=== PATIENT | male | born 1960 | race Caucasian/White ===

== ENCOUNTER → 2016-11-29 | Outpatient (CLI) | payer OTHER ==
--- NOTE | 2016-11-29 14:59 | CT ---
EXAMINATION TYPE: CT abdomen wo/w con DATE OF EXAM: 11/29/2016 2:45 PM COMPARISON: MRI 04/19/2016 HISTORY: Cirrhosis of Liver CT DLP: 2501 mGycm Automated exposure control for dose reduction was used. TECHNIQUE: Helical acquisition of images was performed from the lung bases through the top of iliac crest to include entire abdomen. CONTRAST: Performed with Oral Contrast and with IV Contrast, patient injected with 100 ml mL of Omnipaque 300. FINDINGS: LUNG BASES: No significant abnormality is appreciated. LIVER/GB: The liver is lobulated. Caudate lobe is markedly enlarged. Enhancement pattern somewhat sub optimal for detecting mass. However, this appears stable from the previous MRI. There does appear to be a gallstone with gallbladder wall thickening and pericholecystic fluid. Corre late for cholecystitis. Physician notified by telephone. PANCREAS: No significant abnormality is seen. SPLEEN: Spleen measures 15 cm compatible with mild splenomegaly. ADRENALS: No significant abnormality is seen. KIDNEYS: No significant abnormality is seen. BOWEL: No significant abnormality is seen. LYMPH NODES: Shotty adenopathy is seen. No pathologic adenopathy noted. OSSEOUS STRUCTURES: Endplate deformity of L1 incidentally noted appears chronic and there is previou s surgery at the lumbosacral junction.. OTHER: Portal vein appears patent. Hepatic veins do not demonstrate appropriate enhancement pattern f or evaluation. This is likely technical. Aorta of normal caliber. IMPRESSION: 1. CORRELATE FOR CHOLECYSTITIS CHOLELITHIASIS, GALLBLADDER WALL THICKENING AND PERICHOLECYSTIC FLUID .. 2. LIVER IS LOBULATED WITH CAUDATE LOBE ENLARGEMENT. CORRELATE FOR CIRRHOSIS. THIS APPEARS STABLE FRO M PREVIOUS MRI.
== END | disposition home or self-care (01) ==
LOC: RADXRMAIN 13:52
PROVIDERS: ATTEND Physician Assistant
DX: R16.0 Hepatomegaly, not elsewhere classified (principal)
CPT/HCPCS: 74170; Q9967

== ENCOUNTER 2017-03-03 19:01 | Inpatient (IN) | payer OTHER ==
[2017-03-03] MEDS ORDERED: SODIUM CHLORIDE 0.9% 500 ML IV STA (19:30)
[2017-03-03 19:48] LABS: Anisocytosis Slight; Basophils % (A) 0 %; CH 31.5; CHCM 33.1; Eosinophils % (A) 0 %; HCT 36.5 % (39.0-53.0); HDW 2.47; HGB 11.7 gm/dL (13.0-17.5); Luc # (Auto) 0.14; Luc % (Auto) 1; Lymphocytes # (A) 0.4 k/uL (1.0-4.8); Lymphocytes % (A) 3 %; MCH 30.6 pg (25.0-35.0); MCHC 32.1 g/dL (31.0-37.0); MCV 95.5 fL (80.0-100.0); Mean Platelet Volume 8.6; Monocytes # (A) 0.8 k/uL (0-1.0); Monocytes % (A) 6 %; Neutrophils % (A) 90 %; RBC 3.82 m/uL (4.30-5.90); RDW 17.3 % (11.5-15.5); WBC 13.3 k/uL (3.8-10.6); WBC (Perox) 13.43
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
[2017-03-03 20:05] LABS: INR 1.2 (<1.1); Prothrombin Time 11.7 sec (9.0-12.0)
[2017-03-03 20:06] LABS: ALT 36 U/L (21-72); AST 55 U/L (17-59); Alkaline Phosphatase 188 U/L (38-126); Amylase 59 U/L (30-110); Anion Gap 16 mmol/L; Blood Urea Nitrogen 30 mg/dL (9-20); Calcium 8.4 mg/dL (8.4-10.2); Carbon Dioxide 21 mmol/L (22-30); Chloride 99 mmol/L (98-107); Glucose 219 mg/dL (74-99); Non-African American GFR(MDRD) 56 (>60 ml/min/1.73 sqM); Potassium 4.4 mmol/L (3.5-5.1); Sodium 136 mmol/L (137-145); Total Bilirubin 1.4 mg/dL (0.2-1.3); Total Protein 7.9 g/dL (6.3-8.2)
[2017-03-03 20:09] LABS: Alcohol 250 mg/dL; Creatine Kinase 188 U/L (55-170)
[2017-03-03 20:21] LABS: Partial Thromboplastin Time 21.4 sec (22.0-30.0)
[2017-03-03 20:22] LABS: Troponin I <0.012 ng/mL (0.000-0.034)
[2017-03-03 20:25] LABS: Creatine Kinase MB 4.4 ng/mL (0.0-2.4)
--- NOTE | 2017-03-03 20:51 | XR ---
EXAMINATION TYPE: XR chest 2V DATE OF EXAM: 03/03/2017 8:00 PM COMPARISON: Prior chest x-ray 28 October 2016 HISTORY: Cirrhosis, abdominal pain, distention TECHNIQUE: Frontal and lateral views of the chest are obtained. FINDINGS: There is no focal air space opacity, pleural effusion, or pneumothorax seen. The cardiac silhouette size is within normal limits. The osseous structures are stable, superior displacement o f the distal clavicle on the right in relation to the acromion is chronic. IMPRESSION: No acute cardiopulmonary process.
--- NOTE | 2017-03-03 20:52 | XR ---
Abdomen HISTORY: Abdomen pain Frontal view of the abdomen on 2 images Lung bases are clear. Postop changes are noted at the lumbosacral junction and within the proximal le ft femur. Osteoarthritic change present in the left femur. There is no bowel obstruction or pneumoper itoneum. IMPRESSION: No abdominal finding to account for patient's symptoms.
--- NOTE | 2017-03-03 21:59 | CT ---
EXAMINATION TYPE: CT abdomen pelvis wo con DATE OF EXAM: 03/03/2017 9:38 PM COMPARISON: NONE HISTORY: Patient complains of weight gain and generalized abdomen pain. CT DLP: 1219.4 mGycm Automated exposure control for dose reduction was used. TECHNIQUE: Helical acquisition of images from the lung bases through the pelvis. FINDINGS: LUNG BASES: No significant abnormality is appreciated. AORTA: No significant abnormality is appreciated. LIVER/GB: The liver shows a nodular contour likely due to underlying cirrhosis. Gallbladder shows dep endent high density foci, some nondependent foci are also present suggestive of stones. There are brooke ices in the upper abdomen. PANCREAS: No significant abnormality is seen. SPLEEN: Enlarged at 15.7 cm. ADRENALS: No significant abnormality is seen. KIDNEYS: No significant abnormality is seen. REPRODUCTIVE ORGANS: No significant abnormality is seen. URINARY BLADDER: No significant abnormality is seen. BOWEL: There are some nonenlarged lymph nodes within the mesenteric fat. No bowel obstruction. FREE AIR: No Free Air is visible. ASCITES: None visible. PELVIC ADENOPATHY: None visualized. RETROPERITONEAL ADENOPATHY: No Retroperitoneal Adenopathy visible. OSSEOUS STRUCTURES: Postop changes are noted at the lower lumbar spine, lumbosacral junction, last listhesis grade 1 L4-5, L5-S1. Loss of disc height L4-5 with vacuum phenomenon. Listhesis contributes to cause foraminal encroachment L5-S1. Anterior aspect of L1 shows a sizable Schmorl's node, some de pression of the anterior aspect of the superior endplate. Postop change noted to the left hip, osteop hytic changes are present. Old traumatic change to the left hemipelvis noted. IMPRESSION: CIRRHOSIS WITH EVIDENCE OF PORTAL HYPERTENSION. SPLENOMEGALY. LACK OF CONTRAST MAY COMPROMISE SENSITI VITY. CHOLELITHIASIS. MESENTERIC NODES ARE NOT ENLARGED.
[2017-03-03] MEDS ORDERED: HYDROmorphone 1 MG/ML 1 ML SYRINGE IVP STA (22:13)
[2017-03-03] MEDS ORDERED: LORazepam 2 MG/ML SYRINGE IV PRN ×2 (22:13)
[2017-03-03] MEDS ORDERED: THIAMINE 100 MG/ML 2 ML VIAL IM STA (22:13)
[2017-03-03] MEDS ORDERED: NALOXONE 0.4 MG/ML 1 ML VIAL IV PRN (22:26)
[2017-03-03] MEDS ORDERED: KETOROLAC 30 MG/ML 1 ML VIAL IVP PRN (22:26)
[2017-03-03] MEDS ORDERED: ONDANSETRON 4 MG/2 ML VIAL IVP PRN (22:26)
[2017-03-03] MEDS: SODIUM CHLORIDE 0.9% 1,000 ML IV SCH (23:49)
[2017-03-04 00:27] LABS: Appearance,Urine Clear (Clear); Bilirubin,Urine Negative (Negative); Glucose,Urine (UA) Negative (Negative); Ketones,Urine Negative (Negative); Leukocyte Esterase,Urine Negative (Negative); Nitrite,Urine Negative (Negative); PH, Urine 5.5 (5.0-8.0); Protein,Urine Negative (Negative); Specific Gravity,Urine 1.012 (1.001-1.035); UA Billing (MACRO vs. MICRO) CHEM; Urobilinogen,Urine <2.0 mg/dL (<2.0)
[2017-03-04 00:34] VITALS: BMI 33.5
[2017-03-04] MEDS ORDERED: cefTRIAXone 2,000 MG in SODIUM CHLORIDE 0.9% 100 ML IVPB ONE (01:00)
[2017-03-04] MEDS: HYDROmorphone 1 MG/ML 1 ML SYRINGE IV PRN ×2 (02:32→06:58)
[2017-03-04] MEDS ORDERED: CALCIUM CARBONATE 500 MG CHEWABLE PO PRN (02:37)
[2017-03-04] MEDS: LORazepam 2 MG/ML SYRINGE IV PRN ×2 (07:26→20:41)
[2017-03-04] MEDS: SODIUM CHLORIDE 0.9% 1,000 ML IV SCH (07:37)
[2017-03-04] MEDS ORDERED: PANTOPRAZOLE 40 MG/10 ML VIAL IV SCH (09:00)
[2017-03-04 09:07] LABS: Anisocytosis Slight; Basophils % (A) 0 %; CH 31.2; CHCM 32.3; Eosinophils % (A) 0 %; HCT 35.3 % (39.0-53.0); HDW 2.49; HGB 11.5 gm/dL (13.0-17.5); Luc % (Auto) 2; Lymphocytes # (A) 0.3 k/uL (1.0-4.8); Lymphocytes % (A) 4 %; MCH 31.5 pg (25.0-35.0); MCHC 32.5 g/dL (31.0-37.0); MCV 96.9 fL (80.0-100.0); Macrocytosis Slight; Mean Platelet Volume 7.8; Monocytes # (A) 0.7 k/uL (0-1.0); Monocytes % (A) 8 %; Neutrophils # (A) 7.8 k/uL (1.3-7.7); Neutrophils % (A) 86 %; RBC 3.65 m/uL (4.30-5.90); RDW 17.1 % (11.5-15.5); WBC 9.1 k/uL (3.8-10.6); WBC (Perox) 9.38
[2017-03-04 09:16] LABS: Anion Gap 12 mmol/L; Blood Urea Nitrogen 25 mg/dL (9-20); Calcium 8.1 mg/dL (8.4-10.2); Carbon Dioxide 21 mmol/L (22-30); Chloride 105 mmol/L (98-107); Glucose 164 mg/dL (74-99); Non-African American GFR(MDRD) >60 (>60 ml/min/1.73 sqM); Potassium 4.2 mmol/L (3.5-5.1); Sodium 138 mmol/L (137-145)
[2017-03-04 10:29] LABS: Manual Review Performed
--- NOTE | 2017-03-04 11:27 | CONS ---
DATE OF CONSULTATION: 03/04/2017 REASON FOR CONSULTATION: Abdominal pain and abdominal distention. HISTORY OF PRESENT ILLNESS: The patient is a 57-year-old white male who came into the emergency room complaining of abdominal pain and abdominal distention for the last few weeks duration. He has history of cirrhosis of the liver secondary to alcoholism as well as chronic hepatitis C infection for which he follows up with NENO Haney in the office. The patient is quite sleepy during the interview and has been a poor historian. The reason he came into the hospital because of abdominal pain and abdominal distention for the last few weeks. He has been drinking heavily in the last one month, almost a pint of whiskey a day. He denies any nausea, vomiting. Denies any rectal bleeding or melena. Reports no abdominal pain, but does complain of severe abdominal distention. In the emergency room, he had a CT of the abdomen and pelvis done that showed no evidence of ascites. The patient was diagnosed with ascites in the past and has been maintained on Lasix and ( ) on an outpatient basis. His past medical history is significant for coronary artery disease, gastroesophageal reflux disease, hypertension, alcoholic cirrhosis of the liver, chronic hepatitis C infection. Medications at home include Inderal, Flonase, furosemide, spironolactone, Peridex, [place], K-Dur, Zantac. ALLERGIES: None. SOCIAL HISTORY: Heavy alcohol use and heavy smoking. FAMILY HISTORY: Father had some kind of cancer and heavy alcoholism. Mother has no major medical problems. REVIEW OF SYSTEMS: CARDIOPULMONARY: No chest pain or shortness of breath. GENITOURINARY: No dysuria or hematuria. MUSCULOSKELETAL: Unremarkable. SKIN: Unremarkable. ENDOCRINE: Unremarkable. PSYCHIATRIC: Unremarkable. NEUROLOGY: Unremarkable. ENT/VISION: Unremarkable. CONSTITUTIONAL: No recent weight loss. No fever, chills or night sweats. On physical examination, blood pressure 127/82, pulse rate ( ), temperature 98. HEENT EXAMINATION: Unremarkable. Conjunctivae pink. Sclerae anicteric. Oral cavity, no lesions. NECK: No JVD or lymph node enlargement. Chest was clear to auscultation. HEART: Regular rate and rhythm. ABDOMEN: Soft. It was nontender, nondistended. Liver was palpable 4 cm below the right costal margin. No organomegaly. No ascites noted. EXTREMITIES: No pedal edema. SKIN: No rashes. NEURO: He is alert and oriented x3. No focal deficits. LABS: WBC 9.1, hemoglobin 11.5, platelets are 101. BUN 30, creatinine 1.32, and alk phos 188. Ammonia 36. ALT and AST of 55 and ( ) respectively. T-bili 1.4. Serum ammonia level was 36. Amylase and lipase are normal. Serum alcohol level was 250. IMPRESSION: 1. Cirrhosis of the liver secondary to heavy alcohol use and chronic hepatitis C infection. 2. History of ascites related to portal hypertension. 3. Abdominal distention and abdominal pain, but recent CAT scan of the abdomen yesterday did not show any evidence of ascites. 4. Heavy alcohol abuse. 5. Mild hepatic encephalopathy. RECOMMENDATIONS: 1. Continue with symptomatic and supportive care. 2. Continue with the current dose of diuretics. 3. Watch for DTs closely. 4. Start on a clear liquid diet and advance as tolerated. 5. Will follow him closely during his hospital stay. Thank you for this consultation.
[2017-03-04] MEDS ORDERED: ALBUTEROL NEBULIZED 2.5 MG/3 ML INHALATION PRN (11:45)
[2017-03-04] MEDS: THIAMINE 100 MG TAB PO SCH ×2 (11:53→16:13)
[2017-03-04] MEDS ORDERED: FLUTICASONE 50MCG/SPRAY NASAL 16GM EA NOSTRIL PRN (12:07)
--- NOTE | 2017-03-04 12:40 | HP ---
DATE OF ADMISSION: A 57-year-old came in with abdominal pain and abdominal distention, although patient did not have any ascites. Patient has hep C infection and patient has cirrhosis with portal hypertension. Patient was admitted for alcohol withdrawal. Patient is actively having withdrawals. Patient drinks about more than 1/5 of whiskey every day. Patient will be watched for withdrawals. Patient was found to be in renal failure. He was given IV fluids with improvement in his creatinine and BUN as well as sodium. As of now, we are discontinuing the IV fluids, although I am not going to start him on Lasix or Aldactone which he is on at home. Patient does not have any fluid thrill or shifting dullness at this point of time. Patient denied any abdominal pain, abdominal tenderness because of which I do not believe patient has peritonitis and I do not believe patient will need antibiotics. Those will be discontinued. He denies any nausea, vomiting. Patient denied any hematemesis, hemoptysis or melena, hematochezia. ROS: All others systems were reviewed and were negative. PAST MEDICAL HISTORY: Significant for coronary artery disease, gastroesophageal reflux disease, hypertension, alcoholic cirrhosis and history of chronic hep C, probably hep C is contributing to his cirrhosis as well. Home medications include: 1. Inderal. 2. Flonase. 3. Lasix. 4. Aldactone. 5. Peridex. 6. [place]. 7. K-Dur. 8. Zantac. SOCIAL HISTORY: The patient does drink heavily, drinks whiskey every day. Does smoke 1 pack per day. Denied any recreational drug abuse. Drug screen is positive for marijuana in the past. FAMILY HISTORY: Cancer in family. History of alcoholism in the family as well. PHYSICAL EXAMINATION: VITAL SIGNS: Temperature 97.2, pulse of 77, respiratory rate 20, blood pressure is 121/74, saturating at 92% on room air. GENERAL: The patient is alert and oriented x3, not in any acute distress. Well developed, well nourished. HEENT: Pupils are round and equally reacting to light. EOMI. No scleral icterus. No conjunctival pallor. Normocephalic, atraumatic. No pharyngeal erythema. No thyromegaly. CARDIOVASCULAR: S1 and S2 present. No murmurs, rubs, or gallops. RESPIRATORY EXAMINATION: Patient has decreased and rhonchus breath sounds on the right side of the chest. ABDOMEN: The patient's abdomen is distended, but it is because of the fat. The patient's abdomen is not tympanic. No fluid thrill or shifting dullness. MUSCULOSKELETAL: No joint swelling or deformity. EXTREMITIES: No cyanosis, clubbing, or pedal edema. NEUROLOGICAL: Gross neurological examination did not reveal any focal deficits. SKIN: No rashes. LABORATORY DATA: Significant ones were already discussed above. Patient had leukocytosis when he came in, which improved and patient has thrombocytopenia secondary to splenic sequestration of the platelets and cirrhosis. Hemoglobin is 11.5, MCV 96.9. UA is essentially within normal limits. The serum alcohol 250 when he came in. ASSESSMENT AND PLAN: 1. Alcohol abuse. 2. Alcohol withdrawal. Patient will watched for alcohol withdrawal. The patient will be on ( ) CIWA protocol, thiamine and multivitamin supplementation. Will discontinue all the IV fluids at this point of time because of concerns of cirrhosis and related portal hypertension and ascites. 3. Cirrhosis. Patient does not have any significant ascites and does have portal hypertension. Does not have appear to have any spontaneous bacterial peritonitis. Antibiotics will be discontinued. 4. Obesity. 5. Acute renal failure due to intravascular volume depletion mostly is related to his Aldactone and spironolactone, which will be held until his discharge. Will watch for the withdrawals. 6. Leukocytosis appeared to be reactive response. I did not see signs or symptoms of infection at this point of time. 7. Chronic obstructive pulmonary disease with very minimal exacerbation. I do not believe patient will need systemic steroids. Patient will be started on inhalational steroids and albuterol ipratropium. MTDD
[2017-03-04 17:08] LABS: Glucose,Whole Blood 108 mg/dL (75-99)
[2017-03-04] MEDS ORDERED: SYMBICORT 80-4.5 MCG INHALER INHALATION SCH (20:00)
[2017-03-04] MEDS ORDERED: NICOTINE 21MG/24HR PATCH TRANSDERM SCH (20:30)
[2017-03-04] MEDS ORDERED: PROPRANOLOL 10 MG TAB PO SCH (21:00)
[2017-03-04] MEDS ORDERED: CHLORHEXIDINE GLUCONATE 15 ML CUP MUCOUS MEM SCH (21:00)
[2017-03-05] MEDS: LORazepam 2 MG/ML SYRINGE IV PRN (00:39)
[2017-03-05 05:08] VITALS: BP 110/66; PULSE 71; RESP 16; TEMP 97.3
--- NOTE | 2017-03-21 10:26 | DS ---
DATE OF ADMISSION: 03/03/2017 DATE OF DISCHARGE: 03/05/2017 DATE OF SERVICE: 03/05/2017 Patient left AGAINST MEDICAL ADVICE.
== END 2017-03-05 05:13 | disposition left against medical advice (07) | DRG 894 ==
LOC: EC 19:01 → SUPCPDRO 19:01 → 4MS4W 22:26
PROVIDERS: ADMIT Hospitalist; ATTEND Hospitalist
DX: F10.239 Alcohol dependence with withdrawal, unspecified (principal); N17.9 Acute kidney failure, unspecified; E87.2 Acidosis; K76.6 Portal hypertension; J44.1 Chronic obstructive pulmonary disease with (acute) exacerbation; R16.1 Splenomegaly, not elsewhere classified; K70.30 Alcoholic cirrhosis of liver without ascites; B18.2 Chronic viral hepatitis C; E66.9 Obesity, unspecified; E86.9 Volume depletion, unspecified; F17.210 Nicotine dependence, cigarettes, uncomplicated; I10 Essential (primary) hypertension; I25.10 Atherosclerotic heart disease of native coronary artery without angina pectoris; K21.9 Gastro-esophageal reflux disease without esophagitis; K72.90 Hepatic failure, unspecified without coma; K80.20 Calculus of gallbladder without cholecystitis without obstruction; F32.9 Major depressive disorder, single episode, unspecified; F10.229 Alcohol dependence with intoxication, unspecified; T50.0X5A Adverse effect of mineralocorticoids and their antagonists, initial encounter; E83.119 Hemochromatosis, unspecified; Z79.899 Other long term (current) drug therapy; Z68.33 Body mass index [BMI] 33.0-33.9, adult; Y92.009 Unspecified place in unspecified non-institutional (private) residence as the place of occurrence of the external cause; Y90.8 Blood alcohol level of 240 mg/100 ml or more
CPT/HCPCS: 36415; 71020; 74000; 74176; 80048; 80053; 80320; 81003; 82140; 82150; 82550; 82553; 83605; 83690; 83880; 84484; 85025; 85610; 85730; 87040; 93005; 94640; 96361; 96372; 96374; 96375; 99285

== ENCOUNTER 2017-03-11 12:20 | Emergency (ER) | payer OTHER ==
[2017-03-11 12:39] VITALS: RESP 18; TEMP 98.4
[2017-03-11] MEDS ORDERED: MORPHINE SULFATE 4 MG/ML SYRINGE IV STA (13:33)
[2017-03-11] MEDS ORDERED: PANTOPRAZOLE 40 MG/10 ML VIAL IVP STA (13:33)
[2017-03-11] MEDS ORDERED: ONDANSETRON 4 MG/2 ML VIAL IVP STA (13:33)
[2017-03-11] MEDS ORDERED: SODIUM CHLORIDE 0.9% 1,000 ML IV STA (13:33)
[2017-03-11] MEDS ORDERED: LORazepam 2 MG/ML SYRINGE IV STA (13:39)
--- NOTE | 2017-03-11 13:39 | ED ---
General Adult HPI - General Chief complaint: Abdominal Pain Stated complaint: JUVENCIO, Abd Pain Time Seen by Provider: 03/11/17 12:45 Source: patient, RN notes reviewed, old records reviewed Mode of arrival: ambulatory Limitations: no limitations - History of Present Illness Initial comments: This is a 57-year-old male here for evaluation today. The patient comes in for evaluation regarding the bowel pain. Patient has known history of cirrhosis from alcohol. Patient was recently admitted to the hospital for multiple issues. I noted AMA secondary to agitation and anger, patient states the symptoms and thought the resolved, is feeling improved. I will otherwise complaining of increased nausea vomiting - Related Data Home Medications Medication Instructions Recorded Confirmed Propranolol [Inderal] 10 mg PO BID 03/06/16 03/11/17 Fluticasone Nasal [place] [Flonase 1 spray EA NOSTRIL DAILY PRN 03/07/16 03/11/17 Nasal [place]] Furosemide [Furosemide] 40 mg PO BID 03/07/16 03/11/17 Spironolactone 50 mg PO BID 04/01/16 03/11/17 Chlorhexidine Gluconate [Peridex] 15 ml PO BID 03/03/17 03/11/17 HYDROcodone/APAP 10-325MG [[place] 1 tab PO TID 03/03/17 03/11/17 10-325] Potassium Chloride ER [K-Dur 10] 10 meq PO DAILY 03/03/17 03/11/17 Pantoprazole Sodium [Protonix] 40 mg PO DAILY 03/11/17 03/11/17 Allergies Allergy/AdvReac Type Severity Reaction Status Date / Time No Known Allergies Allergy Verified 03/11/17 12:53 Review of Systems ROS Statement: Those systems with pertinent positive or pertinent negative responses have been documented in the HPI. ROS Other: All systems not noted in ROS Statement are negative. Past Medical History Past Medical History: Coronary Artery Disease (CAD), GERD/Reflux, Hypertension Additional Past Medical History / Comment(s): Alcoholic Cirrhosis of the liver, hep c, ascites, hemachromatosis, left pelvic fracture and femer fracture, herpes History of Any Multi-Drug Resistant Organisms: None Reported Past Surgical History: Back Surgery Additional Past Surgical History / Comment(s): ankle ,7 screws left elbow, 4 screws in spine, hepatitis C, Baldo placed (L) Femer Past Anesthesia/Blood Transfusion Reactions: No Reported Reaction Past Psychological History: Depression Smoking Status: Current every day smoker Past Alcohol Use History: Daily, Heavy Additional Past Alcohol Use History / Comment(s): Patient is a smoker one pack per day since he was 20 years of age. He does have history of heavy alcohol abuse but has been sober from February 2015 until 05/25/2015. He denies any street drug use. Drug screen was positive for marijuana. Patient is single and lives with his 15-year-old son who is healthy. Patient is currently on disability. Past Drug Use History: Marijuana - Past Family History Father Family Medical History: Cancer Additional Family Medical History / Comment(s): Father at age 55 with history of alcoholism Mother Family Medical History: No Reported History Additional Family Medical History / Comment(s): Mother is alive at age 70 with no major medical problems. Patient has 1 sister with no major medical problems. General Exam Limitations: no limitations General appearance: alert, in no apparent distress Head exam: Present: atraumatic, normocephalic, normal inspection Eye exam: Present: normal appearance, PERRL, EOMI. Absent: scleral icterus, conjunctival injection, periorbital swelling ENT exam: Present: normal exam, mucous membranes moist Neck exam: Present: normal inspection. Absent: tenderness, meningismus, lymphadenopathy Respiratory exam: Present: normal lung sounds bilaterally. Absent: respiratory distress, wheezes, rales, rhonchi, stridor Cardiovascular Exam: Present: normal rhythm, tachycardia, normal heart sounds. Absent: systolic murmur, diastolic murmur, rubs, gallop, clicks GI/Abdominal exam: Present: soft, normal bowel sounds. Absent: distended, tenderness, guarding, rebound, rigid Extremities exam: Present: normal inspection, full ROM, normal capillary refill. Absent: tenderness, pedal edema, joint swelling, calf tenderness Back exam: Present: normal inspection Neurological exam: Present: alert, oriented X3, CN II-XII intact Psychiatric exam: Present: normal affect, normal mood Skin exam: Present: warm, dry, intact, normal color. Absent: rash Course Vital Signs 03/11/17 03/11/17 12:33 14:15 Temperature 98.4 F Pulse Rate 101 H 100 Respiratory 18 18 Rate Blood Pressure 134/75 140/80 O2 Sat by Pulse 96 94 L Oximetry - Reevaluation(s) Reevaluation #1: 05/13/17 13:39 Patient recent hospital evaluation is reviewed Medical Decision Making - Medical Decision Making 57 male here for evaluation of intractable nausea and vomiting and bowel pain. Patient was recently admitted for continued GI evaluation and reevaluation regarding chronic ascites secondary to liver and hepatic cirrhosis. Patient wasn't happy with Madie was receiving and signed out AMA, patient is normal at work at this time, no extensive ascites regarding shortness of breath or even tense ascites, no abdominal pain on palpation. Patient informed to follow-up with GI and no medical admission for been no medical reason for admission at this time - Lab Data Result diagrams: 03/11/17 13:40 03/11/17 13:40 Lab Results 03/11/17 03/11/17 03/11/17 Range/Units 13:40 13:40 13:40 WBC 5.1 (3.8-10.6) k/uL RBC 3.75 L (4.30-5.90) m/uL Hgb 11.6 L (13.0-17.5) gm/dL Hct 35.1 L (39.0-53.0) % MCV 93.6 (80.0-100.0) fL MCH 30.9 (25.0-35.0) pg MCHC 33.0 (31.0-37.0) g/dL RDW 16.7 H (11.5-15.5) % Plt Count 56 L (150-450) k/uL Neutrophils % (Manual) 73.0 % Lymphocytes % (Manual) 12.0 % Monocytes % (Manual) 13.0 % Eosinophils % (Manual) 1.0 % Basophils % (Manual) 1.0 % Neutrophils # (Manual) 3.7 (1.3-7.7) k/uL Lymphocytes # (Manual) 0.6 L (1.0-4.8) k/uL Monocytes # (Manual) 0.7 (0-1.0) k/uL Eosinophils # (Manual) 0.1 (0-0.7) k/uL Basophils # (Manual) 0.1 (0-0.2) k/uL Nucleated RBCs 0 (0-0) /100 WBC Manual Slide Review Performed Anisocytosis Slight Sodium 142 (137-145) mmol/L Potassium 3.6 (3.5-5.1) mmol/L Chloride 107 (98-107) mmol/L Carbon Dioxide 23 (22-30) mmol/L Anion Gap 12 mmol/L BUN 12 (9-20) mg/dL Creatinine 0.99 (0.66-1.25) mg/dL Est GFR (MDRD) Af Amer >60 (>60 ml/min/1.73 sqM) Est GFR (MDRD) Non-Af >60 (>60 ml/min/1.73 sqM) Glucose 99 (74-99) mg/dL Plasma Lactic Acid [place] 1.5 (0.7-2.0) mmol/L Calcium 8.7 (8.4-10.2) mg/dL Magnesium 1.6 (1.6-2.3) mg/dL Total Bilirubin 1.2 (0.2-1.3) mg/dL AST 62 H (17-59) U/L ALT 44 (21-72) U/L Alkaline Phosphatase 152 H (38-126) U/L Ammonia 25 (<30) umol/L Total Protein 7.1 (6.3-8.2) g/dL Albumin 3.6 (3.5-5.0) g/dL Amylase 85 (30-110) U/L Lipase 396 H (23-300) U/L Serum Alcohol 204 mg/dL Disposition Clinical Impression: Alcohol intoxication, Ascites Disposition: HOME SELF-CARE Condition: Good Instructions: Abuse of Alcohol (ED), Cirrhosis (ED) Referrals: Omar Tse MD [Primary Care Provider] - 1-2 days
[2017-03-11 13:53] LABS: Anisocytosis Slight; Aty Lym Flag Slight; CH 31.4; CHCM 33.6; HCT 35.1 % (39.0-53.0); HDW 3.08; HGB 11.6 gm/dL (13.0-17.5); MCH 30.9 pg (25.0-35.0); MCV 93.6 fL (80.0-100.0); Mean Platelet Volume 8.9; RBC 3.75 m/uL (4.30-5.90); RDW 16.7 % (11.5-15.5); WBC 5.1 k/uL (3.8-10.6); WBC (Perox) 4.85
[2017-03-11 14:12] LABS: ALT 44 U/L (21-72); AST 62 U/L (17-59); Alkaline Phosphatase 152 U/L (38-126); Amylase 85 U/L (30-110); Anion Gap 12 mmol/L; Blood Urea Nitrogen 12 mg/dL (9-20); Calcium 8.7 mg/dL (8.4-10.2); Carbon Dioxide 23 mmol/L (22-30); Chloride 107 mmol/L (98-107); Glucose 99 mg/dL (74-99); Magnesium 1.6 mg/dL (1.6-2.3); Non-African American GFR(MDRD) >60 (>60 ml/min/1.73 sqM); Potassium 3.6 mmol/L (3.5-5.1); Sodium 142 mmol/L (137-145); Total Bilirubin 1.2 mg/dL (0.2-1.3); Total Protein 7.1 g/dL (6.3-8.2)
[2017-03-11 14:22] VITALS: BP 140/80; PULSE 100
[2017-03-11 14:23] LABS: Add Differential Manual Differential; Alcohol 204 mg/dL
[2017-03-11 14:26] LABS: Nucleated Red Blood Cells 0 /100 WBC (0-0); Total Cells Counted 100
[2017-03-11 14:27] LABS: Manual Review Performed
[2017-03-11] MEDS ORDERED: LORazepam 2 MG/ML SYRINGE IV PRN ×3 (14:36)
[2017-03-11] MEDS ORDERED: THIAMINE 100 MG/ML 2 ML VIAL IM STA (14:36)
[2017-03-11] MEDS ORDERED: THIAMINE 100 MG TAB PO SCH (17:00)
== END 2017-03-11 14:50 | disposition home or self-care (01) ==
LOC: EC 12:20
DX: F10.129 Alcohol abuse with intoxication, unspecified (principal); R00.0 Tachycardia, unspecified; R11.2 Nausea with vomiting, unspecified; K70.31 Alcoholic cirrhosis of liver with ascites; I10 Essential (primary) hypertension; K21.9 Gastro-esophageal reflux disease without esophagitis; F17.200 Nicotine dependence, unspecified, uncomplicated; Z79.891 Long term (current) use of opiate analgesic; Z79.899 Other long term (current) drug therapy
CPT/HCPCS: 99284 ×2; 96374 ×2; 96375 ×4; 96361 ×2; 36415; 80053; 82140; 82150; 83605; 83690; 83735; 85025; 80320; J2060; J2270; J2405; C9113

== ENCOUNTER 2017-03-13 13:13 | Observation (INO) | payer OTHER ==
[2017-03-13] MEDS ORDERED: IPRATROPIUM-ALBUTEROL 3 ML NEB INHALATION STA (14:33)
--- NOTE | 2017-03-13 14:38 | ED ---
General Adult HPI - General Chief complaint: Abdominal Pain Stated complaint: diff breathing Time Seen by Provider: 03/13/17 14:26 Source: patient, RN notes reviewed, old records reviewed Mode of arrival: ambulatory - History of Present Illness Initial comments: 57-year-old male with history of cirrhosis and alcohol abuse presenting for abdominal distention and shortness of breath. Patient states that over the past 2 weeks he's had significant increase in the size of his abdomen. He states he does have a history of hep C but took Harvoni and believes this is cured now. He states that he was seen a few days ago for similar symptoms in the [facility] and discharged home. States since this time he has noticed increased size of his abdomen and worsening shortness of breath. He does state that he continues to drink alcohol. He denies any chest pain. He denies any fevers or chills. He denies any significant abdominal pain. He has had some nausea associated but no vomiting. States he is having normal bowel movements. He has been taking his Lasix without improvement. - Related Data Home Medications Medication Instructions Recorded Confirmed Propranolol [Inderal] 10 mg PO BID 03/06/16 03/13/17 Fluticasone Nasal [place] [Flonase 1 spray EA NOSTRIL DAILY PRN 03/07/16 03/13/17 Nasal [place]] Furosemide [Furosemide] 40 mg PO BID 03/07/16 03/13/17 Spironolactone 50 mg PO BID 04/01/16 03/13/17 Chlorhexidine Gluconate [Peridex] 15 ml PO BID 03/03/17 03/13/17 HYDROcodone/APAP 10-325MG [[place] 1 tab PO TID 03/03/17 03/13/17 10-325] Potassium Chloride ER [K-Dur 10] 10 meq PO DAILY 03/03/17 03/13/17 Pantoprazole Sodium [Protonix] 40 mg PO DAILY 03/11/17 03/13/17 Allergies Allergy/AdvReac Type Severity Reaction Status Date / Time No Known Allergies Allergy Verified 03/13/17 14:53 Review of Systems ROS Statement: Those systems with pertinent positive or pertinent negative responses have been documented in the HPI. ROS Other: All systems not noted in ROS Statement are negative. Past Medical History Past Medical History: Coronary Artery Disease (CAD), GERD/Reflux, Hypertension Additional Past Medical History / Comment(s): Alcoholic Cirrhosis of the liver, hep c, ascites, hemachromatosis, left pelvic fracture and femer fracture, herpes History of Any Multi-Drug Resistant Organisms: None Reported Past Surgical History: Back Surgery Additional Past Surgical History / Comment(s): ankle ,7 screws left elbow, 4 screws in spine, hepatitis C, Baldo placed (L) Femer Past Anesthesia/Blood Transfusion Reactions: No Reported Reaction Past Psychological History: Depression Smoking Status: Current every day smoker Past Alcohol Use History: Daily, Heavy Additional Past Alcohol Use History / Comment(s): Patient is a smoker one pack per day since he was 20 years of age. He does have history of heavy alcohol abuse but has been sober from February 2015 until 05/25/2015. He denies any street drug use. Drug screen was positive for marijuana. Patient is single and lives with his 15-year-old son who is healthy. Patient is currently on disability. Past Drug Use History: Marijuana - Past Family History Father Family Medical History: Cancer Additional Family Medical History / Comment(s): Father at age 55 with history of alcoholism Mother Family Medical History: No Reported History Additional Family Medical History / Comment(s): Mother is alive at age 70 with no major medical problems. Patient has 1 sister with no major medical problems. General Exam - General Exam Comments Initial Comments: General: Awake and Alert. No acute distress. Does not appear acutely ill. Obese. Eyes: ANI, EOM intact. No nystagmus. No scleral icterus. HENT: Atraumatic, normocephalic. Mucous membranes moist. Trachea midline. Neck: The neck is supple, there is no tenderness or JVD. Cardiovascular: Regular rate and rhythm. No murmur, rub, or gallop is appreciated. Distal pulses intact. Respiratory: Lungs are clear to auscultation bilaterally. Mild wheezes. Mild crackles. No rhonchi. No respiratory distress. Gastrointestinal: Soft, Nontender. No rebound or guarding. Distended with ascites. No masses or organomegaly noted. No CVA tenderness. Musculoskeletal: No tenderness. Normal ROM. No gross deformity. No strength deficits. Neurological: A&Ox3. CN II-XII grossly intact, There are no obvious motor or sensory deficits. Coordination appears grossly intact. Speech is normal. Skin: Skin is warm and dry and no rashes or lesions are noted. Psychiatric: Cooperative, appropriate mood & affect, normal judgment. Course Vital Signs 03/13/17 03/13/17 03/13/17 13:37 14:53 15:04 Temperature 98.7 F Pulse Rate 103 H 100 104 H Respiratory 20 Rate Blood Pressure 140/85 O2 Sat by Pulse 94 L Oximetry 03/13/17 16:32 Temperature 98.5 F Pulse Rate 104 H Respiratory 18 Rate Blood Pressure 148/77 O2 Sat by Pulse 96 Oximetry Medical Decision Making - Medical Decision Making 57-year-old male with history of alcohol abuse and cirrhosis presenting for abdominal distention and shortness of breath. Patient with evidence of significant amount of ascites on examination. His belly is soft and nontender without evidence of acute peritonitis or SBP at this time. Vitals are stable, and afebrile. Lab work and imaging ordered. Lab work stable CBC with chronic thrombocytopenia. BMP stable. LFTs consistent with chronic cirrhosis. CXR with LLL finding likely atelectasis, no clinical evidence of PNA at this time. Low suspicion of sepsis at this time. Patient is reevaluated and feeling somewhat improved after breathing treatment. He states he still feels short of breath however. Denies any significant abdominal pain at this time. Updated on plan for admission. Patient is agreeable to this. Given history and worsening of abdominal ascites and SOB, plan for admission for paracentesis and GI evaluation. I called and spoke with Dr. Rowland agrees with plan for admission. - Lab Data Result diagrams: 03/13/17 14:40 03/13/17 14:40 Lab Results 03/13/17 03/13/17 03/13/17 Range/Units 14:40 14:40 14:40 WBC 4.9 (3.8-10.6) k/uL RBC 3.76 L (4.30-5.90) m/uL Hgb 11.5 L (13.0-17.5) gm/dL Hct 35.7 L (39.0-53.0) % MCV 94.8 (80.0-100.0) fL MCH 30.7 (25.0-35.0) pg MCHC 32.4 (31.0-37.0) g/dL RDW 16.7 H (11.5-15.5) % Plt Count 50 L* (150-450) k/uL Neutrophils % 74 % Lymphocytes % 9 % Monocytes % 12 % Eosinophils % 2 % Basophils % 0 % Neutrophils # 3.6 (1.3-7.7) k/uL Lymphocytes # 0.4 L (1.0-4.8) k/uL Monocytes # 0.6 (0-1.0) k/uL Eosinophils # 0.1 (0-0.7) k/uL Basophils # 0.0 (0-0.2) k/uL Hypochromasia Slight Anisocytosis Slight PT (9.0-12.0) sec INR (<1.1) Sodium 142 (137-145) mmol/L Potassium 4.0 (3.5-5.1) mmol/L Chloride 110 H (98-107) mmol/L Carbon Dioxide 20 L (22-30) mmol/L Anion Gap 12 mmol/L BUN 11 (9-20) mg/dL Creatinine 0.95 (0.66-1.25) mg/dL Est GFR (MDRD) Af Amer >60 (>60 ml/min/1.73 sqM) Est GFR (MDRD) Non-Af >60 (>60 ml/min/1.73 sqM) Glucose 137 H (74-99) mg/dL Calcium 8.3 L (8.4-10.2) mg/dL Total Bilirubin 1.6 H (0.2-1.3) mg/dL AST 88 H (17-59) U/L ALT 44 (21-72) U/L Alkaline Phosphatase 176 H (38-126) U/L NT-Pro-B Natriuret Pep 129 pg/mL Total Protein 7.4 (6.3-8.2) g/dL Albumin 3.7 (3.5-5.0) g/dL Urine Color Urine Appearance (Clear) Urine pH (5.0-8.0) Ur Specific [place] (1.001-1.035) Urine Protein (Negative) Urine Glucose (UA) (Negative) Urine Ketones (Negative) Urine Blood (Negative) Urine Nitrite (Negative) Urine Bilirubin (Negative) Urine Urobilinogen (<2.0) mg/dL Ur Leukocyte Esterase (Negative) Serum Alcohol mg/dL 03/13/17 03/13/17 03/13/17 Range/Units 14:40 14:40 15:40 WBC (3.8-10.6) k/uL RBC (4.30-5.90) m/uL Hgb (13.0-17.5) gm/dL Hct (39.0-53.0) % MCV (80.0-100.0) fL MCH (25.0-35.0) pg MCHC (31.0-37.0) g/dL RDW (11.5-15.5) % Plt Count (150-450) k/uL Neutrophils % % Lymphocytes % % Monocytes % % Eosinophils % % Basophils % % Neutrophils # (1.3-7.7) k/uL Lymphocytes # (1.0-4.8) k/uL Monocytes # (0-1.0) k/uL Eosinophils # (0-0.7) k/uL Basophils # (0-0.2) k/uL Hypochromasia Anisocytosis PT 11.0 (9.0-12.0) sec INR 1.1 (<1.1) Sodium (137-145) mmol/L Potassium (3.5-5.1) mmol/L Chloride (98-107) mmol/L Carbon Dioxide (22-30) mmol/L Anion Gap mmol/L BUN (9-20) mg/dL Creatinine (0.66-1.25) mg/dL Est GFR (MDRD) Af Amer (>60 ml/min/1.73 sqM) Est GFR (MDRD) Non-Af (>60 ml/min/1.73 sqM) Glucose (74-99) mg/dL Calcium (8.4-10.2) mg/dL Total Bilirubin (0.2-1.3) mg/dL AST (17-59) U/L ALT (21-72) U/L Alkaline Phosphatase (38-126) U/L NT-Pro-B Natriuret Pep pg/mL Total Protein (6.3-8.2) g/dL Albumin (3.5-5.0) g/dL Urine Color Yellow Urine Appearance Clear (Clear) Urine pH 6.0 (5.0-8.0) Ur Specific [place] 1.017 (1.001-1.035) Urine Protein Negative (Negative) Urine Glucose (UA) Negative (Negative) Urine Ketones Negative (Negative) Urine Blood Negative (Negative) Urine Nitrite Negative (Negative) Urine Bilirubin Negative (Negative) Urine Urobilinogen 2.0 (<2.0) mg/dL Ur Leukocyte Esterase Negative (Negative) Serum Alcohol 114 mg/dL - Radiology Data Radiology results: report reviewed, image reviewed Disposition Clinical Impression: SOB (shortness of breath), Cirrhosis, Alcohol intoxication, Ascites, Thrombocytopenia Disposition: ADMITTED IP TO THIS [facility] Condition: Stable Decision to Admit Reason: Admit from [facility]
[2017-03-13 15:01] LABS: Anisocytosis Slight; Basophils % (A) 0 %; CH 31.2; Eosinophils # (A) 0.1 k/uL (0-0.7); Eosinophils % (A) 2 %; HCT 35.7 % (39.0-53.0); HDW 3.09; HGB 11.5 gm/dL (13.0-17.5); Hypochromasia Slight; Luc # (Auto) 0.17; Luc % (Auto) 3; Lymphocytes # (A) 0.4 k/uL (1.0-4.8); Lymphocytes % (A) 9 %; MCH 30.7 pg (25.0-35.0); MCHC 32.4 g/dL (31.0-37.0); MCV 94.8 fL (80.0-100.0); Mean Platelet Volume 8.3; Monocytes # (A) 0.6 k/uL (0-1.0); Monocytes % (A) 12 %; Neutrophils # (A) 3.6 k/uL (1.3-7.7); Neutrophils % (A) 74 %; RBC 3.76 m/uL (4.30-5.90); RDW 16.7 % (11.5-15.5); WBC 4.9 k/uL (3.8-10.6); WBC (Perox) 4.77
[2017-03-13 15:03] LABS: ALT 44 U/L (21-72); AST 88 U/L (17-59); Alkaline Phosphatase 176 U/L (38-126); Anion Gap 12 mmol/L; Blood Urea Nitrogen 11 mg/dL (9-20); Calcium 8.3 mg/dL (8.4-10.2); Carbon Dioxide 20 mmol/L (22-30); Chloride 110 mmol/L (98-107); Glucose 137 mg/dL (74-99); INR 1.1 (<1.1); Non-African American GFR(MDRD) >60 (>60 ml/min/1.73 sqM); Sodium 142 mmol/L (137-145); Total Bilirubin 1.6 mg/dL (0.2-1.3); Total Protein 7.4 g/dL (6.3-8.2)
[2017-03-13 15:27] LABS: Appearance,Urine Clear (Clear); Bilirubin,Urine Negative (Negative); Glucose,Urine (UA) Negative (Negative); Ketones,Urine Negative (Negative); Leukocyte Esterase,Urine Negative (Negative); Nitrite,Urine Negative (Negative); Protein,Urine Negative (Negative); Specific Gravity,Urine 1.017 (1.001-1.035); UA Billing (MACRO vs. MICRO) CHEM
--- NOTE | 2017-03-13 15:52 | XR ---
EXAMINATION TYPE: XR chest 2V DATE OF EXAM: 03/13/2017 3:27 PM COMPARISON: 03/03/2017 HISTORY: 57-year-old male with shortness of breath TECHNIQUE: PA and lateral views FINDINGS: The cardiomediastinal silhouette, aorta, and pulmonary vasculature are within normal limits. Focal op acity at the left base. Otherwise, lungs and pleural spaces are clear. IMPRESSION: Focal opacity at the left base could represent a patch of atelectasis or early infiltrate. Follow-up recommended.
[2017-03-13] MEDS ORDERED: NALOXONE 0.4 MG/ML 1 ML VIAL IV PRN (16:12)
[2017-03-13] MEDS ORDERED: HYDROcodone/APAP 5-325MG 1 EACH TAB PO PRN (16:12)
[2017-03-13 18:01] LABS: Glucose,Whole Blood 136 mg/dL (75-99)
[2017-03-13] MEDS ORDERED: HYDROmorphone 1 MG/ML 1 ML SYRINGE IVP PRN (18:03)
[2017-03-13] MEDS ORDERED: LORazepam 2 MG/ML SYRINGE IV PRN ×3 (18:07)
[2017-03-13] MEDS ORDERED: THIAMINE 100 MG/ML 2 ML VIAL IM STA (18:19)
[2017-03-13] MEDS: SODIUM CHLORIDE 0.9% 1,000 ML IV SCH (18:23)
[2017-03-13] MEDS: HYDROcodone/APAP 10-325MG 1 EACH TAB PO PRN (19:22)
[2017-03-13 20:15] LABS: Glucose,Whole Blood 102 mg/dL (75-99)
[2017-03-13] MEDS ORDERED: FLUTICASONE 50MCG/SPRAY NASAL 16GM EA NOSTRIL PRN (20:21)
[2017-03-13] MEDS: MORPHINE SULFATE 4 MG/ML SYRINGE IV PRN (20:47)
[2017-03-13] MEDS: SPIRONOLACTONE 25 MG TAB PO SCH (21:57)
[2017-03-13] MEDS: PROPRANOLOL 10 MG TAB PO SCH (21:57)
[2017-03-13] MEDS: CHLORHEXIDINE GLUCONATE 15 ML CUP MUCOUS MEM SCH (21:57)
[2017-03-14] MEDS: MORPHINE SULFATE 4 MG/ML SYRINGE IV PRN ×4 (00:50→21:15)
[2017-03-14] MEDS: FUROSEMIDE 10 MG/ML 4 ML VIAL IV SCH ×3 (00:53→21:15)
[2017-03-14] MEDS: HYDROcodone/APAP 10-325MG 1 EACH TAB PO PRN ×4 (02:07→19:49)
[2017-03-14] MEDS: ONDANSETRON 4 MG/2 ML VIAL IVP PRN ×2 (02:51→10:27)
[2017-03-14] MEDS ORDERED: MORPHINE SULFATE 4 MG/ML SYRINGE ONE (03:05)
[2017-03-14 07:32] LABS: Glucose,Whole Blood 99 mg/dL (75-99)
[2017-03-14] MEDS: LEVALBUTEROL NEB 1.25 MG/3 ML AMP INHALATION SCH ×3 (09:16→20:42)
[2017-03-14 09:27] LABS: Anisocytosis Slight; Basophils % (A) 0 %; CH 30.9; CHCM 32.9; Eosinophils # (A) 0.1 k/uL (0-0.7); Eosinophils % (A) 2 %; HCT 33.6 % (39.0-53.0); HDW 3.11; Hypochromasia Slight; Luc # (Auto) 0.07; Luc % (Auto) 2; Lymphocytes # (A) 0.4 k/uL (1.0-4.8); Lymphocytes % (A) 12 %; MCHC 32.8 g/dL (31.0-37.0); MCV 94.3 fL (80.0-100.0); Monocytes # (A) 0.4 k/uL (0-1.0); Monocytes % (A) 13 %; Neutrophils # (A) 2.4 k/uL (1.3-7.7); Neutrophils % (A) 71 %; RBC 3.56 m/uL (4.30-5.90); RDW 16.4 % (11.5-15.5); WBC 3.3 k/uL (3.8-10.6); WBC (Perox) 3.21
[2017-03-14] MEDS: SPIRONOLACTONE 25 MG TAB PO SCH ×2 (09:28→22:37)
[2017-03-14] MEDS: CHLORHEXIDINE GLUCONATE 15 ML CUP MUCOUS MEM SCH ×2 (09:28→21:15)
[2017-03-14] MEDS: PROPRANOLOL 10 MG TAB PO SCH ×2 (09:29→21:15)
[2017-03-14 09:37] LABS: ALT 40 U/L (21-72); AST 73 U/L (17-59); Alkaline Phosphatase 151 U/L (38-126); Anion Gap 9 mmol/L; Blood Urea Nitrogen 14 mg/dL (9-20); Calcium 8.2 mg/dL (8.4-10.2); Carbon Dioxide 25 mmol/L (22-30); Chloride 103 mmol/L (98-107); Glucose 135 mg/dL (74-99); Magnesium 1.6 mg/dL (1.6-2.3); Non-African American GFR(MDRD) >60 (>60 ml/min/1.73 sqM); Phosphorous 2.7 mg/dL (2.5-4.5); Potassium 3.6 mmol/L (3.5-5.1); Sodium 137 mmol/L (137-145); Total Bilirubin 2.1 mg/dL (0.2-1.3)
[2017-03-14] MEDS: POTASSIUM CHLORIDE ER 10 MEQ TAB.ER.PRT PO SCH (09:44)
[2017-03-14] MEDS: PANTOPRAZOLE 40 MG/10 ML VIAL IV SCH (09:44)
[2017-03-14 09:45] LABS: INR 1.1 (<1.1); Prothrombin Time 11.2 sec (9.0-12.0)
--- NOTE | 2017-03-14 09:45 | US ---
EXAMINATION TYPE: US abdomen limited DATE OF EXAM: 03/14/2017 8:31 AM COMPARISON: CT CLINICAL HISTORY: assess ascites. ABD distention, check for ascites Scant amount of ascites RUQ superior to liver, otherwise no sizeable fluid pocket seen IMPRESSION: 1. Minimal ascites right upper quadrant
--- NOTE | 2017-03-14 09:57 | P.CONS ---
History of Present Illness - Reason for Consult Consult date: 03/14/17 Ascites cirrhosis Requesting physician: Jeferson Rowland - History of Present Illness 57-year-old male with a long-standing history of alcohol abuse and dependency recent hospitalization a week ago for abdominal distention shortness of breath acute alcohol intoxication and withdrawal. Additional past medical history liver cirrhosis with chronic hepatitis C infection status post antiviral treatment, portal hypertension with esophageal varices status post variceal ligation 4 months ago; recent surveillance EGD 2-3 months ago at [facility], hypertension, CAD, GERD. Seen in the ER a few days ago with acute alcohol intoxication with a serum alcohol level of 204. Drinks whiskey on a daily basis. Consultation requested for cirrhosis and ascites. Home medications reviewed takes Lasix and Aldactone daily. Admitted with persistent abdominal distention and shortness of breath. Denies fever chills hematemesis hematochezia or melena. Admission alcohol level 114. Total bilirubin 1.6. AST 88. ALT 44. Alkaline phosphates 176. September 2016 AFP 4.3. Quantitative HCV RNA <1.08IU/ml 10/06/2016. White count 4.9. Hemoglobin 11.5. Platelet 50,000. INR 1.1. Review of Systems Constitutional: Denies fever, chills, sweats, weight gain, or loss. HEENT: Negative for migraines, blurred vision or loss, earaches, drainage, tinnitus, oral mucosal lesions, dysphagia, or odynophagia. Cardiac: CAD. Hypertension. Negative for chest pain, arrhythmias, or palpitation. Respiratory: Negative for shortness of breath, hemoptysis, cough, or sputum production. Gastrointestinal: See HPI for pertinent findings. Genitourinary: Negative for hematuria, urgency, frequency, polyuria, dysuria, or penile discharge. Musculoskeletal: Negative for muscle aches, swelling, arthritis, and arthralgias. Neurologic: Negative for stroke or TIA. Endocrine: Negative for thyroid problems. Skin: Negative for rash or itching. Psychiatric: Negative history for depression and anxiety All systems: negative (See HPI) Past Medical History Past Medical History: Coronary Artery Disease (CAD), GERD/Reflux, Hypertension Additional Past Medical History / Comment(s): Alcoholic Cirrhosis of the liver, hep c, ascites, hemachromatosis, left pelvic fracture and femer fracture, herpes , constipation,"fequent leg cramps", marti glaucoma, PAST BLEEDING VARICIES WAS AT [facility] ON [facility] IN [place] 5 DAYS" History of Any Multi-Drug Resistant Organisms: None Reported Past Surgical History: Back Surgery Additional Past Surgical History / Comment(s): RT ankle"HARDWARE REMOVED", "12 screws left elbow",BALDO/ 4 screws in spine, hepatitis C, Baldo placed (L) Femer, ORAL SX, EGD, Past Anesthesia/Blood Transfusion Reactions: No Reported Reaction Past Psychological History: Depression Smoking Status: Current every day smoker Past Alcohol Use History: Daily, Heavy Additional Past Alcohol Use History / Comment(s): Patient is a smoker one pack per day since he was 20 years of age. He does have history of heavy alcohol abuse CURRENTLY DRINKING A PINT OF WHISKEY DAILY He denies any street drug use. Patient is single and lives with his 16-year-old son who is healthy. Patient is currently on disability. Past Drug Use History: Marijuana - Past Family History Father Family Medical History: Cancer Additional Family Medical History / Comment(s): Father at age 55 with history of alcoholism Mother Family Medical History: No Reported History Additional Family Medical History / Comment(s): Mother is alive at age 70 with no major medical problems. Patient has 1 sister with no major medical problems. Medications and Allergies Home Medications Medication Instructions Recorded Confirmed Type Propranolol [Inderal] 10 mg PO BID 03/06/16 03/13/17 History Fluticasone Nasal [place] [Flonase 1 spray EA NOSTRIL DAILY PRN 03/07/16 03/13/17 History Nasal [place]] Furosemide [Furosemide] 40 mg PO BID 03/07/16 03/13/17 History Spironolactone 50 mg PO BID 04/01/16 03/13/17 History Chlorhexidine Gluconate [Peridex] 15 ml PO BID 03/03/17 03/13/17 History HYDROcodone/APAP 10-325MG [[place] 1 tab PO TID 03/03/17 03/13/17 History 10-325] Potassium Chloride ER [K-Dur 10] 10 meq PO DAILY 03/03/17 03/13/17 History Pantoprazole Sodium [Protonix] 40 mg PO DAILY 03/11/17 03/13/17 History Allergies Allergy/AdvReac Type Severity Reaction Status Date / Time No Known Allergies Allergy Verified 03/13/17 14:53 Physical Exam Vitals: Vital Signs Temp Pulse Pulse Pulse Resp BP BP 03/14/17 07:25 97.9 F 79 20 126/72 03/13/17 22:44 98.8 F 93 18 129/74 03/13/17 17:07 18 03/13/17 16:45 98.1 F 108 H 16 120/91 03/13/17 16:32 98.5 F 104 H 18 148/77 03/13/17 15:04 104 H 03/13/17 14:53 100 03/13/17 13:37 98.7 F 103 H 20 140/85 Pulse Ox 03/14/17 07:25 93 L 03/13/17 22:44 92 L 03/13/17 17:07 03/13/17 16:45 95 03/13/17 16:32 96 03/13/17 15:04 03/13/17 14:53 03/13/17 13:37 94 L Intake and Output 03/13/17 03/14/17 03/14/17 22:59 06:59 14:59 Intake Total 220 540 Output Total 3002 Balance 220 -2462 Intake: Intake, IV Titration 60 Amount Sodium Chloride 0.9% 1, 60 000 ml @ 20 mls/hr IV . Q24H [facility] Rx#:[id number] Oral 160 540 Output: Urine 3000 Emesis 2 Other: Voiding Method Toilet # Voids 1 General appearance: The patient is alert, oriented, in no acute distress. HET: Head is normocephalic and atraumatic. Pupils are equal and reactive. Oropharynx is clear without lesions. Neck: Supple without lymphadenopathy. Trachea midline. Heart: S1 S2. Regular rate and rhythm. Lungs: No crackles or wheezes are heard. Abdomen: Soft, nontender, mildly bloated with mild ascites with bowel sounds. No peritoneal signs. No palpable organomegaly or masses. Extremities: +1/+2 bilateral lower extremity edema. No asterixis. Palmar erythema. Neurological: No focal deficits. Strength and sensation are grossly intact. Results CBC & Chem 7: 03/14/17 08:44 03/14/17 08:44 Labs: Abnormal Lab Results - Last 24 Hours (Table) 03/13/17 03/13/17 03/13/17 Range/Units 14:40 14:40 17:42 RBC 3.76 L (4.30-5.90) m/uL Hgb 11.5 L (13.0-17.5) gm/dL Hct 35.7 L (39.0-53.0) % RDW 16.7 H (11.5-15.5) % Plt Count 50 L* (150-450) k/uL Lymphocytes # 0.4 L (1.0-4.8) k/uL Chloride 110 H (98-107) mmol/L Carbon Dioxide 20 L (22-30) mmol/L Glucose 137 H (74-99) mg/dL POC Glucose (mg/dL) 136 H (75-99) mg/dL Calcium 8.3 L (8.4-10.2) mg/dL Total Bilirubin 1.6 H (0.2-1.3) mg/dL AST 88 H (17-59) U/L Alkaline Phosphatase 176 H (38-126) U/L 03/13/17 Range/Units 20:14 RBC (4.30-5.90) m/uL Hgb (13.0-17.5) gm/dL Hct (39.0-53.0) % RDW (11.5-15.5) % Plt Count (150-450) k/uL Lymphocytes # (1.0-4.8) k/uL Chloride (98-107) mmol/L Carbon Dioxide (22-30) mmol/L Glucose (74-99) mg/dL POC Glucose (mg/dL) 102 H (75-99) mg/dL Calcium (8.4-10.2) mg/dL Total Bilirubin (0.2-1.3) mg/dL AST (17-59) U/L Alkaline Phosphatase (38-126) U/L Assessment and Plan (1) Liver cirrhosis, alcoholic Status: Chronic (2) Hepatitis C Status: Chronic (3) Alcohol dependency Status: Chronic (4) Alcohol abuse Status: Chronic (5) Thrombocytopenia Status: Chronic (6) Alcohol intoxication Status: Acute (7) Cirrhosis Status: Chronic (8) Portal hypertension Status: Chronic (9) Acute alcoholic hepatitis Status: Acute (10) Esophageal varices in cirrhosis Status: Chronic Plan: 1. Check ammonia level. 2. Ultrasound abdomen assess for ascites. 3. Interventional radiology for therapeutic diagnostic paracentesis evaluation ; will discuss platelet count with radiologist may require transfusion prior to tap. 4. Alcohol abstinence strongly advised. Low-salt diet. Continue with oral diuretics. We'll follow with you. Thank you for this kind referral and the opportunity to participate in the care of your patient. This consultation was discussed with Dr. Mcmanus. The impression and plan of care have been directed as dictated.
--- NOTE | 2017-03-14 10:29 | HP ---
DATE OF ADMISSION: DATE OF SERVICE: 03/13/2017 CHIEF COMPLAINT: Abdominal pain and shortness of breath. HISTORY OF PRESENT ILLNESS: This 57-year-old gentleman with a past medical history of history of CAD, GERD, hypertension, alcoholic cirrhosis, history of hepatitis C, history of ascites also being treated with Harvoni, also had history of significant EtOH also. The patient is complaining of abdominal distention progressively and shortness of breath. Patient previously had abdominal paracentesis. Because of increasing difficulty, the patient came to [facility] and admitted for further evaluation and treatment. There is no history of any fever, rigors. No history of headache, loss of consciousness or seizures. Patient also had bleeding varices and was admitted with [facility] previously. The patient follows with Dr. Tse in the outpatient setting. PAST MEDICAL HISTORY: History of CAD, GERD, hypertension, alcoholic cirrhosis, ascites, history of coma, history of nicotine dependence. Medications prior to admission include: 1. Aldactone 50 mg p.o. b.i.d. 2. Inderal 10 mg p.o. b.i.d. 3. K-Dur 10 mEq p.o. daily. 4. Protonix 40 mg p.o. daily. 5. [place] 10 mg t.i.d. p.r.n. 6. Lasix 40 mg p.o. b.i.d. 7. Flonase one spray daily p.r.n. 8. Peridex 15 mL p.o. b.i.d. ALLERGIES: None. FAMILY HISTORY: History of cancer in the family. History alcoholism in the family. SOCIAL HISTORY: History of alcohol. History of smoking. REVIEW OF SYSTEMS: ENT: No diminishing hearing or diminished vision. CARDIOVASCULAR: No angina or palpitations. RESPIRATORY: As mentioned earlier. GI: As mentioned earlier. : No dysuria. NERVOUS SYSTEM: No numbness or weakness. ALLERGY/IMMUNOLOGY: No asthma or hayfever. MUSCULOSKELETAL: As mentioned earlier. HEMATOLOGY/ONCOLOGY: No history of anemia. ENDOCRINE: No history of diabetes mellitus or hypothyroidism. CONSTITUTIONAL: As mentioned earlier. DERMATOLOGY: Negative. RHEUMATOLOGY: Negative. PSYCHIATRY: As mentioned earlier. PHYSICAL EXAMINATION: The patient is alert and oriented x3. Pulse 108, blood pressure 120/91, respirations 16, temperature 98.1, pulse ox 94% on room air. HEENT: Conjunctivae normal. Oral mucosa moist. NECK: No jugular venous distention. No carotid bruit. No lymph node enlargement. CARDIOVASCULAR: S1 and S2, muffled. No S3, no S4. RESPIRATORY: Breath sounds diminished at the bases. A few scattered rhonchi, no crackles. ABDOMEN: Soft, obese. Ascites present. No guarding. No rigidity. Flanks are dull. Obese. LEGS: No edema, no swelling. NERVOUS SYSTEM: Higher function as mentioned earlier. Moves all 4 limbs. No focal motor or sensory deficits. LYMPHATICS: No lymphadenopathy of neck, axillae or groin. SKIN: No ulcers, rashes or bleeding. LABS: WBC 4.9, hemoglobin 11.5, platelets 50. Otherwise AST is 88, ALT is 44, alk phos 176. ASSESSMENT: 1. Tense ascites with shortness of breath secondary to cirrhosis secondary to alcohol and hepatitis C. 2. Anemia, normocytic. 3. Shortness of breath evaluation. 4. Thrombocytopenia secondary to cirrhosis of the liver. 5. Decreased CO2. 6. Diabetes mellitus type 2. 7. Increased bilirubin and increased AST secondary to cirrhosis of the liver. 8. Increased alkaline phosphatase. 9. Alcohol 114 and acute alcohol intoxication. 10. Alcohol withdrawal early. 11. History of coronary artery disease. 12. History of gastroesophageal reflux disease. 13. History of hypertension. 14. History of hepatic coma. 15. History of hemochromatosis. 16. History of left pelvic fracture and femur fracture. 17. Herpes. 18. History of bleeding varices. 19. History of degenerative joint disease, back pain. 20. History of nicotine dependence, continued, ongoing. 21. History of THC. 22. FULL CODE, 23. Obesity, body mass index of 34.9. 24. Left lower lobe atelectasis. RECOMMENDATIONS AND DISCUSSION: This 57-year-old gentleman who presented with multiple complex medical issues, we will monitor the patient closely. Continue the current medications. Continue symptomatic treatment. I would recommend diuretic at this time and interventional radiology consultation for therapeutic and diagnostic ascitic fluid aspiration. A chest x-ray was done, which showed a focal opacity in the left base, possibly atelectasis. Will continue to monitor, incentive spirometry. Further recommendations to follow. Guarded prognosis. MTDD
[2017-03-14 11:43] LABS: Glucose,Whole Blood 95 mg/dL (75-99)
[2017-03-14] MEDS: THIAMINE 100 MG TAB PO SCH ×2 (12:32→17:03)
[2017-03-14] MEDS ORDERED: RX INFO: IV CONTRAST WAS GIVEN 1 EACH MISC MISCELLANE PRN (15:50)
[2017-03-14 17:51] LABS: Glucose,Whole Blood 88 mg/dL (75-99)
--- NOTE | 2017-03-14 19:17 | CT ---
EXAMINATION TYPE: CT angio chest DATE OF EXAM: 03/14/2017 7:06 PM COMPARISON: CT abdomen and pelvis March 03, 2017. HISTORY: SOB and elevated D-Dimer CT DLP: 1225.5 mGycm. Automated Exposure Control for Dose Reduction was Utilized. CONTRAST: CTA scan of the thorax is performed with IV Contrast, patient injected with 130 mL of Omnipaque 350, pulmonary embolism protocol. MIP Images are created on CT scanner and reviewed. FINDINGS: LUNGS: Elevated left hemidiaphragm is present. Exam is suboptimal as is degraded by respiratory motio n artifact. Some dependent atelectasis is seen in both lower lobes. There are some patchy additional linear scarring and/or atelectasis seen bilaterally bases, left greater than right. No suspicious nod ules or masses are clearly identified. No pleural effusion or pneumothorax is seen bilaterally. MEDIASTINUM: There is suboptimal bolus with equal contrast noted in right and left heart systems and more dense contrast seen in the SVC. There is no CT evidence for large central pulmonary embolism, s maller segmental and subsegmental PE cannot be entirely excluded on this exam. There are no greater t garcia 1 cm hilar or mediastinal lymph nodes. No cardiomegaly or pericardial effusion is seen. OTHER: Bilateral gynecomastia is seen. Liver has nodular surface with mild surrounding ascites. There is splenomegaly with mild surrounding ascites noted. There are dependent gallstones in gallbladder w hich is distended margins. There is mild amount of pericholecystic fluid. Gallbladder findings likely on basis of underlying liver disease, acute cholecystitis cannot be excluded in appropriate clinical setting. There is recanalized umbilical vein. Mild multilevel spurring and spine is seen. Mild heigh t loss or compression at superior L1 endplate is noted. IMPRESSION: 1. Suboptimal study without convincing CT evidence for large central pulmonary embolism. 2. Scattered atelectatic change and/or scarring most pronounced in the lung bases. 3. Cirrhosis with portal hypertension redemonstrated similar to recent CT.
[2017-03-14] MEDS: SODIUM CHLORIDE 0.9% 1,000 ML IV SCH (19:49)
--- NOTE | 2017-03-14 20:20 | PN ---
DATE OF SERVICE: 03/14/2017 This 57-year-old gentleman who was admitted with tense ascites and shortness of breath also had cirrhosis of the liver, possibly secondary to hepatitis C. The patient had an abdominal ultrasound that showed only minimal ascites in the right upper quadrant. The patient is on diuretics and Gastroenterology is following the patient closely also. The patient did have a significant amount of alcohol in his system. No chest pain. No palpitation. No fever. Past medical history reviewed. REVIEW OF SYSTEMS: CARDIOVASCULAR SYSTEM: No angina, palpitations. RESPIRATORY SYSTEM: As mentioned earlier. GI: No nausea, vomiting. : No dysuria. NERVOUS SYSTEM: No numbness or weakness. Current medications are reviewed and include: 1. [place] 10 mg q.6 p.r.n. 2. Peridex 15 mL b.i.d. 3. Flonase. 4. Lasix 40 mg IV q.8. 5. Dilaudid. 6. Xopenex. 7. Ativan. 8. Morphine. 9. Narcan. 10. Zofran. 11. Protonix. 12. K-Dur. 13. Inderal. 14. Aldactone. 15. Vitamin B1. PHYSICAL EXAMINATION: Patient is alert and oriented x3. Pulse is 88, blood pressure 126/72, respiration 20, temperature 97.9, pulse ox 93% on room air. HEENT: Conjunctivae normal. NECK: No jugular venous distention. CARDIOVASCULAR SYSTEM: S1, S2 muffled. RESPIRATORY SYSTEM: Breath sounds diminished at the bases. A few scattered rhonchi and crackles. ABDOMEN: Soft, obese. Minimal ascites present. LEGS: No edema. No swelling. NERVOUS SYSTEM: No focal deficit. LABS: WBC 3.3, hemoglobin 11. Platelets are 40. Total bilirubin is 2.1. AST 73. ASSESSMENT: 1. Tense ascites with shortness of breath, possibly secondary to cirrhosis of the liver secondary to alcohol and hepatitis C. 2. Anemia, normocytic. 3. Shortness of breath for evaluation. 4. Thrombocytopenia secondary to cirrhosis of the liver. 5. Decreased carbon dioxide. 6. Diabetes mellitus, type 2. 7. Increased bilirubin. 8. Increased AST secondary to cirrhosis of the liver as well as alcoholic hepatitis. 9. Increased alkaline phosphatase. 10. Alcohol 140 and acute alcohol intoxication, present on admission. 11. Alcohol withdrawal, early. 12. History of coronary artery disease. 13. History of gastroesophageal reflux disease. 14. History of hypertension, essential. 15. History of hepatic coma. 16. History of hemochromatosis. 17. History of left pelvic fracture and fibula fracture. 18. History of herpes. 19. History of bleeding varices. 20. History of degenerative joint disease, back pain. 21. History of nicotine dependence, continued, ongoing. 22. History of tetrahydrocannabinol. 23. Obesity; body mass index of 34.9. 24. Left lower lobe atelectasis. 25. FULL CODE. RECOMMENDATIONS AND DISCUSSION: I recommended to continue current medications, continue with the monitoring, symptomatic treatment. Otherwise, at this time I would recommend continuing with the diuretics at a smaller dosage. Otherwise, monitor fluid/electrolyte balance closely. Increase ambulation. Continue the rest of the medications. I also recommend a D-dimer and CT angiogram also in case the D-dimer is elevated.
[2017-03-14 20:38] LABS: Glucose,Whole Blood 113 mg/dL (75-99)
[2017-03-14] MEDS: LACTULOSE 20 GM/30 ML CUP PO SCH (22:37)
[2017-03-15 07:29] LABS: Glucose,Whole Blood 78 mg/dL (75-99)
[2017-03-15] MEDS: FUROSEMIDE 10 MG/ML 4 ML VIAL IV SCH (07:46)
[2017-03-15] MEDS: CHLORHEXIDINE GLUCONATE 15 ML CUP MUCOUS MEM SCH (07:46)
[2017-03-15] MEDS: LACTULOSE 20 GM/30 ML CUP PO SCH (07:46)
[2017-03-15] MEDS: PANTOPRAZOLE 40 MG/10 ML VIAL IV SCH (07:47)
[2017-03-15] MEDS: SPIRONOLACTONE 25 MG TAB PO SCH (07:47)
[2017-03-15] MEDS: POTASSIUM CHLORIDE ER 10 MEQ TAB.ER.PRT PO SCH (07:47)
[2017-03-15] MEDS: PROPRANOLOL 10 MG TAB PO SCH (07:47)
[2017-03-15] MEDS: MORPHINE SULFATE 4 MG/ML SYRINGE IV PRN ×2 (07:47→12:03)
[2017-03-15] MEDS ORDERED: ALBUTEROL NEBULIZED 2.5 MG/3 ML INHALATION SCH (08:00)
[2017-03-15 08:11] VITALS: BP 106/66; PULSE 73; RESP 17; TEMP 97.2
--- NOTE | 2017-03-15 09:06 | P.PN ---
Subjective Principal diagnosis: Hepatic encephalopathy liver cirrhosis 57-year-old male with a history of alcohol liver disease cirrhosis hepatitis C infection status post antiviral treatment presents with hepatic encephalopathy. Ultrasound is reported no measurable ascites for paracentesis. Morning chemistries pending. Denies abdominal pain. Afebrile. Objective - Vital Signs Vital signs: Vital Signs Temp 97.2 F L 03/15/17 07:00 Pulse 73 03/15/17 07:00 Resp 17 03/15/17 07:00 BP 106/66 03/15/17 07:00 Pulse Ox 92 L 03/15/17 07:00 Intake & Output 03/14/17 03/15/17 03/15/17 18:59 06:59 18:59 Intake Total 140 Output Total 850 Balance 140 -850 Intake: Intake, IV Titration 140 Amount Sodium Chloride 0.9% 1, 140 000 ml @ 20 mls/hr IV . Q24H [facility] Rx#:[id number] Output: Urine 850 Other: Voiding Method Toilet Toilet Urinal # Voids 1 - Exam General appearance: The patient is alert, oriented, in no acute distress. HET: Head is normocephalic and atraumatic. Pupils are equal and reactive. Oropharynx is clear without lesions. Neck: Supple without lymphadenopathy. Trachea midline. Heart: S1 S2. Regular rate and rhythm. Lungs: No crackles or wheezes are heard. Abdomen: Soft, nontender, slightly bloated no appreciable ascites with bowel sounds. No peritoneal signs. No palpable organomegaly or masses. Extremities: Gynecomastia. +2 bilateral lower extremity edema. Palmar erythema. Neurological: No focal deficits. Strength and sensation are grossly intact. - Labs CBC & Chem 7: 03/14/17 08:44 03/14/17 08:44 Labs: Abnormal Lab Results - Last 24 Hours (Table) 03/14/17 03/14/17 03/14/17 Range/Units 08:44 08:44 08:44 WBC 3.3 L (3.8-10.6) k/uL RBC 3.56 L (4.30-5.90) m/uL Hgb 11.0 L (13.0-17.5) gm/dL Hct 33.6 L (39.0-53.0) % RDW 16.4 H (11.5-15.5) % Plt Count 40 L* (150-450) k/uL Lymphocytes # 0.4 L (1.0-4.8) k/uL D-Dimer (<0.60) mg/L FEU Glucose 135 H (74-99) mg/dL POC Glucose (mg/dL) (75-99) mg/dL Calcium 8.2 L (8.4-10.2) mg/dL Total Bilirubin 2.1 H (0.2-1.3) mg/dL AST 73 H (17-59) U/L Alkaline Phosphatase 151 H (38-126) U/L Ammonia 81 H (<30) umol/L Lipase 376 H (23-300) U/L 03/14/17 03/14/17 Range/Units 15:19 20:25 WBC (3.8-10.6) k/uL RBC (4.30-5.90) m/uL Hgb (13.0-17.5) gm/dL Hct (39.0-53.0) % RDW (11.5-15.5) % Plt Count (150-450) k/uL Lymphocytes # (1.0-4.8) k/uL D-Dimer 4.02 H (<0.60) mg/L FEU Glucose (74-99) mg/dL POC Glucose (mg/dL) 113 H (75-99) mg/dL Calcium (8.4-10.2) mg/dL Total Bilirubin (0.2-1.3) mg/dL AST (17-59) U/L Alkaline Phosphatase (38-126) U/L Ammonia (<30) umol/L Lipase (23-300) U/L Assessment and Plan (1) Liver cirrhosis, alcoholic Status: Chronic (2) Hepatitis C Status: Chronic (3) Alcohol dependency Status: Chronic (4) Alcohol abuse Status: Chronic (5) Thrombocytopenia Status: Chronic (6) Alcohol intoxication Status: Acute (7) Cirrhosis Status: Chronic (8) Portal hypertension Status: Chronic (9) Acute alcoholic hepatitis Status: Acute (10) Esophageal varices in cirrhosis Status: Chronic Plan: 1. Morning chemistries pending if ammonia level is improved, liver enzymes stable would be agreeable for discharge today. Return to GI office in 1-2 weeks for reevaluation. Discharge home with lactulose 20 g 3 times daily titrate to 3-4 bowel movements daily. Continue Lasix, Inderal, and Aldactone as previously prescribed. 2. Low-salt diet. Assessment and plan a care discussed with Dr. Mcmanus.
[2017-03-15 09:33] LABS: Anisocytosis Slight; Basophils % (A) 1 %; CH 30.6; CHCM 32.1; Eosinophils # (A) 0.1 k/uL (0-0.7); Eosinophils % (A) 2 %; HCT 34.6 % (39.0-53.0); HDW 2.96; Hypochromasia Slight; Luc % (Auto) 3; Lymphocytes # (A) 0.4 k/uL (1.0-4.8); Lymphocytes % (A) 12 %; MCH 30.4 pg (25.0-35.0); MCHC 31.8 g/dL (31.0-37.0); MCV 95.7 fL (80.0-100.0); Mean Platelet Volume 8.9; Monocytes # (A) 0.4 k/uL (0-1.0); Monocytes % (A) 13 %; Neutrophils # (A) 2.3 k/uL (1.3-7.7); Neutrophils % (A) 70 %; RBC 3.61 m/uL (4.30-5.90); RDW 16.5 % (11.5-15.5); WBC 3.3 k/uL (3.8-10.6); WBC (Perox) 3.69
[2017-03-15] MEDS: HYDROcodone/APAP 10-325MG 1 EACH TAB PO PRN (09:57)
[2017-03-15] MEDS: THIAMINE 100 MG TAB PO SCH (09:58)
[2017-03-15 10:11] LABS: ALT 44 U/L (21-72); AST 67 U/L (17-59); Alkaline Phosphatase 152 U/L (38-126); Anion Gap 11 mmol/L; Blood Urea Nitrogen 17 mg/dL (9-20); Calcium 8.5 mg/dL (8.4-10.2); Carbon Dioxide 27 mmol/L (22-30); Chloride 99 mmol/L (98-107); Glucose 77 mg/dL (74-99); Non-African American GFR(MDRD) >60 (>60 ml/min/1.73 sqM); Potassium 3.7 mmol/L (3.5-5.1); Sodium 137 mmol/L (137-145); Total Bilirubin 1.4 mg/dL (0.2-1.3); Total Protein 7.2 g/dL (6.3-8.2)
[2017-03-15] MEDS ORDERED: LACTULOSE 20 GM/30 ML CUP PO SCH (16:00)
--- NOTE | 2017-03-15 20:51 | DS ---
DATE OF ADMISSION: 03/13/2017 DATE OF DISCHARGE: 03/15/2017 Patient was admitted with alcohol intoxication. Patient was watched for alcohol withdrawals. Patient does not have any significant withdrawals. Patient is only requiring Ativan twice a day. Patient is stable enough from that perspective to be discharged. Patient will be discharged on lactulose as recommended by Gastroenterology. Patient apparently had hepatic encephalopathy on admission. He was apparently confused, improved at this point of time. Patient will be discharged today in stable medical condition to home. Patient was seen and examined on the day of discharge. Vitals are stable. GENERAL: The patient is alert and oriented x3, not in any acute distress. Well developed, well nourished. HEENT: Pupils are round and equally reacting to light. EOMI. No scleral icterus. No conjunctival pallor. Normocephalic, atraumatic. No pharyngeal erythema. No thyromegaly. CARDIOVASCULAR: S1 and S2 present. No murmurs, rubs, or gallops. PULMONARY: Chest is clear to auscultation, no wheezing or crackles. ABDOMEN: Patient does have ascites and shifting dullness. Not enough fluid for therapeutic paracentesis. MUSCULOSKELETAL: No joint swelling or deformity. EXTREMITIES: No cyanosis, clubbing, or pedal edema. NEUROLOGICAL: Gross neurological examination did not reveal any focal deficits. SKIN: No rashes. Extensive counseling regarding alcohol cessation was provided. LABORATORY DATA: CBC, CMP are abnormal for low platelet count of 39,000 secondary to cirrhosis and splenic sequestration. Anemia due to alcoholic liver disease. Pancytopenia due to alcoholic liver disease. Patient also has hepatitis C, on antiretroviral therapy, which is contributing to his cirrhosis. FINAL DIAGNOSES: 1. Alcoholic cirrhosis. 2. Hepatitis C, chronic. 3. Alcohol dependency, alcohol abuse, alcohol withdrawal precautions. 4. Pancytopenia secondary to alcoholic liver disease. 5. Portal hypertension. 6. Acute alcoholic hepatitis, improved. Patient will be discharged today. Please refer to my depart summary for the details of discharge medications. Activity as tolerated. Extensive counseling regarding alcohol cessation was provided. Patient will follow with Dr. Omar Tse in 3 to [address] Mcmanus in one week. Low-protein diet because of his hepatic encephalopathy. Patient will continue his Aldactone, propranolol, Lasix and lactulose. Patient is taking [place]; not a great idea with cirrhosis. That will be discontinued. Spent greater than 35 minutes in total discharge process.
== END 2017-03-15 13:20 | disposition home or self-care (01) ==
LOC: EC 13:13 → 5MS5E 16:12 → INTOOBSV 16:12
PROVIDERS: ADMIT Hospitalist; ATTEND Hospitalist
DX: K70.31 Alcoholic cirrhosis of liver with ascites (principal); F10.239 Alcohol dependence with withdrawal, unspecified; K70.11 Alcoholic hepatitis with ascites; I10 Essential (primary) hypertension; D61.818 Other pancytopenia; D69.59 Other secondary thrombocytopenia; I25.10 Atherosclerotic heart disease of native coronary artery without angina pectoris; E11.9 Type 2 diabetes mellitus without complications; K21.9 Gastro-esophageal reflux disease without esophagitis; B00.9 Herpesviral infection, unspecified; F17.200 Nicotine dependence, unspecified, uncomplicated; E66.9 Obesity, unspecified; K76.6 Portal hypertension; J98.11 Atelectasis; I85.10 Secondary esophageal varices without bleeding; K70.40 Alcoholic hepatic failure without coma; B18.2 Chronic viral hepatitis C; M19.91 Primary osteoarthritis, unspecified site; H40.9 Unspecified glaucoma; Z68.34 Body mass index [BMI] 34.0-34.9, adult; Y90.5 Blood alcohol level of 100-119 mg/100 ml; Z79.899 Other long term (current) drug therapy; Z81.1 Family history of alcohol abuse and dependence; F32.9 Major depressive disorder, single episode, unspecified; K59.00 Constipation, unspecified
CPT/HCPCS: 99285 ×2; 96365; 96366 ×2; 36415; 94640 ×3; 94760; 85379; 83880; 80053 ×3; 82140 ×2; 83690; 83735; 84100; 85025 ×3; 85610 ×2; 81003; 80320; 71020; 76705; 71275; G0378 ×3; J2060 ×3; J2270 ×3; J1940 ×2; J3411; Q9967; J2405; C9113 ×2

== ENCOUNTER → 2017-03-31 | Outpatient (CLI) | payer OTHER ==
[2017-03-31 11:45] LABS: Anisocytosis Slight; Basophils % (A) 0 %; CH 30.3; CHCM 31.9; Eosinophils # (A) 0.1 k/uL (0-0.7); Eosinophils % (A) 1 %; HCT 40.2 % (39.0-53.0); HDW 2.91; HGB 12.8 gm/dL (13.0-17.5); Hypochromasia Slight; Luc # (Auto) 0.16; Luc % (Auto) 3; Lymphocytes # (A) 0.5 k/uL (1.0-4.8); Lymphocytes % (A) 9 %; MCH 30.2 pg (25.0-35.0); MCHC 31.7 g/dL (31.0-37.0); MCV 95.1 fL (80.0-100.0); Monocytes # (A) 0.7 k/uL (0-1.0); Monocytes % (A) 11 %; Neutrophils # (A) 4.8 k/uL (1.3-7.7); Neutrophils % (A) 76 %; RBC 4.23 m/uL (4.30-5.90); RDW 16.1 % (11.5-15.5); WBC 6.3 k/uL (3.8-10.6); WBC (Perox) 6.67
[2017-03-31 12:14] LABS: ALT 38 U/L (21-72); AST 66 U/L (17-59); Alkaline Phosphatase 170 U/L (38-126); Anion Gap 8 mmol/L; Blood Urea Nitrogen 18 mg/dL (9-20); Calcium 8.8 mg/dL (8.4-10.2); Carbon Dioxide 26 mmol/L (22-30); Chloride 105 mmol/L (98-107); Glucose 116 mg/dL (74-99); Magnesium 1.5 mg/dL (1.6-2.3); Non-African American GFR(MDRD) >60 (>60 ml/min/1.73 sqM); Phosphorous 4.1 mg/dL (2.5-4.5); Potassium 4.4 mmol/L (3.5-5.1); Sodium 139 mmol/L (137-145); Total Bilirubin 1.4 mg/dL (0.2-1.3); Total Protein 7.5 g/dL (6.3-8.2)
== END | disposition home or self-care (01) ==
LOC: LABWHC1 11:15
DX: K70.31 Alcoholic cirrhosis of liver with ascites (principal)
CPT/HCPCS: 36415; 80053; 82140; 83735; 84100; 85025

== ENCOUNTER → 2017-08-03 | Outpatient (CLI) | payer OTHER ==
[2017-08-03 09:59] LABS: INR 1.2 (<1.2)
[2017-08-03 10:00] LABS: Prothrombin Time 12.1 sec (9.0-12.0)
[2017-08-03 10:10] LABS: Anisocytosis Slight; Basophils % (A) 0 %; CH 32.9; CHCM 32.2; Eosinophils # (A) 0.1 k/uL (0-0.7); Eosinophils % (A) 1 %; HDW 2.41; HGB 13.5 gm/dL (13.0-17.5); Luc # (Auto) 0.22; Luc % (Auto) 4; Lymphocytes # (A) 0.7 k/uL (1.0-4.8); Lymphocytes % (A) 13 %; MCHC 32.2 g/dL (31.0-37.0); MCV 102.4 fL (80.0-100.0); Macrocytosis Moderate; Mean Platelet Volume 9.5; Monocytes # (A) 0.7 k/uL (0-1.0); Monocytes % (A) 12 %; Neutrophils # (A) 3.8 k/uL (1.3-7.7); Neutrophils % (A) 69 %; RDW 16.9 % (11.5-15.5); WBC 5.5 k/uL (3.8-10.6); WBC (Perox) 6.51
--- NOTE | 2017-08-03 10:15 | US ---
EXAMINATION TYPE: US abdomen complete DATE OF EXAM: 08/03/2017 COMPARISON: CT and US 2017 CLINICAL HISTORY: 57-year-old male K74.60 Unspecified cirrhosis of liver. Enlarged spleen and GB lamar ges per CT; surgery for esophageal varices 2016 TECHNIQUE: Multiple sonographic images of the abdomen are obtained. FINDINGS: EXAM MEASUREMENTS: Liver Length: 15.8 cm Gallbladder Wall: 0.2 cm CBD: 0.3 cm Spleen: 15.8 cm Right Kidney: 10.5 x 6.3 x 5.0 cm Left Kidney: 11.1 x 6.3 x 5.4 cm Pancreas: obscured by bowel gas Liver: Nodular contour with a extensive parenchymal heterogeneity. The degree of heterogeneity makes it difficult to assess for focal lesion. There is hepatopedal flow in the main portal vein with appr opriate monophasic waveform. Vessel caliber is 1.3 cm and velocity is approximately 20 cm/s. Gallbladder: multiple shadowing stones are seen in fundus in LLD and supine positions. No abnormal d istention, wall thickening, or pericholecystic fluid. Evidence for sonographic Small's sign: No CBD: wnl Spleen: Mildly enlarged Right Kidney: No hydronephrosis Left Kidney: No hydronephrosis Upper IVC: Limited visualization of the upper abdominal IVC on the transverse view; color flow paten cy documented Abd Aorta: Not well visualized due to overlying bowel gas. The upper abdominal aorta appears ectatic at 2.9 cm. IMPRESSION: 1. Eran cirrhotic morphology of the liver. The degree of parenchymal heterogeneity makes it difficul t to assess for a focal lesion. 2. Splenomegaly (15.8 cm) suggests underlying portal venous hypertension. 3. Cholelithiasis. 4. Ectatic upper abdominal aorta at 2.9 cm.
[2017-08-03 10:26] LABS: ALT 47 U/L (21-72); AST 93 U/L (17-59); Alkaline Phosphatase 245 U/L (38-126); Anion Gap 12 mmol/L; Bilirubin, Delta 1.1 mg/dL (0.0-0.2); Blood Urea Nitrogen 12 mg/dL (9-20); Calcium 8.6 mg/dL (8.4-10.2); Carbon Dioxide 27 mmol/L (22-30); Chloride 100 mmol/L (98-107); Cholesterol 171 mg/dL (<200); Glucose 115 mg/dL (74-99); HDL Cholesterol 81 mg/dL (40-60); Non-African American GFR(MDRD) >60 (>60 ml/min/1.73 sqM); Sodium 139 mmol/L (137-145); Total Bilirubin 2.4 mg/dL (0.2-1.3); Total Protein 7.7 g/dL (6.3-8.2)
[2017-08-07 11:55] LABS: Hepatits C Virus RNA, Quant <12 IU/mL (<12); LOG HCV IU/mL <1.08 (<1.08)
== END | disposition home or self-care (01) ==
LOC: RADUSWWP 08:32
PROVIDERS: ATTEND Internal Medicine Gastroenterology
DX: I77.811 Abdominal aortic ectasia (principal); R16.1 Splenomegaly, not elsewhere classified; B18.2 Chronic viral hepatitis C; Z00.00 Encounter for general adult medical examination without abnormal findings; Z13.220 Encounter for screening for lipoid disorders; Z12.5 Encounter for screening for malignant neoplasm of prostate
CPT/HCPCS: 80061; 87522; 80053; 82248; 85025; 85610; 82105; 76700; G0103

== ENCOUNTER → 2017-09-07 | Outpatient (CLI) | payer OTHER ==
--- NOTE | 2017-09-07 17:20 | CT ---
EXAMINATION TYPE: CT abdomen wo/w con DATE OF EXAM: 09/07/2017 COMPARISON: 03/03/2017 HISTORY: 57-year-old male Cirrhosis of liver without ascites. TECHNIQUE: Contiguous axial scanning of the abdomen and pelvis following administration of 100 ml Omn ipaque 300 IV contrast. Delayed images through the kidneys and coronal/sagittal reconstructions perf ormed. CT DLP: 2708.00 mGycm Automated exposure control for dose reduction was used. FINDINGS: Heart is normal size without pericardial effusion. Lung bases clear without pleural effusion. Eran cirrhotic morphology of the liver with nodular contour. There is a subtle 9 mm hypodense area s een in the left liver lobe only on the delayed kidney images. The degree of parenchymal enhancement o f the liver on the current CT is limited. Portal venous system is patent. The graft bladder is collapsed. Gallstones are present measuring up t o 8 mm. Recanalization of the umbilical vein and splenomegaly 18.0 cm compatible with portal venous hypertens ion. Mildly enlarged gastrohepatic ligament lymph nodes measuring up to 1.2 cm nonspecific as are por tacaval lymph nodes measuring up to 1.7 cm. These are likely reactive. Adrenal glands, kidneys, pancreas appear within normal limits. Prominent mid mesenteric varices are noted. No ascites fluid. No dilated small bowel or free air. Normal appendix. Mild overall stool burden. No pericolonic inflammatory change seen. Mild strandy edema throughout the intra-abdominal fat. Bones: Posterior fusion changes partially visualized. There is marked hypertrophic facet arthropathy with grade 1 anterolisthesis at L4-L5. Grade 1 retrolisthesis at L3-L4. IMPRESSION: 1. ERAN CIRRHOTIC MORPHOLOGY OF THE LIVER. PROMINENT MESENTERIC VARICES, RECANALIZED UMBILICAL VEIN, AND SPLENOMEGALY (18.0 CM) COMPATIBLE WITH UNDERLYING PULMONARY ARTERY HYPERTENSION. 2. VAGUE 9 MM HYPODENSE LESION LEFT HEPATIC LOBE ONLY SEEN ON THE DELAYED IMAGES. THE DEGREE OF ORGAN AND VASCULAR ENHANCEMENT IS LIMITED ON THE CURRENT CT. RECOMMEND 3-6 MONTH FOLLOW-UP LIVER MRI TO EX CLUDE HEPATOMA.
== END | disposition home or self-care (01) ==
LOC: RADCTMAIN 15:43
PROVIDERS: ATTEND Internal Medicine Gastroenterology
DX: K74.60 Unspecified cirrhosis of liver (principal); R16.1 Splenomegaly, not elsewhere classified
CPT/HCPCS: 74170; Q9967

== ENCOUNTER 2017-09-13 14:02 | Emergency (ER) | payer OTHER ==
[2017-09-13 14:18] VITALS: RESP 18
[2017-09-13] MEDS ORDERED: FAMOTIDINE 20 MG/2 ML VIAL IV STA (14:31)
--- NOTE | 2017-09-13 14:35 | ED ---
General Adult HPI - General Chief complaint: Abdominal Pain Stated complaint: Abnormal stool Time Seen by Provider: 09/13/17 14:21 Source: patient, RN notes reviewed Mode of arrival: ambulatory Limitations: no limitations - History of Present Illness Initial comments: 57-year-old male presents to the emergency department with a chief complaint of black stool. Patient states he's had black stool for the past year 4 days. He is not having any pain or discomfort there is no nausea or vomiting. He states he has some fullness in the bladder. He stated a history of esophageal varices in the back so his doctor was concerned so they sent him here. Patient denies any recent fever, chills, shortness of breath, chest pain, back pain, abdominal pain, nausea vomiting, numbness or tingling, dysuria or hematuria, constipation or diarrhea, headaches or visual changes, or any other current symptoms. - Related Data Home Medications Medication Instructions Recorded Confirmed Propranolol [Inderal] 10 mg PO BID 03/06/16 09/13/17 Fluticasone Nasal [place] [Flonase 1 spray EA NOSTRIL DAILY PRN 03/07/16 09/13/17 Nasal [place]] Furosemide [Furosemide] 40 mg PO BID 03/07/16 09/13/17 Spironolactone 50 mg PO BID 04/01/16 09/13/17 Chlorhexidine Gluconate [Peridex] 15 ml PO BID 03/03/17 09/13/17 Potassium Chloride ER [K-Dur 10] 10 meq PO DAILY 03/03/17 09/13/17 HYDROcodone/APAP 10-325MG [[place] 1 tab PO TID PRN 09/13/17 09/13/17 10-325] Magnesium Elemental 300mg 300 mg PO DAILY 09/13/17 09/13/17 Omeprazole [PriLOSEC] 20 mg PO DAILY 09/13/17 09/13/17 buPROPion XL [Wellbutrin Xl] 300 mg PO QAM 09/13/17 09/13/17 Allergies Allergy/AdvReac Type Severity Reaction Status Date / Time No Known Allergies Allergy Verified 09/13/17 14:35 Review of Systems ROS Statement: Those systems with pertinent positive or pertinent negative responses have been documented in the HPI. ROS Other: All systems not noted in ROS Statement are negative. Past Medical History Past Medical History: Coronary Artery Disease (CAD), GERD/Reflux, GI Bleed, Hypertension Additional Past Medical History / Comment(s): Alcoholic Cirrhosis of the liver, hep c, ascites, hemachromatosis, left pelvic fracture and femer fracture, herpes , constipation,"fequent leg cramps", marti glaucoma, PAST BLEEDING VARICIES WAS AT [facility] ON VENT IN [place] 5 DAYS" History of Any Multi-Drug Resistant Organisms: None Reported Past Surgical History: Back Surgery Additional Past Surgical History / Comment(s): RT ankle"HARDWARE REMOVED", "12 screws left elbow",BALDO/ 4 screws in spine, hepatitis C, Baldo placed (L) Femer, ORAL SX, EGD, Past Anesthesia/Blood Transfusion Reactions: No Reported Reaction Past Psychological History: Depression Smoking Status: Current every day smoker Past Alcohol Use History: None Reported Past Drug Use History: None Reported - Past Family History Father Family Medical History: Cancer Additional Family Medical History / Comment(s): Father at age 55 with history of alcoholism Mother Family Medical History: No Reported History Additional Family Medical History / Comment(s): Mother is alive at age 70 with no major medical problems. Patient has 1 sister with no major medical problems. General Exam - General Exam Comments Initial Comments: General: The patient is awake and alert, in no distress, and does not appear acutely ill. Eye: Pupils are equal, round and reactive to light, extra-ocular movements are intact; there is normal conjunctiva bilaterally. No signs of icterus. Ears, nose, mouth and throat: There are moist mucous membranes. Neck: The neck is supple, there is no tenderness. Cardiovascular: There is a regular rate and rhythm. No murmur, rub or gallop is appreciated. Respiratory: Lungs are clear to auscultation, respirations are non-labored, breath sounds are equal. No wheezes, stridor, rales, or rhonchi. Gastrointestinal: Soft, non-distended, non-tender abdomen without masses or organomegaly noted. There is no rebound or guarding present. No CVA tenderness. Bowel sounds are unremarkable. Back: There is no tenderness to palpation in the midline. There is no obvious deformity. No rashes noted. Musculoskeletal: Normal ROM, no tenderness, There is no pedal edema. There is no calf tenderness or swelling. Sensation intact. Pulses equal bilaterally 2+. Neurological: CN II-XII intact, There are no obvious motor or sensory deficits. Coordination appears grossly intact. Speech is normal. Skin: Skin is warm and dry and no rashes or lesions are noted. Psychiatric: Cooperative, appropriate mood & affect, normal judgment. Limitations: no limitations Course Vital Signs 09/13/17 14:16 Temperature 97.9 F Pulse Rate 87 Respiratory 18 Rate Blood Pressure 109/80 O2 Sat by Pulse 98 Oximetry Medical Decision Making - Medical Decision Making 57-year-old male presents to the emergency Department chief complaint of black stools. This time patient's lab work is been reviewed. This and there is no blood in the stools. We did discuss that there is a little elevation of his creatinine. We discussed needs to see his doctor in the morning for reevaluation. We discussed return parameters all questions. Patient family stated the Antoni management plan. At this time the patient will be discharged home. - Lab Data Result diagrams: 09/13/17 14:49 09/13/17 14:49 Lab Results 09/13/17 09/13/17 09/13/17 Range/Units 14:49 14:49 14:49 WBC 7.8 (3.8-10.6) k/uL RBC 4.33 (4.30-5.90) m/uL Hgb 14.1 (13.0-17.5) gm/dL Hct 43.1 (39.0-53.0) % MCV 99.5 (80.0-100.0) fL MCH 32.6 (25.0-35.0) pg MCHC 32.8 (31.0-37.0) g/dL RDW 15.9 H (11.5-15.5) % Plt Count 92 L D (150-450) k/uL Neutrophils % 78 % Lymphocytes % 6 % Monocytes % 10 % Eosinophils % 2 % Basophils % 1 % Neutrophils # 6.1 (1.3-7.7) k/uL Lymphocytes # 0.5 L (1.0-4.8) k/uL Monocytes # 0.8 (0-1.0) k/uL Eosinophils # 0.2 (0-0.7) k/uL Basophils # 0.0 (0-0.2) k/uL Manual Slide Review Performed Large Platelets Present RBC Morphology Normal Macrocytosis Slight PT 11.5 (9.0-12.0) sec INR 1.2 H (<1.2) APTT 21.9 L (22.0-30.0) sec Sodium 135 L (137-145) mmol/L Potassium 4.5 (3.5-5.1) mmol/L Chloride 100 (98-107) mmol/L Carbon Dioxide 23 (22-30) mmol/L Anion Gap 12 mmol/L BUN 22 H (9-20) mg/dL Creatinine 1.40 H (0.66-1.25) mg/dL Est GFR (MDRD) Af Amer >60 (>60 ml/min/1.73 sqM) Est GFR (MDRD) Non-Af 53 (>60 ml/min/1.73 sqM) Glucose 102 H (74-99) mg/dL Calcium 9.0 (8.4-10.2) mg/dL Total Bilirubin 1.5 H (0.2-1.3) mg/dL AST 90 H (17-59) U/L ALT 63 (21-72) U/L Alkaline Phosphatase 244 H (38-126) U/L Total Protein 8.0 (6.3-8.2) g/dL Albumin 4.2 (3.5-5.0) g/dL Urine Color Urine Appearance (Clear) Urine pH (5.0-8.0) Ur Specific [place] (1.001-1.035) Urine Protein (Negative) Urine Glucose (UA) (Negative) Urine Ketones (Negative) Urine Blood (Negative) Urine Nitrite (Negative) Urine Bilirubin (Negative) Urine Urobilinogen (<2.0) mg/dL Ur Leukocyte Esterase (Negative) Stool Occult Blood (Negative) 09/13/17 09/13/17 Range/Units 14:57 15:26 WBC (3.8-10.6) k/uL RBC (4.30-5.90) m/uL Hgb (13.0-17.5) gm/dL Hct (39.0-53.0) % MCV (80.0-100.0) fL MCH (25.0-35.0) pg MCHC (31.0-37.0) g/dL RDW (11.5-15.5) % Plt Count (150-450) k/uL Neutrophils % % Lymphocytes % % Monocytes % % Eosinophils % % Basophils % % Neutrophils # (1.3-7.7) k/uL Lymphocytes # (1.0-4.8) k/uL Monocytes # (0-1.0) k/uL Eosinophils # (0-0.7) k/uL Basophils # (0-0.2) k/uL Manual Slide Review Large Platelets RBC Morphology Macrocytosis PT (9.0-12.0) sec INR (<1.2) APTT (22.0-30.0) sec Sodium (137-145) mmol/L Potassium (3.5-5.1) mmol/L Chloride (98-107) mmol/L Carbon Dioxide (22-30) mmol/L Anion Gap mmol/L BUN (9-20) mg/dL Creatinine (0.66-1.25) mg/dL Est GFR (MDRD) Af Amer (>60 ml/min/1.73 sqM) Est GFR (MDRD) Non-Af (>60 ml/min/1.73 sqM) Glucose (74-99) mg/dL Calcium (8.4-10.2) mg/dL Total Bilirubin (0.2-1.3) mg/dL AST (17-59) U/L ALT (21-72) U/L Alkaline Phosphatase (38-126) U/L Total Protein (6.3-8.2) g/dL Albumin (3.5-5.0) g/dL Urine Color Yellow Urine Appearance Clear (Clear) Urine pH 5.5 (5.0-8.0) Ur Specific [place] 1.010 (1.001-1.035) Urine Protein Negative (Negative) Urine Glucose (UA) Negative (Negative) Urine Ketones Negative (Negative) Urine Blood Negative (Negative) Urine Nitrite Negative (Negative) Urine Bilirubin Negative (Negative) Urine Urobilinogen <2.0 (<2.0) mg/dL Ur Leukocyte Esterase Negative (Negative) Stool Occult Blood Negative (Negative) - Radiology Data Radiology results: report reviewed, image reviewed Disposition Clinical Impression: Elevated creatine kinase, Abdominal pain Disposition: HOME SELF-CARE Condition: Stable Instructions: Abdominal Pain (ED) Additional Instructions: Please use medication as discussed. Please follow up with family doctor if symptoms have not improved over the next two days. Please return to the emergency room if your symptoms increase or worsen or for any other concerns. Please see your doctor in the morning. Referrals: Omar Tse MD [Primary Care Provider] - 1-2 days Time of Disposition: 15:45
[2017-09-13 15:03] LABS: Basophils % (A) 1 %; CH 33.4; CHCM 33.7; Eosinophils # (A) 0.2 k/uL (0-0.7); Eosinophils % (A) 2 %; HCT 43.1 % (39.0-53.0); HDW 2.53; HGB 14.1 gm/dL (13.0-17.5); Luc # (Auto) 0.23; Luc % (Auto) 3; Lymphocytes # (A) 0.5 k/uL (1.0-4.8); Lymphocytes % (A) 6 %; MCH 32.6 pg (25.0-35.0); MCHC 32.8 g/dL (31.0-37.0); MCV 99.5 fL (80.0-100.0); Macrocytosis Slight; Mean Platelet Volume 8.4; Monocytes # (A) 0.8 k/uL (0-1.0); Monocytes % (A) 10 %; Neutrophils # (A) 6.1 k/uL (1.3-7.7); Neutrophils % (A) 78 %; RBC 4.33 m/uL (4.30-5.90); RDW 15.9 % (11.5-15.5); WBC 7.8 k/uL (3.8-10.6); WBC (Perox) 8.05
[2017-09-13 15:12] LABS: INR 1.2 (<1.2); Prothrombin Time 11.5 sec (9.0-12.0)
[2017-09-13 15:14] LABS: ALT 63 U/L (21-72); AST 90 U/L (17-59); Alkaline Phosphatase 244 U/L (38-126); Anion Gap 12 mmol/L; Blood Urea Nitrogen 22 mg/dL (9-20); Carbon Dioxide 23 mmol/L (22-30); Chloride 100 mmol/L (98-107); Glucose 102 mg/dL (74-99); Non-African American GFR(MDRD) 53 (>60 ml/min/1.73 sqM); Potassium 4.5 mmol/L (3.5-5.1); Sodium 135 mmol/L (137-145); Total Bilirubin 1.5 mg/dL (0.2-1.3)
[2017-09-13 15:15] LABS: Appearance,Urine Clear (Clear); Bilirubin,Urine Negative (Negative); Glucose,Urine (UA) Negative (Negative); Ketones,Urine Negative (Negative); Leukocyte Esterase,Urine Negative (Negative); Nitrite,Urine Negative (Negative); PH, Urine 5.5 (5.0-8.0); Protein,Urine Negative (Negative); UA Billing (MACRO vs. MICRO) CHEM; Urobilinogen,Urine <2.0 mg/dL (<2.0)
[2017-09-13 15:19] LABS: Partial Thromboplastin Time 21.9 sec (22.0-30.0)
--- NOTE | 2017-09-13 15:20 | XR ---
EXAMINATION TYPE: XR abdomen 2V DATE OF EXAM: 09/13/2017 CLINICAL HISTORY: Black tarry stools for 4 days. Abdominal pain with nausea and vomiting. TECHNIQUE: Supine, upright, and left side down lateral decubitus views of the abdomen are obtained. COMPARISON: CT abdomen from 6 days ago. FINDINGS: Poorly distended stomach is redemonstrated. Scattered gas is seen in non-distended small juan wel loops. Gas and fecal material is seen in non-distended colon. Splenomegaly is again seen. Small liver is noted. Findings are consistent with cirrhosis and underlying portal hypertension. Postsurgic al changes lumbosacral junction is again seen. No pneumoperitoneum is identified. Lung bases remain c lear. Postsurgical change left proximal femur is partially imaged. There is asymmetric advanced super ior joint space loss with [id number] formation and subchondral cystic change noted in the left hip. IMPRESSION: Overall nonobstructive bowel gas pattern remains present.
[2017-09-13] MEDS ORDERED: SODIUM CHLORIDE 0.9% 1,000 ML IV STA (15:27)
[2017-09-13 15:33] LABS: Manual Review Performed
[2017-09-13 15:34] LABS: Large Platelets Present; RBC Morphology Normal
[2017-09-13 15:56] VITALS: BP 140/70; PULSE 60; TEMP 98.5
== END 2017-09-13 15:54 | disposition home or self-care (01) ==
LOC: EC 14:02 → SUPCPDRO 14:02 → EC 15:54
DX: R79.89 Other specified abnormal findings of blood chemistry (principal); R10.9 Unspecified abdominal pain; R19.5 Other fecal abnormalities; I10 Essential (primary) hypertension; K70.31 Alcoholic cirrhosis of liver with ascites; K21.9 Gastro-esophageal reflux disease without esophagitis; F32.9 Major depressive disorder, single episode, unspecified; F17.200 Nicotine dependence, unspecified, uncomplicated; Z79.899 Other long term (current) drug therapy
CPT/HCPCS: 36415; 74020; 80053; 81003; 82272; 85025; 85610; 85730; 86850; 86900; 86901; 96374; 99284

== ENCOUNTER 2017-11-29 12:39 | Observation (INO) | payer OTHER ==
[2017-11-29] MEDS ORDERED: ONDANSETRON 4 MG/2 ML VIAL IVP STA (13:20)
--- NOTE | 2017-11-29 13:23 | ED ---
General Adult HPI - General Chief complaint: Abdominal Pain Stated complaint: Abd Pain/SOB Time Seen by Provider: 11/29/17 13:10 Source: patient, family, RN notes reviewed Mode of arrival: wheelchair Limitations: no limitations - History of Present Illness Initial comments: Patient's a 57-year-old male significant past medical history for alcoholic cirrhosis, who presents emergency room today with a chief complaint of increased abdominal swelling and shortness of breath. He states his symptoms began approximately 2 weeks ago and seems to be increasing getting worse. Patient admits that he is not feeling short of breath. Feels like his abdomen or distended pushing up on his chest. Patient was not feeling nauseous had a few episodes of vomiting. Patient also admits to some cough congestion with positive sputum production it's been green in color over the last week. Patient admits to pressure in his abdomen discomfort. Denies any complaints associated symptoms. Patient denies any recent fever, chills, chest pain, back pain, numbness or tingling, dysuria or hematuria, constipation or diarrhea, headaches or visual changes, or any other complaints. - Related Data Home Medications Medication Instructions Recorded Confirmed Furosemide [Furosemide] 40 mg PO BID 03/07/16 11/29/17 HYDROcodone/APAP 10-325MG [[place] 1 tab PO TID PRN 09/13/17 11/29/17 10-325] Magnesium Elemental 300mg 300 mg PO DAILY 09/13/17 11/29/17 Omeprazole [PriLOSEC] 20 mg PO DAILY 09/13/17 11/29/17 buPROPion XL [Wellbutrin Xl] 300 mg PO QAM 09/13/17 11/29/17 Ranitidine HCl [Zantac] 150 mg PO BID 11/29/17 11/29/17 Allergies Allergy/AdvReac Type Severity Reaction Status Date / Time No Known Allergies Allergy Verified 11/29/17 13:08 Review of Systems ROS Statement: Those systems with pertinent positive or pertinent negative responses have been documented in the HPI. ROS Other: All systems not noted in ROS Statement are negative. Past Medical History Past Medical History: Coronary Artery Disease (CAD), GERD/Reflux, GI Bleed, Hypertension Additional Past Medical History / Comment(s): Alcoholic Cirrhosis of the liver, hep c, ascites, hemachromatosis, left pelvic fracture and femer fracture, herpes , constipation,"fequent leg cramps", marti glaucoma, PAST BLEEDING VARICIES WAS AT [facility] ON VENT IN [place] 5 DAYS" History of Any Multi-Drug Resistant Organisms: None Reported Past Surgical History: Back Surgery Additional Past Surgical History / Comment(s): RT ankle"HARDWARE REMOVED", "12 screws left elbow",BALDO/ 4 screws in spine, hepatitis C, Baldo placed (L) Femer, ORAL SX, EGD, Past Anesthesia/Blood Transfusion Reactions: No Reported Reaction Past Psychological History: Depression Smoking Status: Current some day smoker Past Alcohol Use History: Occasional Past Drug Use History: Marijuana - Past Family History Father Family Medical History: Cancer Additional Family Medical History / Comment(s): Father at age 55 with history of alcoholism Mother Family Medical History: No Reported History Additional Family Medical History / Comment(s): Mother is alive at age 70 with no major medical problems. Patient has 1 sister with no major medical problems. General Exam - General Exam Comments Initial Comments: General: The patient is awake and alert, in no distress, and does not appear acutely ill. Eye: Pupils are equal, round and reactive to light, extra-ocular movements are intact. No nystagmus. There is normal conjunctiva bilaterally. No signs of icterus. Ears, nose, mouth and throat: There are moist mucous membranes and no oral lesions. Neck: The neck is supple, there is no tenderness or JVD. Cardiovascular: There is a regular rate and rhythm. No murmur, rub or gallop is appreciated. Respiratory: Lungs are clear to auscultation, respirations are non-labored, breath sounds are equal. No wheezes, stridor, rales, or rhonchi. Gastrointestinal: Abdomen mildly distended with ascites. No specific tenderness on exam. No rebound, guarding or CVA tenderness. Musculoskeletal: Normal ROM, no tenderness. Strength 5/5. Sensation intact. Pulses equal bilaterally 2+. Neurological: A&O x 3. CN II-XII intact, There are no obvious motor or sensory deficits. Coordination appears grossly intact. Speech is normal. Skin: Skin is warm and dry and no rashes or lesions are noted. Psychiatric: Cooperative, appropriate mood & affect, normal judgment. Limitations: no limitations Course Vital Signs 11/29/17 11/29/17 12:42 14:29 Temperature 98.1 F Pulse Rate 76 77 Respiratory 18 18 Rate Blood Pressure 130/98 126/85 O2 Sat by Pulse 96 100 Oximetry Medical Decision Making - Medical Decision Making The patient labs been reviewed. Showed similar findings to previous. Patient does admit that he does have increased abdominal distention. States it is larger than he has been in the past. Patient's chest x-rays negative. She currently comfortable at this time. Will be admitted to the hospital for consult GI and interventional radiology. - Lab Data Result diagrams: 11/29/17 13:40 11/29/17 13:40 Lab Results 11/29/17 11/29/17 11/29/17 Range/Units 13:40 13:40 13:40 WBC 5.9 (3.8-10.6) k/uL RBC 3.82 L (4.30-5.90) m/uL Hgb 12.9 L (13.0-17.5) gm/dL Hct 38.0 L (39.0-53.0) % MCV 99.3 (80.0-100.0) fL MCH 33.9 (25.0-35.0) pg MCHC 34.1 (31.0-37.0) g/dL RDW 18.2 H (11.5-15.5) % Plt Count 62 L (150-450) k/uL Neutrophils % 74 % Lymphocytes % 7 % Monocytes % 14 % Eosinophils % 1 % Basophils % 1 % Neutrophils # 4.3 (1.3-7.7) k/uL Lymphocytes # 0.4 L (1.0-4.8) k/uL Monocytes # 0.8 (0-1.0) k/uL Eosinophils # 0.1 (0-0.7) k/uL Basophils # 0.0 (0-0.2) k/uL Poikilocytosis (manual Present Anisocytosis Slight Macrocytosis Slight PT 11.0 (9.0-12.0) sec INR 1.1 (<1.2) APTT 22.5 (22.0-30.0) sec Sodium 142 (137-145) mmol/L Potassium 4.2 (3.5-5.1) mmol/L Chloride 105 (98-107) mmol/L Carbon Dioxide 26 (22-30) mmol/L Anion Gap 11 mmol/L BUN 12 (9-20) mg/dL Creatinine 1.02 (0.66-1.25) mg/dL Est GFR (MDRD) Af Amer >60 (>60 ml/min/1.73 sqM) Est GFR (MDRD) Non-Af >60 (>60 ml/min/1.73 sqM) Glucose 111 H (74-99) mg/dL Calcium 8.7 (8.4-10.2) mg/dL Total Bilirubin 1.3 (0.2-1.3) mg/dL AST 98 H (17-59) U/L ALT 41 (21-72) U/L Alkaline Phosphatase 288 H (38-126) U/L Total Protein 7.3 (6.3-8.2) g/dL Albumin 3.7 (3.5-5.0) g/dL Amylase 70 (30-110) U/L Lipase 291 (23-300) U/L Urine Color Urine Appearance (Clear) Urine pH (5.0-8.0) Ur Specific [place] (1.001-1.035) Urine Protein (Negative) Urine Glucose (UA) (Negative) Urine Ketones (Negative) Urine Blood (Negative) Urine Nitrite (Negative) Urine Bilirubin (Negative) Urine Urobilinogen (<2.0) mg/dL Ur Leukocyte Esterase (Negative) 11/29/17 Range/Units 13:40 WBC (3.8-10.6) k/uL RBC (4.30-5.90) m/uL Hgb (13.0-17.5) gm/dL Hct (39.0-53.0) % MCV (80.0-100.0) fL MCH (25.0-35.0) pg MCHC (31.0-37.0) g/dL RDW (11.5-15.5) % Plt Count (150-450) k/uL Neutrophils % % Lymphocytes % % Monocytes % % Eosinophils % % Basophils % % Neutrophils # (1.3-7.7) k/uL Lymphocytes # (1.0-4.8) k/uL Monocytes # (0-1.0) k/uL Eosinophils # (0-0.7) k/uL Basophils # (0-0.2) k/uL Poikilocytosis (manual Anisocytosis Macrocytosis PT (9.0-12.0) sec INR (<1.2) APTT (22.0-30.0) sec Sodium (137-145) mmol/L Potassium (3.5-5.1) mmol/L Chloride (98-107) mmol/L Carbon Dioxide (22-30) mmol/L Anion Gap mmol/L BUN (9-20) mg/dL Creatinine (0.66-1.25) mg/dL Est GFR (MDRD) Af Amer (>60 ml/min/1.73 sqM) Est GFR (MDRD) Non-Af (>60 ml/min/1.73 sqM) Glucose (74-99) mg/dL Calcium (8.4-10.2) mg/dL Total Bilirubin (0.2-1.3) mg/dL AST (17-59) U/L ALT (21-72) U/L Alkaline Phosphatase (38-126) U/L Total Protein (6.3-8.2) g/dL Albumin (3.5-5.0) g/dL Amylase (30-110) U/L Lipase (23-300) U/L Urine Color Yellow Urine Appearance Clear (Clear) Urine pH 6.5 (5.0-8.0) Ur Specific [place] 1.013 (1.001-1.035) Urine Protein Negative (Negative) Urine Glucose (UA) Negative (Negative) Urine Ketones Negative (Negative) Urine Blood Negative (Negative) Urine Nitrite Negative (Negative) Urine Bilirubin Negative (Negative) Urine Urobilinogen 2.0 (<2.0) mg/dL Ur Leukocyte Esterase Negative (Negative) Disposition Clinical Impression: Ascites, Alcoholic cirrhosis Disposition: ADMITTED IP TO THIS HOSP Condition: Stable Referrals: Omar Tse MD [Primary Care Provider] - 1-2 days Time of Disposition: 15:01
[2017-11-29 14:15] LABS: Appearance,Urine Clear (Clear); Bilirubin,Urine Negative (Negative); Blood,Urine Negative (Negative); Color,Urine Yellow; Glucose,Urine (UA) Negative (Negative); Ketones,Urine Negative (Negative); Leukocyte Esterase,Urine Negative (Negative); Nitrite,Urine Negative (Negative); PH, Urine 6.5 (5.0-8.0); Protein,Urine Negative (Negative); Specific Gravity,Urine 1.013 (1.001-1.035)
--- NOTE | 2017-11-29 14:15 | XR ---
EXAMINATION TYPE: XR chest 2V DATE OF EXAM: 11/29/2017 COMPARISON: 03/13/2017 HISTORY: 57-year-old male with abdominal pain and distention for 2 days TECHNIQUE: PA and lateral views FINDINGS: The cardiomediastinal silhouette, aorta, and pulmonary vasculature are within normal limits. Strandy atelectasis mid and lower lungs. Otherwise, lungs and pleural spaces are clear. IMPRESSION: No acute cardiopulmonary process.
--- NOTE | 2017-11-29 14:17 | XR ---
EXAMINATION TYPE: XR KUB DATE OF EXAM: 11/29/2017 CLINICAL DATA: 57-year-old male with abdominal pain and distention for 2 days. COMPARISON: 09/13/2017 FINDINGS: Lung bases are clear. No evidence for free intraperitoneal air. No dilated small bowel or air-fluid levels. Scattered air and stool seen throughout the colon extendi ng distally into the rectum. Moderate stool burden. No suspicious calcifications identified. L5-S1 posterior fusion with laminectomies. Screw fixation on the left with severe degenerative change s. IMPRESSION: Moderate stool burden. No evidence of bowel obstruction or free intraperitoneal air.
[2017-11-29 14:22] LABS: INR 1.1 (<1.2); Partial Thromboplastin Time 22.5 sec (22.0-30.0)
[2017-11-29 14:23] LABS: ALT 41 U/L (21-72); AST 98 U/L (17-59); Albumin 3.7 g/dL (3.5-5.0); Alkaline Phosphatase 288 U/L (38-126); Amylase 70 U/L (30-110); Anion Gap 11 mmol/L; Blood Urea Nitrogen 12 mg/dL (9-20); Calcium 8.7 mg/dL (8.4-10.2); Carbon Dioxide 26 mmol/L (22-30); Chloride 105 mmol/L (98-107); Glucose 111 mg/dL (74-99); Lipase 291 U/L (23-300); Potassium 4.2 mmol/L (3.5-5.1); Sodium 142 mmol/L (137-145); Total Bilirubin 1.3 mg/dL (0.2-1.3); Total Protein 7.3 g/dL (6.3-8.2)
[2017-11-29 14:33] LABS: Anisocytosis Slight; Basophils % (A) 1 %; Eosinophils # (A) 0.1 k/uL (0-0.7); Eosinophils % (A) 1 %; HGB 12.9 gm/dL (13.0-17.5); Lymphocytes # (A) 0.4 k/uL (1.0-4.8); Lymphocytes % (A) 7 %; MCH 33.9 pg (25.0-35.0); MCHC 34.1 g/dL (31.0-37.0); MCV 99.3 fL (80.0-100.0); Macrocytosis Slight; Mean Platelet Volume 9.6; Monocytes # (A) 0.8 k/uL (0-1.0); Monocytes % (A) 14 %; Neutrophils # (A) 4.3 k/uL (1.3-7.7); Neutrophils % (A) 74 %; RBC 3.82 m/uL (4.30-5.90); RDW 18.2 % (11.5-15.5); WBC 5.9 k/uL (3.8-10.6)
[2017-11-29 14:39] LABS: Platelet Count 62 k/uL (150-450)
[2017-11-29 14:47] LABS: Poikilocytosis (M) Present
[2017-11-29] MEDS ORDERED: NALOXONE 0.4 MG/ML 1 ML VIAL IV PRN (14:56)
[2017-11-29] MEDS ORDERED: FUROSEMIDE 40 MG TAB PO SCH (18:00)
[2017-11-29] MEDS: HYDROcodone/APAP 10-325MG 1 EACH TAB PO PRN ×2 (18:10→23:53)
[2017-11-29] MEDS: FAMOTIDINE 20 MG TAB PO SCH (20:07)
[2017-11-29] MEDS: ONDANSETRON 4 MG/2 ML VIAL IVP PRN (20:43)
[2017-11-29] MEDS: NICOTINE 21MG/24HR PATCH TRANSDERM SCH (23:48)
[2017-11-29] MEDS: PANTOPRAZOLE 40 MG/10 ML VIAL IVP SCH (23:48)
--- NOTE | 2017-11-30 04:46 | HP ---
HISTORY AND PHYSICAL DATE OF ADMISSION: 11/29/2017 PRESENTING COMPLAINT: Distended abdomen. HISTORY OF PRESENTING COMPLAINT: This is a 56-year-old patient Dr. Tse with extensive history of complications of alcoholism including esophageal varices, portal gastropathy, ascites, thrombocytopenia, cirrhosis. The patient has hepatitis C, treated. The patient continues to drink alcohol and smokes cigarettes. The patient presented with increased distention, some shortness of breath. Also had some nausea, denies any bleeding, presented to the ER. Abdomen is rather distended. REVIEW OF SYSTEM: CONSTITUTIONAL: Tired. HEENT: None. RESPIRATORY: Some wheezing, cough. CARDIOVASCULAR: None. GASTROINTESTINAL: Distended abdomen. GENITOURINARY: None. MUSCULOSKELETAL: None. DERMATOLOGIC: None. HEMATOLOGIC: None. LYMPHATICS: None. PSYCHIATRY: Anxiety. NEUROLOGICAL: None. PAST HISTORY: Past history of esophageal varices, portal hepatic gastropathy, ascites, thrombocytopenia, cirrhosis, hepatitis C that was treated, hematochromatosis, left pelvic fracture, femur fracture, herpes, leg cramps, bleeding varices. The patient was at [facility] on the ventilator for 5 days. PAST SURGICAL HISTORY: Back surgery, right ankle hardware removed, 12 screws left elbow, 4 screws in the spine, hepatitis C that was treated, ciro placed in the left femur, oral surgery. SOCIAL HISTORY: The patient has been smoking for close to 37 years about a pack a day. Continues to drink a pint of vodka daily. The patient lives with his son. Does marijuana. FAMILY HISTORY: Father of complications of alcoholism. PHYSICAL EXAMINATION: On examination, temperature 98, pulse 77, respiration 18, blood pressure 140/83, pulse ox 92% on room air. GENERAL APPEARANCE: Well built, BMI 33.9, distended abdomen, sitting up, uncomfortable appearing. EYES: Pupils equal. Conjunctivae normal. HENT: Oral cavity normal. NECK: JVD not raised. Mass not palpable. RESPIRATORY: Effort increased. LUNGS: Decreased breath sounds. Prolonged expiration wheezing. CARDIOVASCULAR: First and second . Some edema is present. ABDOMEN: Distended. Dullness to percussion. Liver and spleen not palpable. No tenderness. LYMPHATIC: No lymph node palpable in the neck or axillae. PSYCHIATRY: Alert and oriented x3. Mood and affect anxious-appearing. DERMATOLOGIC: Patient has got spider nevi in the upper part of the chest, gynecomastia. INVESTIGATIONS: White count 5.9, hemoglobin 12.9, platelets 62. Potassium 4.2. AST 98. ASSESSMENT: 1. Large symptomatic ascites affecting patient's breathing from underlying cirrhosis. 2. Alcoholic cirrhosis. 3. Esophageal varices. 4. Portal hepatic gastropathy. 5. Thrombocytopenia from cirrhosis. 6. Hypoalbuminemia from liver disease. 7. Hepatitis C, that was treated. 8. Chronic alcohol dependence. 9. Chronic nicotine dependence. 10.Chronic obstructive pulmonary disease in a current smoker. PLAN: Home medications are resumed. The patient did throw up 2 to 3 times since he came in. We will put the patient on clear liquids. Interventional Radiology was consulted for a therapeutic paracentesis. Patient advised against smoking and alcohol. Keep a close eye on the patient. Dr. Clay Khanna from GI was consulted. MMODL / IJN: [id number] /
[2017-11-30] MEDS: ONDANSETRON 4 MG/2 ML VIAL IVP PRN ×2 (06:33→14:54)
[2017-11-30] MEDS: HYDROcodone/APAP 10-325MG 1 EACH TAB PO PRN ×2 (06:56→14:54)
[2017-11-30] MEDS ORDERED: PANTOPRAZOLE 40 MG TABLET PO SCH (07:30)
[2017-11-30 07:51] LABS: Anisocytosis Slight; Basophils % (A) 1 %; Eosinophils % (A) 1 %; HCT 40.3 % (39.0-53.0); HGB 13.1 gm/dL (13.0-17.5); Lymphocytes # (A) 0.3 k/uL (1.0-4.8); Lymphocytes % (A) 9 %; MCH 32.9 pg (25.0-35.0); MCHC 32.4 g/dL (31.0-37.0); MCV 101.5 fL (80.0-100.0); Macrocytosis Moderate; Mean Platelet Volume 10.3; Monocytes # (A) 0.4 k/uL (0-1.0); Monocytes % (A) 13 %; Neutrophils # (A) 2.5 k/uL (1.3-7.7); Neutrophils % (A) 74 %; RBC 3.97 m/uL (4.30-5.90); RDW 17.3 % (11.5-15.5); WBC 3.4 k/uL (3.8-10.6)
[2017-11-30 07:55] LABS: ALT 39 U/L (21-72); AST 89 U/L (17-59); Albumin 3.8 g/dL (3.5-5.0); Alkaline Phosphatase 205 U/L (38-126); Anion Gap 10 mmol/L; Blood Urea Nitrogen 14 mg/dL (9-20); Calcium 9.1 mg/dL (8.4-10.2); Carbon Dioxide 30 mmol/L (22-30); Chloride 99 mmol/L (98-107); Glucose 126 mg/dL (74-99); Potassium 3.8 mmol/L (3.5-5.1); Sodium 139 mmol/L (137-145); Total Bilirubin 2.6 mg/dL (0.2-1.3); Total Protein 7.4 g/dL (6.3-8.2)
[2017-11-30 07:59] LABS: Platelet Count 43 k/uL (150-450)
[2017-11-30] MEDS: NICOTINE 21MG/24HR PATCH TRANSDERM SCH (09:07)
[2017-11-30] MEDS: buPROPion XL 300 MG TAB.ER.24H PO SCH (09:09)
[2017-11-30] MEDS: FAMOTIDINE 20 MG TAB PO SCH ×2 (09:09→20:20)
[2017-11-30] MEDS: PANTOPRAZOLE 40 MG/10 ML VIAL IVP SCH (09:09)
[2017-11-30] MEDS: HYDROmorphone 2 MG/ML 1 ML SYRINGE IVP PRN ×2 (09:17→12:24)
[2017-11-30 09:59] LABS: INR 1.3 (<1.2)
--- NOTE | 2017-11-30 10:55 | P.CONS ---
History of Present Illness - Reason for Consult Consult date: 11/30/17 Ascites liver cirrhosis Requesting physician: Sly Lugo - Chief Complaint Abdominal distention - History of Present Illness 57-year-old male with a history of chronic thrombocytopenia, hepatitis C status post antiviral therapy, alcohol liver cirrhosis portal hypertension ascites, paracentesis 2014, GI bleed, esophageal varices status post ligation October 2016 followed by senior technical trainer Dr. Salas at [facility] presents with increased abdominal swelling and shortness of breath. Symptoms of ongoing for the last 2-3 weeks. Small nonbloody emesis 24 hours. Denies hematochezia or melena. Afebrile. Scheduled for EGD evaluation 01/09/[address] Salas for re-surveillance of esophageal varices. Patient's home medications include Lasix 40 mg twice a day. Patient was taking alcohol around the holidays and quit just a few weeks ago. White count 3.4-5.9. Hemoglobin 13.1 platelet 43,000. INR 1.3. Total bilirubin 2.6. AST 89. ALT 39. Alkaline phosphatase 205. BUN 14. Creatinine 1.0. AFP July 2017 was 3.7. Ultrasound abdomen pending. Patient has only had 1 paracentesis in the past back in 2014 negative for malignancy, 4.8 L removed. Review of Systems Constitutional: Denies fever, chills, sweats, weight gain, or loss. HEENT: Negative for migraines, blurred vision or loss, earaches, drainage, tinnitus, oral mucosal lesions, dysphagia, or odynophagia. Cardiac: CAD. Hypertension. Negative for chest pain, arrhythmias, or palpitation. Respiratory: Negative for shortness of breath, hemoptysis, cough, or sputum production. Gastrointestinal: See HPI for pertinent findings. Genitourinary: Negative for hematuria, urgency, frequency, polyuria, dysuria, or penile discharge. Musculoskeletal: Negative for muscle aches, swelling, arthritis, and arthralgias. Neurologic: Negative for stroke or TIA. Endocrine: Negative for thyroid problems. Skin: Negative for rash or itching. Psychiatric: Negative history for depression and anxiety Past Medical History Past Medical History: Coronary Artery Disease (CAD), GERD/Reflux, GI Bleed, Hypertension Additional Past Medical History / Comment(s): Alcoholic Cirrhosis of the liver, hep c, ascites, hemachromatosis, left pelvic fracture and femer fracture, herpes , constipation,"fequent leg cramps", marti glaucoma, PAST BLEEDING VARICIES WAS AT [facility] ON [facility]ENT IN [place] 5 DAYS" History of Any Multi-Drug Resistant Organisms: None Reported Past Surgical History: Back Surgery Additional Past Surgical History / Comment(s): RT ankle"HARDWARE REMOVED", "12 screws left elbow",BALDO/ 4 screws in spine, hepatitis C, Baldo placed (L) Femer, ORAL SX, EGD, Past Anesthesia/Blood Transfusion Reactions: No Reported Reaction Past Psychological History: No Psychological Hx Reported Smoking Status: Current some day smoker Past Alcohol Use History: Daily Additional Past Alcohol Use History / Comment(s): Patient is a smoker one pack per day since he was 20 years of age. He does have history of heavy alcohol abuse CURRENTLY DRINKING A PINT OF WHISKEY DAILY He denies any street drug use. Patient is single and lives with his SON who is healthy. Patient is currently on disability. Past Drug Use History: Marijuana - Past Family History Father Family Medical History: Cancer Additional Family Medical History / Comment(s): Father at age 55 with history of alcoholism Mother Family Medical History: No Reported History Additional Family Medical History / Comment(s): Mother is alive at age 70 with no major medical problems. Patient has 1 sister with no major medical problems. Medications and Allergies Home Medications Medication Instructions Recorded Confirmed Type Furosemide [Furosemide] 40 mg PO BID 03/07/16 11/29/17 History HYDROcodone/APAP 10-325MG [[place] 1 tab PO TID PRN 09/13/17 11/29/17 History 10-325] Magnesium Elemental 300mg 300 mg PO DAILY 09/13/17 11/29/17 History Omeprazole [PriLOSEC] 20 mg PO DAILY 09/13/17 11/29/17 History buPROPion XL [Wellbutrin Xl] 300 mg PO QAM 09/13/17 11/29/17 History Ranitidine HCl [Zantac] 150 mg PO BID 11/29/17 11/29/17 History Allergies Allergy/AdvReac Type Severity Reaction Status Date / Time No Known Allergies Allergy Verified 11/29/17 13:08 Physical Exam Vitals: Vital Signs Temp Pulse Pulse Pulse Resp BP BP 11/30/17 07:00 97.6 F 83 18 11/29/17 23:00 97.3 F L 76 20 11/29/17 16:56 18 11/29/17 16:50 98.0 F 77 18 141/83 11/29/17 16:24 97.9 F 69 18 128/80 11/29/17 14:29 77 18 126/85 11/29/17 12:42 98.1 F 76 18 130/98 BP Pulse Ox 11/30/17 07:00 162/92 95 11/29/17 23:00 124/88 94 L 11/29/17 16:56 11/29/17 16:50 92 L 11/29/17 16:24 96 11/29/17 14:29 100 11/29/17 12:42 96 Intake and Output 11/29/17 11/30/17 11/30/17 22:59 06:59 14:59 Intake Total 480 240 Output Total 2 Balance 478 240 Intake: Oral 480 240 Output: Emesis 2 Other: # Voids 2 2 # Emeses 2 General appearance: The patient is alert, oriented, in no acute distress. HET: Head is normocephalic and atraumatic. Pupils are equal and reactive. Oropharynx is clear without lesions. Neck: Supple without lymphadenopathy. Trachea midline. Heart: S1 S2. Regular rate and rhythm. Lungs: No crackles or wheezes are heard. Abdomen: Soft, nontender, distended with very mild ascites at best with bowel sounds. No peritoneal signs. No palpable organomegaly or masses. Extremities: Normal skin color and turgor. No cyanosis, rash, ulceration, clubbing, or edema. Radial and pedal pulses are 2/4 bilaterally. Neurological: No focal deficits. Strength and sensation are grossly intact. Results CBC & Chem 7: 11/30/17 07:12 11/30/17 07:12 Labs: Abnormal Lab Results - Last 24 Hours (Table) 11/29/17 11/29/17 11/30/17 Range/Units 13:40 13:40 07:12 WBC 3.4 L (3.8-10.6) k/uL RBC 3.82 L 3.97 L (4.30-5.90) m/uL Hgb 12.9 L (13.0-17.5) gm/dL Hct 38.0 L (39.0-53.0) % MCV 101.5 H (80.0-100.0) fL RDW 18.2 H 17.3 H (11.5-15.5) % Plt Count 62 L 43 L* (150-450) k/uL Lymphocytes # 0.4 L 0.3 L (1.0-4.8) k/uL INR (<1.2) Glucose 111 H (74-99) mg/dL Total Bilirubin (0.2-1.3) mg/dL AST 98 H (17-59) U/L Alkaline Phosphatase 288 H (38-126) U/L 11/30/17 11/30/17 Range/Units 07:12 07:12 WBC (3.8-10.6) k/uL RBC (4.30-5.90) m/uL Hgb (13.0-17.5) gm/dL Hct (39.0-53.0) % MCV (80.0-100.0) fL RDW (11.5-15.5) % Plt Count (150-450) k/uL Lymphocytes # (1.0-4.8) k/uL INR 1.3 H (<1.2) Glucose 126 H (74-99) mg/dL Total Bilirubin 2.6 H (0.2-1.3) mg/dL AST 89 H (17-59) U/L Alkaline Phosphatase 205 H (38-126) U/L US - abdomen: pending Assessment and Plan (1) Ascites Narrative/Plan: Abdominal distention history of ascites Current Visit: Yes Status: Acute Code(s): R18.8 - OTHER ASCITES SNOMED Code(s): 198073445 (2) Coagulopathy Current Visit: Yes Status: Acute Code(s): D68.9 - COAGULATION DEFECT, UNSPECIFIED SNOMED Code(s): 94457996 (3) Liver cirrhosis, alcoholic Current Visit: Yes Status: Chronic Code(s): K70.30 - ALCOHOLIC CIRRHOSIS OF LIVER WITHOUT ASCITES SNOMED Code(s): 990025430 (4) Acute alcoholic hepatitis Current Visit: No Status: Acute Code(s): K70.10 - ALCOHOLIC HEPATITIS WITHOUT ASCITES SNOMED Code(s): 5116130 (5) History of hepatitis C Current Visit: No Status: Acute Code(s): Z86.19 - PERSONAL HISTORY OF OTHER INFECTIOUS AND PARASITIC DISEASES SNOMED Code(s): 49203700050382 (6) Thrombocytopenia Current Visit: No Status: Acute Code(s): D69.6 - THROMBOCYTOPENIA, UNSPECIFIED SNOMED Code(s): 989456889 (7) Esophageal varices in cirrhosis Current Visit: No Status: Chronic Code(s): K74.60 - UNSPECIFIED CIRRHOSIS OF LIVER; I85.10 - SECONDARY ESOPHAGEAL VARICES WITHOUT BLEEDING SNOMED Code(s ): 191668883 (8) Portal hypertension Current Visit: No Status: Chronic Code(s): K76.6 - PORTAL HYPERTENSION SNOMED Code(s): 98238735 Plan: 1. US abdomen to assess degree of ascites; paracentesis with cytology as indicated. Outpatient EGD/colonoscopy next week with Dr. Khanna per patient request. 2. Low-salt diet. Lasix 40 mg twice daily as previously prescribed. 3. GI prophylaxis Protonix 40 mg daily. Thank you for this kind referral and the opportunity to participate in the care of your patient. This consultation was discussed with Dr. Khanna. The impression and plan of care have been directed as dictated.
[2017-11-30] MEDS ORDERED: FUROSEMIDE 40 MG TAB PO SCH (11:45)
[2017-11-30] MEDS ORDERED: SPIRONOLACTONE 25 MG TAB PO SCH (11:45)
--- NOTE | 2017-11-30 11:48 | US ---
EXAMINATION TYPE: US abdomen limited DATE OF EXAM: 11/30/2017 COMPARISON: NONE CLINICAL HISTORY: ascites. No ascites seen. Enlarged gallbladder with stones noted. IMPRESSION: 1. No sonographic evidence of abdominopelvic ascites. 2. Cholelithiasis and elongation of the gallbladder. Correlation is recommended with bilirubin, LFTs, and point tenderness to determine the need for HIDA scan to further evaluate for acute or chronic ch olecystitis.
[2017-11-30] MEDS: MAGNESIUM OXIDE 400 MG TAB PO SCH (12:20)
[2017-11-30] MEDS: FUROSEMIDE 40 MG TAB PO SCH (16:59)
[2017-11-30] MEDS ORDERED: LORazepam 2 MG/ML INJ IV PRN ×2 (17:12)
[2017-11-30] MEDS: LORazepam 2 MG/ML INJ IV PRN ×2 (17:24→22:14)
[2017-11-30] MEDS: THIAMINE 100 MG TAB PO SCH (17:57)
--- NOTE | 2017-11-30 23:43 | P.PN ---
Progress Note - Text Progress Note Date: 11/30/17 DATE OF SERVICE: 11/30/2017 PRESENTING COMPLAINT: Distended abdomen HISTORY OF PRESENT ILLNESS: 56-year-old male who presented to the emergency department with increasing distention and shortness of breath. Has extensive smoking and alcohol use history. Admitted for symptomatic ascites from underlying cirrhosis. INTERVAL HISTORY: 11/30/2017: Lying in bed appears uncomfortable. Abdomen remains fairly well distended. Continues to be nauseated and vomiting vomited up a moderate amount of bloody emesis. Patient states he really rather go home. Feels he can be "sick anywhere". Encouraged him to stay he was agreeable. May need a paracentesis. GI consulted. Ambulatory with assistance to and from the bathroom. Not tolerating much in the way of food. Last BM prior to admission. REVIEW OF SYSTEMS: Done for constitutional ,cardiovascular, GI, pulmonary with relevant findings as above. CURRENT MEDICATIONS [place], Wellbutrin, Pepcid, Lasix, Ativan, magnesium oxide, multivitamin, nicotine patch, Zofran, Protonix, thiamine. PHYSICAL EXAM VITAL SIGNS: Temperature 97.6, pulse 83, respiratory rate 18, blood pressure 162/92, oxygen saturation 95% on room air. GENERAL APPEARANCE: Average build. Lying in bed, not in distress. HENT: Normocephalic, JVD not raised. Mass not palpable. Oral cavity normal, external appearance of ears and nose normal. EYES:Pupils equal. Conjunctiva normal. RESPIRATORY: Respiratory effort normal. Lungs clear to auscultation. CARDIOVASCULAR: First and second sounds normal. No edema. ABDOMEN: Soft. Liver and spleen not palpable. No tenderness. No mass palpable. PSYCHIATRY: Alert and oriented x3. Mood and affect normal. NEUROLOGICAL: Cranial nerves grossly intact. No facial asymmetry. Power and sensation grossly intact INVESTIGATIONS: White blood cell count 3.4, INR 1.3, AST 89, ALTs 39, alkaline phosphatase 205. Abdominal ultrasound: Cholelithiasis and elongation of the gallbladder ASSESSMENT: -Large symptomatic ascites affecting patient's breathing from underlying cirrhosis, slow to respond. -Alcoholic cirrhosis. -Esophageal varices. -Portal hepatic gastropathy. -Thrombocytopenia from cirrhosis. -Hypoalbuminemia from liver disease. -Hepatitis C that was treated. -Chronic alcohol dependence -Chronic nicotine dependence in a current smoker -Chronic obstructive pulmonary disease in a current smoker. PLAN: Continue current medication and treatment plan, has had several additional episodes of nausea vomiting. Await additional input from GI. Interventional radiology not planning to do a paracentesis. Plan of care discussed at the bedside with patient he is agreeable. We'll follow closely. [employer] statement: Patient was seen and examined by nurse practitioner Dianna Morris and all elements of the case discussed with attending Dr. Lugo
[2017-12-01] MEDS: HYDROcodone/APAP 10-325MG 1 EACH TAB PO PRN ×2 (00:29→08:45)
[2017-12-01] MEDS: LORazepam 2 MG/ML INJ IV PRN ×2 (06:23→13:42)
--- NOTE | 2017-12-01 06:42 | PN ---
PROGRESS NOTE DATE OF SERVICE: 11/30/2017 PRESENTING COMPLAINT: Nausea and vomiting. INTERVAL HISTORY: This patient with multiple complications of alcoholism presented with abdominal distention, nausea, vomiting. The patient did vomit this morning yet again. Ultrasound did not show much fluid, though it did show some gallstones. REVIEW OF SYSTEMS: Review of systems done for constitutional, cardiovascular, GI, pulmonary; relevant findings as above. Additionally, patient does not have much of an appetite, wants to eat very light. PHYSICAL EXAMINATION: On examination, temperature 97.6, pulse 83, respirations 18, blood pressure 162/92, pulse ox 95% on room air. HEENT: Normocephalic. Oral cavity dry mucous membrane. NECK: JVD not raised. Mass not palpable. EYES: Pupils equal. Conjunctivae normal. RESPIRATORY: Effort increased. LUNGS: Decreased breath sounds. Some expiratory wheezing. CARDIOVASCULAR: First and second sounds normal. Some edema. ABDOMEN: Some distention, dullness to percussion. Liver and spleen not palpable. PSYCHIATRY: Alert and oriented x3. Mood is slightly anxious appearing. INVESTIGATIONS: White count 3.4, hemoglobin 13.3, platelets 43. Potassium 3.8. Abdominal ultrasound cholelithiasis, no ascites. ASSESSMENT: 1. Gallstones, questionable . 2. Not much and minimal ascites demonstrated on the ultrasound. 3. Alcoholic cirrhosis. 4. Esophageal varices. 5. Portal hepatic gastropathy. 6. Thrombocytopenia from cirrhosis. 7. Hypoalbuminemia from liver cirrhosis. 8. Hepatitis C that was treated. 9. Chronic alcohol dependence. 10.Chronic nicotine dependence. 11.Chronic obstructive pulmonary disease in a current smoker. 12.Possible acute on chronic gastritis from chronic alcohol intake. PLAN: I told the patient to try a soft diet. If patient is able to tolerate a diet, then patient could probably be discharged. In the meantime will get a surgical opinion based on the gallstones. I do not think that is causing his symptoms. MMODL / IJN: [id number] /
[2017-12-01 08:31] VITALS: BP 111/65; PULSE 81; RESP 20; TEMP 98.6
[2017-12-01] MEDS: buPROPion XL 300 MG TAB.ER.24H PO SCH (08:40)
[2017-12-01] MEDS: FUROSEMIDE 40 MG TAB PO SCH (08:40)
[2017-12-01] MEDS: NICOTINE 21MG/24HR PATCH TRANSDERM SCH (08:40)
[2017-12-01] MEDS: PANTOPRAZOLE 40 MG/10 ML VIAL IVP SCH (08:40)
[2017-12-01] MEDS: FAMOTIDINE 20 MG TAB PO SCH (08:40)
--- NOTE | 2017-12-01 10:10 | P.PN ---
Subjective Progress Note Date: 12/01/17 Principal diagnosis: Alcohol liver cirrhosis abdominal distention 57-year-old past medical history of alcohol liver cirrhosis followed by Dr. Salas at [facility] evaluated yesterday for reports of abdominal distention concern for ascites. Ultrasound reported no ascites. Cholelithiasis. Presently resting comfortably "I feel better". Apparently he had a emesis yesterday afternoon that was witnessed as blood tinged. No recurrence. He is a full breakfast this morning without abdominal discomfort, "Just soreness". Denies hematochezia or melena. CBC yesterday 13.1. No CBC to review today. He is scheduled for outpatient EGD colonoscopy next Monday. Objective - Vital Signs Vital signs: Vital Signs Temp 98.6 F 12/01/17 07:00 Pulse 81 12/01/17 07:00 Resp 20 12/01/17 07:00 BP 111/65 12/01/17 07:00 Pulse Ox 90 L 12/01/17 07:00 Intake & Output 11/30/17 12/01/17 12/01/17 18:59 06:59 18:59 Intake Total 400 250 Balance 400 250 Intake: Oral 400 250 Other: Voiding Method Toilet # Voids 3 1 - Exam General appearance: The patient is alert, oriented, in no acute distress. HET: Head is normocephalic and atraumatic. Pupils are equal and reactive. Oropharynx is clear without lesions. Neck: Supple without lymphadenopathy. Trachea midline. Heart: S1 S2. Regular rate and rhythm. Lungs: No crackles or wheezes are heard. Abdomen: Soft, very mild tenderness across upper abdomen "sore", nondistended with bowel sounds. No peritoneal signs. No palpable organomegaly or masses. Extremities: Normal skin color and turgor. No cyanosis, rash, ulceration, clubbing, or edema. Radial and pedal pulses are 2/4 bilaterally. Neurological: No focal deficits. Strength and sensation are grossly intact. - Labs CBC & Chem 7: 11/30/17 07:12 11/30/17 07:12 Assessment and Plan (1) Ascites Narrative/Plan: History of ascites paracentesis 2014. Ultrasound imaging not supportive of recurrent ascites. Current Visit: Yes Status: Acute Code(s): R18.8 - OTHER ASCITES SNOMED Code(s): 982447080 (2) Coagulopathy Current Visit: Yes Status: Acute Code(s): D68.9 - COAGULATION DEFECT, UNSPECIFIED SNOMED Code(s): 74940372 (3) Liver cirrhosis, alcoholic Current Visit: Yes Status: Chronic Code(s): K70.30 - ALCOHOLIC CIRRHOSIS OF LIVER WITHOUT ASCITES SNOMED Code(s): 277675713 (4) Acute alcoholic hepatitis Current Visit: No Status: Acute Code(s): K70.10 - ALCOHOLIC HEPATITIS WITHOUT ASCITES SNOMED Code(s): 3630720 (5) History of hepatitis C Current Visit: No Status: Acute Code(s): Z86.19 - PERSONAL HISTORY OF OTHER INFECTIOUS AND PARASITIC DISEASES SNOMED Code(s): 51143808893944 (6) Thrombocytopenia Current Visit: No Status: Acute Code(s): D69.6 - THROMBOCYTOPENIA, UNSPECIFIED SNOMED Code(s): 396661980 (7) Esophageal varices in cirrhosis Current Visit: No Status: Chronic Code(s): K74.60 - UNSPECIFIED CIRRHOSIS OF LIVER; I85.10 - SECONDARY ESOPHAGEAL VARICES WITHOUT BLEEDING SNOMED Code(s ): 432888543 (8) Portal hypertension Current Visit: No Status: Chronic Code(s): K76.6 - PORTAL HYPERTENSION SNOMED Code(s): 26511322 (9) Cholelithiasis Current Visit: Yes Status: Chronic Code(s): K80.20 - CALCULUS OF GALLBLADDER W/O CHOLECYSTITIS W/O OBSTRUCTION SNOMED Code(s): 455509822 (10) Hematemesis Narrative/Plan: 1 episode of blood-tinged emesis yesterday without recurrence. Possible gastritis possible esophagitis and possible Kiera-Riddle tear. Current Visit: Yes Status: Acute Code(s): K92.0 - HEMATEMESIS SNOMED Code( s): 4733257 Plan: 1. CBC. General surgical consult has been placed for evaluation of cholelithiasis. Alcohol abstinence was strongly advised. EGD colonoscopy scheduled to 12/06/2017. Continue with home Lasix 40 mg twice a day. Protonix 40 mg daily. Assessment and plan of care discussed with Dr. Khanna
[2017-12-01 11:32] LABS: Anisocytosis Slight; Basophils % (A) 1 %; Eosinophils % (A) 1 %; HCT 39.5 % (39.0-53.0); HGB 12.8 gm/dL (13.0-17.5); Lymphocytes # (A) 0.3 k/uL (1.0-4.8); Lymphocytes % (A) 8 %; MCH 32.9 pg (25.0-35.0); MCHC 32.3 g/dL (31.0-37.0); Macrocytosis Moderate; Mean Platelet Volume 9.3; Monocytes # (A) 0.5 k/uL (0-1.0); Monocytes % (A) 14 %; Neutrophils # (A) 2.4 k/uL (1.3-7.7); Neutrophils % (A) 72 %; RBC 3.87 m/uL (4.30-5.90); RDW 17.3 % (11.5-15.5); WBC 3.3 k/uL (3.8-10.6)
[2017-12-01 11:36] LABS: Platelet Count 44 k/uL (150-450)
--- NOTE | 2017-12-01 11:42 | P.GSCN ---
<Maxine Finn - Last Filed: 12/01/17 14:04> History of Present Illness Consult date: 12/01/17 History of present illness: 57-year-old male being seen at the request of the attending for surgical eval for abdominal discomfort. Patient presented to the emergency room on November 29 with a chief complaint of increased abdominal bloating. Stated that the bloating pushed up on his chest he felt short of breath with the sensation. Patient states symptoms to be 2-3 weeks ago seem to be getting progressively worse. stated when he got to the emergency room he did not feel short of breath. stated that he has a history of chronic alcoholism. States his last drink was a couple weeks ago around the holidays. 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 Patient states that he does follow-up for surveillance EGDs at [facility]. Follows up with Dr. Salas. Patient did undergo an ultrasound on November 30 it showed no ascites seen. Enlarged gallbladder with stones noted. Cholelithiasis elongation of the gallbladder. Total bili 2.6 . Currently the patient is denying any abdominal discomfort no nausea no vomiting Patient is scheduled for an outpatient EGD and colonoscopy next week Monday with Dr. Payan. Patient stated that he did tolerate a diet this morning there was no abdominal discomfort. Patient reportedly had a small emesis yesterday witnessed is blood-tinged. No further episodes. Patient reports this no tenderness to the abdomen no bloating Review of Systems Essentially unremarkable except as mentioned in the present illness Past Medical History Past Medical History: Coronary Artery Disease (CAD), GERD/Reflux, GI Bleed, Hypertension Additional Past Medical History / Comment(s): Alcoholic Cirrhosis of the liver, hep c, ascites, hemachromatosis, left pelvic fracture and femer fracture, herpes , constipation,"fequent leg cramps", marti glaucoma, PAST BLEEDING VARICIES WAS AT [facility] ON [place]ENT IN [place] 5 DAYS" History of Any Multi-Drug Resistant Organisms: None Reported Past Surgical History: Back Surgery Additional Past Surgical History / Comment(s): RT ankle"HARDWARE REMOVED", "12 screws left elbow",BALDO/ 4 screws in spine, hepatitis C, Baldo placed (L) Femer, ORAL SX, EGD, Past Anesthesia/Blood Transfusion Reactions: No Reported Reaction Past Psychological History: No Psychological Hx Reported Smoking Status: Current some day smoker Past Alcohol Use History: Daily Additional Past Alcohol Use History / Comment(s): Patient is a smoker one pack per day since he was 20 years of age. He does have history of heavy alcohol abuse CURRENTLY DRINKING A PINT OF WHISKEY DAILY He denies any street drug use. Patient is single and lives with his SON who is healthy. Patient is currently on disability. Past Drug Use History: Marijuana - Past Family History Father Family Medical History: Cancer Additional Family Medical History / Comment(s): Father at age 55 with history of alcoholism Mother Family Medical History: No Reported History Additional Family Medical History / Comment(s): Mother is alive at age 70 with no major medical problems. Patient has 1 sister with no major medical problems. Medications and Allergies Home Medications Medication Instructions Recorded Confirmed Type Furosemide [Furosemide] 40 mg PO BID 03/07/16 12/04/17 History HYDROcodone/APAP 10-325MG [[place] 1 tab PO TID PRN 09/13/17 12/04/17 History 10-325] Omeprazole [PriLOSEC] 20 mg PO DAILY PRN 09/13/17 12/04/17 History buPROPion XL [Wellbutrin Xl] 300 mg PO QAM 09/13/17 12/04/17 History Ranitidine HCl [Zantac] 150 mg PO BID 11/29/17 12/04/17 History Aspirin/Acetaminophen/Caffeine 1 each PO DIRECTED PRN 12/04/17 12/04/17 History [Helen's Ex-Str Powder Packet] Fluticasone Nasal [place] [Flonase 1 spray EA NOSTRIL DAILY 12/04/17 12/04/17 History Nasal [place]] Magnesium 300 mg PO DAILY 12/04/17 12/04/17 History Potassium Chloride [Klor-Con 10] 10 meq PO DAILY 12/04/17 12/04/17 History Propranolol [Inderal] 10 mg PO BID 12/04/17 12/04/17 History Spironolactone [Aldactone] 50 mg PO BID 12/04/17 12/04/17 History Allergies Allergy/AdvReac Type Severity Reaction Status Date / Time No Known Allergies Allergy Verified 12/04/17 14:17 Surgical - Exam Vital Signs Temp Pulse Resp BP Pulse Ox 98.1 F 76 18 130/98 96 11/29/17 12:42 11/29/17 12:42 11/29/17 12:42 11/29/17 12:42 11/29/17 12:42 GENERAL APPEARANCE: 57-year-old male patient is alert, oriented, in no acute distress. Talkative VITAL SIGNS: Reviewed HEENT: Head is normocephalic and atraumatic. Pupils are equal and reactive. The nares are patent. Oropharynx is clear without lesions. NECK: Supple without lymphadenopathy. Traches midline. HEART: S1, S2. Regular rate and rhythm. No murmur noted denying chest pain LUNGS: No crackles or wheezes are heard. Denies any shortness of breath adequate air movement bilaterally on room air ABDOMEN: Soft, mild tenderness upper abdomen nondistended with good bowel sounds. No peritoneal signs. No palpable organomegaly or masses. States no bloating no nausea no vomiting and tolerated a diet EXTREMITIES: Normal skin color and turgor. No cyanosis, rash, ulceration, clubbing or edema. Radial pedal pulses are 2/4 bilaterally. NEUROLOGICAL: No focal deficits. Strength and sensation are grossly intact. Results - Labs 12/01/17 11:10 12/01/17 11:10 Assessment and Plan Assessment: Impression Acute alcohol hepatitis History of hepatitis C post antiviral therapy History of esophageal varices status post ligation October 2016 at [facility] followed outpatient by hepatolgist Dr. Salas Ultrasound abdomen cholelithiasis with elongation of the gallbladder with stones noted COPD no evidence of an exacerbation Current every day smoker Thrombocytopenia from cirrhosis of the liver Portable hepatic gastropathy Alcohol liver cirrhosis with portal hypertension Plan Patient was instructed by dr arteaga would need to have follow-up to address gallbladder stones with his hepatolgist Dr. Salas No evidence of an acute surgical abdomen at this time Continue to reinforce alcohol abstinence Scheduled Monday next week outpatient for an EGD and colonoscopy by Dr. Payan service Okay to discharge from a surgical perspective no need for surgical intervention for the gallbladder stones at this time as patient is asymptomatic and needs to follow-up with the specialist given his liver issues DVT and GI prophylaxis Surgical consultation note dictated for Dr. arteaga The above impression and plan of care have been discussed and directed by signing physician. Maxine Finn nurse practitioner acting as scribe for signing physician. <Gabrielle Arteaga - Last Filed: 12/05/17 12:35> Surgical - Exam Vital Signs Temp Pulse Resp BP Pulse Ox 98.1 F 76 18 130/98 96 11/29/17 12:42 11/29/17 12:42 11/29/17 12:42 11/29/17 12:42 11/29/17 12:42 Results - Labs 12/01/17 11:10 12/01/17 11:10
[2017-12-01 11:55] LABS: ALT 40 U/L (21-72); AST 78 U/L (17-59); Albumin 3.4 g/dL (3.5-5.0); Alkaline Phosphatase 153 U/L (38-126); Anion Gap 10 mmol/L; Blood Urea Nitrogen 15 mg/dL (9-20); Carbon Dioxide 31 mmol/L (22-30); Chloride 94 mmol/L (98-107); Glucose 178 mg/dL (74-99); Potassium 3.4 mmol/L (3.5-5.1); Sodium 135 mmol/L (137-145); Total Bilirubin 1.7 mg/dL (0.2-1.3); Total Protein 7.1 g/dL (6.3-8.2)
[2017-12-01] MEDS ORDERED: MULTIVITAMINS, THERA 1 EACH TAB PO SCH (12:00)
[2017-12-01] MEDS: MAGNESIUM OXIDE 400 MG TAB PO SCH (12:54)
[2017-12-01] MEDS: THIAMINE 100 MG TAB PO SCH (12:55)
[2017-12-02] MEDS ORDERED: PANTOPRAZOLE 40 MG TABLET PO SCH (07:30)
--- NOTE | 2017-12-11 08:16 | DS ---
DISCHARGE SUMMARY DATE OF ADMISSION: 11/29/2017 DATE OF DISCHARGE: 12/01/2017. FINAL DIAGNOSES: 1. Acute on chronic gastritis from chronic alcohol intake. 2. Chronic obstructive pulmonary disease in a current smoker. 3. Gallstones, asymptomatic. 4. Alcoholic cirrhosis causing esophageal varices and portal hepatic gastroplasty. 5. Thrombocytopenia from cirrhosis. 6. Hypoalbuminemia from chronic liver disease/cirrhosis. 7. Hepatitis C that was treated. 8. Chronic alcohol dependence. 9. Chronic nicotine dependence. HOSPITAL COURSE: This patient continued to smoke and drink alcohol. Presents with abdominal distention, found to have gallstones, seen by Dr. Briceño. Told to follow up with his sofa back upholsterer. Not for any further intervention. Seen by Dr. Clay Khanna from GI who did an outpatient EGD, colonoscopy. Patient otherwise was tolerating his diet by the time he left. Initially he was throwing up, felt to be acute gastritis from alcohol. Patient advised against smoking and told to keep away from alcohol and smoking. Hemoglobin is 12.8, platelets 44. DISCHARGE MEDICATIONS: 1. Lasix 40 mg b.i.d. 2. Metcalf 10 one tablet p.o. t.i.d. p.r.n. 3. Prilosec 20 mg p.o. daily p.r.n. 4. Wellbutrin XL 300 mg p.o. daily. 5. Zantac 150 mg p.o. b.i.d. 6. Flonase 1 spray each nostril daily. 7. Magnesium 300 mg p.o. daily. 8. Potassium 10 mEq p.o. daily. 9. Inderal 10 mg b.i.d. 10.Aldactone 50 mg b.i.d. Follow up with Dr. Eva Khanna as scheduled for EGD and colonoscopy. Follow up with Dr. Tse in 3 days. The patient has been scheduled for EGD and colonoscopy on 12/06/2017. MMODL / IJN: [id number] /
== END 2017-12-01 14:43 | disposition left against medical advice (07) ==
LOC: EC 12:39 → 4MS4W 15:24 → OBSVTOIN 11-30 15:01 → INTOOBSV 11-30 15:01 → UNDODISIN 12-01 14:43
PROVIDERS: ADMIT Hospitalist; ATTEND Hospitalist
DX: K70.31 Alcoholic cirrhosis of liver with ascites (principal); K76.6 Portal hypertension; K70.11 Alcoholic hepatitis with ascites; K92.0 Hematemesis; D68.9 Coagulation defect, unspecified; D69.59 Other secondary thrombocytopenia; E88.09 Other disorders of plasma-protein metabolism, not elsewhere classified; I85.10 Secondary esophageal varices without bleeding; K31.89 Other diseases of stomach and duodenum; K80.20 Calculus of gallbladder without cholecystitis without obstruction; F10.20 Alcohol dependence, uncomplicated; F32.9 Major depressive disorder, single episode, unspecified; J44.9 Chronic obstructive pulmonary disease, unspecified; I10 Essential (primary) hypertension; K21.9 Gastro-esophageal reflux disease without esophagitis; F17.210 Nicotine dependence, cigarettes, uncomplicated; K29.00 Acute gastritis without bleeding; K59.00 Constipation, unspecified; I25.10 Atherosclerotic heart disease of native coronary artery without angina pectoris; H40.9 Unspecified glaucoma; Z79.899 Other long term (current) drug therapy; Z86.19 Personal history of other infectious and parasitic diseases; Z87.81 Personal history of (healed) traumatic fracture
CPT/HCPCS: 96376 ×3; 96375 ×2; 96374; 99285; 36415; 80053 ×3; 82150; 83690; 85025 ×3; 85610 ×2; 85730; 81003; 71046; 74018; 76705; G0378 ×3; S4990; J2060 ×2; J1170; J2405 ×2; C9113 ×3

== ENCOUNTER 2017-12-06 10:50 | Day surgery (SDC) | payer OTHER ==
[2017-12-04 15:12] VITALS: BMI 32.5
[~2017-12-06 10:50] MED LIST: LACTATED RINGERS 1,000 ML IV SCH; LIDOCAINE 1% 20 ML VIAL (10MG/ML) FOR IV START INTRADERMA PRN
[2017-12-06 11:31] VITALS: TEMP 98.2
[2017-12-06] MEDS ORDERED: PROPOFOL 10 MG/ML 20 ML VIAL IV ONE (12:16)
[2017-12-06] MEDS ORDERED: LIDOCAINE 1% INJ 10MG/ML (20 ML MDV) ONE (12:16)
[2017-12-06] MEDS ORDERED: KETAMINE 10 MG/ML 20 ML VIAL ONE (12:16)
[2017-12-06] MEDS ORDERED: GLYCOPYRROLATE 0.2 MG/ML 2 ML VIAL ONE (12:16)
--- NOTE | 2017-12-06 12:52 | P.PCN ---
Date of Procedure: 12/06/17 Procedure(s) Performed: Brief history: Patient is a pleasant 57-year-old white male, scheduled for an elective upper endoscopy as well as colonoscopy as a part of evaluation of cirrhosis of the liver and prior history of esophageal variceal bleeding. Colonoscopy is for screening for colon neoplasia Procedure performed: Esophagogastroduodenoscopy with variceal ligation Colonoscopy with snare polypectomy Preoperative diagnosis: Follow-up esophageal varices Screening for colon cancer Anesthesia: MAC Procedure: After informed consent was obtained from the patient was brought into the endoscopy unit and IV sedation was administered by anesthesia under continuous monitoring. Initially upper endoscopy was done. The Olympus GF 160 video endoscope was inserted inserted into the mouth and esophagus intubated without any difficulty and was gradually advanced into the stomach and duodenum and carefully examined. The bulb and second part of the duodenum appeared normal. The scope was then withdrawn into the stomach adequately insufflated with air and upon careful examination the antrum and body, cardia and fundus appeared normal. The scope was then withdrawn into the esophagus. The GE junction was located at 40 cm to the incisors. Small esophageal varices were noted in the distal esophagus. The GE junction appeared regular with no erythema erosions or ulcerations. Rest of the esophagus appeared normal. At this time the scope was removed and esophageal variceal ligation equipment was introduced onto the tip of the scope and esophagus intubated without any difficulty and gradually advanced into the distal esophagus. Using suction total of 3 bands were deployed in the distal esophagus. Patient tolerated the procedure well. At this time the patient continued to remain sedation. Initial digital rectal examination was normal. Olympus CF 160 video colonoscope was then inserted into the rectum and gradually advanced to the cecum without any difficulty. Careful examination was performed as the scope was gradually being withdrawn. The prep was excellent. The cecum, ascending colon, transverse colon appeared normal. In the descending colon there was a 1.5 cm polyp that was removed by snare polypectomy. The rest of the , descending colon, sigmoid colon and rectum appeared normal. Retroflexion was performed in the rectum and no lesions were noted. Patient tolerated the procedure well. Impression: 1. Upper endoscopy revealed small distal esophageal varices status post variceal ligation as described above and mild portal hypertensive gastropathy 2. Colonoscopy revealed 1.5 cm descending colon polyp status post snare polypectomy Recommendations: Findings of this examination were discussed with the patient as well as[ her family. He was advised to follow with the biopsy results. He will have a repeat upper endoscopy with variceal ligation in 6 months. He can have a repeat screening colonoscopy in 3 years.
[2017-12-06 12:57] VITALS: RESP 16
[2017-12-06 13:07] VITALS: BP 159/98; PULSE 85
== END 2017-12-06 13:34 | disposition home or self-care (01) ==
LOC: ORWHC2ENDO 10:50
PROVIDERS: ATTEND Internal Medicine Gastroenterology
DX: Z12.11 Encounter for screening for malignant neoplasm of colon (principal); K70.31 Alcoholic cirrhosis of liver with ascites; I85.10 Secondary esophageal varices without bleeding; K76.6 Portal hypertension; B19.20 Unspecified viral hepatitis C without hepatic coma; F10.20 Alcohol dependence, uncomplicated; D73.1 Hypersplenism; D12.4 Benign neoplasm of descending colon; K92.2 Gastrointestinal hemorrhage, unspecified; I25.10 Atherosclerotic heart disease of native coronary artery without angina pectoris; I10 Essential (primary) hypertension; Z72.0 Tobacco use; Z79.891 Long term (current) use of opiate analgesic; Z79.51 Long term (current) use of inhaled steroids; Z79.899 Other long term (current) drug therapy
CPT/HCPCS: 88305; 45385; 43244; J2001; J2704

== ENCOUNTER → 2017-12-15 | Outpatient (CLI) | payer OTHER ==
--- NOTE | 2017-12-15 15:40 | NM ---
EXAMINATION TYPE: NM hepatobiliary w EF DATE OF EXAM: 12/15/2017 COMPARISON: Ultrasound abdomen 11/30/[address] 08/2017 HISTORY: K 81.9, cholelithiasis TECHNIQUE: After the intravenous administration of 5.4 mCi Tc 99m Mebrofenin hepatobiliary scintigrap hy is performed. Immediate images post injection. FINDINGS: There is satisfactory initial accumulation of tracer by the liver. The gallbladder is visualized wit hin 36 minutes. The small bowel activity is noted within 10 minutes. At one hour 8 ounces of oral e nsure plus is given to mimic CCK and gallbladder ejection fraction is calculated at 71 %, in the norm al range. Therefore there is no scintigraphic evidence of cystic or common bile duct obstruction to suggest acute cholecystitis or gallbladder dyskinesia. IMPRESSION: Exam is within normal limits.
== END | disposition home or self-care (01) ==
LOC: RADNMMAIN 13:01
PROVIDERS: ATTEND Nurse Practitioner Family
DX: K81.9 Cholecystitis, unspecified (principal)
CPT/HCPCS: 78226; A9537

== ENCOUNTER → 2017-12-29 | Outpatient (CLI) | payer OTHER ==
--- NOTE | 2017-12-29 18:15 | CT ---
EXAMINATION TYPE: CT abdomen wo/w con DATE OF EXAM: 12/29/2017 COMPARISON: 09/07/2017 HISTORY: Cirrhosis of liver without ascites CT DLP: 2405 mGycm Automated exposure control for dose reduction was used. TECHNIQUE: Helical acquisition of images was performed from the lung bases through the top of iliac crest to include entire abdomen. CONTRAST: Performed with Oral Contrast and with IV Contrast, patient injected with 100 mL of Omnipaque 300. FINDINGS: Lung bases are clear of consolidation. There is no pleural effusion. There is no pericardial effusion . Heart size is normal. Liver margin is somewhat irregular consistent with cirrhosis. Spleen is enlarged and measures 16.5 cm . There is no pancreatic mass. There are small calcified gallstones. Bile ducts are not dilated. There is no adrenal mass. Kidneys of normal size and contour. There is no hydronephrosis. There is no retroperitoneal adenopathy. I see no intestinal wall thickening. There is no sign of ascites. There are no dilated loops. There is no evidence of bowel obstruction. There is metal artifact from posteri or fusion surgery in the lower lumbar spine. IMPRESSION: SPLENOMEGALY. CHANGES IN THE LIVER CONSISTENT WITH CIRRHOSIS. NO DILATED DUCTS. CALCIFIED GALLSTONES. NO SIGNIFICANT CHANGE COMPARED TO LAST EXAM.
== END | disposition home or self-care (01) ==
LOC: RADCTMAIN 17:10
PROVIDERS: ATTEND Internal Medicine Gastroenterology
DX: R16.0 Hepatomegaly, not elsewhere classified (principal); K80.20 Calculus of gallbladder without cholecystitis without obstruction
CPT/HCPCS: 74170; Q9967

== ENCOUNTER 2018-02-17 23:35 | Emergency (ER) | payer OTHER ==
[2018-02-18] MEDS ORDERED: MORPHINE SULFATE 4MG/4ML SYRG IVP STA (00:10)
[2018-02-18 00:41] LABS: Anisocytosis Slight; Basophils % (A) 0 %; Eosinophils % (A) 0 %; HCT 40.1 % (39.0-53.0); HGB 13.6 gm/dL (13.0-17.5); Lymphocytes # (A) 0.4 k/uL (1.0-4.8); Lymphocytes % (A) 6 %; MCH 33.5 pg (25.0-35.0); MCHC 33.8 g/dL (31.0-37.0); MCV 99.1 fL (80.0-100.0); Macrocytosis Slight; Mean Platelet Volume 9.5; Monocytes # (A) 0.7 k/uL (0-1.0); Monocytes % (A) 10 %; Neutrophils # (A) 5.9 k/uL (1.3-7.7); Neutrophils % (A) 82 %; RBC 4.05 m/uL (4.30-5.90); RDW 16.4 % (11.5-15.5); WBC 7.2 k/uL (3.8-10.6)
[2018-02-18 00:42] LABS: Platelet Count 87 k/uL (150-450)
[2018-02-18 00:50] LABS: ALT 43 U/L (21-72); AST 88 U/L (17-59); Alkaline Phosphatase 201 U/L (38-126); Anion Gap 17 mmol/L; Blood Urea Nitrogen 15 mg/dL (9-20); Carbon Dioxide 20 mmol/L (22-30); Chloride 107 mmol/L (98-107); Glucose 146 mg/dL (74-99); Potassium 4.1 mmol/L (3.5-5.1); Sodium 144 mmol/L (137-145); Total Bilirubin 1.4 mg/dL (0.2-1.3); Total Protein 7.3 g/dL (6.3-8.2)
--- NOTE | 2018-02-18 00:55 | ED ---
Abdominal Pain HPI - General Chief Complaint: Abdominal Pain Stated Complaint: Abdominal Pain Time Seen by Provider: 02/17/18 23:38 Source: patient, RN notes reviewed, old records reviewed Mode of arrival: EMS Limitations: no limitations - History of Present Illness Initial Comments: This patient is a 58-year-old male arrives she complained of severe of abdominal pain and constipation. He reports that he has not had a bowel movement in three days. He took lactulose prior to arriving to the emergency department. He arrived insignificant distress and yelling. Patient states that he takes narcotic pain medication which contributes to his constipation. He does not regularly take stool softeners. - Related Data Home Medications Medication Instructions Recorded Confirmed Furosemide [Furosemide] 40 mg PO BID 03/07/16 02/17/18 HYDROcodone/APAP 10-325MG [[place] 1 tab PO TID PRN 09/13/17 02/17/18 10-325] Omeprazole [PriLOSEC] 20 mg PO DAILY PRN 09/13/17 02/17/18 buPROPion XL [Wellbutrin Xl] 300 mg PO QAM 09/13/17 02/17/18 Ranitidine HCl [Zantac] 150 mg PO BID 11/29/17 02/17/18 Aspirin/Acetaminophen/Caffeine 1 each PO DIRECTED PRN 12/04/17 02/17/18 [Helen's Ex-Str Powder Packet] Fluticasone Nasal [place] [Flonase 1 spray EA NOSTRIL DAILY 12/04/17 02/17/18 Nasal [place]] Magnesium 300 mg PO DAILY 12/04/17 02/17/18 Potassium Chloride [Klor-Con 10] 10 meq PO DAILY 12/04/17 02/17/18 Propranolol [Inderal] 10 mg PO BID 12/04/17 02/17/18 Spironolactone [Aldactone] 50 mg PO BID 12/04/17 02/17/18 Lactulose 20 gm PO DIRECTED PRN 02/17/18 02/17/18 Previous Rx's Medication Instructions Recorded Bisacodyl [Dulcolax] 5 mg PO DAILY #20 tablet. 02/18/18 Allergies Allergy/AdvReac Type Severity Reaction Status Date / Time No Known Allergies Allergy Verified 02/17/18 23:39 Review of Systems ROS Statement: Those systems with pertinent positive or pertinent negative responses have been documented in the HPI. ROS Other: All systems not noted in ROS Statement are negative. Past Medical History Past Medical History: Coronary Artery Disease (CAD), GERD/Reflux, GI Bleed, Hypertension Additional Past Medical History / Comment(s): Alcoholic Cirrhosis of the liver, hep c, ascites, hemachromatosis, left pelvic fracture and femer fracture, herpes , constipation,"fequent leg cramps", marti glaucoma, PAST BLEEDING VARICIES WAS AT [facility] ON [place] IN [place] 5 DAYS" History of Any Multi-Drug Resistant Organisms: None Reported Past Surgical History: Orthopedic Surgery Additional Past Surgical History / Comment(s): RT ankle"HARDWARE REMOVED", "12 screws left elbow",LYNN/ 4 screws in spine, hepatitis C, Lynn placed (L) Femer, ORAL SX, EGD, Past Anesthesia/Blood Transfusion Reactions: No Reported Reaction Past Psychological History: No Psychological Hx Reported Smoking Status: Current some day smoker Past Alcohol Use History: Daily Past Drug Use History: Marijuana - Past Family History Father Family Medical History: Cancer Additional Family Medical History / Comment(s): Father at age 55 with history of alcoholism Mother Family Medical History: No Reported History Additional Family Medical History / Comment(s): Mother is alive at age 70 with no major medical problems. Patient has 1 sister with no major medical problems. General Exam - General Exam Comments Initial Comments: This is a 58 year old male, moderate distress. Upon my enterance for examination , yelled he needed to go to bathroom and ran to bathroom. Limitations: no limitations General appearance: alert Head exam: Present: atraumatic, normocephalic, normal inspection Eye exam: Present: normal appearance, PERRL, EOMI. Absent: scleral icterus, conjunctival injection, periorbital swelling ENT exam: Present: normal exam, mucous membranes moist Neck exam: Present: normal inspection. Absent: tenderness, meningismus, lymphadenopathy Respiratory exam: Present: normal lung sounds bilaterally. Absent: respiratory distress, wheezes, rales, rhonchi, stridor Cardiovascular Exam: Present: regular rate, normal rhythm, normal heart sounds. Absent: systolic murmur, diastolic murmur, rubs, gallop, clicks GI/Abdominal exam: Present: soft, normal bowel sounds. Absent: distended, tenderness, guarding, rebound, rigid Back exam: Present: normal inspection Neurological exam: Present: alert, oriented X3, CN II-XII intact Psychiatric exam: Present: normal affect, normal mood Course Vital Signs 02/17/18 02/18/18 23:36 01:44 Temperature 97.4 F L 98.3 F Pulse Rate 82 72 Respiratory 20 18 Rate Blood Pressure 120/71 117/56 O2 Sat by Pulse 99 99 Oximetry Medical Decision Making - Medical Decision Making 58 year old male arrived in abdominal pain with CC of constiaption. As soon as I went to examine patient he ran to the bathroom, he took a large dose of lactulose prior to coming to ED. Patient was in bathroom and did have large BM. AFterward her reports he felt somewhat better but was complaining of chronic back pain. Xray obtained after large BM and relief which shows air incolon, consistent with diarrhea. Patient reports that he would like to go home after successful BM. Patient will be discharged. Labs are reviewed and normal. Discussed he needs to take stool softner, related to the amount of narcotic pain medication he takes for chornic back pain. - Lab Data Result diagrams: 02/17/18 23:42 02/17/18 23:42 Lab Results 02/17/18 02/17/18 Range/Units 23:42 23:42 WBC 7.2 (3.8-10.6) k/uL RBC 4.05 L (4.30-5.90) m/uL Hgb 13.6 (13.0-17.5) gm/dL Hct 40.1 (39.0-53.0) % MCV 99.1 (80.0-100.0) fL MCH 33.5 (25.0-35.0) pg MCHC 33.8 (31.0-37.0) g/dL RDW 16.4 H (11.5-15.5) % Plt Count 87 L (150-450) k/uL Neutrophils % 82 % Lymphocytes % 6 % Monocytes % 10 % Eosinophils % 0 % Basophils % 0 % Neutrophils # 5.9 (1.3-7.7) k/uL Lymphocytes # 0.4 L (1.0-4.8) k/uL Monocytes # 0.7 (0-1.0) k/uL Eosinophils # 0.0 (0-0.7) k/uL Basophils # 0.0 (0-0.2) k/uL Anisocytosis Slight Macrocytosis Slight Sodium 144 (137-145) mmol/L Potassium 4.1 (3.5-5.1) mmol/L Chloride 107 (98-107) mmol/L Carbon Dioxide 20 L (22-30) mmol/L Anion Gap 17 mmol/L BUN 15 (9-20) mg/dL Creatinine 1.00 (0.66-1.25) mg/dL Est GFR (CKD-EPI)AfAm >90 (>60 ml/min/1.73 sqM) Est GFR (CKD-EPI)NonAf 84 (>60 ml/min/1.73 sqM) Glucose 146 H (74-99) mg/dL Calcium 9.0 (8.4-10.2) mg/dL Total Bilirubin 1.4 H (0.2-1.3) mg/dL AST 88 H (17-59) U/L ALT 43 (21-72) U/L Alkaline Phosphatase 201 H (38-126) U/L Total Protein 7.3 (6.3-8.2) g/dL Albumin 4.0 (3.5-5.0) g/dL - Radiology Data Radiology results: report reviewed Large bowel fluid levels consistent with diarrhea. No evidence for ocnstipation. change compared to old exam. Disposition Clinical Impression: Constipated Disposition: HOME SELF-CARE Condition: Good Instructions: Constipation (ED) Additional Instructions: Patient advised to follow-up with primary care provider. Return to the emergency department if any alarming signs or symptoms occur. Prescriptions: Bisacodyl [Dulcolax] 5 mg PO DAILY #20 tablet.dr Is patient prescribed a controlled substance at d/c from ED?: No If prescribed controlled substance>3 days was MAPS reviewed?: No When asked, does pt state using other controlled substances?: No Referrals: None,Stated [REFERRING] - 1-2 days Time of Disposition: 01:38
--- NOTE | 2018-02-18 01:13 | XR ---
EXAMINATION TYPE: XR KUB DATE OF EXAM: 02/18/2018 COMPARISON: 11/29/2017 HISTORY: Constipation and abdominal pain TECHNIQUE: 3 views FINDINGS: There are multiple gas-filled loops of large bowel with fluid levels. There is large bowel gas that appears in the sigmoid colon and down to the rectum. There is no sign of free air. There is posterior fusion surgery at L5-S1. There is no evidence of a mass. There is no sign of free air. Lung bases are clear. There is deformity of the left hip with hip joint space narrowing. There is an old fracture of the proximal left femur with intramedullary ciro and transverse screw. There are no pathol ogic calcifications over the kidneys. IMPRESSION: Large bowel multiple fluid levels consistent with diarrhea. I do not see evidence for con stipation. This is a change compared to old exam.
[2018-02-18 01:45] VITALS: BP 117/56; PULSE 72; RESP 18; TEMP 98.3
== END 2018-02-18 01:45 | disposition home or self-care (01) ==
LOC: EC 23:35
DX: K59.00 Constipation, unspecified (principal); T40.605A Adverse effect of unspecified narcotics, initial encounter; G89.29 Other chronic pain; M54.9 Dorsalgia, unspecified; I10 Essential (primary) hypertension; K21.9 Gastro-esophageal reflux disease without esophagitis; F17.200 Nicotine dependence, unspecified, uncomplicated; Z79.51 Long term (current) use of inhaled steroids; Z79.899 Other long term (current) drug therapy; Z98.890 Other specified postprocedural states
CPT/HCPCS: 99285; 36415; 80053; 85025; 74018; J2270

== ENCOUNTER → 2018-03-08 | Outpatient (CLI) | payer OTHER ==
--- NOTE | 2018-03-08 16:23 | CT ---
EXAMINATION TYPE: CT lumbar spine wo con DATE OF EXAM: 03/08/2018 COMPARISON: 10/12/2016 HISTORY: Left lower back pain CT DLP: 1657 mGycm CONTRAST: None TECHNIQUE: CT of the lumbar spine is performed on a spiral scan at 3 mm thick sections. Reconstructed images are performed in the coronal and sagittal planes. FINDINGS: There is a superior endplate compression deformity of L1 with approximately 30% loss of ralph tebral body height at the maximum compression. No posterior wall displacement is there is a grade 1 s pondylolisthesis of L4 anterior on L5. Vacuum disc phenomenon is present L3-4 L4-5. There is loss of disc height L5-S1. Pedicle screws are present L5-S1. T12-L1: No focal disc herniation or significant disc bulge is evident. No spinal canal stenosis or neural foraminal stenosis is present. There is a small right paracentral endplate spur from the infe rior endplate of T12. This was present previously. L1-L2: No focal disc herniation or significant disc bulge is evident. No spinal canal stenosis or n eural foraminal stenosis is present L2-L3: Mild broad-based disc bulge has anterior thecal sac flattening. No AP spinal canal stenosis is present. Neural foramen are patent. L3-L4: Broad-based disc bulge is present. This has mild anterior thecal sac flattening. No AP spinal canal stenosis is present. Neural foramen are patent. L4-L5: Disc uncovering is present. No spinal canal stenosis present. Facet hypertrophy is present. Pe dicle screws are present. L5-S1: There is been a prior laminectomy. No focal disc herniation or significant disc bulge is evide nt. No spinal canal stenosis or neural foraminal stenosis is present IMPRESSION: 1. Multilevel disc bulging with mild anterior thecal sac contact. 2. Grade 1 spondylolisthesis of L4 anterior and L5. 3. Superior endplate compression deformity, present 10/12/2016
== END | disposition home or self-care (01) ==
LOC: RADCTMAIN 15:18
PROVIDERS: ATTEND Psychiatry & Neurology Neurology
DX: M51.26 Other intervertebral disc displacement, lumbar region (principal); M43.16 Spondylolisthesis, lumbar region
CPT/HCPCS: 72131

== ENCOUNTER 2018-03-21 22:45 | Emergency (ER) | payer OTHER ==
[2018-03-21] MEDS ORDERED: SODIUM CHLORIDE 0.9% 1,000 ML IV STA ×2 (23:18)
[2018-03-21] MEDS ORDERED: MORPHINE SULFATE 4 MG/ML SYRINGE IV STA (23:18)
[2018-03-21] MEDS ORDERED: ONDANSETRON 4 MG/2 ML VIAL IVP STA (23:18)
[2018-03-21 23:31] LABS: Anisocytosis Slight; Basophils % (A) 0 %; Eosinophils # (A) 0.1 k/uL (0-0.7); Eosinophils % (A) 1 %; HCT 39.9 % (39.0-53.0); HGB 13.5 gm/dL (13.0-17.5); Lymphocytes # (A) 0.6 k/uL (1.0-4.8); Lymphocytes % (A) 6 %; MCH 33.6 pg (25.0-35.0); MCHC 33.9 g/dL (31.0-37.0); MCV 98.9 fL (80.0-100.0); Macrocytosis Slight; Mean Platelet Volume 8.7; Monocytes % (A) 12 %; Neutrophils # (A) 6.6 k/uL (1.3-7.7); Neutrophils % (A) 77 %; RBC 4.03 m/uL (4.30-5.90); RDW 17.4 % (11.5-15.5); WBC 8.6 k/uL (3.8-10.6)
[2018-03-21 23:43] LABS: Albumin 3.9 g/dL (3.5-5.0); Calcium 8.1 mg/dL (8.4-10.2); INR 1.1 (<1.2); Magnesium 1.3 mg/dL (1.6-2.3); Phosphorus 3.3 mg/dL (2.5-4.5); Potassium 3.8 mmol/L (3.5-5.1); Prothrombin Time 10.6 sec (9.0-12.0); Total Bilirubin 1.8 mg/dL (0.2-1.3); Total Protein 7.5 g/dL (6.3-8.2)
--- NOTE | 2018-03-21 23:53 | ED ---
General Adult HPI - General Chief complaint: Extremity Injury, Upper Stated complaint: Left Arm Injury Time Seen by Provider: 03/21/18 23:00 Source: patient, family, RN notes reviewed, old records reviewed Mode of arrival: ambulatory Limitations: no limitations - History of Present Illness Initial comments: This is a 58-year-old male the ER for evaluation today. There is presenting for evaluation regards to severe left elbow pain. Patient has significant trauma and history of trauma to his left elbow. Multiple orthopedic surgeries to left elbow. Patient was intoxicated last night tripped over) at home and landed on his left elbow. Continue to drink throughout the day and tonight and now is complaining of severe pain in his left elbow. Patient noticed deformity in the elbow and states he cannot move his hand - Related Data Home Medications Medication Instructions Recorded Confirmed Furosemide [Furosemide] 40 mg PO BID 03/07/16 03/21/18 Omeprazole [PriLOSEC] 20 mg PO DAILY PRN 09/13/17 03/21/18 buPROPion XL [Wellbutrin Xl] 300 mg PO QAM 09/13/17 03/21/18 Ranitidine HCl [Zantac] 150 mg PO BID 11/29/17 03/21/18 Aspirin/Acetaminophen/Caffeine 1 each PO DIRECTED PRN 12/04/17 03/21/18 [Helen's Ex-Str Powder Packet] Fluticasone Nasal [place] [Flonase 1 spray EA NOSTRIL DAILY 12/04/17 03/21/18 Nasal [place]] Magnesium 300 mg PO DAILY 12/04/17 03/21/18 Potassium Chloride [Klor-Con 10] 10 meq PO DAILY 12/04/17 03/21/18 Propranolol [Inderal] 10 mg PO BID 12/04/17 03/21/18 Spironolactone [Aldactone] 50 mg PO BID 12/04/17 03/21/18 Lactulose 20 gm PO DIRECTED PRN 02/17/18 03/21/18 Previous Rx's Medication Instructions Recorded Bisacodyl [Dulcolax] 5 mg PO DAILY #20 tablet. 02/18/18 Allergies Allergy/AdvReac Type Severity Reaction Status Date / Time No Known Allergies Allergy Verified 03/21/18 23:00 Review of Systems ROS Statement: Those systems with pertinent positive or pertinent negative responses have been documented in the HPI. ROS Other: All systems not noted in ROS Statement are negative. Past Medical History Past Medical History: Coronary Artery Disease (CAD), GERD/Reflux, GI Bleed, Hypertension Additional Past Medical History / Comment(s): Alcoholic Cirrhosis of the liver, hep c, ascites, hemachromatosis, left pelvic fracture and femer fracture, herpes , constipation,"fequent leg cramps", marti glaucoma, PAST BLEEDING VARICIES WAS AT [facility] ON [facility]ENT IN [place] 5 DAYS" History of Any Multi-Drug Resistant Organisms: None Reported Past Surgical History: Orthopedic Surgery Additional Past Surgical History / Comment(s): RT ankle"HARDWARE REMOVED", "12 screws left elbow",LYNN/ 4 screws in spine, hepatitis C, Lynn placed (L) Femer, ORAL SX, EGD, Past Anesthesia/Blood Transfusion Reactions: No Reported Reaction Past Psychological History: No Psychological Hx Reported Smoking Status: Current some day smoker Past Alcohol Use History: Daily Past Drug Use History: Marijuana - Past Family History Father Family Medical History: Cancer Additional Family Medical History / Comment(s): Father at age 55 with history of alcoholism Mother Family Medical History: No Reported History Additional Family Medical History / Comment(s): Mother is alive at age 70 with no major medical problems. Patient has 1 sister with no major medical problems. General Exam Limitations: no limitations General appearance: alert, in no apparent distress Head exam: Present: atraumatic, normocephalic, normal inspection Eye exam: Present: normal appearance, PERRL, EOMI. Absent: scleral icterus, conjunctival injection, periorbital swelling ENT exam: Present: normal exam, mucous membranes moist Neck exam: Present: normal inspection. Absent: tenderness, meningismus, lymphadenopathy Respiratory exam: Present: normal lung sounds bilaterally. Absent: respiratory distress, wheezes, rales, rhonchi, stridor Cardiovascular Exam: Present: regular rate, normal rhythm, normal heart sounds. Absent: systolic murmur, diastolic murmur, rubs, gallop, clicks GI/Abdominal exam: Present: soft, normal bowel sounds. Absent: distended, tenderness, guarding, rebound, rigid Extremities exam: Present: normal inspection, full ROM, normal capillary refill. Absent: tenderness, pedal edema, joint swelling, calf tenderness Back exam: Present: normal inspection Neurological exam: Present: alert, oriented X3, CN II-XII intact Psychiatric exam: Present: normal affect, normal mood Skin exam: Present: warm, dry, intact, normal color. Absent: rash Course Vital Signs 03/21/18 22:46 Temperature 98.2 F Pulse Rate 86 Respiratory 20 Rate Blood Pressure 127/86 O2 Sat by Pulse 97 Oximetry Medical Decision Making - Medical Decision Making 58 male the ER status post fall, no injury noted, patient significantly intoxicated, we'll find patient right home and patient can be discharged home - Lab Data Result diagrams: 03/21/18 23:00 03/21/18 23:00 Lab Results 03/21/18 03/21/18 03/21/18 Range/Units 23:00 23:00 23:00 WBC 8.6 (3.8-10.6) k/uL RBC 4.03 L (4.30-5.90) m/uL Hgb 13.5 (13.0-17.5) gm/dL Hct 39.9 (39.0-53.0) % MCV 98.9 (80.0-100.0) fL MCH 33.6 (25.0-35.0) pg MCHC 33.9 (31.0-37.0) g/dL RDW 17.4 H (11.5-15.5) % Plt Count 81 L (150-450) k/uL Neutrophils % 77 % Lymphocytes % 6 % Monocytes % 12 % Eosinophils % 1 % Basophils % 0 % Neutrophils # 6.6 (1.3-7.7) k/uL Lymphocytes # 0.6 L (1.0-4.8) k/uL Monocytes # 1.0 (0-1.0) k/uL Eosinophils # 0.1 (0-0.7) k/uL Basophils # 0.0 (0-0.2) k/uL Manual Slide Review Performed Anisocytosis Slight Macrocytosis Slight PT 10.6 (9.0-12.0) sec INR 1.1 (<1.2) APTT 22.0 (22.0-30.0) sec Sodium 139 (137-145) mmol/L Potassium 3.8 (3.5-5.1) mmol/L Chloride 98 (98-107) mmol/L Carbon Dioxide 23 (22-30) mmol/L Anion Gap 18 mmol/L BUN 17 (9-20) mg/dL Creatinine 1.20 (0.66-1.25) mg/dL Est GFR (CKD-EPI)AfAm 78 (>60 ml/min/1.73 sqM) Est GFR (CKD-EPI)NonAf 67 (>60 ml/min/1.73 sqM) Glucose 136 H (74-99) mg/dL Calcium 8.1 L (8.4-10.2) mg/dL Phosphorus 3.3 (2.5-4.5) mg/dL Magnesium 1.3 L (1.6-2.3) mg/dL Total Bilirubin 1.8 H (0.2-1.3) mg/dL AST 130 H (17-59) U/L ALT 66 (21-72) U/L Alkaline Phosphatase 228 H (38-126) U/L Total Protein 7.5 (6.3-8.2) g/dL Albumin 3.9 (3.5-5.0) g/dL Serum Alcohol 261 mg/dL - Radiology Data Radiology results: report reviewed (X-ray left shoulder left elbow negative for traumatic injury), image reviewed Disposition Clinical Impression: Fall, Left elbow contusion, Alcohol intoxication Disposition: HOME SELF-CARE Condition: Good Instructions: Alcohol Intoxication (ED), Fall Prevention for Older Adults (ED) Is patient prescribed a controlled substance at d/c from ED?: No Referrals: Omar Tse MD [Primary Care Provider] - 1-2 days
[2018-03-21 23:54] LABS: Platelet Count 81 k/uL (150-450)
--- NOTE | 2018-03-22 00:06 | XR ---
EXAMINATION TYPE: XR shoulder complete LT DATE OF EXAM: 03/21/2018 COMPARISON: NONE HISTORY: Pain TECHNIQUE: 3 views FINDINGS: I see no fracture nor dislocation. There is spurring at the AC joint. Glenohumeral joint is anatomic. IMPRESSION: No acute abnormality of the left shoulder.
--- NOTE | 2018-03-22 00:07 | XR ---
EXAMINATION TYPE: XR elbow complete LT DATE OF EXAM: 03/21/2018 COMPARISON: NONE HISTORY: Fall last night. Elbow pain. TECHNIQUE: 4 views FINDINGS: There are plates and screws fixing an old supracondylar fracture of the distal humerus. The re is spurring on the radial head. I see no acute fracture. There is no sign of joint effusion. There is spurring on on the coronoid process of ulna. IMPRESSION: Old trauma. No acute fracture seen.
[2018-03-22 00:29] VITALS: BP 110/63; PULSE 91; RESP 21; TEMP 98
== END 2018-03-22 01:42 | disposition home or self-care (01) ==
LOC: EC 22:45
DX: S50.02XA Contusion of left elbow, initial encounter (principal); F10.129 Alcohol abuse with intoxication, unspecified; I10 Essential (primary) hypertension; K70.31 Alcoholic cirrhosis of liver with ascites; K21.9 Gastro-esophageal reflux disease without esophagitis; F17.200 Nicotine dependence, unspecified, uncomplicated; Z79.51 Long term (current) use of inhaled steroids; Z79.899 Other long term (current) drug therapy; Z98.890 Other specified postprocedural states; Z81.1 Family history of alcohol abuse and dependence; W18.09XA Striking against other object with subsequent fall, initial encounter; Y92.009 Unspecified place in unspecified non-institutional (private) residence as the place of occurrence of the external cause
CPT/HCPCS: 36415; 80053; 83735; 84100; 85025; 85610; 85730; 80320; 73030; 73080; 99284; 96374; 96375; 96361 ×2; J2270; J2405

== ENCOUNTER → 2018-04-27 | Outpatient (CLI) | payer OTHER ==
[2018-04-27 14:39] LABS: Albumin 3.8 g/dL (3.5-5.0); Bilirubin, Delta 0.9 mg/dL (0.0-0.2); Bilirubin,Unconjugated 1.2 mg/dL (0.0-1.1); Total Bilirubin 2.1 mg/dL (0.2-1.3); Total Protein 7.5 g/dL (6.3-8.2)
[2018-04-27 14:44] LABS: Anisocytosis Slight; Basophils % (A) 1 %; Eosinophils # (A) 0.1 k/uL (0-0.7); Eosinophils % (A) 2 %; HCT 40.8 % (39.0-53.0); HGB 13.5 gm/dL (13.0-17.5); Lymphocytes # (A) 0.4 k/uL (1.0-4.8); Lymphocytes % (A) 6 %; MCH 33.2 pg (25.0-35.0); MCHC 33.1 g/dL (31.0-37.0); MCV 100.3 fL (80.0-100.0); Macrocytosis Slight; Mean Platelet Volume 8.7; Monocytes # (A) 0.9 k/uL (0-1.0); Monocytes % (A) 13 %; Neutrophils % (A) 75 %; Platelet Count 120 k/uL (150-450); RBC 4.06 m/uL (4.30-5.90); RDW 17.3 % (11.5-15.5); WBC 6.7 k/uL (3.8-10.6)
[2018-04-27 14:46] LABS: INR 1.2 (<1.2); Prothrombin Time 11.4 sec (9.0-12.0)
[2018-04-30 09:37] LABS: Hepatits C Virus RNA Not detected (Not detected); Hepatits C Virus RNA, Quant <12 IU/mL (<12); LOG HCV IU/mL <1.08 (<1.08)
== END | disposition home or self-care (01) ==
LOC: LABWHC1 13:35
PROVIDERS: ATTEND Physician Assistant
DX: B18.2 Chronic viral hepatitis C (principal)
CPT/HCPCS: 36415; 80076; 82105; 85025; 85610; 87522

== ENCOUNTER → 2018-05-08 | Outpatient (CLI) | payer OTHER | END | disposition home or self-care (01) | LOC: RADMRIMAIN 17:18 | PROVIDERS: ATTEND Internal Medicine Gastroenterology | DX: R93.8 Abnormal findings on diagnostic imaging of other specified body structures (principal) | CPT/HCPCS: 82565 ==

== ENCOUNTER 2018-05-17 09:58 | Day surgery (SDC) | payer OTHER ==
[2018-05-14 11:04] VITALS: BMI 33.0
[~2018-05-17 09:58] MED LIST changes: -LIDOCAINE 1% 20 ML VIAL (10MG/ML) FOR IV START INTRADERMA PRN
[2018-05-17 10:35] VITALS: RESP 18; TEMP 98.3
[2018-05-17] MEDS ORDERED: LIDOCAINE 1% 20 ML VIAL (10MG/ML) FOR IV START INTRADERMA ONE (10:50)
[2018-05-17] MEDS ORDERED: PROPOFOL 10 MG/ML 20 ML VIAL IV ONE (11:00)
[2018-05-17] MEDS ORDERED: LIDOCAINE 1% INJ 10MG/ML (20 ML MDV) ONE (11:00)
--- NOTE | 2018-05-17 11:14 | P.PCN ---
Date of Procedure: 05/17/18 Procedure(s) Performed: BRIEF HISTORY: Patient is a 58-year-old, pleasant, white male with history of chronic hepatitis C infection and alcoholic cirrhosis of the liver with previous history of esophageal variceal bleeding, scheduled for an upper endoscopy for esophageal variceal ligation. Last one was performed in November 2017. PROCEDURE PERFORMED: Esophagogastroduodenoscopy with variceal ligation. PREOPERATIVE DIAGNOSIS: Follow-up of esophageal varices. IV sedation per anesthesia. PROCEDURE: After informed consent was obtained, the patient was brought into the endoscopy unit. IV sedation was administered by Anesthesia under continuous monitoring. Initially the Olympus GIF-140 video endoscope was inserted into the mouth. Esophagus intubated without any difficulty. It was gradually advanced into the stomach and duodenum and carefully examined. The bulb and the second part of the duodenum appeared normal. The scope at this time was withdrawn to the stomach, adequately insufflated with air, and upon careful examination, mucosa of the antrum, body, appeared normal. In the fundus and the cardia of the stomach revealed changes consistent with portal hypertensive gastropathy. The scope was withdrawn into the esophagus. The GE junction was located at 39 cm from the incisors. there were small distal esophageal varices seen. The esophagus appeared normal. at this time the scope was removed, esophageal variceal ligation equipment was introduced onto the tip of the scope and esophagus reintubated without any difficulty. It was gradually advanced into the distal esophagus. Using suction 2 bands were deployed in the distal esophageal varices. There were no erosions or ulcerations seen and the patient tolerated the procedure well. IMPRESSION: 1. Small distal esophageal varices status post variceal ligation as described above. 2. Portal hypertensive gastropathy. RECOMMENDATIONS: The findings of this examination were discussed with the patient as well as his family. He will continue with Inderal and repeat upper endoscopy in 1 year.
[2018-05-17 11:18] VITALS: PULSE 75
[2018-05-17 11:32] VITALS: BP 103/66
== END 2018-05-17 11:57 | disposition home or self-care (01) ==
LOC: ORWHC2ENDO 09:58
PROVIDERS: ATTEND Internal Medicine Gastroenterology
DX: K70.30 Alcoholic cirrhosis of liver without ascites (principal); I85.10 Secondary esophageal varices without bleeding; K76.6 Portal hypertension; K31.89 Other diseases of stomach and duodenum; B18.2 Chronic viral hepatitis C; I10 Essential (primary) hypertension; K21.9 Gastro-esophageal reflux disease without esophagitis; F17.200 Nicotine dependence, unspecified, uncomplicated; Z87.19 Personal history of other diseases of the digestive system; Z79.899 Other long term (current) drug therapy; Z79.891 Long term (current) use of opiate analgesic
CPT/HCPCS: 43244; J2001; J2704

== ENCOUNTER → 2018-08-17 | Outpatient (CLI) | payer OTHER ==
--- NOTE | 2018-08-18 20:43 | CT ---
EXAMINATION TYPE: CT elbow LT wo con DATE OF EXAM: 08/17/2018 COMPARISON: Radiograph 03/21/2018 HISTORY: 58-year-old male follow-up Closed fracture of left elbow TECHNIQUE: Contiguous axial scanning of the left elbow without IV contrast. Coronal and sagittal neel nstructions performed. 3-D reconstructions generated on a dedicated workstation. CT DLP: 532 mGycm Automated exposure control for dose reduction was used. FINDINGS: There are malleable plates and screws located both posteromedial and posterolaterally. Additional scr ew fixation is present on both sides. There may have been some removal of the very distal aspect of the more posteriorly located medial aurelia te and pelvic screws. This seems to be a fractured fragment embedded within the trochlea with screw t ip at or just beyond the trochlear articular surface, refer to sagittal image 35. A screw fragment me asures 1.4 cm long. Old healed fracture deformity of the distal humerus with severe degenerative change at the radiocapit ellar joint with incongruent joint space narrowing and marginal spurring and essentially bone on bone articulation. Additional degenerative spurring is present at the ulnar trochlear joint with mild jonathon nt space narrowing. Some enthesopathy at the triceps insertion. Extensive matter all were artifacts degrades the exam. Anterior loose bodies measure up to 9 mm in po sterior loose bodies measure up to 9 mm. No acute fracture seen. IMPRESSION: 1. MALLEABLE PLATE AND SCREW FIXATION BOTH POSTEROMEDIALLY AND POSTEROLATERALLY. 2. CHRONIC HEALED FRACTURE DEFORMITY AND ASSOCIATED POSTTRAUMATIC ELBOW OSTEOARTHROSIS, SEVERE IN THE RADIOCAPITELLAR JOINT. 3. SOME OF THE DISTAL ASPECT OF THE POSTEROMEDIAL PLATE AND SCREWS MAY HAVE BEEN REMOVED COMPARED TO 03/21/2018. A 1.4 CM LONG FRACTURED DISTAL SCREW FRAGMENT REMAINS EMBEDDED WITHIN THE TROCHLEA. THE SCREW TIP IS AT OR JUST BEYOND THE TROCHLEAR ARTICULAR SURFACE. 4. ANTERIOR AND POSTERIOR LOOSE BODIES MEASURING UP TO 9 MM.
== END | disposition home or self-care (01) ==
LOC: RADCTMAIN 10:25
PROVIDERS: ATTEND Orthopaedic Surgery
DX: M19.122 Post-traumatic osteoarthritis, left elbow (principal); M24.022 Loose body in left elbow; Z98.890 Other specified postprocedural states

== ENCOUNTER → 2018-08-30 | Outpatient (CLI) | payer OTHER ==
--- NOTE | 2018-08-30 15:53 | US ---
EXAMINATION TYPE: US venous doppler duplex [facility] DATE OF EXAM: 08/30/2018 2:42 PM COMPARISON: Prior lower extremity Doppler duplex 04/12/2016 CLINICAL HISTORY: I87.2. Non-healing wound right white 2 months LOWER EXTREMITY VENOUS INSUFFICIENCY SIDE PERFORMED: Bilateral 1) Color flow is present and patency is documented in the following vessels. No DVT or SVT is noted . EIV Common Femoral Vein Deep Femoral Vein Femoral Vein Popliteal Vein Proximal Calf Veins Greater Saph Vein Upper Small Saph Vein 2) There is venous reflux noted at the following venous levels: Right EIV, right CFV, right GSV, ri ght mid femoral vein, right lower femoral vein, right upper popliteal vein, Left EIV, Left CFV, left DFV, left upper femoral vein. Complex area visualized right popliteal fossa measuring 5.8 x 2.0 x 3.2 cm IMPRESSION: Venous reflux in the lower extremities as described. Probable complicated Pepper's cyst in the right popliteal fossa similar to prior exam.
--- NOTE | 2018-09-05 15:05 | P.ARTDOP ---
Arterial Doppler LOWER EXTREMITY ARTERIAL DOPPLER: DATE OF SERVICE: 08/30/2018 Reason for study: Nonhealing wound right lower leg. Doppler waveforms: Multiphasic bilaterally throughout. Pulse volume recording: Normal configuration. Pressure gradients: None. Ankle-brachial indices: Greater than 1 bilaterally. Toe pressures: 136 on the right, 133 on the left Impression: Normal study.
== END | disposition home or self-care (01) ==
LOC: RADUSWWP 13:53
PROVIDERS: ATTEND Podiatrist
DX: I87.2 Venous insufficiency (chronic) (peripheral) (principal)
CPT/HCPCS: 93923; 93970

== ENCOUNTER → 2018-10-05 | Outpatient (CLI) | payer OTHER ==
[2018-10-05 10:37] LABS: Basophils % (A) 0 %; Eosinophils # (A) 0.1 k/uL (0-0.7); Eosinophils % (A) 1 %; HCT 42.5 % (39.0-53.0); HGB 14.4 gm/dL (13.0-17.5); Lymphocytes # (A) 0.6 k/uL (1.0-4.8); Lymphocytes % (A) 7 %; MCH 36.1 pg (25.0-35.0); MCHC 33.8 g/dL (31.0-37.0); MCV 106.9 fL (80.0-100.0); Macrocytosis Moderate; Monocytes % (A) 12 %; Neutrophils # (A) 6.1 k/uL (1.3-7.7); Neutrophils % (A) 77 %; Platelet Count 102 k/uL (150-450); RBC 3.98 m/uL (4.30-5.90); RDW 15.3 % (11.5-15.5)
[2018-10-05 10:41] LABS: INR 1.2 (<1.2); Prothrombin Time 12.8 sec (9.0-12.0)
[2018-10-05 17:48] LABS: Albumin 3.6 g/dL (3.80-4.90); Albumin/Globulin Ratio 1.13 (1.20-2.10); Bilirubin, Conjugated 0.8 mg/dL (0.20-0.40); Globulin 3.2 g/dL (2.1-3.7); Total Bilirubin 1.8 mg/dL (0.2-1.2); Total Protein 6.8 g/dL (6.2-8.2)
[2018-10-08 10:00] LABS: Hepatits C Virus RNA Not detected (Not detected); Hepatits C Virus RNA, Quant <12 IU/mL (<12); LOG HCV IU/mL <1.08 (<1.08)
== END | disposition home or self-care (01) ==
LOC: LABWHC1 09:24
PROVIDERS: ATTEND Physician Assistant
DX: B18.2 Chronic viral hepatitis C (principal)
CPT/HCPCS: 36415; 80076; 82105; 85025; 85610; 87522

== ENCOUNTER → 2018-10-26 | Outpatient (CLI) | payer OTHER ==
--- NOTE | 2018-10-26 15:10 | US ---
EXAMINATION TYPE: US scrotum with doppler. Grayscale and color Doppler Duplex imaging performed of t he scrotum. DATE OF EXAM: 10/26/2018 COMPARISON: NONE CLINICAL HISTORY: N50.82 scrotum pain. right scrotum can get large in size and then go back to normal , no h/o injury EXAM MEASUREMENTS: TESTICLES: Right Testicle: 3.1 x 2.3 x 1.8 cm Left Testicle: 3.1 x 2.0 x 1.4 cm EPIDIDYMIS HEAD: Right Epididymis: not seen due to abnormalities noted on the right Left Epididymis: 0.8 cm Doppler performed to assess for testicular vascularity; good bilateral color flow and waveforms are s een. There is no evidence of testicular torsion. Presence of hydroceles: yes, large on the right Presence of varicoceles: no Probable hernia, on the right, within scrotal sac. Hernia was moving in and out of pocket and did enl arge with valsalva. IMPRESSION: 1. Right inguinal hernia. 2. Right hydrocele
== END ==
LOC: RADUSWWP 14:01
PROVIDERS: ATTEND Pediatrics
DX: N43.3 Hydrocele, unspecified (principal); K40.90 Unilateral inguinal hernia, without obstruction or gangrene, not specified as recurrent
CPT/HCPCS: 76870; 93975

== ENCOUNTER 2018-11-17 20:57 | Emergency (ER) | payer OTHER ==
[2018-11-17 21:10] VITALS: TEMP 98
[2018-11-17] MEDS ORDERED: SODIUM CHLORIDE 0.9% 1,000 ML IV STA (21:20)
--- NOTE | 2018-11-17 21:20 | ED ---
General Adult HPI - General Chief complaint: Alcohol Stated complaint: Altered Mental Status Source: patient, EMS Mode of arrival: EMS Limitations: altered mental status - Related Data Home Medications Medication Instructions Recorded Confirmed Furosemide 40 mg PO BID 03/07/16 10/19/18 Omeprazole [PriLOSEC] 20 mg PO DAILY PRN 09/13/17 10/19/18 buPROPion XL [Wellbutrin Xl] 300 mg PO QAM 09/13/17 10/19/18 Ranitidine HCl [Zantac] 150 mg PO BID 11/29/17 10/19/18 Fluticasone Nasal [place] [Flonase 1 spray EA NOSTRIL DAILY 12/04/17 10/19/18 Nasal [place]] Magnesium 300 mg PO DAILY 12/04/17 10/19/18 Potassium Chloride [Klor-Con 10] 10 meq PO DAILY 12/04/17 10/19/18 Propranolol [Inderal] 10 mg PO BID 12/04/17 10/19/18 Spironolactone [Aldactone] 50 mg PO BID 12/04/17 10/19/18 Lactulose 20 gm PO DIRECTED PRN 02/17/18 10/19/18 HYDROcodone/APAP 10-325MG [[place] 1 tab PO TID 05/14/18 10/19/18 10-325] Allergies Allergy/AdvReac Type Severity Reaction Status Date / Time No Known Allergies Allergy Verified 11/17/18 21:10 Review of Systems ROS Statement: Those systems with pertinent positive or pertinent negative responses have been documented in the HPI. ROS Other: All systems not noted in ROS Statement are negative. Past Medical History Past Medical History: Coronary Artery Disease (CAD), GERD/Reflux, GI Bleed, Hypertension Additional Past Medical History / Comment(s): WOUND TO RT GIRON R/T GASH DOWN TO BONE. Alcoholic Cirrhosis of the liver, HX of hep c, ascites, hemachromatosis, left pelvic fracture and femer fracture, herpes, constipation,"fequent leg cramps", marti glaucoma, History of Any Multi-Drug Resistant Organisms: MRSA Date of last positivie culture/infection: 09/14/18 MDRO Source:: LEG Past Surgical History: Orthopedic Surgery Additional Past Surgical History / Comment(s): RT ankle"HARDWARE REMOVED", "12 screws left elbow",BALDO/ 4 screws in spine, Baldo placed (L) Femer, EGD, COLONOSCOPY Past Anesthesia/Blood Transfusion Reactions: No Reported Reaction Past Psychological History: No Psychological Hx Reported Smoking Status: Current every day smoker Past Alcohol Use History: Heavy Past Drug Use History: None Reported - Past Family History Father Family Medical History: Cancer Additional Family Medical History / Comment(s): Father at age 55 with history of alcoholism Mother Family Medical History: No Reported History Additional Family Medical History / Comment(s): Mother is alive at age 70 with no major medical problems. Patient has 1 sister with no major medical problems. General Exam Limitations: altered mental status Course Vital Signs 11/17/18 11/17/18 11/17/18 21:05 21:21 22:09 Temperature 98.0 F Pulse Rate 88 87 85 Respiratory 20 18 18 Rate Blood Pressure 139/101 117/69 122/86 O2 Sat by Pulse 99 98 98 Oximetry 11/17/18 11/17/18 23:00 23:31 Temperature Pulse Rate 87 Respiratory 16 18 Rate Blood Pressure O2 Sat by Pulse 95 Oximetry Medical Decision Making - Medical Decision Making Dictation was produced using [employer] dictation software. please excuse any grammatical, word or spelling errors. Chief Complaint: 58-year-old male brought in by EMS from home for acute EtOH intoxication. History of Present Illness: According to nursing staff who received report from EMS patient was transferred to emergency department for EtOH intoxication. EMS was called for acute alcohol intoxication. Allegedly patient was at home attempting items in the house. Police was called. Police then notified EMS to bring patient to emergency room for acute EtOH intoxication. Patient has no complaints at this time. When asked why he is here he reports that "I was messing up." Patient has no other complaints at this time. Patient is a poor historian. He does report drinking alcohol today. Patient states he does not drink alcohol every day The ROS documented in this emergency department record has been reviewed and confirmed by me. Those systems with pertinent positive or negative responses have been documented in the HPI. All other systems are other negative and/or noncontributory. PHYSICAL EXAM: General Impression: Alert and oriented x3, not in acute distress HEENT: Normocephalic atraumatic, extra-ocular movements intact, pupils equal and reactive to light bilaterally, dry mucous membranes Cardiovascular: Heart regular rate and rhythm, S1&S2 audible, no murmurs, rubs or gallops Chest: Lungs clear to auscultation bilaterally, no rhonchi, no wheeze, no rales Abdomen: Bowel sounds present, abdomen soft, non-tender, non-distended, no organomegaly Musculoskeletal: Pulses present and equal in all extremities, no peripheral edema Motor:no focal deficits noted Neurological: CN II-XII grossly intact, no focal motor or sensory deficits noted , able to sit unsupported Skin: Intact with no visualized rashes Psych: Normal affect and mood ED course: 58-year-old male who presents for acute EtOH intoxication. Patient denies any homicidal or suicidal ideation. Vital signs upon arrival are within acceptable limits.A CT was unremarkable. Over there was a lot of motion artifact. Chest x-ray was obtained showing no acute processes. Laboratory evaluation obtained. CBC shows macrocytosis with MCV of 109.2. Platelets of 83. Metabolic panel shows findings within patient's baseline. Ammonia is 37. Serum alcohol is negative. Discussed patient case with Dr. Park from [facility] recommends the patient be transferred to [facility] for further intervention. Patient given fluids, thiamine, folate, and multivitamin. - Lab Data Result diagrams: 11/17/18 21:26 11/17/18 21:26 Lab Results 11/17/18 11/17/18 11/17/18 Range/Units 21:26 21:26 22:30 WBC 4.8 (3.8-10.6) k/uL RBC 3.75 L (4.30-5.90) m/uL Hgb 13.4 (13.0-17.5) gm/dL Hct 40.9 (39.0-53.0) % MCV 109.2 H (80.0-100.0) fL MCH 35.6 H (25.0-35.0) pg MCHC 32.6 (31.0-37.0) g/dL RDW 16.8 H (11.5-15.5) % Plt Count 83 L (150-450) k/uL Neutrophils % (Manual) 69 % Lymphocytes % (Manual) 8 % Monocytes % (Manual) 22 % Eosinophils % (Manual) 1 % Neutrophils # (Manual) 3.31 (1.3-7.7) k/uL Lymphocytes # (Manual) 0.38 L (1.0-4.8) k/uL Monocytes # (Manual) 1.06 H (0-1.0) k/uL Eosinophils # (Manual) 0.05 (0-0.7) k/uL Nucleated RBCs 0 (0-0) /100 WBC Manual Slide Review Performed Anisocytosis Slight Macrocytosis Marked Sodium 139 (137-145) mmol/L Potassium 4.0 (3.5-5.1) mmol/L Chloride 107 (98-107) mmol/L Carbon Dioxide 21 L (22-30) mmol/L Anion Gap 11 mmol/L BUN 29 H (9-20) mg/dL Creatinine 1.70 H (0.66-1.25) mg/dL Est GFR (CKD-EPI)AfAm 51 (>60 ml/min/1.73 sqM) Est GFR (CKD-EPI)NonAf 44 (>60 ml/min/1.73 sqM) Glucose 99 (74-99) mg/dL Calcium 9.3 (8.4-10.2) mg/dL Magnesium 2.0 (1.6-2.3) mg/dL Total Bilirubin 2.3 H (0.2-1.3) mg/dL AST 54 (17-59) U/L ALT 32 (21-72) U/L Alkaline Phosphatase 134 H (38-126) U/L Ammonia 37 H (<30) umol/L Total Protein 7.5 (6.3-8.2) g/dL Albumin 3.6 (3.5-5.0) g/dL Serum Alcohol <10 mg/dL Disposition Clinical Impression: Encephalopathy Disposition: OTHER INSTITUTION NOT DEFINED Condition: Fair Referrals: None,Stated [Primary Care Provider] - 1-2 days Time of Disposition: 23:59 - Out of Hospital Transfer - Req. Specs Out of Hospital Transfer - Requested Specifics: Other Emergency Center (jen asher
[2018-11-17 21:43] LABS: Anisocytosis Slight; HCT 40.9 % (39.0-53.0); HGB 13.4 gm/dL (13.0-17.5); MCH 35.6 pg (25.0-35.0); MCHC 32.6 g/dL (31.0-37.0); MCV 109.2 fL (80.0-100.0); Macrocytosis Marked; Mean Platelet Volume 7.8; RBC 3.75 m/uL (4.30-5.90); RDW 16.8 % (11.5-15.5); WBC 4.8 k/uL (3.8-10.6)
[2018-11-17] MEDS ORDERED: FOLIC ACID 1 MG TAB PO STA (21:56)
[2018-11-17] MEDS ORDERED: THIAMINE 100 MG/ML 2 ML VIAL IM STA (21:56)
[2018-11-17] MEDS ORDERED: MULTIVITAMINS, THERA 1 EACH TAB PO STA (21:56)
[2018-11-17 21:58] LABS: ALT 32 U/L (21-72); AST 54 U/L (17-59); Albumin 3.6 g/dL (3.5-5.0); Alcohol <10 mg/dL; Alkaline Phosphatase 134 U/L (38-126); Anion Gap 11 mmol/L; Blood Urea Nitrogen 29 mg/dL (9-20); Calcium 9.3 mg/dL (8.4-10.2); Carbon Dioxide 21 mmol/L (22-30); Chloride 107 mmol/L (98-107); Glucose 99 mg/dL (74-99); Sodium 139 mmol/L (137-145); Total Bilirubin 2.3 mg/dL (0.2-1.3); Total Protein 7.5 g/dL (6.3-8.2)
[2018-11-17] MEDS ORDERED: LORazepam 2 MG/ML INJ IV STA (22:06)
[2018-11-17 22:08] LABS: Eosinophils # (M) 0.05 k/uL (0-0.7); Lymphocytes # (M) 0.38 k/uL (1.0-4.8); Monocytes # (M) 1.06 k/uL (0-1.0); Neutrophils # (M) 3.31 k/uL (1.3-7.7); Neutrophils % (M) 69 %; Nucleated Red Blood Cells 0 /100 WBC (0-0); Platelet Count 83 k/uL (150-450); Total Cells Counted 100
[2018-11-17] MEDS ORDERED: THIAMINE 100 MG/ML 2 ML VIAL IVP STA (22:19)
[2018-11-17] MEDS ORDERED: THIAMINE 200 MG in SODIUM CHLORIDE 0.9% 100 ML IVPB SCH (22:45)
[2018-11-17 23:05] VITALS: BP 122/86
--- NOTE | 2018-11-17 23:09 | CT ---
EXAMINATION TYPE: CT brain wo con DATE OF EXAM: 11/17/2018 COMPARISON: 03/01/2014 HISTORY: ams. multiple scan attempts made. pt uncooperative and combative. CT DLP: 1310.8 mGycm Automated exposure control for dose reduction was used. FINDINGS: Exam is limited slightly by motion. Ventricles of normal size. There is no mass effect nor midline sh ift. There is no sign of intracranial hemorrhage. The calvarium is intact. IMPRESSION: LIMITED EXAM BY MOTION. NO ACUTE INTRACRANIAL ABNORMALITY. NO CHANGE COMPARED TO OLD EXAM.
--- NOTE | 2018-11-17 23:10 | XR ---
EXAMINATION TYPE: XR chest 1V DATE OF EXAM: 11/17/2018 COMPARISON: 11/29/2017 HISTORY: Chest pain TECHNIQUE: Single frontal view of the chest is obtained. FINDINGS: There is poor respiration. There is elevated left and right hemidiaphragm. There is no hea rt failure. Lungs are clear of consolidation. There are chest leads. IMPRESSION: Poor inspiration that is worse than last exam. Normal heart.
[2018-11-17 23:33] VITALS: PULSE 87; RESP 18
[2018-11-18 01:05] LABS: Appearance,Urine Clear (Clear); Bilirubin,Urine Negative (Negative); Blood,Urine Negative (Negative); Color,Urine Yellow; Glucose,Urine (UA) Negative (Negative); Ketones,Urine Negative (Negative); Leukocyte Esterase,Urine Negative (Negative); Nitrite,Urine Negative (Negative); Protein,Urine Negative (Negative); Specific Gravity,Urine 1.016 (1.001-1.035)
[2018-11-18 01:18] LABS: Amphetamine Screen,Urine Not Detected (NotDetected); Barbiturate Screen,Urine Detected (NotDetected); Benzodiazepines Screen,Urine Not Detected (NotDetected); Cocaine Screen,Urine Not Detected (NotDetected); Methadone Screen, Urine Not Detected (NotDetected); Opiate Screen,Urine Detected (NotDetected); Oxycodone Screen, Urine Not Detected (NotDetected); Phencyclidine Screen,Urine Not Detected (NotDetected); Tricyclic Antidepressant,Urine Detected (NotDetected); Urn Cannabinoid Scrn Detected (NotDetected)
--- NOTE | 2018-11-18 01:26 | XR ---
EXAMINATION TYPE: XR shoulder limited bilateral DATE OF EXAM: 11/18/2018 COMPARISON: NONE HISTORY: Shoulder pain TECHNIQUE: Single view each shoulder FINDINGS: The left shoulder joint appears intact. The right shoulder joint shows significant separation of the AC joint space. There is malalignment. S eparation is almost 2 cm. I see no fracture. The glenohumeral joint on the right side is intact. IMPRESSION: Significant deformity of the right AC joint consistent with ligamentous tear of uncertain age. There is also coracoclavicular separation. No fracture seen. negative left shoulder joint exam .
== END 2018-11-18 01:10 | disposition short-term general hospital (02) ==
LOC: EC 20:57
DX: G93.40 Encephalopathy, unspecified (principal); S43.004A Unspecified dislocation of right shoulder joint, initial encounter; D75.89 Other specified diseases of blood and blood-forming organs; F10.129 Alcohol abuse with intoxication, unspecified; I25.10 Atherosclerotic heart disease of native coronary artery without angina pectoris; K21.9 Gastro-esophageal reflux disease without esophagitis; I10 Essential (primary) hypertension; K70.31 Alcoholic cirrhosis of liver with ascites; F17.200 Nicotine dependence, unspecified, uncomplicated; Z79.51 Long term (current) use of inhaled steroids; Z79.891 Long term (current) use of opiate analgesic; Z79.899 Other long term (current) drug therapy; Z86.14 Personal history of Methicillin resistant Staphylococcus aureus infection; Z87.39 Personal history of other diseases of the musculoskeletal system and connective tissue; Z87.81 Personal history of (healed) traumatic fracture; Z96.7 Presence of other bone and tendon implants; Z81.1 Family history of alcohol abuse and dependence; X58.XXXA Exposure to other specified factors, initial encounter
CPT/HCPCS: 36415; 93005; 80053; 82140; 83735; 85025; 81003; 80306; 73020; 71045; 70450; 99285; 96365; 96375; 96361; 96372; G0480; J2060; J3411; 80320

== ENCOUNTER 2018-12-07 13:27 | Emergency (ER) | payer OTHER ==
[2018-12-07] MEDS ORDERED: ACETAMINOPHEN TAB 325 MG TAB PO STA (13:46)
--- NOTE | 2018-12-07 14:12 | ED ---
URI HPI - General Chief Complaint: Upper Respiratory Infection Stated Complaint: poss pneumonia Time Seen by Provider: 12/07/18 13:43 Source: patient, RN notes reviewed Mode of arrival: ambulatory Limitations: no limitations - History of Present Illness Initial Comments: 58-year-old male presents emergency Department with chief complaints of cough congestion bodyaches. Patient states symptoms started last day or so. Patient is a known daily smoker. Patient states that he does not have any chest pain or any increased shortness of breath. Patient states she just feels achy and miserable. Patient states he was visiting his mother who is also in the hospital. Patient denies sore throat, ear pain, neck pain or neck stiffness. She states does have mild headache. Patient reports no nausea vomiting diarrhea constipation. - Related Data Home Medications Medication Instructions Recorded Confirmed Furosemide 40 mg PO BID 03/07/16 12/07/18 Omeprazole [PriLOSEC] 20 mg PO DAILY 09/13/17 12/07/18 buPROPion XL [Wellbutrin Xl] 300 mg PO QAM 09/13/17 12/07/18 Ranitidine HCl [Zantac] 150 mg PO BID 11/29/17 12/07/18 Fluticasone Nasal [place] [Flonase 1 spray EA NOSTRIL DAILY 12/04/17 12/07/18 Nasal [place]] Magnesium 300 mg PO DAILY 12/04/17 12/07/18 Propranolol [Inderal] 10 mg PO BID 12/04/17 12/07/18 Spironolactone [Aldactone] 50 mg PO BID 12/04/17 12/07/18 HYDROcodone/APAP 10-325MG [[place] 1 tab PO DAILY PRN 05/14/18 12/07/18 10-325] Benzocaine/Menthol Lozeng [Cepacol 1 lozenge MUCOUS MEM BID PRN 12/07/18 lozenge] Clotrimazole/Betameth Cream 1 applic TOPICAL BID 12/07/18 12/07/18 [Lotrisone] Folic Acid 1 mg PO DAILY 12/07/18 12/07/18 Ondansetron Odt [Zofran Odt] 8 mg PO Q8HR PRN 12/07/18 12/07/18 Thiamine [Vitamin B-1] 100 mg PO DAILY 12/07/18 12/07/18 valACYclovir HCL [Valtrex] 1,000 mg PO DAILY 12/07/18 12/07/18 Previous Rx's Medication Instructions Recorded Oseltamivir [Tamiflu] 75 mg PO Q12HR #10 cap 12/07/18 Allergies Allergy/AdvReac Type Severity Reaction Status Date / Time No Known Allergies Allergy Verified 12/07/18 14:30 Review of Systems ROS Statement: Those systems with pertinent positive or pertinent negative responses have been documented in the HPI. ROS Other: All systems not noted in ROS Statement are negative. Past Medical History Past Medical History: Coronary Artery Disease (CAD), GERD/Reflux, GI Bleed, Hypertension Additional Past Medical History / Comment(s): WOUND TO RT GIRON R/T GASH DOWN TO BONE. Alcoholic Cirrhosis of the liver, HX of hep c, ascites, hemachromatosis, left pelvic fracture and femer fracture, herpes, constipation,"fequent leg cramps", marti glaucoma, History of Any Multi-Drug Resistant Organisms: MRSA Date of last positivie culture/infection: 09/14/18 MDRO Source:: LEG Past Surgical History: Orthopedic Surgery Additional Past Surgical History / Comment(s): RT ankle"HARDWARE REMOVED", "12 screws left elbow",BALDO/ 4 screws in spine, Baldo placed (L) Femer, EGD, COLONOSCOPY Past Anesthesia/Blood Transfusion Reactions: No Reported Reaction Past Psychological History: No Psychological Hx Reported Smoking Status: Current every day smoker Past Alcohol Use History: Heavy Past Drug Use History: None Reported - Past Family History Father Family Medical History: Cancer Additional Family Medical History / Comment(s): Father at age 55 with history of alcoholism Mother Family Medical History: No Reported History Additional Family Medical History / Comment(s): Mother is alive at age 70 with no major medical problems. Patient has 1 sister with no major medical problems. General Exam Limitations: no limitations General appearance: alert, in no apparent distress Head exam: Present: atraumatic, normocephalic, normal inspection Eye exam: Present: normal appearance, PERRL, EOMI. Absent: scleral icterus, conjunctival injection, periorbital swelling ENT exam: Present: normal exam, normal oropharynx, mucous membranes moist, TM's normal bilaterally Neck exam: Present: normal inspection, full ROM. Absent: tenderness, meningismus, lymphadenopathy Respiratory exam: Present: wheezes (Faint). Absent: normal lung sounds bilaterally, respiratory distress, rales, rhonchi, stridor Cardiovascular Exam: Present: regular rate, normal rhythm, normal heart sounds. Absent: systolic murmur, diastolic murmur, rubs, gallop, clicks GI/Abdominal exam: Present: soft, normal bowel sounds. Absent: distended, tenderness, guarding, rebound, rigid Back exam: Absent: CVA tenderness (R), CVA tenderness (L) Skin exam: Present: warm, dry, intact, normal color. Absent: rash Course Vital Signs 12/07/18 13:30 Temperature 99 F Pulse Rate 105 H Respiratory 24 Rate Blood Pressure 179/83 O2 Sat by Pulse 94 L Oximetry Medical Decision Making - Medical Decision Making 58 show male presented for cough. Chest x-ray, influenza testing was obtained. Patient's influenza B-positive chest x-ray shows atelectasis no evidence pneumonia. Patient is in no respiratory distress. Patient counseled in detail greater than 3 minutes smoking sensation. Patient will follow-up PCP in 24-48 hours return for any worsening symptoms. - Lab Data Lab Results 12/07/18 Range/Units 13:57 Influenza Type A RNA Detected H (Not Detectd) Influenza Type B (PCR) Not Detected (Not Detectd) Disposition Clinical Impression: Influenza Disposition: HOME SELF-CARE Condition: Stable Instructions (If sedation given, give patient instructions): Influenza (ED) Additional Instructions: Please return to the Emergency Department if symptoms worsen or any other concerns. Prescriptions: Oseltamivir [Tamiflu] 75 mg PO Q12HR #10 cap Is patient prescribed a controlled substance at d/c from ED?: No Referrals: Omar Tse MD [Primary Care Provider] - 1-2 days Time of Disposition: 14:52
--- NOTE | 2018-12-07 14:18 | XR ---
EXAMINATION TYPE: XR chest 2V DATE OF EXAM: 12/07/2018 COMPARISON: 11/17/2018 HISTORY: Cough and chest pain TECHNIQUE: Frontal and lateral views of the chest are obtained. FINDINGS: Linear platelike left midlung atelectasis is seen. Cardia mediastinal silhouette is within normal limits. Osseous structures are grossly intact. Overall there are slightly low lung volumes. IMPRESSION: Left midlung platelike atelectasis, new from the prior. Otherwise no acute cardiopulmona ry pathology.
[2018-12-07 15:07] VITALS: BP 113/69; PULSE 87; RESP 18; TEMP 98.2
== END 2018-12-07 15:06 | disposition home or self-care (01) ==
LOC: EC 13:27
DX: J10.1 Influenza due to other identified influenza virus with other respiratory manifestations (principal); J98.11 Atelectasis; Z71.6 Tobacco abuse counseling; I10 Essential (primary) hypertension; I25.10 Atherosclerotic heart disease of native coronary artery without angina pectoris; K21.9 Gastro-esophageal reflux disease without esophagitis; F17.200 Nicotine dependence, unspecified, uncomplicated; Z79.51 Long term (current) use of inhaled steroids; Z79.52 Long term (current) use of systemic steroids; Z79.899 Other long term (current) drug therapy; Z86.14 Personal history of Methicillin resistant Staphylococcus aureus infection; Z87.2 Personal history of diseases of the skin and subcutaneous tissue; Z87.81 Personal history of (healed) traumatic fracture; Z87.39 Personal history of other diseases of the musculoskeletal system and connective tissue; Z96.698 Presence of other orthopedic joint implants
CPT/HCPCS: 71046; 87502; 99284; 99406

== ENCOUNTER 2018-12-20 12:59 | Inpatient (IN) | payer OTHER ==
--- NOTE | 2018-12-20 13:29 | ED ---
General Adult HPI - General Chief complaint: Shortness of Breath Stated complaint: JUVENCIO Time Seen by Provider: 12/20/18 13:00 Source: patient Mode of arrival: ambulatory Limitations: no limitations - History of Present Illness Initial comments: Dictation was produced using [employer] dictation software. please excuse any grammatical, word or spelling errors. Chief Complaint: 58-year-old male with past medical history of alcoholism, GI bleed, varices, hypertension presents with dyspnea 3 weeks. History of Present Illness: She reports that his brother called EMS for shortness of breath. He states that his brother called because he was leaving for out of town. Patient did not feel the need that his symptoms required an emergency department visit. Patient was transferred here by EMS and EMS reports that patient was hypoxic upon arrival. He does not use home oxygen. She patient is not sure if he has a history of COPD or asthma. Per EMS patient was hypoxic given a breathing treatment and supplemental oxygen. Patient denies any chest pain. Patient however does report having productive cough. The ROS documented in this emergency department record has been reviewed and confirmed by me. Those systems with pertinent positive or negative responses have been documented in the HPI. All other systems are other negative and/or noncontributory. PHYSICAL EXAM: General Impression: Alert and oriented x3, not in acute distress HEENT: Normocephalic atraumatic, extra-ocular movements intact, pupils equal and reactive to light bilaterally, mucous membranes moist. Cardiovascular: Heart regular rate and rhythm, S1&S2 audible, no murmurs, rubs or gallops Chest: Bilateral lung crackles Abdomen: Bowel sounds present, abdomen soft, non-tender, non-distended, no organomegaly Musculoskeletal: Pulses present and equal in all extremities, no peripheral edema Motor: Power 5/5 bilaterally, no focal deficits noted Neurological: CN II-XII grossly intact, no focal motor or sensory deficits noted Skin: Intact with no visualized rashes Psych: Normal affect and mood ED course: 58-year-old male presents with dyspnea 3 weeks. Vital signs upon arrival shows temperature 100.6, 88% on 2 L nasal cannula, rest of vital signs within acceptable limits.Patient's clinical symptoms to suggest pneumonia. Laboratory evaluation obtained. Leukocytosis of 13.7. Patient had mild megaloblastic anemia. Metabolic panel was obtained. Metabolic panel appears to be within acceptable limits. No electrolyte deficiencies. Chest x-ray shows scattered interstitial patchy airspace disease. Given history of cough, hypoxia dyspnea and SIRS patient's clinical presentation consistent with pneumonia sepsis. Degree of hypoxia we will have patient admitted to the hospital. Patient given IV antibiotics. - Related Data Home Medications Medication Instructions Recorded Confirmed Furosemide 40 mg PO BID 03/07/16 12/20/18 Omeprazole [PriLOSEC] 20 mg PO DAILY 09/13/17 12/20/18 buPROPion XL [Wellbutrin Xl] 300 mg PO QAM 09/13/17 12/20/18 Ranitidine HCl [Zantac] 150 mg PO BID 11/29/17 12/20/18 Fluticasone Nasal [place] [Flonase 1 spray EA NOSTRIL DAILY 12/04/17 12/20/18 Nasal [place]] Magnesium 300 mg PO DAILY 12/04/17 12/20/18 Propranolol [Inderal] 10 mg PO BID 12/04/17 12/20/18 Spironolactone [Aldactone] 50 mg PO BID 12/04/17 12/20/18 HYDROcodone/APAP 10-325MG [[place] 1 tab PO DAILY PRN 05/14/18 12/20/18 10-325] Benzocaine/Menthol Lozeng [Cepacol 1 lozenge MUCOUS MEM BID PRN 12/07/18 lozenge] Clotrimazole/Betameth Cream 1 applic TOPICAL BID 12/07/18 12/20/18 [Lotrisone] Folic Acid 1 mg PO DAILY 12/07/18 12/20/18 Ondansetron Odt [Zofran Odt] 8 mg PO Q8HR PRN 12/07/18 12/20/18 Thiamine [Vitamin B-1] 100 mg PO DAILY 12/07/18 12/20/18 valACYclovir HCL [Valtrex] 1,000 mg PO DAILY 12/07/18 12/20/18 Allergies Allergy/AdvReac Type Severity Reaction Status Date / Time No Known Allergies Allergy Verified 12/20/18 14:31 Review of Systems ROS Statement: Those systems with pertinent positive or pertinent negative responses have been documented in the HPI. ROS Other: All systems not noted in ROS Statement are negative. Past Medical History Past Medical History: Coronary Artery Disease (CAD), GERD/Reflux, GI Bleed, Hypertension Additional Past Medical History / Comment(s): WOUND TO RT GIRON R/T GASH DOWN TO BONE. Alcoholic Cirrhosis of the liver, HX of hep c, ascites, hemachromatosis, left pelvic fracture and femer fracture, herpes, constipation,"fequent leg cramps", marti glaucoma, History of Any Multi-Drug Resistant Organisms: MRSA Date of last positivie culture/infection: 09/14/18 MDRO Source:: LEG Past Surgical History: Orthopedic Surgery Additional Past Surgical History / Comment(s): RT ankle"HARDWARE REMOVED", "12 screws left elbow",BALDO/ 4 screws in spine, Baldo placed (L) Femer, EGD, COLONOSCOPY Past Anesthesia/Blood Transfusion Reactions: No Reported Reaction Past Psychological History: No Psychological Hx Reported Smoking Status: Current every day smoker Past Alcohol Use History: None Reported, Heavy Past Drug Use History: None Reported - Past Family History Father Family Medical History: Cancer Additional Family Medical History / Comment(s): Father at age 55 with history of alcoholism Mother Family Medical History: No Reported History Additional Family Medical History / Comment(s): Mother is alive at age 70 with no major medical problems. Patient has 1 sister with no major medical problems. General Exam Limitations: no limitations Course Vital Signs 12/20/18 12/20/18 12/20/18 13:12 13:13 13:30 Temperature 100.6 F H Pulse Rate 86 93 93 Respiratory 22 Rate Blood Pressure 118/77 118/77 O2 Sat by Pulse 89 L 88 L 90 L Oximetry 12/20/18 12/20/18 12/20/18 14:00 14:30 15:00 Temperature Pulse Rate 90 85 Respiratory Rate Blood Pressure 133/90 126/67 126/67 O2 Sat by Pulse 86 L 88 L Oximetry 12/20/18 15:26 Temperature Pulse Rate 85 Respiratory 22 Rate Blood Pressure 126/67 O2 Sat by Pulse 88 L Oximetry Medical Decision Making - Lab Data Result diagrams: 12/20/18 13:35 12/20/18 13:35 Lab Results 12/20/18 12/20/18 12/20/18 Range/Units 13:35 13:35 13:35 WBC 13.7 H (3.8-10.6) k/uL RBC 3.64 L (4.30-5.90) m/uL Hgb 12.7 L (13.0-17.5) gm/dL Hct 39.0 (39.0-53.0) % MCV 106.9 H (80.0-100.0) fL MCH 34.7 (25.0-35.0) pg MCHC 32.5 (31.0-37.0) g/dL RDW 15.2 (11.5-15.5) % Plt Count 121 L (150-450) k/uL Neutrophils % 86 % Lymphocytes % 3 % Monocytes % 8 % Eosinophils % 1 % Basophils % 0 % Neutrophils # 11.8 H (1.3-7.7) k/uL Lymphocytes # 0.4 L (1.0-4.8) k/uL Monocytes # 1.1 H (0-1.0) k/uL Eosinophils # 0.1 (0-0.7) k/uL Basophils # 0.0 (0-0.2) k/uL Macrocytosis Moderate Sodium 139 (137-145) mmol/L Potassium 3.4 L (3.5-5.1) mmol/L Chloride 103 (98-107) mmol/L Carbon Dioxide 27 (22-30) mmol/L Anion Gap 9 mmol/L BUN 19 (9-20) mg/dL Creatinine 0.91 (0.66-1.25) mg/dL Est GFR (CKD-EPI)AfAm >90 (>60 ml/min/1.73 sqM) Est GFR (CKD-EPI)NonAf >90 (>60 ml/min/1.73 sqM) Glucose 125 H (74-99) mg/dL Calcium 8.3 L (8.4-10.2) mg/dL Magnesium 1.8 (1.6-2.3) mg/dL Total Bilirubin 1.8 H (0.2-1.3) mg/dL AST 32 (17-59) U/L ALT 35 (21-72) U/L Alkaline Phosphatase 155 H (38-126) U/L Ammonia 79 H (<30) umol/L Troponin I (0.000-0.034) ng/mL NT-Pro-B Natriuret Pep pg/mL Total Protein 6.7 (6.3-8.2) g/dL Albumin 2.9 L (3.5-5.0) g/dL 12/20/18 12/20/18 Range/Units 13:35 13:35 WBC (3.8-10.6) k/uL RBC (4.30-5.90) m/uL Hgb (13.0-17.5) gm/dL Hct (39.0-53.0) % MCV (80.0-100.0) fL MCH (25.0-35.0) pg MCHC (31.0-37.0) g/dL RDW (11.5-15.5) % Plt Count (150-450) k/uL Neutrophils % % Lymphocytes % % Monocytes % % Eosinophils % % Basophils % % Neutrophils # (1.3-7.7) k/uL Lymphocytes # (1.0-4.8) k/uL Monocytes # (0-1.0) k/uL Eosinophils # (0-0.7) k/uL Basophils # (0-0.2) k/uL Macrocytosis Sodium (137-145) mmol/L Potassium (3.5-5.1) mmol/L Chloride (98-107) mmol/L Carbon Dioxide (22-30) mmol/L Anion Gap mmol/L BUN (9-20) mg/dL Creatinine (0.66-1.25) mg/dL Est GFR (CKD-EPI)AfAm (>60 ml/min/1.73 sqM) Est GFR (CKD-EPI)NonAf (>60 ml/min/1.73 sqM) Glucose (74-99) mg/dL Calcium (8.4-10.2) mg/dL Magnesium (1.6-2.3) mg/dL Total Bilirubin (0.2-1.3) mg/dL AST (17-59) U/L ALT (21-72) U/L Alkaline Phosphatase (38-126) U/L Ammonia (<30) umol/L Troponin I <0.012 (0.000-0.034) ng/mL NT-Pro-B Natriuret Pep 208 pg/mL Total Protein (6.3-8.2) g/dL Albumin (3.5-5.0) g/dL Disposition Clinical Impression: Pneumonia Disposition: ADMITTED IP TO THIS HOSP Is patient prescribed a controlled substance at d/c from ED?: No Referrals: Omar Tse MD [Primary Care Provider] - 1-2 days Decision Time: 15:33
[2018-12-20 13:50] LABS: Basophils % (A) 0 %; Eosinophils # (A) 0.1 k/uL (0-0.7); Eosinophils % (A) 1 %; HGB 12.7 gm/dL (13.0-17.5); Lymphocytes # (A) 0.4 k/uL (1.0-4.8); Lymphocytes % (A) 3 %; MCH 34.7 pg (25.0-35.0); MCHC 32.5 g/dL (31.0-37.0); MCV 106.9 fL (80.0-100.0); Macrocytosis Moderate; Mean Platelet Volume 8.7; Monocytes # (A) 1.1 k/uL (0-1.0); Monocytes % (A) 8 %; Neutrophils # (A) 11.8 k/uL (1.3-7.7); Neutrophils % (A) 86 %; Platelet Count 121 k/uL (150-450); RBC 3.64 m/uL (4.30-5.90); RDW 15.2 % (11.5-15.5); WBC 13.7 k/uL (3.8-10.6)
[2018-12-20 14:05] LABS: ALT 35 U/L (21-72); AST 32 U/L (17-59); Albumin 2.9 g/dL (3.5-5.0); Alkaline Phosphatase 155 U/L (38-126); Anion Gap 9 mmol/L; Blood Urea Nitrogen 19 mg/dL (9-20); Calcium 8.3 mg/dL (8.4-10.2); Carbon Dioxide 27 mmol/L (22-30); Chloride 103 mmol/L (98-107); Glucose 125 mg/dL (74-99); Magnesium 1.8 mg/dL (1.6-2.3); Potassium 3.4 mmol/L (3.5-5.1); Sodium 139 mmol/L (137-145); Total Bilirubin 1.8 mg/dL (0.2-1.3); Total Protein 6.7 g/dL (6.3-8.2)
--- NOTE | 2018-12-20 14:27 | XR ---
EXAMINATION TYPE: XR chest 2V DATE OF EXAM: 12/20/2018 COMPARISON: 12/07/2018 HISTORY: 58-year-old male with pain TECHNIQUE: PA and lateral views FINDINGS: Heart normal size. Mild elongation thoracic aorta. Scattered patchy interstitial and airspace opaciti es are present particularly in the mid and lower lungs, most pronounced at the left base posteriorly. No sizable effusion. IMPRESSION: Scattered interstitial and patchy airspace disease. Correlate for possible etiologies including pneum onia including atypical infections and interstitial pneumonitis.
[2018-12-20] MEDS ORDERED: AZITHROMYCIN 500 MG in SODIUM CHLORIDE 0.9% 250 ML IVPB STA (14:41)
[2018-12-20] MEDS ORDERED: IPRATROPIUM-ALBUTEROL 3 ML NEB INHALATION STA (16:08)
[2018-12-20] MEDS ORDERED: IPRATROPIUM-ALBUTEROL 3 ML NEB INHALATION PRN (16:08)
[2018-12-20] MEDS: SODIUM CHLORIDE 0.9% 1,000 ML IV SCH (17:59)
[2018-12-20 18:14] VITALS: BMI 31.4
[2018-12-20] MEDS ORDERED: ONDANSETRON ODT 8 MG TAB.RAPDIS PO PRN (18:40)
[2018-12-20] MEDS ORDERED: HYDROcodone/APAP 10-325MG 1 EACH TAB PO PRN (18:40)
[2018-12-20] MEDS: FUROSEMIDE 40 MG TAB PO SCH (19:49)
[2018-12-20] MEDS: SPIRONOLACTONE 25 MG TAB PO SCH (19:49)
[2018-12-20] MEDS: BENZOCAINE/MENTHOL LOZENG 1 EACH LOZENGE MUCOUS MEM PRN (19:51)
[2018-12-20] MEDS: PROPRANOLOL 10 MG TAB PO SCH (19:52)
[2018-12-20 19:53] LABS: Appearance,Urine Clear (Clear); Bilirubin,Urine Negative (Negative); Blood,Urine Negative (Negative); Color,Urine Yellow; Glucose,Urine (UA) Negative (Negative); Ketones,Urine Negative (Negative); Leukocyte Esterase,Urine Large (Negative); Mucus,Urine Rare /hpf; Nitrite,Urine Negative (Negative); PH, Urine 6.5 (5.0-8.0); Protein,Urine 1+ (Negative); RBC,Urine 1 /hpf (0-5); Specific Gravity,Urine 1.021 (1.001-1.035); Squamous Epithelial Cell,Urine 2 /hpf (0-4)
[2018-12-20] MEDS: IPRATROPIUM-ALBUTEROL 3 ML NEB INHALATION SCH ×2 (19:58→23:27)
[2018-12-20] MEDS ORDERED: LORazepam 2 MG/ML INJ IV PRN ×3 (20:31)
[2018-12-20] MEDS: guaiFENesin-DM 100-10MG/5ML 10 ML CUP PO PRN (21:19)
[2018-12-21] MEDS: IPRATROPIUM-ALBUTEROL 3 ML NEB INHALATION SCH ×6 (02:39→23:18)
[2018-12-21] MEDS: HYDROcodone/APAP 10-325MG 1 EACH TAB PO PRN ×3 (03:00→17:08)
[2018-12-21] MEDS: SODIUM CHLORIDE 0.9% 1,000 ML IV SCH ×2 (03:02→13:59)
--- NOTE | 2018-12-21 07:24 | P.HPIM ---
History of Present Illness this is a pleasant 58 yo M with pmh of coronary artery disease , hypertension , GERD, and GI bleed, who presents with s/s of resp distress, 2-3 week ago he was complaining from common cold, although he sought medical attension at that time he kept getting worse, he comes with worsening dyspnea, coughing up yellow phlegm, will some blood in it, of moderate amount as per pt, he is current smoke but did not say how much exactly he smokes, he says not a lot. pt is with no chest pain except when he cough on the sides of the lower chest . he was desaturating his oxygen down to 88% , and 93% on 3 L oxygen via Nasal cannula. he has mild leukocytosis of 13.7 K, his creatinine level is in normal limits . his sputum culture was sent and is pending , his chest xray : interstitial lung disease suspicious for pneumonia. pt was started on antibiotic and iv fluids and admitted to the general medical floor. influenza was checked and came back negative. Review of Systems CONSTITUTIONAL: No fever, no malaise, no fatigue. HEENT: No recent visual problems or hearing problems. Denied any sore throat. CARDIOVASCULAR: No orthopnea, PND, no palpitations, no syncope. PULMONARY: No shortness of breath, no cough, no hemoptysis. GASTROINTESTINAL: No diarrhea, no nausea, no vomiting, no abdominal pain. Normoactive bowel sounds. NEUROLOGICAL: No headaches, no weakness, no numbness. HEMATOLOGICAL: Denies any bleeding or petechiae. GENITOURINARY: Denies any burning micturition, frequency, or urgency. MUSCULOSKELETAL/RHEUMATOLOGICAL: Denies any joint pain, swelling, or any muscle pain. ENDOCRINE: Denies any polyuria or polydipsia. Past Medical History Past Medical History: Coronary Artery Disease (CAD), GERD/Reflux, GI Bleed, Hypertension Additional Past Medical History / Comment(s): WOUND TO RT GIRON R/T GASH DOWN TO BONE. Alcoholic Cirrhosis of the liver, HX of hep c, ascites, hemachromatosis, left pelvic fracture and femer fracture, herpes, constipation,"fequent leg cramps", marti glaucoma, History of Any Multi-Drug Resistant Organisms: MRSA Date of last positivie culture/infection: 09/14/18 MDRO Source:: LEG Past Surgical History: Orthopedic Surgery Additional Past Surgical History / Comment(s): RT ankle"HARDWARE REMOVED", "12 screws left elbow",BALDO/ 4 screws in spine, Baldo placed (L) Femer, EGD, COLONOSCOPY Past Anesthesia/Blood Transfusion Reactions: No Reported Reaction Past Psychological History: No Psychological Hx Reported Smoking Status: Current every day smoker Past Alcohol Use History: None Reported, Heavy Additional Past Alcohol Use History / Comment(s): Patient is SMOKING LESS THAN 1 PPD day since he was 20 years of age. He does have history of heavy alcohol abuse. Last drink was 6 weeks ago. He denies any street drug use. Patient is single and lives with his SON who is healthy. Patient is currently on disability. Past Drug Use History: Marijuana - Past Family History Father Family Medical History: Cancer Additional Family Medical History / Comment(s): Father at age 55 with history of alcoholism Mother Family Medical History: No Reported History Additional Family Medical History / Comment(s): Mother is alive at age 70 with no major medical problems. Patient has 1 sister with no major medical problems. Medications and Allergies Home Medications Medication Instructions Recorded Confirmed Type Furosemide 40 mg PO BID 03/07/16 12/20/18 History Omeprazole [PriLOSEC] 20 mg PO DAILY 09/13/17 12/20/18 History buPROPion XL [Wellbutrin Xl] 300 mg PO QAM 09/13/17 12/20/18 History Ranitidine HCl [Zantac] 150 mg PO BID 11/29/17 12/20/18 History Fluticasone Nasal [place] [Flonase 1 spray EA NOSTRIL DAILY 12/04/17 12/20/18 History Nasal [place]] Propranolol [Inderal] 10 mg PO BID 12/04/17 12/20/18 History RX: Magnesium 300 mg PO DAILY 12/04/17 12/20/18 History Spironolactone [Aldactone] 50 mg PO BID 12/04/17 12/20/18 History HYDROcodone/APAP 10-325MG [Filion 1 tab PO DAILY PRN 05/14/18 12/20/18 History 10-325] Benzocaine/Menthol Lozeng [Cepacol 1 lozenge MUCOUS MEM BID PRN 12/07/18 History lozenge] Clotrimazole/Betameth Cream 1 applic TOPICAL BID 12/07/18 12/20/18 History [Lotrisone] Ondansetron Odt [Zofran Odt] 8 mg PO Q8HR PRN 12/07/18 12/20/18 History RX: Folic Acid 1 mg PO DAILY 12/07/18 12/20/18 History Thiamine [Vitamin B-1] 100 mg PO DAILY 12/07/18 12/20/18 History valACYclovir HCL [Valtrex] 1,000 mg PO DAILY 12/07/18 12/20/18 History Allergies Allergy/AdvReac Type Severity Reaction Status Date / Time No Known Allergies Allergy Verified 12/20/18 14:31 Physical Exam Vitals: Vital Signs Temp Pulse Pulse Resp BP BP Pulse Ox 12/20/18 23:28 82 18 12/20/18 23:00 100.6 F H 86 17 101/61 90 L 12/20/18 20:16 88 18 12/20/18 20:09 81 18 12/20/18 18:03 98.4 F 74 20 130/69 90 L 12/20/18 16:30 84 134/93 90 L 12/20/18 16:22 84 12/20/18 16:14 85 12/20/18 16:00 86 114/73 88 L 12/20/18 15:30 88 111/73 90 L 12/20/18 15:26 85 22 126/67 88 L 12/20/18 15:00 85 126/67 88 L 12/20/18 14:30 126/67 12/20/18 14:00 90 133/90 86 L 12/20/18 13:30 93 118/77 90 L 12/20/18 13:13 100.6 F H 93 22 118/77 88 L 12/20/18 13:12 86 89 L Intake and Output 12/20/18 12/20/18 12/21/18 14:59 22:59 06:59 Other: # Voids 2 Weight 105.143 kg GENERAL: The patient is alert and oriented x3, not in any acute distress. Well developed, well nourished. HEENT: Pupils are round and equally reacting to light. EOMI. No scleral icterus. No conjunctival pallor. Normocephalic, atraumatic. No pharyngeal erythema. No thyromegaly. CARDIOVASCULAR: S1 and S2 present. No murmurs, rubs, or gallops. -PULMONARY: Chest is clear to auscultationB/L crepitation and scattered wheezing ABDOMEN: Soft, nontender, nondistended, normoactive bowel sounds. No palpable organomegaly. MUSCULOSKELETAL: No joint swelling or deformity. EXTREMITIES: No cyanosis, clubbing, or pedal edema. NEUROLOGICAL: Gross neurological examination did not reveal any focal deficits. SKIN: No rashes. Results CBC & Chem 7: 12/20/18 13:35 12/20/18 13:35 Labs: Abnormal Lab Results - Last 24 Hours (Table) 12/20/18 12/20/18 12/20/18 Range/Units 13:35 13:35 13:35 WBC 13.7 H (3.8-10.6) k/uL RBC 3.64 L (4.30-5.90) m/uL Hgb 12.7 L (13.0-17.5) gm/dL MCV 106.9 H (80.0-100.0) fL Plt Count 121 L (150-450) k/uL Neutrophils # 11.8 H (1.3-7.7) k/uL Lymphocytes # 0.4 L (1.0-4.8) k/uL Monocytes # 1.1 H (0-1.0) k/uL Potassium 3.4 L (3.5-5.1) mmol/L Glucose 125 H (74-99) mg/dL Calcium 8.3 L (8.4-10.2) mg/dL Total Bilirubin 1.8 H (0.2-1.3) mg/dL Alkaline Phosphatase 155 H (38-126) U/L Ammonia 79 H (<30) umol/L Albumin 2.9 L (3.5-5.0) g/dL Urine Protein (Negative) Ur Leukocyte Esterase (Negative) Urine Mucus (None) /hpf 12/20/18 Range/Units 19:48 WBC (3.8-10.6) k/uL RBC (4.30-5.90) m/uL Hgb (13.0-17.5) gm/dL MCV (80.0-100.0) fL Plt Count (150-450) k/uL Neutrophils # (1.3-7.7) k/uL Lymphocytes # (1.0-4.8) k/uL Monocytes # (0-1.0) k/uL Potassium (3.5-5.1) mmol/L Glucose (74-99) mg/dL Calcium (8.4-10.2) mg/dL Total Bilirubin (0.2-1.3) mg/dL Alkaline Phosphatase (38-126) U/L Ammonia (<30) umol/L Albumin (3.5-5.0) g/dL Urine Protein 1+ H (Negative) Ur Leukocyte Esterase Large H (Negative) Urine Mucus Rare H (None) /hpf Thrombosis Risk Factor Assmnt - Choose All That Apply Each Factor Represents 1 point: Abnormal pulmonary function (COPD), Age 41-60 years Each Risk Factor Represents 3 Points: Family history of DVT/PE Thrombosis Risk Factor Assessment Total Risk Factor Score: 5 Thrombosis Risk Factor Assessment Level: High Risk Assessment and Plan Assessment: acute hypoxic resp failure Bilateral interstitial pneumonia, community acquired current cigarette smoker history of GI bleed h/o GERD Plan: this is a pleasant 58 yo M who present with bilateral pneumonia, continue with antibiotic , iv fluids, oxygen and breathing treatment . Labs and medication were reviewed.. Continue same treatment. Continue with symptomatic treatment. Resume home medication. Monitor lytes and vitals. DVT and GI prophylaxis. Further recommendations of the clinical course of the patient DVT prophylaxis: Subcutaneous heparin GI Prophylaxis: Pepcid Prognosis is guarded
[2018-12-21] MEDS: methylPREDNISolone SOD SUCCI 40 MG/ML 1 ML VIAL IV SCH ×2 (08:21→20:20)
[2018-12-21] MEDS: MAGNESIUM OXIDE 400 MG TAB PO SCH (08:22)
[2018-12-21] MEDS: PANTOPRAZOLE 40 MG TABLET PO SCH (08:22)
[2018-12-21] MEDS: SPIRONOLACTONE 25 MG TAB PO SCH ×2 (08:22→20:10)
[2018-12-21] MEDS: valACYclovir HCL 1,000 MG TABLET PO SCH (08:22)
[2018-12-21] MEDS: FUROSEMIDE 40 MG TAB PO SCH ×2 (08:22→17:08)
[2018-12-21] MEDS: THIAMINE 100 MG TAB PO SCH (08:22)
[2018-12-21] MEDS: FOLIC ACID 1 MG TAB PO SCH (08:22)
[2018-12-21] MEDS: buPROPion XL 300 MG TAB.ER.24H PO SCH (08:22)
[2018-12-21] MEDS: FLUTICASONE 50MCG/SPRAY NASAL 16GM EA NOSTRIL SCH (08:23)
[2018-12-21] MEDS: PROPRANOLOL 10 MG TAB PO SCH ×2 (08:49→20:10)
[2018-12-21] MEDS: guaiFENesin-DM 100-10MG/5ML 10 ML CUP PO PRN ×2 (08:57→21:07)
[2018-12-21] MEDS ORDERED: PANTOPRAZOLE 40 MG/10 ML VIAL IV SCH (09:00)
[2018-12-21] MEDS ORDERED: AZITHROMYCIN 500 MG in SODIUM CHLORIDE 0.9% 250 ML IVPB SCH (09:00)
[2018-12-21 09:45] LABS: Basophils % (A) 0 %; Eosinophils # (A) 0.1 k/uL (0-0.7); Eosinophils % (A) 1 %; HCT 38.2 % (39.0-53.0); HGB 12.5 gm/dL (13.0-17.5); Lymphocytes # (A) 0.5 k/uL (1.0-4.8); Lymphocytes % (A) 5 %; MCH 35.2 pg (25.0-35.0); MCHC 32.6 g/dL (31.0-37.0); Macrocytosis Marked; Mean Platelet Volume 7.4; Monocytes # (A) 0.7 k/uL (0-1.0); Monocytes % (A) 7 %; Neutrophils # (A) 9.2 k/uL (1.3-7.7); Neutrophils % (A) 86 %; Platelet Count 126 k/uL (150-450); RBC 3.54 m/uL (4.30-5.90); RDW 15.2 % (11.5-15.5); WBC 10.7 k/uL (3.8-10.6)
[2018-12-21 09:51] LABS: ALT 31 U/L (21-72); AST 35 U/L (17-59); Albumin 2.8 g/dL (3.5-5.0); Alkaline Phosphatase 126 U/L (38-126); Anion Gap 7 mmol/L; Blood Urea Nitrogen 18 mg/dL (9-20); Calcium 7.7 mg/dL (8.4-10.2); Carbon Dioxide 30 mmol/L (22-30); Chloride 100 mmol/L (98-107); Glucose 133 mg/dL (74-99); Potassium 3.3 mmol/L (3.5-5.1); Sodium 137 mmol/L (137-145); Total Bilirubin 1.8 mg/dL (0.2-1.3); Total Protein 6.6 g/dL (6.3-8.2)
[2018-12-21] MEDS ORDERED: POTASSIUM CHLORIDE ER 20 MEQ TAB.ER PO STA (11:39)
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
[2018-12-21] MEDS: BENZOCAINE/MENTHOL LOZENG 1 EACH LOZENGE MUCOUS MEM PRN (21:08)
[2018-12-22] MEDS: BENZOCAINE/MENTHOL LOZENG 1 EACH LOZENGE MUCOUS MEM PRN ×2 (00:59→13:33)
[2018-12-22] MEDS: HYDROcodone/APAP 10-325MG 1 EACH TAB PO PRN ×3 (01:01→20:31)
[2018-12-22] MEDS: IPRATROPIUM-ALBUTEROL 3 ML NEB INHALATION SCH ×5 (03:35→23:10)
[2018-12-22] MEDS: THIAMINE 100 MG TAB PO SCH (08:18)
[2018-12-22] MEDS: AZITHROMYCIN 500 MG TAB PO SCH (08:18)
[2018-12-22] MEDS: PANTOPRAZOLE 40 MG TABLET PO SCH (08:18)
[2018-12-22] MEDS: SPIRONOLACTONE 25 MG TAB PO SCH ×2 (08:18→20:25)
[2018-12-22] MEDS: MAGNESIUM OXIDE 400 MG TAB PO SCH (08:19)
[2018-12-22] MEDS: FUROSEMIDE 40 MG TAB PO SCH ×2 (08:19→16:42)
[2018-12-22] MEDS: FLUTICASONE 50MCG/SPRAY NASAL 16GM EA NOSTRIL SCH (08:20)
[2018-12-22] MEDS: buPROPion XL 300 MG TAB.ER.24H PO SCH (08:20)
[2018-12-22] MEDS: PROPRANOLOL 10 MG TAB PO SCH ×2 (08:20→20:25)
[2018-12-22] MEDS: valACYclovir HCL 1,000 MG TABLET PO SCH (08:20)
[2018-12-22] MEDS: methylPREDNISolone SOD SUCCI 40 MG/ML 1 ML VIAL IV SCH ×2 (08:20→20:25)
[2018-12-22 09:02] LABS: Basophils % (A) 0 %; Eosinophils # (A) 0.1 k/uL (0-0.7); Eosinophils % (A) 1 %; HCT 38.8 % (39.0-53.0); HGB 12.8 gm/dL (13.0-17.5); Lymphocytes # (A) 0.4 k/uL (1.0-4.8); Lymphocytes % (A) 3 %; MCH 35.4 pg (25.0-35.0); MCHC 32.9 g/dL (31.0-37.0); MCV 107.6 fL (80.0-100.0); Macrocytosis Moderate; Mean Platelet Volume 7.8; Monocytes # (A) 0.7 k/uL (0-1.0); Monocytes % (A) 6 %; Neutrophils # (A) 11.2 k/uL (1.3-7.7); Neutrophils % (A) 89 %; Platelet Count 144 k/uL (150-450); RDW 15.5 % (11.5-15.5); WBC 12.5 k/uL (3.8-10.6)
[2018-12-22 09:09] LABS: ALT 37 U/L (21-72); AST 44 U/L (17-59); Albumin 2.9 g/dL (3.5-5.0); Alkaline Phosphatase 154 U/L (38-126); Anion Gap 9 mmol/L; Blood Urea Nitrogen 21 mg/dL (9-20); Calcium 8.2 mg/dL (8.4-10.2); Carbon Dioxide 27 mmol/L (22-30); Chloride 101 mmol/L (98-107); Glucose 171 mg/dL (74-99); Potassium 3.7 mmol/L (3.5-5.1); Sodium 137 mmol/L (137-145); Total Bilirubin 1.4 mg/dL (0.2-1.3); Total Protein 6.8 g/dL (6.3-8.2)
[2018-12-22 09:42] LABS: Ionized Calcium 4.7 mg/dL (4.5-5.3)
--- NOTE | 2018-12-22 11:17 | P.PN ---
Subjective Progress Note Date: 12/21/18 Principal diagnosis: Community-acquired pneumonia Acute hypoxic respiratory failure 58-year-old male patient with chronic liver failure secondary to alcoholism and the patient has liver cirrhosis and portal hypertension and previous bouts of GI bleeding. The patient is also known to have coronary artery disease, COPD , hypertension and hepatitis C. There is also vague history of hemachromatosis which does not seem to be a true diagnosis or to confirm diagnosis based on my chart review. The patient came into the hospital because of worsening shortness of breath. The patient some cough and congestion chest tightness and wheeze. He was coughing out some yellowish sputum. No pleurisy. No hemoptysis. Is a chronic smoker. He has no angina. No altered mentation. Pulse ox was down to 88% on room air and is currently on 93-94% of these of oxygen by nasal cannula. White cell count is at 13.7 and the rest of the blood work electrolytes were within normal limits. Chest x-ray showed and position changes with some patchy airspace disease more so in the mid and lower lungs bilaterally. The patient is currently on a combination of Rocephin and Zithromax. Sputum cultures been sent. Blood cultures been sent. He is hemodynamically stable. Producing adequate amount of urine output. His influenza screen was negative. Objective - Vital Signs Vital signs: Vital Signs Temp 99.5 F 12/21/18 06:24 Pulse 82 12/21/18 11:11 Resp 18 12/21/18 06:24 BP 115/72 12/21/18 06:24 Pulse Ox 93 L 12/21/18 06:24 Intake & Output 12/20/18 12/21/18 12/21/18 18:59 06:59 18:59 Output Total 450 Balance -450 Weight 105.143 kg Output: Urine 450 Other: Voiding Method Urinal # Voids 2 - Exam The patient is awake and alert and nonacute distress. Head exam was generally normal. There was no scleral icterus or corneal arcus. Mucous membranes were moist. Neck was supple and without jugular venous distension, thyromegaly, or carotid bruits. Carotids were easily palpable bilaterally. There was no adenopathy. Lungs sounds are diminished bilaterally along with some few scattered rhonchi and scattered expiratory wheezes. He is a heard bilaterally. Cardiac exam revealed the PMI to be normally situated and sized. The rhythm was regular and no extrasystoles were noted during several minutes of auscultation. The first and second heart sounds were normal and physiologic splitting of the second heart sound was noted. There were no murmurs, rubs, clicks, or gallops. Abdominal exam revealed normal bowel sounds. The abdomen was soft, non-tender, and without masses, organomegaly, or appreciable enlargement of the abdominal aorta. There is no evidence of any ascites. The patient is a inguinal hernia that's extending to his right scrotum. Examination of the skin revealed no evidence of significant rashes, suspicious appearing nevi or other concerning lesions. There is evidence of a healed wound over the right white. Neurologically awake and alert and is no focal neurological deficit. - Labs CBC & Chem 7: 12/22/18 08:46 12/22/18 08:46 Labs: Abnormal Lab Results - Last 24 Hours (Table) 12/20/18 12/20/18 12/20/18 Range/Units 13:35 13:35 13:35 WBC 13.7 H (3.8-10.6) k/uL RBC 3.64 L (4.30-5.90) m/uL Hgb 12.7 L (13.0-17.5) gm/dL Hct (39.0-53.0) % MCV 106.9 H (80.0-100.0) fL MCH (25.0-35.0) pg Plt Count 121 L (150-450) k/uL Neutrophils # 11.8 H (1.3-7.7) k/uL Lymphocytes # 0.4 L (1.0-4.8) k/uL Monocytes # 1.1 H (0-1.0) k/uL Potassium 3.4 L (3.5-5.1) mmol/L Glucose 125 H (74-99) mg/dL Calcium 8.3 L (8.4-10.2) mg/dL Total Bilirubin 1.8 H (0.2-1.3) mg/dL Alkaline Phosphatase 155 H (38-126) U/L Ammonia 79 H (<30) umol/L Albumin 2.9 L (3.5-5.0) g/dL Urine Protein (Negative) Ur Leukocyte Esterase (Negative) Urine Mucus (None) /hpf 02/12/21/18 12/21/18 Range/Units 19:48 09:19 09:19 WBC 10.7 H (3.8-10.6) k/uL RBC 3.54 L (4.30-5.90) m/uL Hgb 12.5 L (13.0-17.5) gm/dL Hct 38.2 L (39.0-53.0) % MCV 108.0 H (80.0-100.0) fL MCH 35.2 H (25.0-35.0) pg Plt Count 126 L (150-450) k/uL Neutrophils # 9.2 H (1.3-7.7) k/uL Lymphocytes # 0.5 L (1.0-4.8) k/uL Monocytes # (0-1.0) k/uL Potassium 3.3 L (3.5-5.1) mmol/L Glucose 133 H (74-99) mg/dL Calcium 7.7 L (8.4-10.2) mg/dL Total Bilirubin 1.8 H (0.2-1.3) mg/dL Alkaline Phosphatase (38-126) U/L Ammonia (<30) umol/L Albumin 2.8 L (3.5-5.0) g/dL Urine Protein 1+ H (Negative) Ur Leukocyte Esterase Large H (Negative) Urine Mucus Rare H (None) /hpf Microbiology - Last 24 Hours (Table) 12/20/18 19:00 Gram Stain - Preliminary Sputum Sputum Culture - Preliminary 12/20/18 19:48 Urine Culture - Preliminary Urine,Voided Assessment and Plan Assessment: 1. Acute community-acquired pneumonia - Continue IV antibiotics in the form of Rocephin 1 g daily and Zithromax 500 mg IV every 24 hours - Continue with DuoNeb nebulizer treatments - Sputum Gram stain and culture and blood culture has been ordered 2. Shortness of breath and cough and chest congestion; secondary to above 3. Acute hypoxic respiratory failure; secondary to above - Continue with supplement oxygen per nasal cannula keeping SpO2 greater than 90 % - Patient started on IV Solu-Medrol per pulmonary recommendations; planning to start taper in next 24-48 hours 4. Chronic smoker; counseling done on cessation of smoking 5. Alcoholic liver cirrhosis with secondary portal hypertension - No signs of hepatic failure or encephalopathy - Continue with thiamine and folic acid; Aldactone 50 mg twice a day; Lasix 40 mg twice a day 6. History of GI bleed; Protonix 40 mg before meals breakfast 7. Coronary artery disease; stable 8. Hypertension; stable 9. DVT prophylaxis; we will order PT/INR and start patient on subcu heparin if within normal range CODE STATUS; full code
[2018-12-22] MEDS: FOLIC ACID 1 MG TAB PO SCH (12:00)
--- NOTE | 2018-12-22 14:45 | P.PN ---
Subjective Progress Note Date: 12/22/18 Principal diagnosis: Acute bilateral pneumonia, suspect community-acquired. A 58-year-old male patient with chronic liver failure secondary to alcoholism and the patient has liver cirrhosis and portal hypertension and previous bouts of GI bleeding. The patient is also known to have coronary artery disease, COPD , hypertension and hepatitis C. There is also vague history of hemachromatosis which does not seem to be a true diagnosis or to confirm diagnosis based on my chart review. The patient came into the hospital because of worsening shortness of breath. The patient some cough and congestion chest tightness and wheeze. He was coughing out some yellowish sputum. No pleurisy. No hemoptysis. Is a chronic smoker. He has no angina. No altered mentation. Pulse ox was down to 88% on room air and is currently on 93-94% of these of oxygen by nasal cannula. White cell count is at 13.7 and the rest of the blood work electrolytes were within normal limits. Chest x-ray showed and position changes with some patchy airspace disease more so in the mid and lower lungs bilaterally. The patient is currently on a combination of Rocephin and Zithromax. Sputum cultures been sent. Blood cultures been sent. He is hemodynamically stable. Producing adequate amount of urine output. His influenza screen was negative. The patient is seen today 12/22/2018 in follow-up on the regular medical floor. He is currently sitting up in a chair at the bedside awake and alert in no acute distress. He did have desaturations in the 80s on room air. He is currently maintaining O2 saturations in the 90s on 3 L/m per nasal cannula. Breathing easier today as compared to yesterday. Loose nonproductive cough. Preliminary sputum cultures positive for presumptive staph aureus. Blood culture reveals no growth. Urine culture no growth. White count 12.5. Hemoglobin 12.8. Creatinine 0.94. He is currently on ceftriaxone and azithromycin. He remains on bronchodilators and IV Solu-Medrol. Objective - Vital Signs Vital signs: Vital Signs Temp 97.9 F 12/22/18 07:50 Pulse 78 12/22/18 11:54 Resp 22 12/22/18 07:50 BP 128/85 12/22/18 07:50 Pulse Ox 92 L 12/22/18 07:55 Intake & Output 12/21/18 12/22/1812/22/19 18:59 06:59 18:59 Intake Total 1241 600 Balance 1241 600 Intake: IV 1020 Azithromycin 500 mg In 250 Sodium Chloride 0.9% 250 ml @ 250 mls/hr IVPB DAILY [facility] Rx#:[id number] Sodium Chloride 0.9% 1, 720 000 ml @ 90 mls/hr IV . Q11H7M [facility] Rx#:[id number] cefTRIAXone 1 gm In 50 Sodium Chloride 0.9% 50 ml @ 100 mls/hr IVPB Q24HR [facility] Rx#:[id number] Oral 221 600 Other: Voiding Method Toilet Toilet Toilet Urinal Urinal Urinal # Voids 1 2 # Bowel Movements 0 - Exam GENERAL EXAM: Morbidly obese. Alert, active, comfortable in no apparent distress. On 3 L nasal cannula. HEAD: Normocephalic. EYES: Normal reaction of pupils, equal size. NOSE: Clear with pink turbinates. THROAT: No erythema or exudates. NECK: No masses, no JVD. CHEST: No chest wall deformity. LUNGS: Equal air entry with basilar crackles, wheeze, diminished. CVS: S1 and S2 normal with no audible murmur, regular rhythm. ABDOMEN: No hepatosplenomegaly, normal bowel sounds, no guarding or rigidity. SPINE: No scoliosis or deformity SKIN: No rashes CENTRAL NERVOUS SYSTEM: No focal deficits, tone is normal in all 4 extremities. EXTREMITIES: There is no peripheral edema. No clubbing, no cyanosis. Peripheral pulses are intact. - Labs CBC & Chem 7: 12/22/18 08:46 12/22/18 08:46 Labs: Abnormal Lab Results - Last 24 Hours (Table) 12/22/18 12/22/18 Range/Units 08:46 08:46 WBC 12.5 H (3.8-10.6) k/uL RBC 3.60 L (4.30-5.90) m/uL Hgb 12.8 L (13.0-17.5) gm/dL Hct 38.8 L (39.0-53.0) % MCV 107.6 H (80.0-100.0) fL MCH 35.4 H (25.0-35.0) pg Plt Count 144 L (150-450) k/uL Neutrophils # 11.2 H (1.3-7.7) k/uL Lymphocytes # 0.4 L (1.0-4.8) k/uL BUN 21 H (9-20) mg/dL Glucose 171 H (74-99) mg/dL Calcium 8.2 L (8.4-10.2) mg/dL Total Bilirubin 1.4 H (0.2-1.3) mg/dL Alkaline Phosphatase 154 H (38-126) U/L Albumin 2.9 L (3.5-5.0) g/dL Microbiology - Last 24 Hours (Table) 12/20/18 19:00 Gram Stain - Preliminary Sputum Sputum Culture - Preliminary Presumptive Staph aureus 12/20/18 19:48 Urine Culture - Final Urine,Voided 12/20/18 13:20 Blood Culture - Preliminary Blood No Growth after 24 hours Assessment and Plan Assessment: Assessment 1 acute pneumonia, likely bilateral, community-acquired. 2 shortness of breath and cough and chest congestion secondary to above 3 acute hypoxic respiratory failure secondary to above 4 chronic smoker 5 liver cirrhosis, likely alcoholic in nature along with secondary portal hypertension 6 history of hepatitis C 7 previous history of GI bleed 8 coronary artery disease 9 hypertension Plan The patient was seen and evaluated by Dr. Capps. Sputum culture shows presumptive MRSA. We'll add Bactrim. He is improved today as compared to yesterday. Not quite back to his baseline. We'll continue with the current treatment plan. Increase his activity as tolerated. We will repeat a chest x- ray in the a.m. We'll continue to follow. I, the cosigning physician, performed a history & physical examination of the patient. Lungs sounds with few scattered rhonchi, crackles in posterior bases, end expiratory wheeze. Maintaining good O2 saturations in the 90s on 3 L/m per nasal cannula. I discussed the assessment and plan of care with my nurse practitioner, Yenny Stewart. I attest to the above note as dictated by her.
--- NOTE | 2018-12-22 15:13 | P.PN ---
Subjective Progress Note Date: 12/22/18 Principal diagnosis: Community-acquired pneumonia Acute hypoxic respiratory failure 58-year-old male patient with chronic liver failure secondary to alcoholism and the patient has liver cirrhosis and portal hypertension and previous bouts of GI bleeding. The patient is also known to have coronary artery disease, COPD , hypertension and hepatitis C. There is also vague history of hemachromatosis which does not seem to be a true diagnosis or to confirm diagnosis based on my chart review. The patient came into the hospital because of worsening shortness of breath. The patient some cough and congestion chest tightness and wheeze. He was coughing out some yellowish sputum. No pleurisy. No hemoptysis. Is a chronic smoker. He has no angina. No altered mentation. Pulse ox was down to 88% on room air and is currently on 93-94% of these of oxygen by nasal cannula. White cell count is at 13.7 and the rest of the blood work electrolytes were within normal limits. Chest x-ray showed and position changes with some patchy airspace disease more so in the mid and lower lungs bilaterally. The patient is currently on a combination of Rocephin and Zithromax. Sputum cultures been sent. Blood cultures been sent. He is hemodynamically stable. Producing adequate amount of urine output. His influenza screen was negative. 12/22/2018 Patient is seen in follow-up on the regular medical floor. He is currently sitting up in a chair at the bedside awake and alert in no acute distress. He did have desaturations in the 80s on room air. He is currently maintaining O2 saturations in the 90s on 3 L/m per nasal cannula. Breathing easier today as compared to yesterday. Loose nonproductive cough. Preliminary sputum cultures positive for presumptive staph aureus. Blood culture reveals no growth. Urine culture no growth. White count 12.5. Hemoglobin 12.8. Creatinine 0.94. He is currently on ceftriaxone and azithromycin. He remains on bronchodilators and IV Solu-Medrol. Objective - Vital Signs Vital signs: Vital Signs Temp 97.9 F 12/22/18 07:50 Pulse 80 12/22/18 07:50 Resp 22 12/22/18 07:50 BP 128/85 12/22/18 07:50 Pulse Ox 92 L 12/22/18 07:55 Intake & Output 12/21/18 12/22/18 12/22/18 18:59 06:59 18:59 Intake Total 1241 600 Balance 1241 600 Intake: IV 1020 Azithromycin 500 mg In 250 Sodium Chloride 0.9% 250 ml @ 250 mls/hr IVPB DAILY [facility] Rx#:[id number] Sodium Chloride 0.9% 1, 720 000 ml @ 90 mls/hr IV . Q11H7M [facility] Rx#:[id number] cefTRIAXone 1 gm In 50 Sodium Chloride 0.9% 50 ml @ 100 mls/hr IVPB Q24HR [facility] Rx#:[id number] Oral 221 600 Other: Voiding Method Toilet Toilet Toilet Urinal Urinal Urinal # Voids 1 2 # Bowel Movements 0 - Exam The patient is awake and alert and nonacute distress. Head exam was generally normal. There was no scleral icterus or corneal arcus. Mucous membranes were moist. Neck was supple and without jugular venous distension, thyromegaly, or carotid bruits. Carotids were easily palpable bilaterally. There was no adenopathy. Lungs sounds are diminished bilaterally along with some few scattered rhonchi and scattered expiratory wheezes. He is a heard bilaterally. Cardiac exam revealed the PMI to be normally situated and sized. The rhythm was regular and no extrasystoles were noted during several minutes of auscultation. The first and second heart sounds were normal and physiologic splitting of the second heart sound was noted. There were no murmurs, rubs, clicks, or gallops. Abdominal exam revealed normal bowel sounds. The abdomen was soft, non-tender, and without masses, organomegaly, or appreciable enlargement of the abdominal aorta. There is no evidence of any ascites. The patient is a inguinal hernia that's extending to his right scrotum. Examination of the skin revealed no evidence of significant rashes, suspicious appearing nevi or other concerning lesions. There is evidence of a healed wound over the right white. Neurologically awake and alert and is no focal neurological deficit. - Labs CBC & Chem 7: 12/22/18 08:46 12/22/18 08:46 Labs: Abnormal Lab Results - Last 24 Hours (Table) 12/22/18 12/22/18 Range/Units 08:46 08:46 WBC 12.5 H (3.8-10.6) k/uL RBC 3.60 L (4.30-5.90) m/uL Hgb 12.8 L (13.0-17.5) gm/dL Hct 38.8 L (39.0-53.0) % MCV 107.6 H (80.0-100.0) fL MCH 35.4 H (25.0-35.0) pg Plt Count 144 L (150-450) k/uL Neutrophils # 11.2 H (1.3-7.7) k/uL Lymphocytes # 0.4 L (1.0-4.8) k/uL BUN 21 H (9-20) mg/dL Glucose 171 H (74-99) mg/dL Calcium 8.2 L (8.4-10.2) mg/dL Total Bilirubin 1.4 H (0.2-1.3) mg/dL Alkaline Phosphatase 154 H (38-126) U/L Albumin 2.9 L (3.5-5.0) g/dL Microbiology - Last 24 Hours (Table) 12/20/18 19:00 Gram Stain - Preliminary Sputum Sputum Culture - Preliminary Presumptive Staph aureus 12/20/18 19:48 Urine Culture - Final Urine,Voided 12/20/18 13:20 Blood Culture - Preliminary Blood No Growth after 24 hours Assessment and Plan Assessment: 1. Acute community-acquired pneumonia - Continue IV antibiotics in the form of Rocephin 1 g daily and Zithromax 500 mg IV every 24 hours - Continue with DuoNeb nebulizer treatments - Sputum Gram stain and culture and blood culture has been ordered 2. Shortness of breath and cough and chest congestion; secondary to above 3. Acute hypoxic respiratory failure; secondary to above - Continue with supplement oxygen per nasal cannula keeping SpO2 greater than 90 % - Patient started on IV Solu-Medrol per pulmonary recommendations; planning to start taper in next 24-48 hours 4. Chronic smoker; counseling done on cessation of smoking 5. Alcoholic liver cirrhosis with secondary portal hypertension - No signs of hepatic failure or encephalopathy - Continue with thiamine and folic acid; Aldactone 50 mg twice a day; Lasix 40 mg twice a day 6. History of GI bleed; Protonix 40 mg before meals breakfast 7. Coronary artery disease; stable 8. Hypertension; stable 9. DVT prophylaxis; we will order PT/INR and start patient on subcu heparin if within normal range CODE STATUS; full code Time with Patient: Greater than 30
[2018-12-22] MEDS ORDERED: LACTULOSE 20 GM/30 ML CUP PO ONE (15:41)
[2018-12-22] MEDS: SULFAMETHOX-TMP 800-160MG 1 EACH TAB PO SCH (20:25)
[2018-12-22] MEDS: guaiFENesin-DM 100-10MG/5ML 10 ML CUP PO PRN (20:26)
[2018-12-23] MEDS: BENZOCAINE/MENTHOL LOZENG 1 EACH LOZENGE MUCOUS MEM PRN ×2 (01:28→18:33)
[2018-12-23] MEDS: IPRATROPIUM-ALBUTEROL 3 ML NEB INHALATION SCH ×6 (01:32→20:00)
[2018-12-23] MEDS: HYDROcodone/APAP 10-325MG 1 EACH TAB PO PRN ×3 (03:42→21:14)
[2018-12-23] MEDS: guaiFENesin-DM 100-10MG/5ML 10 ML CUP PO PRN ×2 (03:42→18:33)
--- NOTE | 2018-12-23 07:25 | XR ---
EXAMINATION TYPE: XR chest 2V DATE OF EXAM: 12/23/2018 COMPARISON: 12/20/2018, 11/17/2018 INDICATION: Bilateral pneumonia TECHNIQUE: Frontal and lateral views of the chest are obtained. FINDINGS: The heart size is normal. The pulmonary vasculature is normal. Streak opacities in the right midlung. Right lung scattered infiltrates have improved. Mild left lowe r lobe infiltrate is present.. IMPRESSION: 1. Improving bilateral lung infiltrates. A right midlung streak opacity remains present may be relate d to pneumonia or atelectasis. Follow-up to clearing is recommended.
[2018-12-23 08:06] LABS: Basophils % (A) 0 %; Eosinophils % (A) 0 %; HCT 37.5 % (39.0-53.0); HGB 12.5 gm/dL (13.0-17.5); Lymphocytes # (A) 0.3 k/uL (1.0-4.8); Lymphocytes % (A) 2 %; MCH 35.5 pg (25.0-35.0); MCHC 33.4 g/dL (31.0-37.0); MCV 106.5 fL (80.0-100.0); Macrocytosis Moderate; Mean Platelet Volume 7.4; Monocytes # (A) 0.6 k/uL (0-1.0); Monocytes % (A) 5 %; Neutrophils % (A) 92 %; Platelet Count 126 k/uL (150-450); RBC 3.52 m/uL (4.30-5.90); RDW 15.6 % (11.5-15.5); WBC 12.1 k/uL (3.8-10.6)
[2018-12-23] MEDS: FUROSEMIDE 40 MG TAB PO SCH ×2 (08:12→17:10)
[2018-12-23] MEDS: PANTOPRAZOLE 40 MG TABLET PO SCH (08:12)
[2018-12-23] MEDS: AZITHROMYCIN 500 MG TAB PO SCH (08:12)
[2018-12-23] MEDS: SULFAMETHOX-TMP 800-160MG 1 EACH TAB PO SCH ×2 (08:13→21:13)
[2018-12-23] MEDS: PROPRANOLOL 10 MG TAB PO SCH ×2 (08:13→21:13)
[2018-12-23] MEDS: methylPREDNISolone SOD SUCCI 40 MG/ML 1 ML VIAL IV SCH (08:13)
[2018-12-23] MEDS: SPIRONOLACTONE 25 MG TAB PO SCH ×2 (08:13→21:13)
[2018-12-23] MEDS: valACYclovir HCL 1,000 MG TABLET PO SCH (08:13)
[2018-12-23] MEDS: THIAMINE 100 MG TAB PO SCH (08:13)
[2018-12-23] MEDS: MAGNESIUM OXIDE 400 MG TAB PO SCH (08:13)
[2018-12-23] MEDS: buPROPion XL 300 MG TAB.ER.24H PO SCH (08:13)
[2018-12-23 08:14] LABS: Anion Gap 8 mmol/L; Blood Urea Nitrogen 20 mg/dL (9-20); Calcium 8.1 mg/dL (8.4-10.2); Carbon Dioxide 25 mmol/L (22-30); Chloride 102 mmol/L (98-107); Glucose 174 mg/dL (74-99); Potassium 3.7 mmol/L (3.5-5.1); Sodium 135 mmol/L (137-145)
[2018-12-23] MEDS: FLUTICASONE 50MCG/SPRAY NASAL 16GM EA NOSTRIL SCH (08:14)
[2018-12-23] MEDS: FOLIC ACID 1 MG TAB PO SCH (11:04)
--- NOTE | 2018-12-23 14:45 | P.PN ---
Subjective Progress Note Date: 12/23/18 A 58-year-old male patient with chronic liver failure secondary to alcoholism and the patient has liver cirrhosis and portal hypertension and previous bouts of GI bleeding. The patient is also known to have coronary artery disease, COPD , hypertension and hepatitis C. There is also vague history of hemachromatosis which does not seem to be a true diagnosis or to confirm diagnosis based on my chart review. The patient came into the hospital because of worsening shortness of breath. The patient some cough and congestion chest tightness and wheeze. He was coughing out some yellowish sputum. No pleurisy. No hemoptysis. Is a chronic smoker. He has no angina. No altered mentation. Pulse ox was down to 88% on room air and is currently on 93-94% of these of oxygen by nasal cannula. White cell count is at 13.7 and the rest of the blood work electrolytes were within normal limits. Chest x-ray showed and position changes with some patchy airspace disease more so in the mid and lower lungs bilaterally. The patient is currently on a combination of Rocephin and Zithromax. Sputum cultures been sent. Blood cultures been sent. He is hemodynamically stable. Producing adequate amount of urine output. His influenza screen was negative. The patient is seen today 12/22/2018 in follow-up on the regular medical floor. He is currently sitting up in a chair at the bedside awake and alert in no acute distress. He did have desaturations in the 80s on room air. He is currently maintaining O2 saturations in the 90s on 3 L/m per nasal cannula. Breathing easier today as compared to yesterday. Loose nonproductive cough. Preliminary sputum cultures positive for presumptive staph aureus. Blood culture reveals no growth. Urine culture no growth. White count 12.5. Hemoglobin 12.8. Creatinine 0.94. He is currently on ceftriaxone and azithromycin. He remains on bronchodilators and IV Solu-Medrol. On today's evaluation of 12/23/2018, the patient is still bronchus spastic wheezy and short of breath. The patient was found to have MRSA in his sputum Gram stain and culture. Bactrim was added. He is afebrile. He is hemodynamically stable. He is White cell count is 12.1. His chest x-ray showed improvement in the bilateral lung infiltrate. Right midlung streaky opacity was seen which is probably an area of atelectasis. Is also mild left lower lobe infiltrates present. Otherwise, the patient is stable. Is tolerating his diet. He is on DuoNeb nebulized treatments around the clock. He is on Zithromax and Bactrim. He is also on IV Solu-Medrol for 10 mg every 12 hours. He is on Robitussin-DM for cough and congestion. Objective - Vital Signs Vital signs: Vital Signs Temp 97.6 F 12/23/18 07:11 Pulse 85 12/23/18 11:31 Resp 20 12/23/18 07:11 BP 127/82 12/23/18 07:11 Pulse Ox 90 L 12/23/18 07:15 Intake & Output 12/22/18 12/23/18 12/23/18 18:59 06:59 18:59 Intake Total 1400 520 Balance 1400 520 Intake: Oral 1400 520 Other: Voiding Method Toilet Toilet Urinal Urinal # Voids 2 2 # Bowel Movements 0 - Exam GENERAL EXAM: Morbidly obese. Alert, active, comfortable in no apparent distress. On 3 L nasal cannula. HEAD: Normocephalic. EYES: Normal reaction of pupils, equal size. NOSE: Clear with pink turbinates. THROAT: No erythema or exudates. NECK: No masses, no JVD. CHEST: No chest wall deformity. LUNGS: Equal air entry with basilar crackles, wheeze, diminished. CVS: S1 and S2 normal with no audible murmur, regular rhythm. ABDOMEN: No hepatosplenomegaly, normal bowel sounds, no guarding or rigidity. SPINE: No scoliosis or deformity SKIN: No rashes CENTRAL NERVOUS SYSTEM: No focal deficits, tone is normal in all 4 extremities. EXTREMITIES: There is no peripheral edema. No clubbing, no cyanosis. Peripheral pulses are intact. - Labs CBC & Chem 7: 12/23/18 07:01 12/23/18 07:01 Labs: Abnormal Lab Results - Last 24 Hours (Table) 12/23/18 12/23/18 Range/Units 07:01 07:01 WBC 12.1 H (3.8-10.6) k/uL RBC 3.52 L (4.30-5.90) m/uL Hgb 12.5 L (13.0-17.5) gm/dL Hct 37.5 L (39.0-53.0) % MCV 106.5 H (80.0-100.0) fL MCH 35.5 H (25.0-35.0) pg RDW 15.6 H (11.5-15.5) % Plt Count 126 L (150-450) k/uL Neutrophils # 11.0 H (1.3-7.7) k/uL Lymphocytes # 0.3 L (1.0-4.8) k/uL Sodium 135 L (137-145) mmol/L Glucose 174 H (74-99) mg/dL Calcium 8.1 L (8.4-10.2) mg/dL Microbiology - Last 24 Hours (Table) 12/20/18 19:00 Gram Stain - Preliminary Sputum Sputum Culture - Final Methicillin resist S. aureus 12/20/18 13:20 Blood Culture - Preliminary Blood No Growth after 48 hours Assessment and Plan Plan: Assessment 1 acute pneumonia, likely retrocochlear pneumonia knowing that the patient has grown MRSA in his sputum. Currently on Bactrim. Chest x-ray showing improvement in the pulmonary infiltrates on today's evaluation. Nevertheless, the patient may short of breath and his COPD still exacerbating. 2 shortness of breath and cough and chest congestion secondary to above 3 acute hypoxic respiratory failure secondary to above 4 chronic smoker 5 liver cirrhosis, likely alcoholic in nature along with secondary portal hypertension 6 history of hepatitis C 7 previous history of GI bleed 8 coronary artery disease 9 hypertension Plan Continue same treatment. Increase the Solu Medrol again to 60 mg every 6 hours. Continue oral Bactrim. Discontinue Zithromax. Continue bronchodilators. Chest x-ray changes were noted. May consider to the bronchoscopy at a later stage for pulmonary toileting and therapeutic airway suctioning of mucous if he continues to BE short of breath and his Pulmozyme it remains unchanged. We'll continue to follow.
[2018-12-23] MEDS: methylPREDNISolone SOD SUCCI 125 MG/2 ML VIAL IV SCH ×2 (15:25→17:10)
[2018-12-23] MEDS ORDERED: LACTULOSE 20 GM/30 ML CUP PO ONE (20:45)
[2018-12-24] MEDS: guaiFENesin-DM 100-10MG/5ML 10 ML CUP PO PRN (00:03)
[2018-12-24] MEDS: methylPREDNISolone SOD SUCCI 125 MG/2 ML VIAL IV SCH ×4 (00:03→17:55)
[2018-12-24] MEDS: IPRATROPIUM-ALBUTEROL 3 ML NEB INHALATION SCH ×7 (00:50→23:24)
[2018-12-24] MEDS: HYDROcodone/APAP 10-325MG 1 EACH TAB PO PRN ×3 (05:52→18:40)
[2018-12-24] MEDS: MAGNESIUM OXIDE 400 MG TAB PO SCH (10:01)
[2018-12-24] MEDS: SULFAMETHOX-TMP 800-160MG 1 EACH TAB PO SCH ×2 (10:01→21:54)
[2018-12-24] MEDS: AZITHROMYCIN 500 MG TAB PO SCH (10:01)
[2018-12-24] MEDS: SPIRONOLACTONE 25 MG TAB PO SCH ×3 (10:01→21:57)
[2018-12-24] MEDS: FUROSEMIDE 40 MG TAB PO SCH ×2 (10:01→17:55)
[2018-12-24] MEDS: THIAMINE 100 MG TAB PO SCH (10:01)
[2018-12-24] MEDS: PANTOPRAZOLE 40 MG TABLET PO SCH (10:01)
[2018-12-24] MEDS: buPROPion XL 300 MG TAB.ER.24H PO SCH (10:02)
[2018-12-24] MEDS: FLUTICASONE 50MCG/SPRAY NASAL 16GM EA NOSTRIL SCH (10:02)
[2018-12-24] MEDS: valACYclovir HCL 1,000 MG TABLET PO SCH (10:02)
[2018-12-24] MEDS: PROPRANOLOL 10 MG TAB PO SCH ×2 (10:02→21:54)
[2018-12-24] MEDS: FOLIC ACID 1 MG TAB PO SCH (11:09)
[2018-12-24] MEDS ORDERED: LACTULOSE 20 GM/30 ML CUP PO ONE (11:09)
--- NOTE | 2018-12-24 12:24 | P.PN ---
Subjective Progress Note Date: 12/23/18 Principal diagnosis: Community-acquired pneumonia Acute hypoxic respiratory failure 58-year-old male patient with chronic liver failure secondary to alcoholism and the patient has liver cirrhosis and portal hypertension and previous bouts of GI bleeding. The patient is also known to have coronary artery disease, COPD , hypertension and hepatitis C. There is also vague history of hemachromatosis which does not seem to be a true diagnosis or to confirm diagnosis based on my chart review. The patient came into the hospital because of worsening shortness of breath. The patient some cough and congestion chest tightness and wheeze. He was coughing out some yellowish sputum. No pleurisy. No hemoptysis. Is a chronic smoker. He has no angina. No altered mentation. Pulse ox was down to 88% on room air and is currently on 93-94% of these of oxygen by nasal cannula. White cell count is at 13.7 and the rest of the blood work electrolytes were within normal limits. Chest x-ray showed and position changes with some patchy airspace disease more so in the mid and lower lungs bilaterally. The patient is currently on a combination of Rocephin and Zithromax. Sputum cultures been sent. Blood cultures been sent. He is hemodynamically stable. Producing adequate amount of urine output. His influenza screen was negative. 12/22/2018 Patient is seen in follow-up on the regular medical floor. He is currently sitting up in a chair at the bedside awake and alert in no acute distress. He did have desaturations in the 80s on room air. He is currently maintaining O2 saturations in the 90s on 3 L/m per nasal cannula. Breathing easier today as compared to yesterday. Loose nonproductive cough. Preliminary sputum cultures positive for presumptive staph aureus. Blood culture reveals no growth. Urine culture no growth. White count 12.5. Hemoglobin 12.8. Creatinine 0.94. He is currently on ceftriaxone and azithromycin. He remains on bronchodilators and IV Solu-Medrol. 12/23/2018, the patient is still bronchus spastic wheezy and short of breath. The patient was found to have MRSA in his sputum Gram stain and culture. Bactrim was added. He is afebrile. He is hemodynamically stable. He is White cell count is 12.1. His chest x-ray showed improvement in the bilateral lung infiltrate. Right midlung streaky opacity was seen which is probably an area of atelectasis. Is also mild left lower lobe infiltrates present. Otherwise, the patient is stable. Is tolerating his diet. He is on DuoNeb nebulized treatments around the clock. He is on Zithromax and Bactrim. Zithromax will be discontinued; He is also on IV Solu-Medrol for 10 mg every 12 hours. He is on Robitussin-DM for cough and congestion. Pulmonary service is following and recommending possible bronchoscopy at a later stage for pulmonary toileting and therapeutic airway suctioning of mucous if he continues to complain of shortness of breath and Pulmozyme remains unchanged Objective - Vital Signs Vital signs: Vital Signs Temp 97.9 F 12/23/18 13:58 Pulse 76 12/23/18 13:58 Resp 18 12/23/18 13:58 BP 126/80 12/23/18 13:58 Pulse Ox 90 L 12/23/18 14:04 Intake & Output 12/22/18 12/23/18 12/23/18 18:59 06:59 18:59 Intake Total 1400 520 Balance 1400 520 Intake: Oral 1400 520 Other: Voiding Method Toilet Toilet Urinal Urinal # Voids 2 2 3 # Bowel Movements 0 - Exam The patient is awake and alert and nonacute distress. Head exam was generally normal. There was no scleral icterus or corneal arcus. Mucous membranes were moist. Neck was supple and without jugular venous distension, thyromegaly, or carotid bruits. Carotids were easily palpable bilaterally. There was no adenopathy. Lungs sounds are diminished bilaterally along with some few scattered rhonchi and scattered expiratory wheezes. He is a heard bilaterally. Cardiac exam revealed the PMI to be normally situated and sized. The rhythm was regular and no extrasystoles were noted during several minutes of auscultation. The first and second heart sounds were normal and physiologic splitting of the second heart sound was noted. There were no murmurs, rubs, clicks, or gallops. Abdominal exam revealed normal bowel sounds. The abdomen was soft, non-tender, and without masses, organomegaly, or appreciable enlargement of the abdominal aorta. There is no evidence of any ascites. The patient is a inguinal hernia that's extending to his right scrotum. Examination of the skin revealed no evidence of significant rashes, suspicious appearing nevi or other concerning lesions. There is evidence of a healed wound over the right white. Neurologically awake and alert and is no focal neurological deficit. - Labs CBC & Chem 7: 12/23/18 07:01 12/23/18 07:01 Labs: Abnormal Lab Results - Last 24 Hours (Table) 12/23/18 12/23/18 Range/Units 07:01 07:01 WBC 12.1 H (3.8-10.6) k/uL RBC 3.52 L (4.30-5.90) m/uL Hgb 12.5 L (13.0-17.5) gm/dL Hct 37.5 L (39.0-53.0) % MCV 106.5 H (80.0-100.0) fL MCH 35.5 H (25.0-35.0) pg RDW 15.6 H (11.5-15.5) % Plt Count 126 L (150-450) k/uL Neutrophils # 11.0 H (1.3-7.7) k/uL Lymphocytes # 0.3 L (1.0-4.8) k/uL Sodium 135 L (137-145) mmol/L Glucose 174 H (74-99) mg/dL Calcium 8.1 L (8.4-10.2) mg/dL Microbiology - Last 24 Hours (Table) 12/20/18 19:00 Gram Stain - Preliminary Sputum Sputum Culture - Final Methicillin resist S. aureus 12/20/18 13:20 Blood Culture - Preliminary Blood No Growth after 48 hours Assessment and Plan Assessment: 1. Acute community-acquired pneumonia - Continue IV antibiotics in the form of Rocephin 1 g daily and Zithromax 500 mg IV every 24 hours - Continue with DuoNeb nebulizer treatments - Sputum Gram stain and culture and blood culture has been ordered 2. Shortness of breath and cough and chest congestion; secondary to above 3. Acute hypoxic respiratory failure; secondary to above - Continue with supplement oxygen per nasal cannula keeping SpO2 greater than 90 % - Patient started on IV Solu-Medrol per pulmonary recommendations; planning to start taper in next 24-48 hours 4. Chronic smoker; counseling done on cessation of smoking 5. Alcoholic liver cirrhosis with secondary portal hypertension - No signs of hepatic failure or encephalopathy - Continue with thiamine and folic acid; Aldactone 50 mg twice a day; Lasix 40 mg twice a day 6. History of GI bleed; Protonix 40 mg before meals breakfast 7. Coronary artery disease; stable 8. Hypertension; stable 9. DVT prophylaxis; we will order PT/INR and start patient on subcu heparin if within normal range CODE STATUS; full code Time with Patient: Greater than 30
--- NOTE | 2018-12-24 15:48 | P.PN ---
Subjective Progress Note Date: 12/24/18 Principal diagnosis: Acute pneumonia, related to MRSA infection, likely healthcare acquired A 58-year-old male patient with chronic liver failure secondary to alcoholism and the patient has liver cirrhosis and portal hypertension and previous bouts of GI bleeding. The patient is also known to have coronary artery disease, COPD , hypertension and hepatitis C. There is also vague history of hemachromatosis which does not seem to be a true diagnosis or to confirm diagnosis based on my chart review. The patient came into the hospital because of worsening shortness of breath. The patient some cough and congestion chest tightness and wheeze. He was coughing out some yellowish sputum. No pleurisy. No hemoptysis. Is a chronic smoker. He has no angina. No altered mentation. Pulse ox was down to 88% on room air and is currently on 93-94% of these of oxygen by nasal cannula. White cell count is at 13.7 and the rest of the blood work electrolytes were within normal limits. Chest x-ray showed and position changes with some patchy airspace disease more so in the mid and lower lungs bilaterally. The patient is currently on a combination of Rocephin and Zithromax. Sputum cultures been sent. Blood cultures been sent. He is hemodynamically stable. Producing adequate amount of urine output. His influenza screen was negative. The patient is seen today 12/22/2018 in follow-up on the regular medical floor. He is currently sitting up in a chair at the bedside awake and alert in no acute distress. He did have desaturations in the 80s on room air. He is currently maintaining O2 saturations in the 90s on 3 L/m per nasal cannula. Breathing easier today as compared to yesterday. Loose nonproductive cough. Preliminary sputum cultures positive for presumptive staph aureus. Blood culture reveals no growth. Urine culture no growth. White count 12.5. Hemoglobin 12.8. Creatinine 0.94. He is currently on ceftriaxone and azithromycin. He remains on bronchodilators and IV Solu-Medrol. On today's evaluation of 12/23/2018, the patient is still bronchus spastic wheezy and short of breath. The patient was found to have MRSA in his sputum Gram stain and culture. Bactrim was added. He is afebrile. He is hemodynamically stable. He is White cell count is 12.1. His chest x-ray showed improvement in the bilateral lung infiltrate. Right midlung streaky opacity was seen which is probably an area of atelectasis. Is also mild left lower lobe infiltrates present. Otherwise, the patient is stable. Is tolerating his diet. He is on DuoNeb nebulized treatments around the clock. He is on Zithromax and Bactrim. He is also on IV Solu-Medrol for 10 mg every 12 hours. He is on Robitussin-DM for cough and congestion. On 12/24/2018 patient seen in follow-up on medical surgical floor. He is resting comfortably in bed, in no acute distress, she is on 36 L per nasal cannula his pulse ox is 91%, no fever or chills, hemodynamically stable, no specific complaints today, no worsening dyspnea, today's labs have been reviewed , white blood cell, of 12.1, hemoglobin is 12.5, sodium is 135, depressive electrolytes and renal profile were unremarkable, microbiology showed MRSA in the sputum, blood and urine cultures are negative. Patient is on a combination of Rocephin and Bactrim DS. Patient is improving, he is tolerating admission in the room, yesterday his chest x-ray showed improving bilateral lung infiltrates. Objective - Vital Signs Vital signs: Vital Signs Temp 97.1 F L 12/24/18 07:00 Pulse 76 12/24/18 15:23 Resp 18 12/24/18 15:23 BP 129/73 12/24/18 07:00 Pulse Ox 91 L 12/24/18 07:00 Intake & Output 12/23/18 12/24/18 12/24/18 18:59 06:59 18:59 Intake Total 520 200 Output Total 450 Balance 520 -250 Intake: Oral 520 200 Output: Urine 450 Other: Voiding Method Toilet Urinal # Voids 3 2 2 # Bowel Movements 0 - Exam GENERAL EXAM: Alert, active, comfortable in no apparent distress. HEAD: Normocephalic/atraumatic. EYES: Normal reaction of pupils, equal size. Conjunctiva pink, sclera white. NOSE: Clear with pink turbinates. THROAT: No erythema or exudates. NECK: No masses, no JVD, no thyroid enlargement, no adenopathy. CHEST: No chest wall deformity. Symmetrical expansion. LUNGS: Equal air entry with bibasilar crackles, minimal wheezes, diminished breath sounds CVS: Regular rate and rhythm, normal S1 and S2, no gallops, no murmurs, no rubs ABDOMEN: Soft, nontender. No hepatosplenomegaly, normal bowel sounds, no guarding or rigidity. EXTREMITIES: No clubbing, no edema, no cyanosis, 2+ pulses and upper and lower extremities. MUSCULOSKELETAL: Muscle strength and tone normal. SPINE: No scoliosis or deformity SKIN: No rashes CENTRAL NERVOUS SYSTEM: Alert and oriented -3. No focal deficits, tone is normal in all 4 extremities. PSYCHIATRIC: Alert and oriented -3. Appropriate affect. Intact judgment and insight. - Labs CBC & Chem 7: 12/23/18 07:01 12/23/18 07:01 Labs: Microbiology - Last 24 Hours (Table) 12/20/18 19:00 Gram Stain - Final Sputum Sputum Culture - Final Methicillin resist S. aureus 12/20/18 13:20 Blood Culture - Preliminary Blood No Growth after 72 hours Assessment and Plan Assessment: 1 acute pneumonia, likely healthcare pneumonia knowing that the patient has grown MRSA in his sputum. Currently on Bactrim. Chest x-ray showing improvement in the pulmonary infiltrates on today's evaluation. Nevertheless, the patient may short of breath and his COPD still exacerbating. 2 shortness of breath and cough and chest congestion secondary to above 3 acute hypoxic respiratory failure secondary to above 4 chronic smoker 5 liver cirrhosis, likely alcoholic in nature along with secondary portal hypertension 6 history of hepatitis C 7 previous history of GI bleed 8 coronary artery disease 9 hypertension Plan: Patient is improving, chest x-ray from yesterday shows improvement in the appearance of bilateral infiltrates. No fever or chills, patient was found to have MRSA in the sputum, continues on oral Bactrim, continue bronchodilators. Resected as tolerated, we'll continue to follow, continue with IV steroids, repeat chest x-ray in the morning. I performed a history & physical examination of the patient and discussed their management with my nurse practitioner, Vicenta Salamanca. I reviewed the nurse practitioner's note and agree with the documented findings and plan of care. Lung sounds are positive for minimal wheezes, bibasilar crackles. The findings and the impression was discussed with the patient. I attest to the documentation by the nurse practitioner. Time with Patient: Less than 30
[2018-12-24] MEDS: INSULIN ASPART (NovoLOG) 100 UNIT/ML VIAL SQ SCH ×2 (17:52→21:53)
[2018-12-24] MEDS: BENZOCAINE/MENTHOL LOZENG 1 EACH LOZENGE MUCOUS MEM PRN (19:22)
[2018-12-24 19:25] LABS: Glucose,Whole Blood 230 mg/dL (75-99)
[2018-12-24 21:12] LABS: Glucose,Whole Blood 181 mg/dL (75-99)
[2018-12-24] MEDS: LORazepam 2 MG/ML INJ IV PRN (21:55)
[2018-12-25] MEDS: methylPREDNISolone SOD SUCCI 125 MG/2 ML VIAL IV SCH ×5 (00:57→23:30)
[2018-12-25] MEDS: HYDROcodone/APAP 10-325MG 1 EACH TAB PO PRN ×2 (00:58→14:36)
[2018-12-25 01:27] LABS: Glucose,Whole Blood 179 mg/dL (75-99)
--- NOTE | 2018-12-25 01:50 | P.PN ---
Subjective Progress Note Date: 12/24/18 Principal diagnosis: Community-acquired pneumonia Acute hypoxic respiratory failure 58-year-old male patient with chronic liver failure secondary to alcoholism and the patient has liver cirrhosis and portal hypertension and previous bouts of GI bleeding. The patient is also known to have coronary artery disease, COPD , hypertension and hepatitis C. There is also vague history of hemachromatosis which does not seem to be a true diagnosis or to confirm diagnosis based on my chart review. The patient came into the hospital because of worsening shortness of breath. The patient some cough and congestion chest tightness and wheeze. He was coughing out some yellowish sputum. No pleurisy. No hemoptysis. Is a chronic smoker. He has no angina. No altered mentation. Pulse ox was down to 88% on room air and is currently on 93-94% of these of oxygen by nasal cannula. White cell count is at 13.7 and the rest of the blood work electrolytes were within normal limits. Chest x-ray showed and position changes with some patchy airspace disease more so in the mid and lower lungs bilaterally. The patient is currently on a combination of Rocephin and Zithromax. Sputum cultures been sent. Blood cultures been sent. He is hemodynamically stable. Producing adequate amount of urine output. His influenza screen was negative. 12/22/2018 Patient is seen in follow-up on the regular medical floor. He is currently sitting up in a chair at the bedside awake and alert in no acute distress. He did have desaturations in the 80s on room air. He is currently maintaining O2 saturations in the 90s on 3 L/m per nasal cannula. Breathing easier today as compared to yesterday. Loose nonproductive cough. Preliminary sputum cultures positive for presumptive staph aureus. Blood culture reveals no growth. Urine culture no growth. White count 12.5. Hemoglobin 12.8. Creatinine 0.94. He is currently on ceftriaxone and azithromycin. He remains on bronchodilators and IV Solu-Medrol. 12/23/2018, the patient is still bronchus spastic wheezy and short of breath. The patient was found to have MRSA in his sputum Gram stain and culture. Bactrim was added. He is afebrile. He is hemodynamically stable. He is White cell count is 12.1. His chest x-ray showed improvement in the bilateral lung infiltrate. Right midlung streaky opacity was seen which is probably an area of atelectasis. Is also mild left lower lobe infiltrates present. Otherwise, the patient is stable. Is tolerating his diet. He is on DuoNeb nebulized treatments around the clock. He is on Zithromax and Bactrim. Zithromax will be discontinued; He is also on IV Solu-Medrol for 10 mg every 12 hours. He is on Robitussin-DM for cough and congestion. Pulmonary service is following and recommending possible bronchoscopy at a later stage for pulmonary toileting and therapeutic airway suctioning of mucous if he continues to complain of shortness of breath and Pulmozyme remains unchanged 12/24/2018 patient seen in follow-up on medical surgical floor. He is resting comfortably in bed, in no acute distress, she is on 36 L per nasal cannula his pulse ox is 91%, no fever or chills, hemodynamically stable, no specific complaints today, no worsening dyspnea, today's labs have been reviewed, white blood cell, of 12.1 , hemoglobin is 12.5, sodium is 135, rest of electrolytes and renal profile were unremarkable, microbiology showed MRSA in the sputum, blood and urine cultures are negative. Patient is on a combination of Rocephin and Bactrim DS. Patient is improving, he is tolerating admission in the room, yesterday his chest x-ray showed improving bilateral lung infiltrates. Objective - Vital Signs Vital signs: Vital Signs Temp 97.1 F L 12/24/18 07:00 Pulse 74 12/24/18 11:26 Resp 18 12/24/18 07:00 BP 129/73 12/24/18 07:00 Pulse Ox 91 L 12/24/18 07:00 Intake & Output 12/23/18 12/24/18 12/24/18 18:59 06:59 18:59 Intake Total 520 Balance 520 Intake: Oral 520 Other: Voiding Method Toilet Urinal # Voids 3 2 # Bowel Movements 0 - Exam The patient is awake and alert and nonacute distress. Head exam was generally normal. There was no scleral icterus or corneal arcus. Mucous membranes were moist. Neck was supple and without jugular venous distension, thyromegaly, or carotid bruits. Carotids were easily palpable bilaterally. There was no adenopathy. Lungs sounds are diminished bilaterally along with some few scattered rhonchi and scattered expiratory wheezes. He is a heard bilaterally. Cardiac exam revealed the PMI to be normally situated and sized. The rhythm was regular and no extrasystoles were noted during several minutes of auscultation. The first and second heart sounds were normal and physiologic splitting of the second heart sound was noted. There were no murmurs, rubs, clicks, or gallops. Abdominal exam revealed normal bowel sounds. The abdomen was soft, non-tender, and without masses, organomegaly, or appreciable enlargement of the abdominal aorta. There is no evidence of any ascites. The patient is a inguinal hernia that's extending to his right scrotum. Examination of the skin revealed no evidence of significant rashes, suspicious appearing nevi or other concerning lesions. There is evidence of a healed wound over the right white. Neurologically awake and alert and is no focal neurological deficit. - Labs CBC & Chem 7: 12/23/18 07:01 12/23/18 07:01 Labs: Microbiology - Last 24 Hours (Table) 12/20/18 19:00 Gram Stain - Final Sputum Sputum Culture - Final Methicillin resist S. aureus 12/20/18 13:20 Blood Culture - Preliminary Blood No Growth after 72 hours Assessment and Plan Assessment: 1. Acute community-acquired pneumonia - Continue IV antibiotics in the form of Rocephin 1 g daily and Zithromax 500 mg IV every 24 hours - Continue with DuoNeb nebulizer treatments - Sputum Gram stain and culture and blood culture has been ordered 2. Shortness of breath and cough and chest congestion; secondary to above 3. Acute hypoxic respiratory failure; secondary to above - Continue with supplement oxygen per nasal cannula keeping SpO2 greater than 90 % - Patient started on IV Solu-Medrol per pulmonary recommendations; planning to start taper in next 24-48 hours 4. Chronic smoker; counseling done on cessation of smoking 5. Alcoholic liver cirrhosis with secondary portal hypertension - No signs of hepatic failure or encephalopathy - Continue with thiamine and folic acid; Aldactone 50 mg twice a day; Lasix 40 mg twice a day 6. History of GI bleed; Protonix 40 mg before meals breakfast 7. Coronary artery disease; stable 8. Hypertension; stable 9. DVT prophylaxis; we will order PT/INR and start patient on subcu heparin if within normal range CODE STATUS; full code Time with Patient: Greater than 30
[2018-12-25] MEDS: IPRATROPIUM-ALBUTEROL 3 ML NEB INHALATION SCH ×6 (03:36→23:39)
[2018-12-25 07:33] LABS: Glucose,Whole Blood 190 mg/dL (75-99)
[2018-12-25] MEDS: INSULIN ASPART (NovoLOG) 100 UNIT/ML VIAL SQ SCH ×4 (07:57→20:32)
[2018-12-25] MEDS: FUROSEMIDE 40 MG TAB PO SCH ×2 (07:59→16:41)
[2018-12-25] MEDS: SULFAMETHOX-TMP 800-160MG 1 EACH TAB PO SCH ×2 (07:59→20:31)
[2018-12-25] MEDS: PANTOPRAZOLE 40 MG TABLET PO SCH (07:59)
[2018-12-25] MEDS: MAGNESIUM OXIDE 400 MG TAB PO SCH (07:59)
[2018-12-25] MEDS: SPIRONOLACTONE 25 MG TAB PO SCH ×2 (07:59→20:31)
[2018-12-25] MEDS: THIAMINE 100 MG TAB PO SCH (07:59)
[2018-12-25] MEDS: PROPRANOLOL 10 MG TAB PO SCH ×2 (08:00→20:31)
[2018-12-25] MEDS: buPROPion XL 300 MG TAB.ER.24H PO SCH (08:00)
[2018-12-25] MEDS: valACYclovir HCL 1,000 MG TABLET PO SCH (08:00)
[2018-12-25] MEDS: FLUTICASONE 50MCG/SPRAY NASAL 16GM EA NOSTRIL SCH (08:01)
--- NOTE | 2018-12-25 09:01 | XR ---
EXAMINATION TYPE: XR chest 2V DATE OF EXAM: 12/25/2018 COMPARISON: Chest x-ray from 2 days ago and older x-rays. HISTORY: Pneumonia progress study. TECHNIQUE: Frontal and lateral views of the chest are obtained. FINDINGS: There is persistent left midlung and bibasilar opacities. No pleural effusion or pneumotho rax is seen bilaterally. The cardiac silhouette size is stable and within normal limits. Spine remain s straightened on lateral view. There is partial visualization of surgical change in the distal humer i. IMPRESSION: Overall stable findings, left mid lung and bibasilar acute infiltrate and/or atelectasis all redemonstrated.
[2018-12-25 11:57] LABS: Glucose,Whole Blood 134 mg/dL (75-99)
--- NOTE | 2018-12-25 12:07 | P.PN ---
Subjective Progress Note Date: 12/25/18 Principal diagnosis: Acute bilateral pneumonia, suspect community-acquired. A 58-year-old male patient with chronic liver failure secondary to alcoholism and the patient has liver cirrhosis and portal hypertension and previous bouts of GI bleeding. The patient is also known to have coronary artery disease, COPD , hypertension and hepatitis C. There is also vague history of hemachromatosis which does not seem to be a true diagnosis or to confirm diagnosis based on my chart review. The patient came into the hospital because of worsening shortness of breath. The patient some cough and congestion chest tightness and wheeze. He was coughing out some yellowish sputum. No pleurisy. No hemoptysis. Is a chronic smoker. He has no angina. No altered mentation. Pulse ox was down to 88% on room air and is currently on 93-94% of these of oxygen by nasal cannula. White cell count is at 13.7 and the rest of the blood work electrolytes were within normal limits. Chest x-ray showed and position changes with some patchy airspace disease more so in the mid and lower lungs bilaterally. The patient is currently on a combination of Rocephin and Zithromax. Sputum cultures been sent. Blood cultures been sent. He is hemodynamically stable. Producing adequate amount of urine output. His influenza screen was negative. The patient is seen today 12/22/2018 in follow-up on the regular medical floor. He is currently sitting up in a chair at the bedside awake and alert in no acute distress. He did have desaturations in the 80s on room air. He is currently maintaining O2 saturations in the 90s on 3 L/m per nasal cannula. Breathing easier today as compared to yesterday. Loose nonproductive cough. Preliminary sputum cultures positive for presumptive staph aureus. Blood culture reveals no growth. Urine culture no growth. White count 12.5. Hemoglobin 12.8. Creatinine 0.94. He is currently on ceftriaxone and azithromycin. He remains on bronchodilators and IV Solu-Medrol. On today's evaluation of 12/23/2018, the patient is still bronchus spastic wheezy and short of breath. The patient was found to have MRSA in his sputum Gram stain and culture. Bactrim was added. He is afebrile. He is hemodynamically stable. He is White cell count is 12.1. His chest x-ray showed improvement in the bilateral lung infiltrate. Right midlung streaky opacity was seen which is probably an area of atelectasis. Is also mild left lower lobe infiltrates present. Otherwise, the patient is stable. Is tolerating his diet. He is on DuoNeb nebulized treatments around the clock. He is on Zithromax and Bactrim. He is also on IV Solu-Medrol for 10 mg every 12 hours. He is on Robitussin-DM for cough and congestion. On 12/24/2018 patient seen in follow-up on medical surgical floor. He is resting comfortably in bed, in no acute distress, she is on 36 L per nasal cannula his pulse ox is 91%, no fever or chills, hemodynamically stable, no specific complaints today, no worsening dyspnea, today's labs have been reviewed , white blood cell, of 12.1, hemoglobin is 12.5, sodium is 135, depressive electrolytes and renal profile were unremarkable, microbiology showed MRSA in the sputum, blood and urine cultures are negative. Patient is on a combination of Rocephin and Bactrim DS. Patient is improving, he is tolerating admission in the room, yesterday his chest x-ray showed improving bilateral lung infiltrates. The patient is seen today 12/25/2017 in follow-up on the regular medical floor. He is currently sitting up in a chair at the bedside. He is awake and alert in no acute distress. He is down to 4 L/m per nasal cannula to maintain O2 saturations in the 90s. He has been afebrile. Hemodynamically stable. Sputum is positive for MRSA. Blood reveals no growth. Urine reveals no growth. He is currently on Bactrim and ceftriaxone. He is continued on DuoNeb inhalations , IV Solu-Medrol, oral Lasix. Continues with crackles in the left midlung, faint bibasilar. Objective - Vital Signs Vital signs: Vital Signs Temp 97.3 F L 12/25/18 07:00 Pulse 82 12/25/18 10:59 Resp 20 12/25/18 08:13 BP 139/99 12/25/18 07:00 Pulse Ox 90 L 12/25/18 08:13 Intake & Output 12/24/18 12/25/18 12/25/18 18:59 06:59 18:59 Intake Total 1400 Output Total 450 Balance 950 Intake: Oral 1400 Output: Urine 450 Other: Voiding Method Toilet Urinal # Voids 2 2 # Bowel Movements 0 - Exam GENERAL EXAM: Morbidly obese. Alert, active, comfortable in no apparent distress. On 4 L nasal cannula. HEAD: Normocephalic. EYES: Normal reaction of pupils, equal size. NOSE: Clear with pink turbinates. THROAT: No erythema or exudates. NECK: No masses, no JVD. CHEST: No chest wall deformity. LUNGS: Equal air entry with basilar crackles, wheeze, diminished. CVS: S1 and S2 normal with no audible murmur, regular rhythm. ABDOMEN: No hepatosplenomegaly, normal bowel sounds, no guarding or rigidity. SPINE: No scoliosis or deformity SKIN: No rashes CENTRAL NERVOUS SYSTEM: No focal deficits, tone is normal in all 4 extremities. EXTREMITIES: There is no peripheral edema. No clubbing, no cyanosis. Peripheral pulses are intact. - Labs CBC & Chem 7: 12/23/18 07:01 12/23/18 07:01 Labs: Abnormal Lab Results - Last 24 Hours (Table) 12/24/18 12/24/18 12/25/18 Range/Units 19:24 21:11 01:26 POC Glucose (mg/dL) 230 H 181 H 179 H (75-99) mg/dL 12/25/18 12/25/18 Range/Units 07:31 11:56 POC Glucose (mg/dL) 190 H 134 H (75-99) mg/dL Microbiology - Last 24 Hours (Table) 12/20/18 13:20 Blood Culture - Preliminary Blood No Growth after 96 hours 12/20/18 19:00 Gram Stain - Final Sputum Sputum Culture - Final Methicillin resist S. aureus Assessment and Plan Assessment: Assessment 1 acute pneumonia, likely bilateral, community-acquired. 2 shortness of breath and cough and chest congestion secondary to above 3 acute hypoxic respiratory failure secondary to above 4 chronic smoker 5 liver cirrhosis, likely alcoholic in nature along with secondary portal hypertension 6 history of hepatitis C 7 previous history of GI bleed 8 coronary artery disease 9 hypertension Plan The patient was seen and evaluated by Dr. Capps. His oxygen requirements are improving. Currently at 4 L. Sputum culture positive for MRSA. Continue ceftriaxone and Bactrim. He is improved today as compared to yesterday. Not quite back to his baseline. We'll continue with the current treatment plan. Increase his activity as tolerated. We'll continue to follow. I, the cosigning physician, performed a history & physical examination of the patient. Lungs sounds with few scattered rhonchi, crackles in posterior bases, end expiratory wheeze. Maintaining good O2 saturations in the 90s on 3 L/m per nasal cannula. I discussed the assessment and plan of care with my nurse practitioner, Yenny Stewart. I attest to the above note as dictated by her.
[2018-12-25] MEDS: FOLIC ACID 1 MG TAB PO SCH (12:36)
[2018-12-25] MEDS: guaiFENesin-DM 100-10MG/5ML 10 ML CUP PO PRN (14:34)
[2018-12-25] MEDS ORDERED: LACTULOSE 20 GM/30 ML CUP PO ONE (16:00)
[2018-12-25 17:15] LABS: Glucose,Whole Blood 197 mg/dL (75-99)
--- NOTE | 2018-12-25 19:27 | P.PN ---
Subjective History of present illness, from records this is a pleasant 58 yo M with pmh of coronary artery disease , hypertension , GERD, and GI bleed, who presents with s/s of resp distress, 2-3 week ago he was complaining from common cold, although he sought medical attension at that time he kept getting worse, he comes with worsening dyspnea, coughing up yellow phlegm, will some blood in it, of moderate amount as per pt, he is current smoke but did not say how much exactly he smokes, he says not a lot. pt is with no chest pain except when he cough on the sides of the lower chest . he was desaturating his oxygen down to 88% , and 93% on 3 L oxygen via Nasal cannula. he has mild leukocytosis of 13.7 K, his creatinine level is in normal limits . his sputum culture was sent and is pending , his chest xray : interstitial lung disease suspicious for pneumonia. pt was started on antibiotic and iv fluids and admitted to the general medical floor. influenza was checked and came back negative. Subjective 12/25/2018 Patient today he remains active dyspneic and he needs 6 L of oxygen via NC. MRSA has been growing in his sputum he has still a mild leukocytosis of 12.1 K. Sodium 135, creatinine 0.8. Influenza is negative. Repeat chest x-ray showing stable left lung infiltrate. Pulmonary critical care team are following the patient and they think he is improving slowly and gradually Objective - Vital Signs Vital signs: Vital Signs Temp 97.3 F L 12/25/18 07:00 Pulse 84 12/25/18 15:35 Resp 20 12/25/18 14:50 BP 137/89 12/25/18 14:50 Pulse Ox 92 L 12/25/18 15:21 Intake & Output 12/25/18 12/25/18 12/26/18 06:59 18:59 06:59 Other: # Voids 2 3 # Bowel Movements 0 - Exam GENERAL: The patient is alert and oriented x3, not in any acute distress. Well developed, well nourished. HEENT: Pupils are round and equally reacting to light. EOMI. No scleral icterus. No conjunctival pallor. Normocephalic, atraumatic. No pharyngeal erythema. No thyromegaly. CARDIOVASCULAR: S1 and S2 present. No murmurs, rubs, or gallops. -PULMONARY: Chest is clear to auscultation, no crackles. Scattered wheezing ABDOMEN: Soft, nontender, nondistended, normoactive bowel sounds. No palpable organomegaly. MUSCULOSKELETAL: No joint swelling or deformity. EXTREMITIES: No cyanosis, clubbing, or pedal edema. NEUROLOGICAL: Gross neurological examination did not reveal any focal deficits. SKIN: No rashes. - Labs CBC & Chem 7: 12/23/18 07:01 12/23/18 07:01 Labs: Abnormal Lab Results - Last 24 Hours (Table) 12/24/18 12/24/18 12/25/18 Range/Units 19:24 21:11 01:26 POC Glucose (mg/dL) 230 H 181 H 179 H (75-99) mg/dL 12/25/18 12/25/18 12/25/18 Range/Units 07:31 11:56 17:13 POC Glucose (mg/dL) 190 H 134 H 197 H (75-99) mg/dL Microbiology - Last 24 Hours (Table) 12/20/18 13:20 Blood Culture - Preliminary Blood No Growth after 120 hours Assessment and Plan Assessment: acute hypoxic resp failure Bilateral interstitial pneumonia, more stable infiltrated on the left, community acquired , sputum is growing MRSA current cigarette smoker history of GI bleed h/o GERD Plan: this is a pleasant 58 yo M who present with bilateral pneumonia, continue with antibiotic , iv fluids, oxygen and breathing treatment . Labs and medication were reviewed.. Continue same treatment. Continue with symptomatic treatment. Resume home medication. Monitor lytes and vitals. DVT and GI prophylaxis. Further recommendations of the clinical course of the patient DVT prophylaxis: Subcutaneous heparin GI Prophylaxis: Pepcid Prognosis is guarded
[2018-12-25 20:04] LABS: Glucose,Whole Blood 157 mg/dL (75-99)
[2018-12-25] MEDS: BENZOCAINE/MENTHOL LOZENG 1 EACH LOZENGE MUCOUS MEM PRN (20:42)
[2018-12-25] MEDS: LORazepam 2 MG/ML INJ IV PRN (22:03)
[2018-12-26] MEDS: HYDROcodone/APAP 10-325MG 1 EACH TAB PO PRN ×3 (00:20→21:54)
[2018-12-26] MEDS: LORazepam 2 MG/ML INJ IV PRN (03:23)
[2018-12-26] MEDS: IPRATROPIUM-ALBUTEROL 3 ML NEB INHALATION SCH ×5 (04:02→21:00)
[2018-12-26] MEDS: methylPREDNISolone SOD SUCCI 125 MG/2 ML VIAL IV SCH ×2 (05:00→12:31)
[2018-12-26 07:17] LABS: Glucose,Whole Blood 220 mg/dL (75-99)
[2018-12-26] MEDS: INSULIN ASPART (NovoLOG) 100 UNIT/ML VIAL SQ SCH ×4 (08:16→21:56)
[2018-12-26] MEDS: THIAMINE 100 MG TAB PO SCH (08:17)
[2018-12-26] MEDS: SULFAMETHOX-TMP 800-160MG 1 EACH TAB PO SCH ×2 (08:17→21:54)
[2018-12-26] MEDS: PROPRANOLOL 10 MG TAB PO SCH ×2 (08:17→21:44)
[2018-12-26] MEDS: FUROSEMIDE 40 MG TAB PO SCH ×2 (08:17→17:35)
[2018-12-26] MEDS: MAGNESIUM OXIDE 400 MG TAB PO SCH (08:17)
[2018-12-26] MEDS: SPIRONOLACTONE 25 MG TAB PO SCH ×2 (08:17→21:54)
[2018-12-26] MEDS: valACYclovir HCL 1,000 MG TABLET PO SCH (08:17)
[2018-12-26] MEDS: PANTOPRAZOLE 40 MG TABLET PO SCH (08:17)
[2018-12-26] MEDS: buPROPion XL 300 MG TAB.ER.24H PO SCH (08:17)
[2018-12-26] MEDS: FLUTICASONE 50MCG/SPRAY NASAL 16GM EA NOSTRIL SCH (08:18)
[2018-12-26 10:22] LABS: Basophils % (A) 0 %; Eosinophils % (A) 0 %; HCT 42.4 % (39.0-53.0); Lymphocytes # (A) 0.2 k/uL (1.0-4.8); Lymphocytes % (A) 1 %; MCH 35.5 pg (25.0-35.0); MCHC 32.9 g/dL (31.0-37.0); MCV 107.6 fL (80.0-100.0); Macrocytosis Marked; Monocytes # (A) 0.8 k/uL (0-1.0); Monocytes % (A) 5 %; Neutrophils # (A) 16.4 k/uL (1.3-7.7); Neutrophils % (A) 93 %; Platelet Count 167 k/uL (150-450); RBC 3.94 m/uL (4.30-5.90); RDW 15.1 % (11.5-15.5); WBC 17.6 k/uL (3.8-10.6)
[2018-12-26 10:27] LABS: Calcium 8.4 mg/dL (8.4-10.2); Potassium 4.5 mmol/L (3.5-5.1)
[2018-12-26 11:55] LABS: Glucose,Whole Blood 193 mg/dL (75-99)
[2018-12-26 12:00] LABS: Poikilocytosis (M) Present
[2018-12-26] MEDS: FOLIC ACID 1 MG TAB PO SCH (12:31)
[2018-12-26] MEDS: BENZOCAINE/MENTHOL LOZENG 1 EACH LOZENGE MUCOUS MEM PRN (13:55)
--- NOTE | 2018-12-26 15:30 | US ---
EXAMINATION TYPE: US venous doppler duplex LE RT DATE OF EXAM: 12/26/2018 3:24 PM COMPARISON: US 2016 CLINICAL HISTORY: swelling. Right leg swelling, exam done portable. SIDE PERFORMED: Right TECHNIQUE: The lower extremity deep venous system is examined utilizing real time linear array sonog mayank with graded compression, doppler sonography and color-flow sonography. VESSELS IMAGED: External Iliac Vein (EIV) Common Femoral Vein Deep Femoral Vein Greater Saphenous Vein * Femoral Vein Popliteal Vein Small Saphenous Vein * Proximal Calf Veins (* superficial vessels) Right Leg: Appears negative for DVT, right popliteal fossa: 6.1 x 2.0 x 2.1cm complex area seen with calcifications. IMPRESSION: 1. No diagnostic evidence of DVT. 2. There is a complex area within the popliteal fossa containing calcifications which is somewhat aty pical for a Pepper or popliteal fossa cyst. May still represent a complicated popliteal fossa cyst. Re commend follow-up MRI.
--- NOTE | 2018-12-26 16:30 | P.PN ---
Subjective Progress Note Date: 12/26/18 Principal diagnosis: Acute pneumonia, related to MRSA infection, likely healthcare acquired A 58-year-old male patient with chronic liver failure secondary to alcoholism and the patient has liver cirrhosis and portal hypertension and previous bouts of GI bleeding. The patient is also known to have coronary artery disease, COPD , hypertension and hepatitis C. There is also vague history of hemachromatosis which does not seem to be a true diagnosis or to confirm diagnosis based on my chart review. The patient came into the hospital because of worsening shortness of breath. The patient some cough and congestion chest tightness and wheeze. He was coughing out some yellowish sputum. No pleurisy. No hemoptysis. Is a chronic smoker. He has no angina. No altered mentation. Pulse ox was down to 88% on room air and is currently on 93-94% of these of oxygen by nasal cannula. White cell count is at 13.7 and the rest of the blood work electrolytes were within normal limits. Chest x-ray showed and position changes with some patchy airspace disease more so in the mid and lower lungs bilaterally. The patient is currently on a combination of Rocephin and Zithromax. Sputum cultures been sent. Blood cultures been sent. He is hemodynamically stable. Producing adequate amount of urine output. His influenza screen was negative. The patient is seen today 12/22/2018 in follow-up on the regular medical floor. He is currently sitting up in a chair at the bedside awake and alert in no acute distress. He did have desaturations in the 80s on room air. He is currently maintaining O2 saturations in the 90s on 3 L/m per nasal cannula. Breathing easier today as compared to yesterday. Loose nonproductive cough. Preliminary sputum cultures positive for presumptive staph aureus. Blood culture reveals no growth. Urine culture no growth. White count 12.5. Hemoglobin 12.8. Creatinine 0.94. He is currently on ceftriaxone and azithromycin. He remains on bronchodilators and IV Solu-Medrol. On today's evaluation of 12/23/2018, the patient is still bronchus spastic wheezy and short of breath. The patient was found to have MRSA in his sputum Gram stain and culture. Bactrim was added. He is afebrile. He is hemodynamically stable. He is White cell count is 12.1. His chest x-ray showed improvement in the bilateral lung infiltrate. Right midlung streaky opacity was seen which is probably an area of atelectasis. Is also mild left lower lobe infiltrates present. Otherwise, the patient is stable. Is tolerating his diet. He is on DuoNeb nebulized treatments around the clock. He is on Zithromax and Bactrim. He is also on IV Solu-Medrol for 10 mg every 12 hours. He is on Robitussin-DM for cough and congestion. On 12/24/2018 patient seen in follow-up on medical surgical floor. He is resting comfortably in bed, in no acute distress, she is on 36 L per nasal cannula his pulse ox is 91%, no fever or chills, hemodynamically stable, no specific complaints today, no worsening dyspnea, today's labs have been reviewed , white blood cell, of 12.1, hemoglobin is 12.5, sodium is 135, depressive electrolytes and renal profile were unremarkable, microbiology showed MRSA in the sputum, blood and urine cultures are negative. Patient is on a combination of Rocephin and Bactrim DS. Patient is improving, he is tolerating admission in the room, yesterday his chest x-ray showed improving bilateral lung infiltrates. On 12/26/2018 patient seen in follow-up on medical surgical floor. he continues to improve, he is walking in his room, currently on 6 L per nasal cannula, his pulse ox is 92%, afebrile, hemodynamically stable, she is being treated for MRSA pneumonia, currently on a combination of Rocephin and Bactrim. Today's lab work has been reviewed, blood cell, 17.6, hemoglobin is 14.0, serum sodium is 134, dressed a large lites were within normal limits, BUN is 28 and creatinine is 1.18. Patient is improving. Some increased lower extremity swelling noted on the right, we'll obtain a venous Doppler ultrasound of the right lower extremity. Objective - Vital Signs Vital signs: Vital Signs Temp 97.8 F 12/26/18 13:50 Pulse 82 12/26/18 13:50 Resp 22 12/26/18 13:50 BP 145/94 12/26/18 13:50 Pulse Ox 92 L 12/26/18 06:48 Intake & Output 12/25/18 12/26/18 12/26/18 18:59 06:59 18:59 Weight 105.143 kg Other: # Voids 3 3 3 # Bowel Movements 0 - Exam GENERAL EXAM: Alert, active, comfortable in no apparent distress. HEAD: Normocephalic/atraumatic. EYES: Normal reaction of pupils, equal size. Conjunctiva pink, sclera white. NOSE: Clear with pink turbinates. THROAT: No erythema or exudates. NECK: No masses, no JVD, no thyroid enlargement, no adenopathy. CHEST: No chest wall deformity. Symmetrical expansion. LUNGS: Equal air entry with bibasilar crackles, minimal wheezes, diminished breath sounds CVS: Regular rate and rhythm, normal S1 and S2, no gallops, no murmurs, no rubs ABDOMEN: Soft, nontender. No hepatosplenomegaly, normal bowel sounds, no guarding or rigidity. EXTREMITIES: No clubbing, no edema, no cyanosis, 2+ pulses and upper and lower extremities. MUSCULOSKELETAL: Muscle strength and tone normal. SPINE: No scoliosis or deformity SKIN: No rashes CENTRAL NERVOUS SYSTEM: Alert and oriented -3. No focal deficits, tone is normal in all 4 extremities. PSYCHIATRIC: Alert and oriented -3. Appropriate affect. Intact judgment and insight. - Labs CBC & Chem 7: 12/26/18 09:47 12/26/18 09:47 Labs: Abnormal Lab Results - Last 24 Hours (Table) 12/25/18 12/25/18 12/26/18 Range/Units 17:13 20:02 06:50 WBC (3.8-10.6) k/uL RBC (4.30-5.90) m/uL MCV (80.0-100.0) fL MCH (25.0-35.0) pg Neutrophils # (1.3-7.7) k/uL Lymphocytes # (1.0-4.8) k/uL Sodium (137-145) mmol/L BUN (9-20) mg/dL Glucose (74-99) mg/dL POC Glucose (mg/dL) 197 H 157 H 220 H (75-99) mg/dL 12/26/18 12/26/18 12/26/18 Range/Units 09:47 09:47 11:50 WBC 17.6 H (3.8-10.6) k/uL RBC 3.94 L (4.30-5.90) m/uL MCV 107.6 H (80.0-100.0) fL MCH 35.5 H (25.0-35.0) pg Neutrophils # 16.4 H (1.3-7.7) k/uL Lymphocytes # 0.2 L (1.0-4.8) k/uL Sodium 134 L (137-145) mmol/L BUN 28 H (9-20) mg/dL Glucose 242 H (74-99) mg/dL POC Glucose (mg/dL) 193 H (75-99) mg/dL Microbiology - Last 24 Hours (Table) 12/20/18 13:20 Blood Culture - Preliminary Blood No Growth after 120 hours Assessment and Plan Assessment: 1 acute pneumonia, likely healthcare pneumonia knowing that the patient has grown MRSA in his sputum. Currently on Bactrim. Chest x-ray showing improvement in the pulmonary infiltrates on today's evaluation. Nevertheless, the patient may short of breath and his COPD still exacerbating. 2 shortness of breath and cough and chest congestion secondary to above 3 acute hypoxic respiratory failure secondary to above 4 chronic smoker 5 liver cirrhosis, likely alcoholic in nature along with secondary portal hypertension 6 history of hepatitis C 7 previous history of GI bleed 8 coronary artery disease 9 hypertension Plan: Obtain a follow-up chest x-ray in the morning, patient continues to improve, no fever or chills, worsening dyspnea, obtain right lower leg venous Doppler ultrasound to rule out DVT. Awaiting ambulation, weaning FiO2. Continue with the Rocephin and Bactrim, we'll decrease the dose of IV Solu-Medrol to 40 mg every 8 hours. If he continues to improve, anticipate discharge in next 24 hours. I performed a history & physical examination of the patient and discussed their management with my nurse practitioner, Vicenta Salamanca. I reviewed the nurse practitioner's note and agree with the documented findings and plan of care. Lung sounds are positive for minimal wheezes, bibasilar crackles. The findings and the impression was discussed with the patient. I attest to the documentation by the nurse practitioner. Time with Patient: Less than 30
--- NOTE | 2018-12-26 16:32 | P.PN ---
Subjective History of present illness, from records this is a pleasant 58 yo M with pmh of coronary artery disease , hypertension , GERD, and GI bleed, who presents with s/s of resp distress, 2-3 week ago he was complaining from common cold, although he sought medical attension at that time he kept getting worse, he comes with worsening dyspnea, coughing up yellow phlegm, will some blood in it, of moderate amount as per pt, he is current smoke but did not say how much exactly he smokes, he says not a lot. pt is with no chest pain except when he cough on the sides of the lower chest . he was desaturating his oxygen down to 88% , and 93% on 3 L oxygen via Nasal cannula. he has mild leukocytosis of 13.7 K, his creatinine level is in normal limits . his sputum culture was sent and is pending , his chest xray : interstitial lung disease suspicious for pneumonia. pt was started on antibiotic and iv fluids and admitted to the general medical floor. influenza was checked and came back negative. Subjective 12/25/2018 Patient today he remains active dyspneic and he needs 6 L of oxygen via NC. MRSA has been growing in his sputum he has still a mild leukocytosis of 12.1 K. Sodium 135, creatinine 0.8. Influenza is negative. Repeat chest x-ray showing stable left lung infiltrate. Pulmonary critical care team are following the patient and they think he is improving slowly and gradually 12/26/2018 Patient is alert better, with less dyspnea however he still on oxygen at 5 L/m via nasal cannula. No chest pain still having with yellow-brown sputum. Patient is able to move around with no difficulty for short distance. His leukocytosis 17.6 K. Sodium 134, creatinine 1.1. Sugar controlled has Doppler of his right lower extremity which shows no DVT however complex cyst in the popliteal fossa. Call surgical consult Objective - Vital Signs Vital signs: Vital Signs Temp 97.8 F 12/26/18 13:50 Pulse 82 12/26/18 13:50 Resp 22 12/26/18 13:50 BP 145/94 12/26/18 13:50 Pulse Ox 92 L 12/26/18 06:48 Intake & Output 12/25/18 12/26/18 12/26/18 18:59 06:59 18:59 Weight 105.143 kg Other: # Voids 3 3 3 # Bowel Movements 0 - Exam GENERAL: The patient is alert and oriented x3, not in any acute distress. Well developed, well nourished. HEENT: Pupils are round and equally reacting to light. EOMI. No scleral icterus. No conjunctival pallor. Normocephalic, atraumatic. No pharyngeal erythema. No thyromegaly. CARDIOVASCULAR: S1 and S2 present. No murmurs, rubs, or gallops. -PULMONARY: Chest is clear to auscultation, no crackles. Scattered wheezing ABDOMEN: Soft, nontender, nondistended, normoactive bowel sounds. No palpable organomegaly. MUSCULOSKELETAL: No joint swelling or deformity. EXTREMITIES: No cyanosis, clubbing, or pedal edema. NEUROLOGICAL: Gross neurological examination did not reveal any focal deficits. SKIN: No rashes. - Labs CBC & Chem 7: 12/26/18 09:47 12/26/18 09:47 Labs: Abnormal Lab Results - Last 24 Hours (Table) 12/25/18 12/25/18 12/26/18 Range/Units 17:13 20:02 06:50 WBC (3.8-10.6) k/uL RBC (4.30-5.90) m/uL MCV (80.0-100.0) fL MCH (25.0-35.0) pg Neutrophils # (1.3-7.7) k/uL Lymphocytes # (1.0-4.8) k/uL Sodium (137-145) mmol/L BUN (9-20) mg/dL Glucose (74-99) mg/dL POC Glucose (mg/dL) 197 H 157 H 220 H (75-99) mg/dL 12/26/18 12/26/18 12/26/18 Range/Units 09:47 09:47 11:50 WBC 17.6 H (3.8-10.6) k/uL RBC 3.94 L (4.30-5.90) m/uL MCV 107.6 H (80.0-100.0) fL MCH 35.5 H (25.0-35.0) pg Neutrophils # 16.4 H (1.3-7.7) k/uL Lymphocytes # 0.2 L (1.0-4.8) k/uL Sodium 134 L (137-145) mmol/L BUN 28 H (9-20) mg/dL Glucose 242 H (74-99) mg/dL POC Glucose (mg/dL) 193 H (75-99) mg/dL Microbiology - Last 24 Hours (Table) 12/20/18 13:20 Blood Culture - Preliminary Blood No Growth after 120 hours Assessment and Plan Assessment: acute hypoxic resp failure Bilateral interstitial pneumonia, more stable infiltrated on the left, community acquired , sputum is growing MRSA Right popliteal complex cyst current cigarette smoker history of GI bleed h/o GERD Plan: this is a pleasant 58 yo M who present with bilateral pneumonia, continue with antibiotic , iv fluids, oxygen and breathing treatment . Labs and medication were reviewed.. Continue same treatment. Continue with symptomatic treatment. Resume home medication. Monitor lytes and vitals. DVT and GI prophylaxis. Further recommendations of the clinical course of the patient DVT prophylaxis: Subcutaneous heparin GI Prophylaxis: Pepcid Prognosis is guarded
[2018-12-26 17:34] LABS: Glucose,Whole Blood 300 mg/dL (75-99)
[2018-12-26 20:01] LABS: Glucose,Whole Blood 202 mg/dL (75-99)
[2018-12-26] MEDS: ALPRAZolam 0.5 MG TAB PO PRN (23:55)
[2018-12-27] MEDS: IPRATROPIUM-ALBUTEROL 3 ML NEB INHALATION SCH ×7 (00:03→23:08)
[2018-12-27] MEDS: methylPREDNISolone SOD SUCCI 40 MG/ML 1 ML VIAL IV SCH ×4 (00:37→23:31)
[2018-12-27 07:14] LABS: Glucose,Whole Blood 167 mg/dL (75-99)
--- NOTE | 2018-12-27 07:34 | XR ---
EXAMINATION TYPE: XR chest 2V DATE OF EXAM: 12/27/2018 COMPARISON: Chest x-ray from 2 days ago and older studies. HISTORY: MRSA pneumonia. TECHNIQUE: Frontal and lateral views of the chest are obtained. FINDINGS: There is improving right basilar linear atelectasis. There is persistent elevated left kole diaphragm with left lateral midlung and basilar opacities remaining present. There is no pleural eff usion or pneumothorax seen bilaterally. The cardiac silhouette size is within normal limits. The o sseous structures are intact. IMPRESSION: Elevated left hemidiaphragm with persistent left basilar acute infiltrate and/or atelect asis felt stable. Improving right basilar linear atelectasis is present.
[2018-12-27] MEDS: SULFAMETHOX-TMP 800-160MG 1 EACH TAB PO SCH (08:22)
[2018-12-27] MEDS: SPIRONOLACTONE 25 MG TAB PO SCH ×2 (08:22→21:02)
[2018-12-27] MEDS: FUROSEMIDE 40 MG TAB PO SCH ×2 (08:22→17:47)
[2018-12-27] MEDS: INSULIN ASPART (NovoLOG) 100 UNIT/ML VIAL SQ SCH ×4 (08:22→21:04)
[2018-12-27] MEDS: THIAMINE 100 MG TAB PO SCH (08:22)
[2018-12-27] MEDS: MAGNESIUM OXIDE 400 MG TAB PO SCH (08:22)
[2018-12-27] MEDS: PANTOPRAZOLE 40 MG TABLET PO SCH (08:22)
[2018-12-27] MEDS: valACYclovir HCL 1,000 MG TABLET PO SCH (08:25)
[2018-12-27] MEDS: PROPRANOLOL 10 MG TAB PO SCH ×2 (08:25→21:03)
[2018-12-27] MEDS: buPROPion XL 300 MG TAB.ER.24H PO SCH (08:25)
[2018-12-27] MEDS: ALPRAZolam 0.5 MG TAB PO PRN (08:41)
[2018-12-27] MEDS: HYDROcodone/APAP 10-325MG 1 EACH TAB PO PRN (08:41)
[2018-12-27] MEDS: FLUTICASONE 50MCG/SPRAY NASAL 16GM EA NOSTRIL SCH (08:55)
[2018-12-27 10:05] LABS: Basophils % (A) 0 %; Eosinophils % (A) 0 %; HCT 40.7 % (39.0-53.0); HGB 13.4 gm/dL (13.0-17.5); Lymphocytes # (A) 0.3 k/uL (1.0-4.8); Lymphocytes % (A) 2 %; MCH 35.2 pg (25.0-35.0); MCHC 32.9 g/dL (31.0-37.0); MCV 106.7 fL (80.0-100.0); Macrocytosis Moderate; Mean Platelet Volume 8.3; Monocytes # (A) 0.7 k/uL (0-1.0); Monocytes % (A) 4 %; Neutrophils # (A) 14.7 k/uL (1.3-7.7); Neutrophils % (A) 94 %; Platelet Count 140 k/uL (150-450); RBC 3.81 m/uL (4.30-5.90); RDW 15.1 % (11.5-15.5); WBC 15.7 k/uL (3.8-10.6)
[2018-12-27 10:28] LABS: Calcium 8.4 mg/dL (8.4-10.2); Potassium 4.5 mmol/L (3.5-5.1)
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
[2018-12-27] MEDS ORDERED: ALPRAZolam 0.5 MG TAB PO PRN (12:25)
[2018-12-27 12:27] LABS: Glucose,Whole Blood 276 mg/dL (75-99)
--- NOTE | 2018-12-27 12:29 | P.PN ---
Subjective History of present illness, from records this is a pleasant 58 yo M with pmh of coronary artery disease , hypertension , GERD, and GI bleed, who presents with s/s of resp distress, 2-3 week ago he was complaining from common cold, although he sought medical attension at that time he kept getting worse, he comes with worsening dyspnea, coughing up yellow phlegm, will some blood in it, of moderate amount as per pt, he is current smoke but did not say how much exactly he smokes, he says not a lot. pt is with no chest pain except when he cough on the sides of the lower chest . he was desaturating his oxygen down to 88% , and 93% on 3 L oxygen via Nasal cannula. he has mild leukocytosis of 13.7 K, his creatinine level is in normal limits . his sputum culture was sent and is pending , his chest xray : interstitial lung disease suspicious for pneumonia. pt was started on antibiotic and iv fluids and admitted to the general medical floor. influenza was checked and came back negative. Subjective 12/25/2018 Patient today he remains active dyspneic and he needs 6 L of oxygen via NC. MRSA has been growing in his sputum he has still a mild leukocytosis of 12.1 K. Sodium 135, creatinine 0.8. Influenza is negative. Repeat chest x-ray showing stable left lung infiltrate. Pulmonary critical care team are following the patient and they think he is improving slowly and gradually 12/26/2018 Patient is alert better, with less dyspnea however he still on oxygen at 5 L/m via nasal cannula. No chest pain still having with yellow-brown sputum. Patient is able to move around with no difficulty for short distance. His leukocytosis 17.6 K. Sodium 134, creatinine 1.1. Sugar controlled has Doppler of his right lower extremity which shows no DVT however complex cyst in the popliteal fossa. Call surgical consult 12/27/2018 pt is still dyspneic on 6 L oxygen via Nasal cannula. no chest pain ,however today he starts complaining to me from right foot pain and swelling , his whole lower extremity is swollen on both sides , although he is a little more swollen on the right than the left, pt denies trauma. pt has Doppler study to rule out DVT which was negative in his right lower extremity however it shows complex popliteal cyst. Surgical consult is called in their input is appreciated and the recommended no surgical intervention needed. Otherwise to call orthopedic consults who are going to evaluated the patient. His creatinine went up a little bit today from 1.1 to 1.3. His already on Bactrim from 12/22/2018, will DC Bactrim for MRSA in his sputum and start him on doxycycline.pt was anxious too and xanax helped him last night , pulmonary team are following the patient. Repeat chest x-ray showing persistent left basilar acute infiltrate or atelectasis which is a stable and improving right basilar atelectasis. HASMUKH Waldron for C. diff protocol. We will increase his pain medication from Bryan 10 -325 mg from 3 times a day up to 4 times a day. CONSTITUTIONAL: No fever, no malaise, no fatigue. HEENT: No recent visual problems or hearing problems. Denied any sore throat. CARDIOVASCULAR: No orthopnea, PND, no palpitations, no syncope. PULMONARY: no hemoptysis. GASTROINTESTINAL: No diarrhea, no nausea, no vomiting, no abdominal pain. Normoactive bowel sounds. NEUROLOGICAL: No headaches, no weakness, no numbness. HEMATOLOGICAL: Denies any bleeding or petechiae. GENITOURINARY: Denies any burning micturition, frequency, or urgency. MUSCULOSKELETAL/RHEUMATOLOGICAL: Denies any joint pain, or any muscle pain. ENDOCRINE: Denies any polyuria or polydipsia. Medication: Albuterol, Xanax, Wellbutrin, ceftriaxone, Flonase, folic acid, Lasix, Robitussin, [place], NovoLog, Ativan, magnesium, methylprednisone, Zofran, Protonix, Inderal, Aldactone, thiamine, doxycycline, valacyclovir. Objective - Vital Signs Vital signs: Vital Signs Temp 97.7 F 12/27/18 07:00 Pulse 76 12/27/18 07:54 Resp 20 12/27/18 08:00 BP 119/74 12/27/18 07:00 Pulse Ox 90 L 12/27/18 07:00 Intake & Output 12/26/18 12/27/18 12/27/18 18:59 06:59 18:59 Weight 105.143 kg Other: Voiding Method Toilet # Voids 2 4 - Exam GENERAL: The patient is alert and oriented x3, not in any acute distress. Well developed, well nourished. HEENT: Pupils are round and equally reacting to light. EOMI. No scleral icterus. No conjunctival pallor. Normocephalic, atraumatic. No pharyngeal erythema. No thyromegaly. CARDIOVASCULAR: S1 and S2 present. No murmurs, rubs, or gallops. -PULMONARY: Chest is clear to auscultation, no crackles. Scattered wheezing ABDOMEN: Soft, nontender, nondistended, normoactive bowel sounds. No palpable organomegaly. MUSCULOSKELETAL: No joint swelling or deformity. -EXTREMITIES: No cyanosis, clubbing, bilateral leg edema, more on the right. Right food mild tenderness, swelling. But no erythema or cellulitis NEUROLOGICAL: Gross neurological examination did not reveal any focal deficits. SKIN: No rashes. - Labs CBC & Chem 7: 12/27/18 09:40 12/27/18 09:40 Labs: Abnormal Lab Results - Last 24 Hours (Table) 12/26/18 12/26/18 12/27/18 Range/Units 17:28 19:59 07:10 WBC (3.8-10.6) k/uL RBC (4.30-5.90) m/uL MCV (80.0-100.0) fL MCH (25.0-35.0) pg Plt Count (150-450) k/uL Neutrophils # (1.3-7.7) k/uL Lymphocytes # (1.0-4.8) k/uL Sodium (137-145) mmol/L BUN (9-20) mg/dL Creatinine (0.66-1.25) mg/dL Glucose (74-99) mg/dL POC Glucose (mg/dL) 300 H 202 H 167 H (75-99) mg/dL 12/27/18 12/27/18 Range/Units 09:40 09:40 WBC 15.7 H (3.8-10.6) k/uL RBC 3.81 L (4.30-5.90) m/uL MCV 106.7 H (80.0-100.0) fL MCH 35.2 H (25.0-35.0) pg Plt Count 140 L (150-450) k/uL Neutrophils # 14.7 H (1.3-7.7) k/uL Lymphocytes # 0.3 L (1.0-4.8) k/uL Sodium 134 L (137-145) mmol/L BUN 29 H (9-20) mg/dL Creatinine 1.31 H (0.66-1.25) mg/dL Glucose 252 H (74-99) mg/dL POC Glucose (mg/dL) (75-99) mg/dL Microbiology - Last 24 Hours (Table) 12/20/18 13:20 Blood Culture - Final Blood No Growth after 144 hours Assessment and Plan Assessment: acute hypoxic resp failure Bilateral interstitial pneumonia, more stable infiltrated on the left, community acquired , sputum is growing MRSA Right popliteal complex cyst right foot/ankle pain and tenderness current cigarette smoker history of GI bleed h/o GERD Plan: this is a pleasant 58 yo M who present with bilateral pneumonia, continue with antibiotic , iv fluids, oxygen and breathing treatment, continue with antibiotic . Surgical consult is appreciated and they signed off. Call orthopedic consult for their recommendation. Follow-up creatinine level. Continue with pain management Labs and medication were reviewed.. Continue same treatment. Continue with symptomatic treatment. Resume home medication. Monitor lytes and vitals. DVT and GI prophylaxis. Further recommendations of the clinical course of the patient DVT prophylaxis: Subcutaneous heparin GI Prophylaxis: Pepcid Prognosis is guarded
[2018-12-27] MEDS: HYDROcodone/APAP 10-325MG 1 EACH TAB PO SCH ×3 (12:54→21:02)
[2018-12-27] MEDS: HEPARIN SODIUM,PORCINE 5,000 UNIT/ML 1 ML VIAL SQ SCH ×2 (12:54→21:03)
[2018-12-27] MEDS: FOLIC ACID 1 MG TAB PO SCH (12:54)
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
[2018-12-27] MEDS: BENZOCAINE/MENTHOL LOZENG 1 EACH LOZENGE MUCOUS MEM PRN ×2 (15:51→21:03)
--- NOTE | 2018-12-27 16:02 | P.PN ---
Subjective Progress Note Date: 12/27/18 Principal diagnosis: Acute pneumonia, related to MRSA infection, likely healthcare acquired A 58-year-old male patient with chronic liver failure secondary to alcoholism and the patient has liver cirrhosis and portal hypertension and previous bouts of GI bleeding. The patient is also known to have coronary artery disease, COPD , hypertension and hepatitis C. There is also vague history of hemachromatosis which does not seem to be a true diagnosis or to confirm diagnosis based on my chart review. The patient came into the hospital because of worsening shortness of breath. The patient some cough and congestion chest tightness and wheeze. He was coughing out some yellowish sputum. No pleurisy. No hemoptysis. Is a chronic smoker. He has no angina. No altered mentation. Pulse ox was down to 88% on room air and is currently on 93-94% of these of oxygen by nasal cannula. White cell count is at 13.7 and the rest of the blood work electrolytes were within normal limits. Chest x-ray showed and position changes with some patchy airspace disease more so in the mid and lower lungs bilaterally. The patient is currently on a combination of Rocephin and Zithromax. Sputum cultures been sent. Blood cultures been sent. He is hemodynamically stable. Producing adequate amount of urine output. His influenza screen was negative. The patient is seen today 12/22/2018 in follow-up on the regular medical floor. He is currently sitting up in a chair at the bedside awake and alert in no acute distress. He did have desaturations in the 80s on room air. He is currently maintaining O2 saturations in the 90s on 3 L/m per nasal cannula. Breathing easier today as compared to yesterday. Loose nonproductive cough. Preliminary sputum cultures positive for presumptive staph aureus. Blood culture reveals no growth. Urine culture no growth. White count 12.5. Hemoglobin 12.8. Creatinine 0.94. He is currently on ceftriaxone and azithromycin. He remains on bronchodilators and IV Solu-Medrol. On today's evaluation of 12/23/2018, the patient is still bronchus spastic wheezy and short of breath. The patient was found to have MRSA in his sputum Gram stain and culture. Bactrim was added. He is afebrile. He is hemodynamically stable. He is White cell count is 12.1. His chest x-ray showed improvement in the bilateral lung infiltrate. Right midlung streaky opacity was seen which is probably an area of atelectasis. Is also mild left lower lobe infiltrates present. Otherwise, the patient is stable. Is tolerating his diet. He is on DuoNeb nebulized treatments around the clock. He is on Zithromax and Bactrim. He is also on IV Solu-Medrol for 10 mg every 12 hours. He is on Robitussin-DM for cough and congestion. On 12/24/2018 patient seen in follow-up on medical surgical floor. He is resting comfortably in bed, in no acute distress, she is on 36 L per nasal cannula his pulse ox is 91%, no fever or chills, hemodynamically stable, no specific complaints today, no worsening dyspnea, today's labs have been reviewed , white blood cell, of 12.1, hemoglobin is 12.5, sodium is 135, depressive electrolytes and renal profile were unremarkable, microbiology showed MRSA in the sputum, blood and urine cultures are negative. Patient is on a combination of Rocephin and Bactrim DS. Patient is improving, he is tolerating admission in the room, yesterday his chest x-ray showed improving bilateral lung infiltrates. On 12/26/2018 patient seen in follow-up on medical surgical floor. he continues to improve, he is walking in his room, currently on 6 L per nasal cannula, his pulse ox is 92%, afebrile, hemodynamically stable, she is being treated for MRSA pneumonia, currently on a combination of Rocephin and Bactrim. Today's lab work has been reviewed, blood cell, 17.6, hemoglobin is 14.0, serum sodium is 134, dressed a large lites were within normal limits, BUN is 28 and creatinine is 1.18. Patient is improving. Some increased lower extremity swelling noted on the right, we'll obtain a venous Doppler ultrasound of the right lower extremity. On 12/19/2018 patient seen in follow-up on medical surgical floor. Is awake and alert, distress, he continues on 6 L per nasal cannula his pulse ox is around 90-91%, he is afebrile, hemodynamically stable, lung sounds are diminished, with a few rales at the left base, yesterday's follow-up chest x- ray has been reviewed by Dr. Capps and showed evidently it hemidiaphragm with persistent left basilar acute infiltrate, able in appearance, and improving right basilar linear atelectasis. DVT of the right lower extremity was ruled out, but there was incidental finding of the popliteal cyst for which orthopedic consultation was obtained. Patient is on antibiotic coverage that includes Rocephin and doxycycline, for MRSA pneumonia, clinically he is stable, he is on IV steroids, and nebulized bronchodilators and oral Lasix. We will encourage deep breathing and coughing, and we'll try to wean the oxygen down Objective - Vital Signs Vital signs: Vital Signs Temp 97.7 F 12/27/18 14:55 Pulse 81 12/27/18 14:55 Resp 22 12/27/18 14:55 BP 139/89 12/27/18 14:55 Pulse Ox 91 L 12/27/18 14:55 Intake & Output 12/26/18 12/27/18 12/27/18 18:59 06:59 18:59 Weight 105.143 kg Other: Voiding Method Toilet # Voids 2 4 3 # Bowel Movements 1 - Exam GENERAL EXAM: Alert, active, comfortable in no apparent distress. HEAD: Normocephalic/atraumatic. EYES: Normal reaction of pupils, equal size. Conjunctiva pink, sclera white. NOSE: Clear with pink turbinates. THROAT: No erythema or exudates. NECK: No masses, no JVD, no thyroid enlargement, no adenopathy. CHEST: No chest wall deformity. Symmetrical expansion. LUNGS: Equal air entry with bibasilar crackles, diminished breath sounds CVS: Regular rate and rhythm, normal S1 and S2, no gallops, no murmurs, no rubs ABDOMEN: Soft, nontender. No hepatosplenomegaly, normal bowel sounds, no guarding or rigidity. EXTREMITIES: No clubbing, no edema, no cyanosis, 2+ pulses and upper and lower extremities. MUSCULOSKELETAL: Muscle strength and tone normal. SPINE: No scoliosis or deformity SKIN: No rashes CENTRAL NERVOUS SYSTEM: Alert and oriented -3. No focal deficits, tone is normal in all 4 extremities. PSYCHIATRIC: Alert and oriented -3. Appropriate affect. Intact judgment and insight. - Labs CBC & Chem 7: 12/27/18 09:40 12/27/18 09:40 Labs: Abnormal Lab Results - Last 24 Hours (Table) 12/26/18 12/26/18 12/27/18 Range/Units 17:28 19:59 07:10 WBC (3.8-10.6) k/uL RBC (4.30-5.90) m/uL MCV (80.0-100.0) fL MCH (25.0-35.0) pg Plt Count (150-450) k/uL Neutrophils # (1.3-7.7) k/uL Lymphocytes # (1.0-4.8) k/uL Sodium (137-145) mmol/L BUN (9-20) mg/dL Creatinine (0.66-1.25) mg/dL Glucose (74-99) mg/dL POC Glucose (mg/dL) 300 H 202 H 167 H (75-99) mg/dL 12/27/18 12/27/18 12/27/18 Range/Units 09:40 09:40 12:25 WBC 15.7 H (3.8-10.6) k/uL RBC 3.81 L (4.30-5.90) m/uL MCV 106.7 H (80.0-100.0) fL MCH 35.2 H (25.0-35.0) pg Plt Count 140 L (150-450) k/uL Neutrophils # 14.7 H (1.3-7.7) k/uL Lymphocytes # 0.3 L (1.0-4.8) k/uL Sodium 134 L (137-145) mmol/L BUN 29 H (9-20) mg/dL Creatinine 1.31 H (0.66-1.25) mg/dL Glucose 252 H (74-99) mg/dL POC Glucose (mg/dL) 276 H (75-99) mg/dL Microbiology - Last 24 Hours (Table) 12/20/18 13:20 Blood Culture - Final Blood No Growth after 144 hours Assessment and Plan Assessment: 1 acute pneumonia, likely healthcare pneumonia knowing that the patient has grown MRSA in his sputum. Currently on Bactrim. Chest x-ray showing improvement in the pulmonary infiltrates on today's evaluation. Nevertheless, the patient may short of breath and his COPD still exacerbating. 2 shortness of breath and cough and chest congestion secondary to above 3 acute hypoxic respiratory failure secondary to above 4 chronic smoker 5 liver cirrhosis, likely alcoholic in nature along with secondary portal hypertension 6 history of hepatitis C 7 previous history of GI bleed 8 coronary artery disease 9 hypertension 10 popliteal cyst in the right lower extremity Plan: Continue current antibiotic coverage, patient is being treated for MRSA pneumonia, he is breathing easier, wean FiO2, encourage ambulation, deep breathing and coughing and clearing of phlegm. Current dose of IV Solu-Medrol. Today's follow-up chest x-ray showed improvement in the appearance of right basilar infiltrate. I performed a history & physical examination of the patient and discussed their management with my nurse practitioner, Vicenta Salamanca. I reviewed the nurse practitioner's note and agree with the documented findings and plan of care. Lung sounds are positive for minimal wheezes, bibasilar crackles. The findings and the impression was discussed with the patient. I attest to the documentation by the nurse practitioner. Time with Patient: Less than 30
[2018-12-27 16:55] LABS: Glucose,Whole Blood 219 mg/dL (75-99)
[2018-12-27 20:43] LABS: Glucose,Whole Blood 173 mg/dL (75-99)
[2018-12-27] MEDS: DOXYCYCLINE 100 MG in SODIUM CHLORIDE 0.9% 100 ML IVPB SCH (21:02)
[2018-12-27] MEDS: FAMOTIDINE 20 MG/2 ML VIAL IV SCH (21:02)
[2018-12-28] MEDS: IPRATROPIUM-ALBUTEROL 3 ML NEB INHALATION SCH ×5 (04:09→20:18)
[2018-12-28 07:33] LABS: Glucose,Whole Blood 236 mg/dL (75-99)
[2018-12-28] MEDS: valACYclovir HCL 1,000 MG TABLET PO SCH (08:00)
[2018-12-28] MEDS: HYDROcodone/APAP 10-325MG 1 EACH TAB PO SCH ×4 (08:00→22:14)
[2018-12-28] MEDS: THIAMINE 100 MG TAB PO SCH (08:01)
[2018-12-28] MEDS: HEPARIN SODIUM,PORCINE 5,000 UNIT/ML 1 ML VIAL SQ SCH ×2 (08:01→20:36)
[2018-12-28] MEDS: PANTOPRAZOLE 40 MG TABLET PO SCH (08:01)
[2018-12-28] MEDS: MAGNESIUM OXIDE 400 MG TAB PO SCH (08:01)
[2018-12-28] MEDS: LACTULOSE 20 GM/30 ML CUP PO SCH (08:01)
[2018-12-28] MEDS: SPIRONOLACTONE 25 MG TAB PO SCH ×2 (08:01→20:35)
[2018-12-28] MEDS: FUROSEMIDE 40 MG TAB PO SCH ×2 (08:01→17:48)
[2018-12-28] MEDS: methylPREDNISolone SOD SUCCI 40 MG/ML 1 ML VIAL IV SCH ×2 (08:01→17:47)
[2018-12-28] MEDS: buPROPion XL 300 MG TAB.ER.24H PO SCH (08:01)
[2018-12-28] MEDS: FAMOTIDINE 20 MG/2 ML VIAL IV SCH (08:01)
[2018-12-28] MEDS: INSULIN ASPART (NovoLOG) 100 UNIT/ML VIAL SQ SCH ×4 (08:02→22:15)
[2018-12-28] MEDS: PROPRANOLOL 10 MG TAB PO SCH ×2 (08:03→22:14)
[2018-12-28] MEDS: DOXYCYCLINE 100 MG in SODIUM CHLORIDE 0.9% 100 ML IVPB SCH ×2 (09:03→22:46)
[2018-12-28] MEDS: FLUTICASONE 50MCG/SPRAY NASAL 16GM EA NOSTRIL SCH (09:03)
[2018-12-28 09:53] LABS: Basophils % (A) 0 %; Eosinophils # (A) 0.1 k/uL (0-0.7); Eosinophils % (A) 1 %; HCT 43.2 % (39.0-53.0); HGB 13.4 gm/dL (13.0-17.5); Lymphocytes # (A) 0.2 k/uL (1.0-4.8); Lymphocytes % (A) 2 %; MCH 33.7 pg (25.0-35.0); MCHC 31.1 g/dL (31.0-37.0); MCV 108.4 fL (80.0-100.0); Macrocytosis Marked; Mean Platelet Volume 7.5; Monocytes # (A) 0.7 k/uL (0-1.0); Monocytes % (A) 5 %; Neutrophils % (A) 92 %; Platelet Count 130 k/uL (150-450); RBC 3.99 m/uL (4.30-5.90); RDW 15.5 % (11.5-15.5); WBC 15.3 k/uL (3.8-10.6)
[2018-12-28 10:07] LABS: Calcium 8.6 mg/dL (8.4-10.2); Potassium 4.4 mmol/L (3.5-5.1)
[2018-12-28 11:48] LABS: Glucose,Whole Blood 137 mg/dL (75-99)
[2018-12-28] MEDS: ALPRAZolam 0.5 MG TAB PO SCH ×2 (12:47→20:36)
[2018-12-28] MEDS: FOLIC ACID 1 MG TAB PO SCH (12:47)
--- NOTE | 2018-12-28 14:30 | P.PN ---
Subjective Progress Note Date: 12/28/18 Principal diagnosis: Acute pneumonia, related to MRSA infection, likely healthcare acquired A 58-year-old male patient with chronic liver failure secondary to alcoholism and the patient has liver cirrhosis and portal hypertension and previous bouts of GI bleeding. The patient is also known to have coronary artery disease, COPD , hypertension and hepatitis C. There is also vague history of hemachromatosis which does not seem to be a true diagnosis or to confirm diagnosis based on my chart review. The patient came into the hospital because of worsening shortness of breath. The patient some cough and congestion chest tightness and wheeze. He was coughing out some yellowish sputum. No pleurisy. No hemoptysis. Is a chronic smoker. He has no angina. No altered mentation. Pulse ox was down to 88% on room air and is currently on 93-94% of these of oxygen by nasal cannula. White cell count is at 13.7 and the rest of the blood work electrolytes were within normal limits. Chest x-ray showed and position changes with some patchy airspace disease more so in the mid and lower lungs bilaterally. The patient is currently on a combination of Rocephin and Zithromax. Sputum cultures been sent. Blood cultures been sent. He is hemodynamically stable. Producing adequate amount of urine output. His influenza screen was negative. The patient is seen today 12/22/2018 in follow-up on the regular medical floor. He is currently sitting up in a chair at the bedside awake and alert in no acute distress. He did have desaturations in the 80s on room air. He is currently maintaining O2 saturations in the 90s on 3 L/m per nasal cannula. Breathing easier today as compared to yesterday. Loose nonproductive cough. Preliminary sputum cultures positive for presumptive staph aureus. Blood culture reveals no growth. Urine culture no growth. White count 12.5. Hemoglobin 12.8. Creatinine 0.94. He is currently on ceftriaxone and azithromycin. He remains on bronchodilators and IV Solu-Medrol. On today's evaluation of 12/23/2018, the patient is still bronchus spastic wheezy and short of breath. The patient was found to have MRSA in his sputum Gram stain and culture. Bactrim was added. He is afebrile. He is hemodynamically stable. He is White cell count is 12.1. His chest x-ray showed improvement in the bilateral lung infiltrate. Right midlung streaky opacity was seen which is probably an area of atelectasis. Is also mild left lower lobe infiltrates present. Otherwise, the patient is stable. Is tolerating his diet. He is on DuoNeb nebulized treatments around the clock. He is on Zithromax and Bactrim. He is also on IV Solu-Medrol for 10 mg every 12 hours. He is on Robitussin-DM for cough and congestion. On 12/24/2018 patient seen in follow-up on medical surgical floor. He is resting comfortably in bed, in no acute distress, she is on 36 L per nasal cannula his pulse ox is 91%, no fever or chills, hemodynamically stable, no specific complaints today, no worsening dyspnea, today's labs have been reviewed , white blood cell, of 12.1, hemoglobin is 12.5, sodium is 135, depressive electrolytes and renal profile were unremarkable, microbiology showed MRSA in the sputum, blood and urine cultures are negative. Patient is on a combination of Rocephin and Bactrim DS. Patient is improving, he is tolerating admission in the room, yesterday his chest x-ray showed improving bilateral lung infiltrates. On 12/26/2018 patient seen in follow-up on medical surgical floor. he continues to improve, he is walking in his room, currently on 6 L per nasal cannula, his pulse ox is 92%, afebrile, hemodynamically stable, she is being treated for MRSA pneumonia, currently on a combination of Rocephin and Bactrim. Today's lab work has been reviewed, blood cell, 17.6, hemoglobin is 14.0, serum sodium is 134, dressed a large lites were within normal limits, BUN is 28 and creatinine is 1.18. Patient is improving. Some increased lower extremity swelling noted on the right, we'll obtain a venous Doppler ultrasound of the right lower extremity. On 12/19/2018 patient seen in follow-up on medical surgical floor. Is awake and alert, distress, he continues on 6 L per nasal cannula his pulse ox is around 90-91%, he is afebrile, hemodynamically stable, lung sounds are diminished, with a few rales at the left base, yesterday's follow-up chest x- ray has been reviewed by Dr. Capps and showed evidently it hemidiaphragm with persistent left basilar acute infiltrate, able in appearance, and improving right basilar linear atelectasis. DVT of the right lower extremity was ruled out, but there was incidental finding of the popliteal cyst for which orthopedic consultation was obtained. Patient is on antibiotic coverage that includes Rocephin and doxycycline, for MRSA pneumonia, clinically he is stable, he is on IV steroids, and nebulized bronchodilators and oral Lasix. We will encourage deep breathing and coughing, and we'll try to wean the oxygen down On 12/28/2018 seen in follow-up on medical surgical floor. he remains on 6 L per nasal cannula, his pulse ox is 94%, FiO2 has been dropped down to 3, and patient is maintaining his O2 saturations, currently at 92%, will recheck his pulse ox in half an hour. He'll has exertional dyspnea, at times patient removed his oxygen and goes walking in the hallway, and becomes significantly exerted short of breath, but no worsening shortness of breath, lung sounds are diminished, with the same wheezes and rhonchi, but not significantly more congested or wheezy compared to yesterday's exam, no fever or chills. He has 2 + lower extremity edema, and the knee-high KALEB stockings are too tight, we'll have to Perry wrap his legs. He was seen by orthopedic surgery consultation in regards to his right knee popliteal cyst, please refer to the consultation note. No fever no chills, no worsening cough or chest congestion, patient is ambulating, tolerating activity fairly well, and antibiotic coverage with Rocephin and doxycycline. He appears to be stable, we will continue to wean Fio2 Objective - Vital Signs Vital signs: Vital Signs Temp 97.8 F 12/28/18 06:32 Pulse 84 12/28/18 11:51 Resp 20 12/28/18 10:56 BP 125/76 12/28/18 06:32 Pulse Ox 93 L 12/28/18 12:34 Intake & Output 12/27/18 12/28/18 12/28/18 18:59 06:59 18:59 Intake Total 200 Output Total 2 Balance 198 Intake: Oral 200 Output: Stool 2 Other: Voiding Method Toilet Toilet Toilet # Voids 3 2 3 # Bowel Movements 1 - Exam GENERAL EXAM: Alert, active, comfortable in no apparent distress. Patient is currently on 3 L per nasal cannula with a pulse ox of 93% HEAD: Normocephalic/atraumatic. EYES: Normal reaction of pupils, equal size. Conjunctiva pink, sclera white. NOSE: Clear with pink turbinates. THROAT: No erythema or exudates. NECK: No masses, no JVD, no thyroid enlargement, no adenopathy. CHEST: No chest wall deformity. Symmetrical expansion. LUNGS: Equal air entry with bibasilar crackles, diminished breath sounds CVS: Regular rate and rhythm, normal S1 and S2, no gallops, no murmurs, no rubs ABDOMEN: Soft, nontender. No hepatosplenomegaly, normal bowel sounds, no guarding or rigidity. EXTREMITIES: No clubbing, no edema, no cyanosis, 2+ pulses and upper and lower extremities. MUSCULOSKELETAL: Muscle strength and tone normal. SPINE: No scoliosis or deformity SKIN: No rashes CENTRAL NERVOUS SYSTEM: Alert and oriented -3. No focal deficits, tone is normal in all 4 extremities. PSYCHIATRIC: Alert and oriented -3. Appropriate affect. Intact judgment and insight. - Labs CBC & Chem 7: 12/28/18 09:34 12/28/18 09:34 Labs: Abnormal Lab Results - Last 24 Hours (Table) 12/27/18 12/27/18 12/28/18 Range/Units 16:54 20:42 07:24 WBC (3.8-10.6) k/uL RBC (4.30-5.90) m/uL MCV (80.0-100.0) fL Plt Count (150-450) k/uL Neutrophils # (1.3-7.7) k/uL Lymphocytes # (1.0-4.8) k/uL Sodium (137-145) mmol/L BUN (9-20) mg/dL Creatinine (0.66-1.25) mg/dL Glucose (74-99) mg/dL POC Glucose (mg/dL) 219 H 173 H 236 H (75-99) mg/dL 12/28/18 12/28/18 12/28/18 Range/Units 09:34 09:34 11:45 WBC 15.3 H (3.8-10.6) k/uL RBC 3.99 L (4.30-5.90) m/uL MCV 108.4 H (80.0-100.0) fL Plt Count 130 L (150-450) k/uL Neutrophils # 14.0 H (1.3-7.7) k/uL Lymphocytes # 0.2 L (1.0-4.8) k/uL Sodium 134 L (137-145) mmol/L BUN 32 H (9-20) mg/dL Creatinine 1.30 H (0.66-1.25) mg/dL Glucose 188 H (74-99) mg/dL POC Glucose (mg/dL) 137 H (75-99) mg/dL Assessment and Plan Assessment: 1 acute pneumonia, likely healthcare pneumonia knowing that the patient has grown MRSA in his sputum. Currently on Bactrim. Chest x-ray showing improvement in the pulmonary infiltrates on today's evaluation. Nevertheless, the patient may short of breath and his COPD still exacerbating. 2 shortness of breath and cough and chest congestion secondary to above 3 acute hypoxic respiratory failure secondary to above 4 chronic smoker 5 liver cirrhosis, likely alcoholic in nature along with secondary portal hypertension 6 history of hepatitis C 7 previous history of GI bleed 8 coronary artery disease 9 hypertension 10 popliteal cyst in the right lower extremity Plan: Continue current antibiotic coverage, and agree with the doxycycline and Rocephin. Continue with nebulized bronchodilators, continue weaning FiO2, deep breathing and coughing, ambulation. Perry wrap his lower extremities. We'll continue to follow I performed a history & physical examination of the patient and discussed their management with my nurse practitioner, Vicenta Salamanca. I reviewed the nurse practitioner's note and agree with the documented findings and plan of care. Lung sounds are positive for minimal wheezes, bibasilar crackles. The findings and the impression was discussed with the patient. I attest to the documentation by the nurse practitioner. Time with Patient: Less than 30
[2018-12-28 17:30] LABS: Glucose,Whole Blood 193 mg/dL (75-99)
[2018-12-28] MEDS: FAMOTIDINE 20 MG TAB PO SCH (20:36)
[2018-12-28 20:56] LABS: Glucose,Whole Blood 170 mg/dL (75-99)
--- NOTE | 2018-12-28 22:55 | P.PN ---
Subjective History of present illness, from records this is a pleasant 58 yo M with pmh of coronary artery disease , hypertension , GERD, and GI bleed, who presents with s/s of resp distress, 2-3 week ago he was complaining from common cold, although he sought medical attension at that time he kept getting worse, he comes with worsening dyspnea, coughing up yellow phlegm, will some blood in it, of moderate amount as per pt, he is current smoke but did not say how much exactly he smokes, he says not a lot. pt is with no chest pain except when he cough on the sides of the lower chest . he was desaturating his oxygen down to 88% , and 93% on 3 L oxygen via Nasal cannula. he has mild leukocytosis of 13.7 K, his creatinine level is in normal limits . his sputum culture was sent and is pending , his chest xray : interstitial lung disease suspicious for pneumonia. pt was started on antibiotic and iv fluids and admitted to the general medical floor. influenza was checked and came back negative. Subjective 12/25/2018 Patient today he remains active dyspneic and he needs 6 L of oxygen via NC. MRSA has been growing in his sputum he has still a mild leukocytosis of 12.1 K. Sodium 135, creatinine 0.8. Influenza is negative. Repeat chest x-ray showing stable left lung infiltrate. Pulmonary critical care team are following the patient and they think he is improving slowly and gradually 12/26/2018 Patient is alert better, with less dyspnea however he still on oxygen at 5 L/m via nasal cannula. No chest pain still having with yellow-brown sputum. Patient is able to move around with no difficulty for short distance. His leukocytosis 17.6 K. Sodium 134, creatinine 1.1. Sugar controlled has Doppler of his right lower extremity which shows no DVT however complex cyst in the popliteal fossa. Call surgical consult 12/27/2018 pt is still dyspneic on 6 L oxygen via Nasal cannula. no chest pain ,however today he starts complaining to me from right foot pain and swelling , his whole lower extremity is swollen on both sides , although he is a little more swollen on the right than the left, pt denies trauma. pt has Doppler study to rule out DVT which was negative in his right lower extremity however it shows complex popliteal cyst. Surgical consult is called in their input is appreciated and the recommended no surgical intervention needed. Otherwise to call orthopedic consults who are going to evaluated the patient. His creatinine went up a little bit today from 1.1 to 1.3. His already on Bactrim from 12/22/2018, will DC Bactrim for MRSA in his sputum and start him on doxycycline.pt was anxious too and xanax helped him last night , pulmonary team are following the patient. Repeat chest x-ray showing persistent left basilar acute infiltrate or atelectasis which is a stable and improving right basilar atelectasis. HASMUKH Waldron for C. diff protocol. We will increase his pain medication from Rudy 10 -325 mg from 3 times a day up to 4 times a day. 12/28/18 pt is imprving significantly today , he is out of bed and standing more comfortable in the room . less dyspneic, pt oxygen is lowered to 3 L , tolerating that well. pt is on doxycycline, wilber wrap for his legs. CONSTITUTIONAL: No fever, no malaise, no fatigue. HEENT: No recent visual problems or hearing problems. Denied any sore throat. CARDIOVASCULAR: No orthopnea, PND, no palpitations, no syncope. PULMONARY: no hemoptysis. GASTROINTESTINAL: No diarrhea, no nausea, no vomiting, no abdominal pain. Normoactive bowel sounds. NEUROLOGICAL: No headaches, no weakness, no numbness. HEMATOLOGICAL: Denies any bleeding or petechiae. GENITOURINARY: Denies any burning micturition, frequency, or urgency. MUSCULOSKELETAL/RHEUMATOLOGICAL: Denies any joint pain, or any muscle pain. ENDOCRINE: Denies any polyuria or polydipsia. Medication: Albuterol, Xanax, Wellbutrin, ceftriaxone, Flonase, folic acid, Lasix, Robitussin, Rudy, NovoLog, Ativan, magnesium, methylprednisone, Zofran, Protonix, Inderal, Aldactone, thiamine, doxycycline, valacyclovir. Objective - Vital Signs Vital signs: Vital Signs Temp 98.1 F 12/28/18 15:00 Pulse 79 12/28/18 15:00 Resp 20 12/28/18 15:00 BP 150/99 12/28/18 15:00 Pulse Ox 99 12/28/18 15:00 Intake & Output 12/28/18 12/28/18 12/29/18 06:59 18:59 06:59 Intake Total 200 Output Total 2 Balance 198 Intake: Oral 200 Output: Stool 2 Other: Voiding Method Toilet Toilet # Voids 2 3 - Exam GENERAL: The patient is alert and oriented x3, not in any acute distress. Well developed, well nourished. HEENT: Pupils are round and equally reacting to light. EOMI. No scleral icterus. No conjunctival pallor. Normocephalic, atraumatic. No pharyngeal erythema. No thyromegaly. CARDIOVASCULAR: S1 and S2 present. No murmurs, rubs, or gallops. -PULMONARY: Chest is clear to auscultation, no crackles. Scattered wheezing ABDOMEN: Soft, nontender, nondistended, normoactive bowel sounds. No palpable organomegaly. MUSCULOSKELETAL: No joint swelling or deformity. -EXTREMITIES: No cyanosis, clubbing, bilateral leg edema, more on the right. Right food mild tenderness, swelling. But no erythema or cellulitis NEUROLOGICAL: Gross neurological examination did not reveal any focal deficits. SKIN: No rashes. - Labs CBC & Chem 7: 12/28/18 09:34 12/28/18 09:34 Labs: Abnormal Lab Results - Last 24 Hours (Table) 12/27/18 12/28/18 12/28/18 Range/Units 20:42 07:24 09:34 WBC 15.3 H (3.8-10.6) k/uL RBC 3.99 L (4.30-5.90) m/uL MCV 108.4 H (80.0-100.0) fL Plt Count 130 L (150-450) k/uL Neutrophils # 14.0 H (1.3-7.7) k/uL Lymphocytes # 0.2 L (1.0-4.8) k/uL Sodium (137-145) mmol/L BUN (9-20) mg/dL Creatinine (0.66-1.25) mg/dL Glucose (74-99) mg/dL POC Glucose (mg/dL) 173 H 236 H (75-99) mg/dL 12/28/18 12/28/18 12/28/18 Range/Units 09:34 11:45 17:18 WBC (3.8-10.6) k/uL RBC (4.30-5.90) m/uL MCV (80.0-100.0) fL Plt Count (150-450) k/uL Neutrophils # (1.3-7.7) k/uL Lymphocytes # (1.0-4.8) k/uL Sodium 134 L (137-145) mmol/L BUN 32 H (9-20) mg/dL Creatinine 1.30 H (0.66-1.25) mg/dL Glucose 188 H (74-99) mg/dL POC Glucose (mg/dL) 137 H 193 H (75-99) mg/dL Assessment and Plan Assessment: acute hypoxic resp failure Bilateral interstitial pneumonia, more stable infiltrated on the left, community acquired , sputum is growing MRSA Right popliteal complex cyst right foot/ankle pain and tenderness current cigarette smoker history of GI bleed h/o GERD Plan: this is a pleasant 58 yo M who present with bilateral pneumonia, continue with antibiotic , iv fluids, oxygen and breathing treatment, continue with antibiotic . Surgical consult is appreciated and they signed off. Call orthopedic consult for their recommendation. Follow-up creatinine level. Continue with pain management Labs and medication were reviewed.. Continue same treatment. Continue with symptomatic treatment. Resume home medication. Monitor lytes and vitals. DVT and GI prophylaxis. Further recommendations of the clinical course of the patient DVT prophylaxis: Subcutaneous heparin GI Prophylaxis: Pepcid Prognosis is guarded
[2018-12-29] MEDS: IPRATROPIUM-ALBUTEROL 3 ML NEB INHALATION SCH ×7 (00:19→23:35)
[2018-12-29] MEDS: methylPREDNISolone SOD SUCCI 40 MG/ML 1 ML VIAL IV SCH ×4 (01:07→23:46)
[2018-12-29] MEDS: HYDROcodone/APAP 10-325MG 1 EACH TAB PO SCH ×4 (06:29→23:42)
[2018-12-29 07:13] LABS: Glucose,Whole Blood 249 mg/dL (75-99)
[2018-12-29 08:09] LABS: Basophils % (A) 0 %; Eosinophils % (A) 0 %; HCT 40.6 % (39.0-53.0); HGB 13.4 gm/dL (13.0-17.5); Lymphocytes # (A) 0.2 k/uL (1.0-4.8); Lymphocytes % (A) 1 %; MCHC 32.9 g/dL (31.0-37.0); MCV 106.2 fL (80.0-100.0); Macrocytosis Moderate; Mean Platelet Volume 8.8; Monocytes # (A) 0.5 k/uL (0-1.0); Monocytes % (A) 4 %; Neutrophils # (A) 13.5 k/uL (1.3-7.7); Neutrophils % (A) 94 %; Platelet Count 108 k/uL (150-450); RBC 3.83 m/uL (4.30-5.90); WBC 14.3 k/uL (3.8-10.6)
[2018-12-29 08:19] LABS: Calcium 8.3 mg/dL (8.4-10.2); Potassium 4.3 mmol/L (3.5-5.1)
[2018-12-29] MEDS: MAGNESIUM OXIDE 400 MG TAB PO SCH (08:39)
[2018-12-29] MEDS: LACTULOSE 20 GM/30 ML CUP PO SCH (08:39)
[2018-12-29] MEDS: THIAMINE 100 MG TAB PO SCH (08:39)
[2018-12-29] MEDS: SPIRONOLACTONE 25 MG TAB PO SCH ×2 (08:39→23:42)
[2018-12-29] MEDS: FOLIC ACID 1 MG TAB PO SCH (08:39)
[2018-12-29] MEDS: FAMOTIDINE 20 MG TAB PO SCH ×2 (08:39→23:42)
[2018-12-29] MEDS: ALPRAZolam 0.5 MG TAB PO SCH ×2 (08:40→14:54)
[2018-12-29] MEDS: HEPARIN SODIUM,PORCINE 5,000 UNIT/ML 1 ML VIAL SQ SCH ×2 (08:40→22:52)
[2018-12-29] MEDS: PANTOPRAZOLE 40 MG TABLET PO SCH (08:40)
[2018-12-29] MEDS: FUROSEMIDE 40 MG TAB PO SCH (08:40)
[2018-12-29] MEDS: buPROPion XL 300 MG TAB.ER.24H PO SCH (08:41)
[2018-12-29] MEDS: PROPRANOLOL 10 MG TAB PO SCH ×2 (08:41→23:42)
[2018-12-29] MEDS: valACYclovir HCL 1,000 MG TABLET PO SCH (08:41)
[2018-12-29] MEDS: INSULIN ASPART (NovoLOG) 100 UNIT/ML VIAL SQ SCH ×4 (08:48→22:52)
[2018-12-29] MEDS: FLUTICASONE 50MCG/SPRAY NASAL 16GM EA NOSTRIL SCH (08:49)
[2018-12-29 12:02] LABS: Glucose,Whole Blood 152 mg/dL (75-99)
[2018-12-29] MEDS: DOXYCYCLINE 100 MG in SODIUM CHLORIDE 0.9% 100 ML IVPB SCH ×2 (13:18→22:51)
[2018-12-29] MEDS ORDERED: ALPRAZolam 1 MG TAB PO STA (13:19)
--- NOTE | 2018-12-29 13:33 | P.PN ---
Subjective Progress Note Date: 12/29/18 Principal diagnosis: Acute bilateral pneumonia, suspect community-acquired. A 58-year-old male patient with chronic liver failure secondary to alcoholism and the patient has liver cirrhosis and portal hypertension and previous bouts of GI bleeding. The patient is also known to have coronary artery disease, COPD , hypertension and hepatitis C. There is also vague history of hemachromatosis which does not seem to be a true diagnosis or to confirm diagnosis based on my chart review. The patient came into the hospital because of worsening shortness of breath. The patient some cough and congestion chest tightness and wheeze. He was coughing out some yellowish sputum. No pleurisy. No hemoptysis. Is a chronic smoker. He has no angina. No altered mentation. Pulse ox was down to 88% on room air and is currently on 93-94% of these of oxygen by nasal cannula. White cell count is at 13.7 and the rest of the blood work electrolytes were within normal limits. Chest x-ray showed and position changes with some patchy airspace disease more so in the mid and lower lungs bilaterally. The patient is currently on a combination of Rocephin and Zithromax. Sputum cultures been sent. Blood cultures been sent. He is hemodynamically stable. Producing adequate amount of urine output. His influenza screen was negative. The patient is seen today 12/22/2018 in follow-up on the regular medical floor. He is currently sitting up in a chair at the bedside awake and alert in no acute distress. He did have desaturations in the 80s on room air. He is currently maintaining O2 saturations in the 90s on 3 L/m per nasal cannula. Breathing easier today as compared to yesterday. Loose nonproductive cough. Preliminary sputum cultures positive for presumptive staph aureus. Blood culture reveals no growth. Urine culture no growth. White count 12.5. Hemoglobin 12.8. Creatinine 0.94. He is currently on ceftriaxone and azithromycin. He remains on bronchodilators and IV Solu-Medrol. On today's evaluation of 12/23/2018, the patient is still bronchus spastic wheezy and short of breath. The patient was found to have MRSA in his sputum Gram stain and culture. Bactrim was added. He is afebrile. He is hemodynamically stable. He is White cell count is 12.1. His chest x-ray showed improvement in the bilateral lung infiltrate. Right midlung streaky opacity was seen which is probably an area of atelectasis. Is also mild left lower lobe infiltrates present. Otherwise, the patient is stable. Is tolerating his diet. He is on DuoNeb nebulized treatments around the clock. He is on Zithromax and Bactrim. He is also on IV Solu-Medrol for 10 mg every 12 hours. He is on Robitussin-DM for cough and congestion. On 12/24/2018 patient seen in follow-up on medical surgical floor. He is resting comfortably in bed, in no acute distress, she is on 36 L per nasal cannula his pulse ox is 91%, no fever or chills, hemodynamically stable, no specific complaints today, no worsening dyspnea, today's labs have been reviewed , white blood cell, of 12.1, hemoglobin is 12.5, sodium is 135, depressive electrolytes and renal profile were unremarkable, microbiology showed MRSA in the sputum, blood and urine cultures are negative. Patient is on a combination of Rocephin and Bactrim DS. Patient is improving, he is tolerating admission in the room, yesterday his chest x-ray showed improving bilateral lung infiltrates. The patient is seen today 12/25/2017 in follow-up on the regular medical floor. He is currently sitting up in a chair at the bedside. He is awake and alert in no acute distress. He is down to 4 L/m per nasal cannula to maintain O2 saturations in the 90s. He has been afebrile. Hemodynamically stable. Sputum is positive for MRSA. Blood reveals no growth. Urine reveals no growth. He is currently on Bactrim and ceftriaxone. He is continued on DuoNeb inhalations , IV Solu-Medrol, oral Lasix. Continues with crackles in the left midlung, faint bibasilar. On 12/26/2018 patient seen in follow-up on medical surgical floor. he continues to improve, he is walking in his room, currently on 6 L per nasal cannula, his pulse ox is 92%, afebrile, hemodynamically stable, she is being treated for MRSA pneumonia, currently on a combination of Rocephin and Bactrim. Today's lab work has been reviewed, blood cell, 17.6, hemoglobin is 14.0, serum sodium is 134, dressed a large lites were within normal limits, BUN is 28 and creatinine is 1.18. Patient is improving. Some increased lower extremity swelling noted on the right, we'll obtain a venous Doppler ultrasound of the right lower extremity. On 12/19/2018 patient seen in follow-up on medical surgical floor. Is awake and alert, distress, he continues on 6 L per nasal cannula his pulse ox is around 90-91%, he is afebrile, hemodynamically stable, lung sounds are diminished, with a few rales at the left base, yesterday's follow-up chest x- ray has been reviewed by Dr. Capps and showed evidently it hemidiaphragm with persistent left basilar acute infiltrate, able in appearance, and improving right basilar linear atelectasis. DVT of the right lower extremity was ruled out, but there was incidental finding of the popliteal cyst for which orthopedic consultation was obtained. Patient is on antibiotic coverage that includes Rocephin and doxycycline, for MRSA pneumonia, clinically he is stable, he is on IV steroids, and nebulized bronchodilators and oral Lasix. We will encourage deep breathing and coughing, and we'll try to wean the oxygen down On 12/28/2018 seen in follow-up on medical surgical floor. he remains on 6 L per nasal cannula, his pulse ox is 94%, FiO2 has been dropped down to 3, and patient is maintaining his O2 saturations, currently at 92%, will recheck his pulse ox in half an hour. He'll has exertional dyspnea, at times patient removed his oxygen and goes walking in the hallway, and becomes significantly exerted short of breath, but no worsening shortness of breath, lung sounds are diminished, with the same wheezes and rhonchi, but not significantly more congested or wheezy compared to yesterday's exam, no fever or chills. He has 2 + lower extremity edema, and the knee-high KALEB stockings are too tight, we'll have to Perry wrap his legs. He was seen by orthopedic surgery consultation in regards to his right knee popliteal cyst, please refer to the consultation note. No fever no chills, no worsening cough or chest congestion, patient is ambulating, tolerating activity fairly well, and antibiotic coverage with Rocephin and doxycycline. He appears to be stable, we will continue to wean Fio2 The patient is seen again today 12/29/2017 in follow-up on the regular medical floor. He is currently sitting up at the bedside. Awake and alert in no acute distress. He denies any worsening shortness of breath, cough or congestion. He is still not quite back to his baseline. He is maintaining concerned is that of continued lower extremity edema. Blood culture shows no growth. Sputum culture positive for MRSA. Urine culture reveals no growth. White count 14.3. Hemoglobin 13.4. Creatinine 1.23. He is continued on DuoNeb inhalations, IV Solu-Medrol. Antibiotics in the form of ceftriaxone and doxycycline. Objective - Vital Signs Vital signs: Vital Signs Temp 97.7 F 12/29/18 06:18 Pulse 82 12/29/18 11:42 Resp 20 12/29/18 08:05 BP 137/82 12/29/18 06:18 Pulse Ox 92 L 12/29/18 06:18 Intake & Output 12/28/18 12/29/18 12/29/18 18:59 06:59 18:59 Other: Voiding Method Toilet Toilet # Voids 3 3 - Exam GENERAL EXAM: Morbidly obese. Alert, active, comfortable in no apparent distress. On 4 L nasal cannula. HEAD: Normocephalic. EYES: Normal reaction of pupils, equal size. NOSE: Clear with pink turbinates. THROAT: No erythema or exudates. NECK: No masses, no JVD. CHEST: No chest wall deformity. LUNGS: Equal air entry with basilar crackles, wheeze, diminished. CVS: S1 and S2 normal with no audible murmur, regular rhythm. ABDOMEN: No hepatosplenomegaly, normal bowel sounds, no guarding or rigidity. SPINE: No scoliosis or deformity SKIN: No rashes CENTRAL NERVOUS SYSTEM: No focal deficits, tone is normal in all 4 extremities. EXTREMITIES: There is 2-3+ peripheral edema. No clubbing, no cyanosis. Peripheral pulses are intact. - Labs CBC & Chem 7: 12/29/18 07:16 12/29/18 07:16 Labs: Abnormal Lab Results - Last 24 Hours (Table) 12/28/18 12/28/18 12/29/18 Range/Units 17:18 20:55 07:12 WBC (3.8-10.6) k/uL RBC (4.30-5.90) m/uL MCV (80.0-100.0) fL Plt Count (150-450) k/uL Neutrophils # (1.3-7.7) k/uL Lymphocytes # (1.0-4.8) k/uL Sodium (137-145) mmol/L BUN (9-20) mg/dL Glucose (74-99) mg/dL POC Glucose (mg/dL) 193 H 170 H 249 H (75-99) mg/dL Calcium (8.4-10.2) mg/dL 12/29/18 12/29/18 12/29/18 Range/Units 07:16 07:16 12:00 WBC 14.3 H (3.8-10.6) k/uL RBC 3.83 L (4.30-5.90) m/uL MCV 106.2 H (80.0-100.0) fL Plt Count 108 L (150-450) k/uL Neutrophils # 13.5 H (1.3-7.7) k/uL Lymphocytes # 0.2 L (1.0-4.8) k/uL Sodium 135 L (137-145) mmol/L BUN 35 H (9-20) mg/dL Glucose 257 H (74-99) mg/dL POC Glucose (mg/dL) 152 H (75-99) mg/dL Calcium 8.3 L (8.4-10.2) mg/dL Assessment and Plan Assessment: Assessment 1 acute pneumonia, likely bilateral, community-acquired. 2 shortness of breath and cough and chest congestion secondary to above 3 acute hypoxic respiratory failure secondary to above 4 chronic smoker 5 liver cirrhosis, likely alcoholic in nature along with secondary portal hypertension 6 history of hepatitis C 7 previous history of GI bleed 8 coronary artery disease 9 hypertension 10 lower extremity edema Plan The patient was seen and evaluated by Dr. Capps. He is having increasing lower extremity edema. Add Lasix 40 mg IV every 12 hours. Currently at 4 L. Sputum culture positive for MRSA. Continue ceftriaxone and doxycycline. Increase his activity as tolerated. We'll continue to follow. I, the cosigning physician, performed a history & physical examination of the patient. Lungs sounds with few scattered rhonchi, crackles in posterior bases, end expiratory wheeze. Maintaining good O2 saturations in the 90s on 4 L/m per nasal cannula. I discussed the assessment and plan of care with my nurse practitioner, Yenny Stewart. I attest to the above note as dictated by her.
[2018-12-29] MEDS: FUROSEMIDE 10 MG/ML 4 ML VIAL IV SCH ×2 (13:42→22:52)
--- NOTE | 2018-12-29 14:25 | P.PN ---
Subjective History of present illness, from records this is a pleasant 58 yo M with pmh of coronary artery disease , hypertension , GERD, and GI bleed, who presents with s/s of resp distress, 2-3 week ago he was complaining from common cold, although he sought medical attension at that time he kept getting worse, he comes with worsening dyspnea, coughing up yellow phlegm, will some blood in it, of moderate amount as per pt, he is current smoke but did not say how much exactly he smokes, he says not a lot. pt is with no chest pain except when he cough on the sides of the lower chest . he was desaturating his oxygen down to 88% , and 93% on 3 L oxygen via Nasal cannula. he has mild leukocytosis of 13.7 K, his creatinine level is in normal limits . his sputum culture was sent and is pending , his chest xray : interstitial lung disease suspicious for pneumonia. pt was started on antibiotic and iv fluids and admitted to the general medical floor. influenza was checked and came back negative. Subjective 12/25/2018 Patient today he remains active dyspneic and he needs 6 L of oxygen via NC. MRSA has been growing in his sputum he has still a mild leukocytosis of 12.1 K. Sodium 135, creatinine 0.8. Influenza is negative. Repeat chest x-ray showing stable left lung infiltrate. Pulmonary critical care team are following the patient and they think he is improving slowly and gradually 12/26/2018 Patient is alert better, with less dyspnea however he still on oxygen at 5 L/m via nasal cannula. No chest pain still having with yellow-brown sputum. Patient is able to move around with no difficulty for short distance. His leukocytosis 17.6 K. Sodium 134, creatinine 1.1. Sugar controlled has Doppler of his right lower extremity which shows no DVT however complex cyst in the popliteal fossa. Call surgical consult 12/27/2018 pt is still dyspneic on 6 L oxygen via Nasal cannula. no chest pain ,however today he starts complaining to me from right foot pain and swelling , his whole lower extremity is swollen on both sides , although he is a little more swollen on the right than the left, pt denies trauma. pt has Doppler study to rule out DVT which was negative in his right lower extremity however it shows complex popliteal cyst. Surgical consult is called in their input is appreciated and the recommended no surgical intervention needed. Otherwise to call orthopedic consults who are going to evaluated the patient. His creatinine went up a little bit today from 1.1 to 1.3. His already on Bactrim from 12/22/2018, will DC Bactrim for MRSA in his sputum and start him on doxycycline.pt was anxious too and xanax helped him last night , pulmonary team are following the patient. Repeat chest x-ray showing persistent left basilar acute infiltrate or atelectasis which is a stable and improving right basilar atelectasis. HASMUKH Waldron for C. diff protocol. We will increase his pain medication from [place] 10 -325 mg from 3 times a day up to 4 times a day. 12/28/18 pt is imprving significantly today , he is out of bed and standing more comfortable in the room . less dyspneic, pt oxygen is lowered to 3 L , tolerating that well. pt is on doxycycline, wilber wrap for his legs. 12/29/2018 pt is awake and orient [place] III. Patient is still have some dyspnea and he needs oxygen 2 L. Patient is fluid overloaded and his legs are swollen significantly bilaterally. Patient on Lasix 40 mg twice a day. He is a bit anxious on Xanax when necessary. Patient is counseled. Continue on doxycycline. His creatinine improved down to within normal limits at 1.2. His WBC is 14.3 K CONSTITUTIONAL: No fever, no malaise, no fatigue. HEENT: No recent visual problems or hearing problems. Denied any sore throat. CARDIOVASCULAR: No orthopnea, PND, no palpitations, no syncope. PULMONARY: no hemoptysis. GASTROINTESTINAL: No diarrhea, no nausea, no vomiting, no abdominal pain. Normoactive bowel sounds. NEUROLOGICAL: No headaches, no weakness, no numbness. HEMATOLOGICAL: Denies any bleeding or petechiae. GENITOURINARY: Denies any burning micturition, frequency, or urgency. MUSCULOSKELETAL/RHEUMATOLOGICAL: Denies any joint pain, or any muscle pain. ENDOCRINE: Denies any polyuria or polydipsia. Medication: Albuterol, Xanax, Wellbutrin, ceftriaxone, Flonase, folic acid, Lasix, Robitussin, [place], NovoLog, Ativan, magnesium, methylprednisone, Zofran, Protonix, Inderal, Aldactone, thiamine, doxycycline, valacyclovir. Objective - Vital Signs Vital signs: Vital Signs Temp 97.7 F 12/29/18 06:18 Pulse 82 12/29/18 11:42 Resp 20 12/29/18 08:05 BP 137/82 12/29/18 06:18 Pulse Ox 92 L 12/29/18 06:18 Intake & Output 12/28/18 12/29/18 12/29/18 18:59 06:59 18:59 Other: Voiding Method Toilet Toilet # Voids 3 3 - Exam GENERAL: The patient is alert and oriented x3, not in any acute distress. Well developed, well nourished. HEENT: Pupils are round and equally reacting to light. EOMI. No scleral icterus. No conjunctival pallor. Normocephalic, atraumatic. No pharyngeal erythema. No thyromegaly. CARDIOVASCULAR: S1 and S2 present. No murmurs, rubs, or gallops. -PULMONARY: Chest is clear to auscultation, no crackles. Scattered wheezing ABDOMEN: Soft, nontender, nondistended, normoactive bowel sounds. No palpable organomegaly. MUSCULOSKELETAL: No joint swelling or deformity. -EXTREMITIES: No cyanosis, clubbing, bilateral leg edema, more on the right. Right food mild tenderness, swelling. But no erythema or cellulitis NEUROLOGICAL: Gross neurological examination did not reveal any focal deficits. SKIN: No rashes. - Labs CBC & Chem 7: 12/29/18 07:16 12/29/18 07:16 Labs: Abnormal Lab Results - Last 24 Hours (Table) 12/28/18 12/28/18 12/29/18 Range/Units 17:18 20:55 07:12 WBC (3.8-10.6) k/uL RBC (4.30-5.90) m/uL MCV (80.0-100.0) fL Plt Count (150-450) k/uL Neutrophils # (1.3-7.7) k/uL Lymphocytes # (1.0-4.8) k/uL Sodium (137-145) mmol/L BUN (9-20) mg/dL Glucose (74-99) mg/dL POC Glucose (mg/dL) 193 H 170 H 249 H (75-99) mg/dL Calcium (8.4-10.2) mg/dL 12/29/18 12/29/18 12/29/18 Range/Units 07:16 07:16 12:00 WBC 14.3 H (3.8-10.6) k/uL RBC 3.83 L (4.30-5.90) m/uL MCV 106.2 H (80.0-100.0) fL Plt Count 108 L (150-450) k/uL Neutrophils # 13.5 H (1.3-7.7) k/uL Lymphocytes # 0.2 L (1.0-4.8) k/uL Sodium 135 L (137-145) mmol/L BUN 35 H (9-20) mg/dL Glucose 257 H (74-99) mg/dL POC Glucose (mg/dL) 152 H (75-99) mg/dL Calcium 8.3 L (8.4-10.2) mg/dL Assessment and Plan Assessment: acute hypoxic resp failure Bilateral interstitial pneumonia, more stable infiltrated on the left, community acquired , sputum is growing MRSA Right popliteal complex cyst right foot/ankle pain and tenderness current cigarette smoker history of GI bleed h/o GERD Plan: this is a pleasant 58 yo M who present with bilateral pneumonia, continue with antibiotic , iv fluids, oxygen and breathing treatment, continue with antibiotic . Surgical consult is appreciated and they signed off. Call orthopedic consult for their recommendation. Follow-up creatinine level. Continue with pain management Labs and medication were reviewed.. Continue same treatment. Continue with symptomatic treatment. Resume home medication. Monitor lytes and vitals. DVT and GI prophylaxis. Further recommendations of the clinical course of the patient DVT prophylaxis: Subcutaneous heparin GI Prophylaxis: Pepcid Prognosis is guarded
[2018-12-29 16:46] LABS: Glucose,Whole Blood 192 mg/dL (75-99)
[2018-12-29] MEDS ORDERED: HALOPERIDOL LACTATE 5 MG/ML 1 ML VIAL IM PRN (19:29)
[2018-12-29 20:55] LABS: Glucose,Whole Blood 209 mg/dL (75-99)
[2018-12-30] MEDS: IPRATROPIUM-ALBUTEROL 3 ML NEB INHALATION SCH ×6 (02:49→23:08)
[2018-12-30 06:55] LABS: Glucose,Whole Blood 181 mg/dL (75-99)
[2018-12-30] MEDS: ALPRAZolam 0.5 MG TAB PO SCH (07:26)
[2018-12-30] MEDS: THIAMINE 100 MG TAB PO SCH (08:52)
[2018-12-30] MEDS: FAMOTIDINE 20 MG TAB PO SCH ×2 (08:52→20:10)
[2018-12-30] MEDS: MAGNESIUM OXIDE 400 MG TAB PO SCH (08:53)
[2018-12-30] MEDS: HYDROcodone/APAP 10-325MG 1 EACH TAB PO SCH ×4 (08:53→22:18)
[2018-12-30] MEDS: PANTOPRAZOLE 40 MG TABLET PO SCH (08:53)
[2018-12-30] MEDS: LACTULOSE 20 GM/30 ML CUP PO SCH (08:53)
[2018-12-30] MEDS: HEPARIN SODIUM,PORCINE 5,000 UNIT/ML 1 ML VIAL SQ SCH ×2 (08:53→20:10)
[2018-12-30] MEDS: SPIRONOLACTONE 25 MG TAB PO SCH ×2 (08:53→20:10)
[2018-12-30] MEDS: FOLIC ACID 1 MG TAB PO SCH (08:53)
[2018-12-30] MEDS: valACYclovir HCL 1,000 MG TABLET PO SCH (08:57)
[2018-12-30] MEDS: PROPRANOLOL 10 MG TAB PO SCH ×2 (08:57→20:10)
[2018-12-30] MEDS: buPROPion XL 300 MG TAB.ER.24H PO SCH (08:57)
[2018-12-30] MEDS: INSULIN ASPART (NovoLOG) 100 UNIT/ML VIAL SQ SCH ×4 (09:03→22:20)
[2018-12-30 09:04] LABS: Calcium 8.4 mg/dL (8.4-10.2); Potassium 4.3 mmol/L (3.5-5.1)
[2018-12-30] MEDS: FLUTICASONE 50MCG/SPRAY NASAL 16GM EA NOSTRIL SCH (09:04)
[2018-12-30 09:07] LABS: Basophils % (A) 0 %; Eosinophils % (A) 0 %; HCT 41.6 % (39.0-53.0); HGB 13.4 gm/dL (13.0-17.5); Lymphocytes # (A) 0.2 k/uL (1.0-4.8); Lymphocytes % (A) 2 %; MCH 34.8 pg (25.0-35.0); MCHC 32.2 g/dL (31.0-37.0); Macrocytosis Marked; Mean Platelet Volume 8.3; Monocytes # (A) 0.7 k/uL (0-1.0); Monocytes % (A) 6 %; Neutrophils % (A) 92 %; RBC 3.85 m/uL (4.30-5.90); RDW 15.4 % (11.5-15.5)
[2018-12-30] MEDS: DOXYCYCLINE 100 MG in SODIUM CHLORIDE 0.9% 100 ML IVPB SCH ×2 (10:17→20:19)
[2018-12-30] MEDS: FUROSEMIDE 10 MG/ML 4 ML VIAL IV SCH (10:17)
[2018-12-30] MEDS: methylPREDNISolone SOD SUCCI 40 MG/ML 1 ML VIAL IV SCH (10:17)
[2018-12-30 10:49] LABS: Platelet Count 84 k/uL (150-450)
[2018-12-30 10:50] LABS: Target Cells Present
[2018-12-30 12:20] LABS: Glucose,Whole Blood 185 mg/dL (75-99)
[2018-12-30] MEDS: predniSONE 20 MG TAB PO SCH (13:31)
--- NOTE | 2018-12-30 14:35 | P.PN ---
Subjective 58 yo M with pmh of coronary artery disease , hypertension ,GERD, and GI bleed, who presents with s/s of resp distress, 2-3 week ago he was complaining from common cold, although he sought medical attension at that time he kept getting worse, he comes with worsening dyspnea, coughing up yellow phlegm, will some blood in it, of moderate amount as per pt, he is current smoke but did not say how much exactly he smokes, he says not a lot. pt is with no chest pain except when he cough on the sides of the lower chest . he was desaturating his oxygen down to 88% , and 93% on 3 L oxygen via Nasal cannula. he has mild leukocytosis of 13.7 K, his creatinine level is in normal limits . his sputum culture was sent and is pending , his chest xray : interstitial lung disease suspicious for pneumonia. pt was started on antibiotic and iv fluids and admitted to the general medical floor. influenza was checked and came back negative. Subjective 12/25/2018 Patient today he remains active dyspneic and he needs 6 L of oxygen via NC. MRSA has been growing in his sputum he has still a mild leukocytosis of 12.1 K. Sodium 135, creatinine 0.8. Influenza is negative. Repeat chest x-ray showing stable left lung infiltrate. Pulmonary critical care team are following the patient and they think he is improving slowly and gradually 12/26/2018 Patient is alert better, with less dyspnea however he still on oxygen at 5 L/m via nasal cannula. No chest pain still having with yellow-brown sputum. Patient is able to move around with no difficulty for short distance. His leukocytosis 17.6 K. Sodium 134, creatinine 1.1. Sugar controlled has Doppler of his right lower extremity which shows no DVT however complex cyst in the popliteal fossa. Call surgical consult 12/27/2018 pt is still dyspneic on 6 L oxygen via Nasal cannula. no chest pain ,however today he starts complaining to me from right foot pain and swelling , his whole lower extremity is swollen on both sides , although he is a little more swollen on the right than the left, pt denies trauma. pt has Doppler study to rule out DVT which was negative in his right lower extremity however it shows complex popliteal cyst. Surgical consult is called in their input is appreciated and the recommended no surgical intervention needed. Otherwise to call orthopedic consults who are going to evaluated the patient. His creatinine went up a little bit today from 1.1 to 1.3. His already on Bactrim from 12/22/2018, will DC Bactrim for MRSA in his sputum and start him on doxycycline.pt was anxious too and xanax helped him last night , pulmonary team are following the patient. Repeat chest x-ray showing persistent left basilar acute infiltrate or atelectasis which is a stable and improving right basilar atelectasis. DC Vanita for C. diff protocol. We will increase his pain medication from [place] 10 -325 mg from 3 times a day up to 4 times a day. 12/28/18 pt is imprving significantly today , he is out of bed and standing more comfortable in the room . less dyspneic, pt oxygen is lowered to 3 L , tolerating that well. pt is on doxycycline, wilber wrap for his legs. 12/29/2018 pt is awake and orient [place] III. Patient is still have some dyspnea and he needs oxygen 2 L. Patient is fluid overloaded and his legs are swollen significantly bilaterally. Patient on Lasix 40 mg twice a day. He is a bit anxious on Xanax when necessary. Patient is counseled. Continue on doxycycline. His creatinine improved down to within normal limits at 1.2. His WBC is 14.3 K 12/30/2018 Patient was bit agitated lasted because of which patient has a sitter now which will this can you patient is presently pleasant is following the recommendations does have MRSA in the sputum for which patient is on doxycycline patient is also on Rocephin at this time. Patient probably can be discharged tomorrow patient is still requiring oxygen still wheezing on exam hopefully will not require any oxygen by tomorrow Constitutional: Denied any fatigue denied any fever. Cardio vascular: denied any chest pain, palpitations Gastrointestinal denied any nausea vomiting Pulmonary: Denied any shortness of breath cough Neurologic denied any new focal deficits All inpatient medications were reviewed and appropriate changes in these medications as dictated in the interval history and assessment and plan. Objective - Vital Signs Vital signs: Vital Signs Temp 97.0 F L 12/30/18 13:57 Pulse 82 12/30/18 13:57 Resp 20 12/30/18 13:57 BP 119/72 12/30/18 13:57 Pulse Ox 92 L 12/30/18 13:57 Intake & Output 12/29/18 12/30/18 12/30/18 18:59 06:59 18:59 Output Total 900 Balance -900 Output: Urine 900 Other: Voiding Method Bedside Commode Urinal Diaper Incontinent # Voids 3 2 3 # Bowel Movements 1 1 - Exam GENERAL: The patient is alert and oriented x3, not in any acute distress. Well developed, well nourished. HEENT: Pupils are round and equally reacting to light. EOMI. No scleral icterus. No conjunctival pallor. Normocephalic, atraumatic. No pharyngeal erythema. No thyromegaly. CARDIOVASCULAR: S1 and S2 present. No murmurs, rubs, or gallops. -PULMONARY: Chest is clear to auscultation, no crackles. Scattered wheezing ABDOMEN: Soft, nontender, nondistended, normoactive bowel sounds. No palpable organomegaly. MUSCULOSKELETAL: No joint swelling or deformity. -EXTREMITIES: No cyanosis, clubbing, bilateral leg edema, more on the right. Right food mild tenderness, swelling. But no erythema or cellulitis NEUROLOGICAL: Gross neurological examination did not reveal any focal deficits. SKIN: No rashes. - Labs CBC & Chem 7: 12/30/18 08:19 12/30/18 08:19 Labs: Abnormal Lab Results - Last 24 Hours (Table) 12/29/18 12/29/18 12/30/18 Range/Units 16:44 20:54 06:51 WBC (3.8-10.6) k/uL RBC (4.30-5.90) m/uL MCV (80.0-100.0) fL Plt Count (150-450) k/uL Neutrophils # (1.3-7.7) k/uL Lymphocytes # (1.0-4.8) k/uL Sodium (137-145) mmol/L BUN (9-20) mg/dL Glucose (74-99) mg/dL POC Glucose (mg/dL) 192 H 209 H 181 H (75-99) mg/dL 12/30/18 12/30/18 12/30/18 Range/Units 08:19 08:19 12:19 WBC 12.0 H (3.8-10.6) k/uL RBC 3.85 L (4.30-5.90) m/uL MCV 108.0 H (80.0-100.0) fL Plt Count 84 L (150-450) k/uL Neutrophils # 11.0 H (1.3-7.7) k/uL Lymphocytes # 0.2 L (1.0-4.8) k/uL Sodium 135 L (137-145) mmol/L BUN 35 H (9-20) mg/dL Glucose 188 H (74-99) mg/dL POC Glucose (mg/dL) 185 H (75-99) mg/dL Assessment and Plan Plan: Assessment: acute hypoxic and hypercapnic resp failure candidate to pneumonia and COPD exacerbation, patient is on Rocephin and oxygen which will be continued MRSA sensitive to doxycycline although pneumococcal pneumonia cannot be ruled out because of that reason patient will be continued on Rocephin Bilateral interstitial pneumonia, more stable infiltrated on the left, community acquired , sputum is growing MRSA -COPD with acute exacerbation, can use systemic steroids which was switched to oral Right popliteal complex cyst right foot/ankle pain and tenderness current cigarette smoker history of GI bleed h/o GERD
--- NOTE | 2018-12-30 15:04 | P.PN ---
Subjective Progress Note Date: 12/30/18 A 58-year-old male patient with chronic liver failure secondary to alcoholism and the patient has liver cirrhosis and portal hypertension and previous bouts of GI bleeding. The patient is also known to have coronary artery disease, COPD , hypertension and hepatitis C. There is also vague history of hemachromatosis which does not seem to be a true diagnosis or to confirm diagnosis based on my chart review. The patient came into the hospital because of worsening shortness of breath. The patient some cough and congestion chest tightness and wheeze. He was coughing out some yellowish sputum. No pleurisy. No hemoptysis. Is a chronic smoker. He has no angina. No altered mentation. Pulse ox was down to 88% on room air and is currently on 93-94% of these of oxygen by nasal cannula. White cell count is at 13.7 and the rest of the blood work electrolytes were within normal limits. Chest x-ray showed and position changes with some patchy airspace disease more so in the mid and lower lungs bilaterally. The patient is currently on a combination of Rocephin and Zithromax. Sputum cultures been sent. Blood cultures been sent. He is hemodynamically stable. Producing adequate amount of urine output. His influenza screen was negative. The patient is seen today 12/22/2018 in follow-up on the regular medical floor. He is currently sitting up in a chair at the bedside awake and alert in no acute distress. He did have desaturations in the 80s on room air. He is currently maintaining O2 saturations in the 90s on 3 L/m per nasal cannula. Breathing easier today as compared to yesterday. Loose nonproductive cough. Preliminary sputum cultures positive for presumptive staph aureus. Blood culture reveals no growth. Urine culture no growth. White count 12.5. Hemoglobin 12.8. Creatinine 0.94. He is currently on ceftriaxone and azithromycin. He remains on bronchodilators and IV Solu-Medrol. On today's evaluation of 12/23/2018, the patient is still bronchus spastic wheezy and short of breath. The patient was found to have MRSA in his sputum Gram stain and culture. Bactrim was added. He is afebrile. He is hemodynamically stable. He is White cell count is 12.1. His chest x-ray showed improvement in the bilateral lung infiltrate. Right midlung streaky opacity was seen which is probably an area of atelectasis. Is also mild left lower lobe infiltrates present. Otherwise, the patient is stable. Is tolerating his diet. He is on DuoNeb nebulized treatments around the clock. He is on Zithromax and Bactrim. He is also on IV Solu-Medrol for 10 mg every 12 hours. He is on Robitussin-DM for cough and congestion. On 12/24/2018 patient seen in follow-up on medical surgical floor. He is resting comfortably in bed, in no acute distress, she is on 36 L per nasal cannula his pulse ox is 91%, no fever or chills, hemodynamically stable, no specific complaints today, no worsening dyspnea, today's labs have been reviewed , white blood cell, of 12.1, hemoglobin is 12.5, sodium is 135, depressive electrolytes and renal profile were unremarkable, microbiology showed MRSA in the sputum, blood and urine cultures are negative. Patient is on a combination of Rocephin and Bactrim DS. Patient is improving, he is tolerating admission in the room, yesterday his chest x-ray showed improving bilateral lung infiltrates. The patient is seen today 12/25/2017 in follow-up on the regular medical floor. He is currently sitting up in a chair at the bedside. He is awake and alert in no acute distress. He is down to 4 L/m per nasal cannula to maintain O2 saturations in the 90s. He has been afebrile. Hemodynamically stable. Sputum is positive for MRSA. Blood reveals no growth. Urine reveals no growth. He is currently on Bactrim and ceftriaxone. He is continued on DuoNeb inhalations , IV Solu-Medrol, oral Lasix. Continues with crackles in the left midlung, faint bibasilar. On 12/26/2018 patient seen in follow-up on medical surgical floor. he continues to improve, he is walking in his room, currently on 6 L per nasal cannula, his pulse ox is 92%, afebrile, hemodynamically stable, she is being treated for MRSA pneumonia, currently on a combination of Rocephin and Bactrim. Today's lab work has been reviewed, blood cell, 17.6, hemoglobin is 14.0, serum sodium is 134, dressed a large lites were within normal limits, BUN is 28 and creatinine is 1.18. Patient is improving. Some increased lower extremity swelling noted on the right, we'll obtain a venous Doppler ultrasound of the right lower extremity. On 12/19/2018 patient seen in follow-up on medical surgical floor. Is awake and alert, distress, he continues on 6 L per nasal cannula his pulse ox is around 90-91%, he is afebrile, hemodynamically stable, lung sounds are diminished, with a few rales at the left base, yesterday's follow-up chest x- ray has been reviewed by Dr. Capps and showed evidently it hemidiaphragm with persistent left basilar acute infiltrate, able in appearance, and improving right basilar linear atelectasis. DVT of the right lower extremity was ruled out, but there was incidental finding of the popliteal cyst for which orthopedic consultation was obtained. Patient is on antibiotic coverage that includes Rocephin and doxycycline, for MRSA pneumonia, clinically he is stable, he is on IV steroids, and nebulized bronchodilators and oral Lasix. We will encourage deep breathing and coughing, and we'll try to wean the oxygen down On 12/28/2018 seen in follow-up on medical surgical floor. he remains on 6 L per nasal cannula, his pulse ox is 94%, FiO2 has been dropped down to 3, and patient is maintaining his O2 saturations, currently at 92%, will recheck his pulse ox in half an hour. He'll has exertional dyspnea, at times patient removed his oxygen and goes walking in the hallway, and becomes significantly exerted short of breath, but no worsening shortness of breath, lung sounds are diminished, with the same wheezes and rhonchi, but not significantly more congested or wheezy compared to yesterday's exam, no fever or chills. He has 2 + lower extremity edema, and the knee-high KALEB stockings are too tight, we'll have to Perry wrap his legs. He was seen by orthopedic surgery consultation in regards to his right knee popliteal cyst, please refer to the consultation note. No fever no chills, no worsening cough or chest congestion, patient is ambulating, tolerating activity fairly well, and antibiotic coverage with Rocephin and doxycycline. He appears to be stable, we will continue to wean Fio2 The patient is seen again today 12/29/2017 in follow-up on the regular medical floor. He is currently sitting up at the bedside. Awake and alert in no acute distress. He denies any worsening shortness of breath, cough or congestion. He is still not quite back to his baseline. He is maintaining concerned is that of continued lower extremity edema. Blood culture shows no growth. Sputum culture positive for MRSA. Urine culture reveals no growth. White count 14.3. Hemoglobin 13.4. Creatinine 1.23. He is continued on DuoNeb inhalations, IV Solu-Medrol. Antibiotics in the form of ceftriaxone and doxycycline. On 12/30/2018 and seeing this patient for a follow-up. Overnight the patient became slightly delirious. This morning he is more comfortable. No significant respiratory distress. Cough is congested. No 70 sputum production. No chest pain. No pleurisy. He received IV Lasix yesterday and the patient is producing significant amount of urine output which made him uncomfortable and he was switched to oral Lasix. IV Solu Medrol be also discontinued and the patient was started on a prednisone burst taper. Objective - Vital Signs Vital signs: Vital Signs Temp 97.0 F L 12/30/18 13:57 Pulse 82 12/30/18 13:57 Resp 20 12/30/18 13:57 BP 119/72 12/30/18 13:57 Pulse Ox 92 L 12/30/18 13:57 Intake & Output 12/29/18 12/30/18 12/30/18 18:59 06:59 18:59 Output Total 900 Balance -900 Output: Urine 900 Other: Voiding Method Bedside Commode Urinal Diaper Incontinent # Voids 3 2 3 # Bowel Movements 1 1 - Exam GENERAL EXAM: Morbidly obese. Alert, active, comfortable in no apparent distress. On 3 L nasal cannula. HEAD: Normocephalic. EYES: Normal reaction of pupils, equal size. NOSE: Clear with pink turbinates. THROAT: No erythema or exudates. NECK: No masses, no JVD. CHEST: No chest wall deformity. LUNGS: Equal air entry with basilar crackles, wheeze, diminished. CVS: S1 and S2 normal with no audible murmur, regular rhythm. ABDOMEN: No hepatosplenomegaly, normal bowel sounds, no guarding or rigidity. SPINE: No scoliosis or deformity SKIN: No rashes CENTRAL NERVOUS SYSTEM: No focal deficits, tone is normal in all 4 extremities. EXTREMITIES: There is no peripheral edema. No clubbing, no cyanosis. Peripheral pulses are intact. - Labs CBC & Chem 7: 12/30/18 08:19 12/30/18 08:19 Labs: Abnormal Lab Results - Last 24 Hours (Table) 12/29/18 12/29/18 12/30/18 Range/Units 16:44 20:54 06:51 WBC (3.8-10.6) k/uL RBC (4.30-5.90) m/uL MCV (80.0-100.0) fL Plt Count (150-450) k/uL Neutrophils # (1.3-7.7) k/uL Lymphocytes # (1.0-4.8) k/uL Sodium (137-145) mmol/L BUN (9-20) mg/dL Glucose (74-99) mg/dL POC Glucose (mg/dL) 192 H 209 H 181 H (75-99) mg/dL 12/30/18 12/30/18 12/30/18 Range/Units 08:19 08:19 12:19 WBC 12.0 H (3.8-10.6) k/uL RBC 3.85 L (4.30-5.90) m/uL MCV 108.0 H (80.0-100.0) fL Plt Count 84 L (150-450) k/uL Neutrophils # 11.0 H (1.3-7.7) k/uL Lymphocytes # 0.2 L (1.0-4.8) k/uL Sodium 135 L (137-145) mmol/L BUN 35 H (9-20) mg/dL Glucose 188 H (74-99) mg/dL POC Glucose (mg/dL) 185 H (75-99) mg/dL Assessment and Plan Plan: Assessment 1 acute pneumonia, likely Staph pneumonia knowing that the patient has grown MRSA in his sputum. Currently on Bactrim. Chest x-ray showing improvement in the pulmonary infiltrates on today's evaluation. Nevertheless, the patient may short of breath and his COPD still exacerbating. 2 shortness of breath and cough and chest congestion secondary to above 3 acute hypoxic respiratory failure secondary to above 4 chronic smoker 5 liver cirrhosis, likely alcoholic in nature along with secondary portal hypertension 6 history of hepatitis C 7 previous history of GI bleed 8 coronary artery disease 9 hypertension 10 lower extremity edema 11 increased lower extremity swelling Plan Start the patient prednisone burst taper and this time that he Solu-Medrol. Start the patient on Lasix and continued IV Lasix. Continue doxycycline. Wean down the FiO2 as tolerated and currently the patient liters of oxygen nasal cannula. We'll continue to follow.
[2018-12-30] MEDS: FUROSEMIDE 40 MG TAB PO SCH (16:18)
[2018-12-30 17:35] LABS: Glucose,Whole Blood 155 mg/dL (75-99)
[2018-12-30 20:54] LABS: Glucose,Whole Blood 254 mg/dL (75-99)
[2018-12-30] MEDS: BENZOCAINE/MENTHOL LOZENG 1 EACH LOZENGE MUCOUS MEM PRN (21:18)
[2018-12-31] MEDS: ALPRAZolam 0.5 MG TAB PO SCH ×2 (01:25→07:53)
[2018-12-31] MEDS: IPRATROPIUM-ALBUTEROL 3 ML NEB INHALATION SCH ×3 (03:23→11:33)
[2018-12-31 06:17] VITALS: BP 125/85; TEMP 97.1
[2018-12-31 06:48] LABS: Glucose,Whole Blood 171 mg/dL (75-99)
[2018-12-31] MEDS: INSULIN ASPART (NovoLOG) 100 UNIT/ML VIAL SQ SCH ×2 (07:50→12:57)
[2018-12-31 07:51] VITALS: PULSE 80
[2018-12-31] MEDS: THIAMINE 100 MG TAB PO SCH (07:51)
[2018-12-31] MEDS: LACTULOSE 20 GM/30 ML CUP PO SCH (07:51)
[2018-12-31] MEDS: HEPARIN SODIUM,PORCINE 5,000 UNIT/ML 1 ML VIAL SQ SCH (07:51)
[2018-12-31] MEDS: buPROPion XL 300 MG TAB.ER.24H PO SCH (07:52)
[2018-12-31] MEDS: FAMOTIDINE 20 MG TAB PO SCH (07:52)
[2018-12-31] MEDS: PROPRANOLOL 10 MG TAB PO SCH (07:52)
[2018-12-31] MEDS: valACYclovir HCL 1,000 MG TABLET PO SCH (07:53)
[2018-12-31] MEDS: MAGNESIUM OXIDE 400 MG TAB PO SCH (07:53)
[2018-12-31] MEDS: SPIRONOLACTONE 25 MG TAB PO SCH (07:53)
[2018-12-31] MEDS: HYDROcodone/APAP 10-325MG 1 EACH TAB PO SCH ×2 (07:53→14:19)
[2018-12-31] MEDS: FUROSEMIDE 40 MG TAB PO SCH (07:53)
[2018-12-31] MEDS: PANTOPRAZOLE 40 MG TABLET PO SCH (07:53)
[2018-12-31] MEDS: predniSONE 20 MG TAB PO SCH (07:53)
[2018-12-31] MEDS: FLUTICASONE 50MCG/SPRAY NASAL 16GM EA NOSTRIL SCH (07:54)
[2018-12-31 08:38] VITALS: RESP 18
[2018-12-31] MEDS: DOXYCYCLINE 100 MG in SODIUM CHLORIDE 0.9% 100 ML IVPB SCH (08:52)
[2018-12-31] MEDS ORDERED: DOXYCYCLINE 100 MG CAP PO SCH (09:15)
[2018-12-31 11:01] LABS: Basophils % (A) 0 %; Eosinophils # (A) 0.1 k/uL (0-0.7); Eosinophils % (A) 1 %; HGB 13.3 gm/dL (13.0-17.5); Hypochromasia Slight; Lymphocytes # (A) 0.4 k/uL (1.0-4.8); Lymphocytes % (A) 3 %; MCH 33.9 pg (25.0-35.0); MCV 109.2 fL (80.0-100.0); Macrocytosis Marked; Mean Platelet Volume 8.6; Monocytes # (A) 1.6 k/uL (0-1.0); Monocytes % (A) 10 %; Neutrophils # (A) 13.8 k/uL (1.3-7.7); Neutrophils % (A) 84 %; Platelet Count 101 k/uL (150-450); RBC 3.94 m/uL (4.30-5.90); RDW 14.9 % (11.5-15.5); WBC 16.4 k/uL (3.8-10.6)
[2018-12-31 11:12] LABS: Anion Gap 7 mmol/L; Blood Urea Nitrogen 27 mg/dL (9-20); Calcium 8.3 mg/dL (8.4-10.2); Carbon Dioxide 28 mmol/L (22-30); Chloride 100 mmol/L (98-107); Glucose 185 mg/dL (74-99); Potassium 3.7 mmol/L (3.5-5.1); Sodium 135 mmol/L (137-145)
--- NOTE | 2018-12-31 11:22 | P.DS ---
Providers Date of admission: 12/20/18 15:34 Expected date of discharge: 12/31/18 Attending physician: MD Dr. Eladia Garza Consults: 12/20/18 20:32 Consult Physician Routine Consulting Provider: Nikhil Capps Consult Reason/Comments: Pneumonia Do you want consulting provider notified?: Yes 12/27/18 10:41 Consult Physician Routine Consulting Provider: Rush Gomez Consult Reason/Comments: popliteal cyst Do you want consulting provider notified?: Yes Primary care physician: Omar Tse Hospital Course: Final Diagnoses: acute hypoxic and hypercapnic resp failure seondary to MRSA pneumonia and COPD exacerbation, possible pneumococcal pneumonia. Bilateral interstitial pneumonia, more stable infiltrated on the left, community acquired , sputum is growing MRSA -COPD with acute exacerbation Right popliteal complex cyst current cigarette smoker history of GI bleed GERD Hospital course:58 yo M with pmh of coronary artery disease , hypertension ,GERD , and GI bleed, who presents with s/s of resp distress, 2-3 week ago he was complaining from common cold, although he sought medical attension at that time he kept getting worse, he comes with worsening dyspnea, coughing up yellow phlegm, will some blood in it, of moderate amount as per pt, he is current smoke but did not say how much exactly he smokes, he says not a lot. pt is with no chest pain except when he cough on the sides of the lower chest . he was desaturating his oxygen down to 88% , and 93% on 3 L oxygen via Nasal cannula. he has mild leukocytosis of 13.7 K, his creatinine level is in normal limits . his sputum culture was sent and is pending , his chest xray : interstitial lung disease suspicious for pneumonia. pt was started on antibiotic and iv fluids and admitted to the general medical floor. influenza was checked and came back negative. Subjective 12/25/2018 Patient today he remains active dyspneic and he needs 6 L of oxygen via NC. MRSA has been growing in his sputum he has still a mild leukocytosis of 12.1 K. Sodium 135, creatinine 0.8. Influenza is negative. Repeat chest x-ray showing stable left lung infiltrate. Pulmonary critical care team are following the patient and they think he is improving slowly and gradually 12/26/2018 Patient is alert better, with less dyspnea however he still on oxygen at 5 L/m via nasal cannula. No chest pain still having with yellow-brown sputum. Patient is able to move around with no difficulty for short distance. His leukocytosis 17.6 K. Sodium 134, creatinine 1.1. Sugar controlled has Doppler of his right lower extremity which shows no DVT however complex cyst in the popliteal fossa. Call surgical consult 12/27/2018 pt is still dyspneic on 6 L oxygen via Nasal cannula. no chest pain ,however today he starts complaining to me from right foot pain and swelling , his whole lower extremity is swollen on both sides , although he is a little more swollen on the right than the left, pt denies trauma. pt has Doppler study to rule out DVT which was negative in his right lower extremity however it shows complex popliteal cyst. Surgical consult is called in their input is appreciated and the recommended no surgical intervention needed. Otherwise to call orthopedic consults who are going to evaluated the patient. His creatinine went up a little bit today from 1.1 to 1.3. His already on Bactrim from 12/22/2018, will DC Bactrim for MRSA in his sputum and start him on doxycycline.pt was anxious too and xanax helped him last night , pulmonary team are following the patient. Repeat chest x-ray showing persistent left basilar acute infiltrate or atelectasis which is a stable and improving right basilar atelectasis. HASMUKH Waldron for C. diff protocol. We will increase his pain medication from Harbeson 10 -325 mg from 3 times a day up to 4 times a day. 12/28/18 pt is imprving significantly today , he is out of bed and standing more comfortable in the room . less dyspneic, pt oxygen is lowered to 3 L , tolerating that well. pt is on doxycycline, wilber wrap for his legs. 12/29/2018 pt is awake and orient [place] III. Patient is still have some dyspnea and he needs oxygen 2 L. Patient is fluid overloaded and his legs are swollen significantly bilaterally. Patient on Lasix 40 mg twice a day. He is a bit anxious on Xanax when necessary. Patient is counseled. Continue on doxycycline. His creatinine improved down to within normal limits at 1.2. His WBC is 14.3 K 12/30/2018 Patient was bit agitated lasted because of which patient has a sitter now which will this can you patient is presently pleasant is following the recommendations does have MRSA in the sputum for which patient is on doxycycline patient is also on Rocephin at this time. Patient probably can be discharged tomorrow patient is still requiring oxygen still wheezing on exam hopefully will not require any oxygen by tomorrow. 12/31/2018 maintained on antibiotics, converted to oral as patient has lost IV access. oxygen weaned off currently maintaining O2 sat on low 90s on room air. Cleared by pulmonary for discharge. Per pulmonary patient should have nebulized treatments at discharge. Nebulizer being arranged per case management. Significant clinical improvement. Patient is being discharged home in a stable condition with guarded prognosis. - Exam GENERAL: alert and oriented x3, not in any acute distress. Well developed, well nourished. HEENT: Pupils are round and equally reacting to light. EOMI. No scleral icterus. No conjunctival pallor. Normocephalic, atraumatic. CARDIOVASCULAR: S1 and S2 present. No murmurs, rubs, or gallops. -PULMONARY: Bilateral bases diminished ,no rhonchi,no crackles. No wheezing ABDOMEN: Soft, nontender, nondistended, normoactive bowel sounds. No palpable organomegaly. NEUROLOGICAL: Gross neurological examination did not reveal any focal deficits. Microbiology 12/20/18 13:20 Blood Blood Culture - Final No Growth after 144 hours 12/20/18 19:00 Sputum Gram Stain - Final 12/20/18 19:00 Sputum Sputum Culture - Final Methicillin resist S. aureus 12/20/18 19:48 Urine,Voided Urine Culture - Final The impression and plan of care has been dictated as directed. : I performed a history and examination of this patient, discussed the same with the dictator. I agree with the dictator's note ,documented as a scribe. Any additional findings or plans will be noted. Time taken: 35 minutes Patient Condition at Discharge: Stable Plan - Discharge Summary Discharge Rx Participant: No New Discharge Prescriptions: New Cefuroxime Axetil [Ceftin] 500 mg PO BID #8 tab Doxycycline [Vibramycin] 100 mg PO BID #8 cap Ipratropium-Albuterol Nebulize [Duoneb 0.5 mg-3 mg/3 ml Soln] 3 ml INHALATION QID #120 ampul.neb Lactulose [Cephulac] 20 gm PO DAILY #300 ml predniSONE 10 mg PO DIRECTED #30 tab Continue Furosemide 40 mg PO BID buPROPion XL [Wellbutrin XL] 300 mg PO QAM Omeprazole [PriLOSEC] 20 mg PO DAILY Ranitidine HCl [Zantac] 150 mg PO BID Magnesium 300 mg PO DAILY Propranolol [Inderal] 10 mg PO BID Spironolactone [Aldactone] 50 mg PO BID Fluticasone Nasal Pyote [Flonase Nasal Pyote] 1 spray EA NOSTRIL DAILY HYDROcodone/APAP 10-325MG [Harbes[place] 10-325] 1 tab PO DAILY PRN PRN Reason: Pain valACYclovir HCL [Valtrex] 1,000 mg PO DAILY Thiamine [Vitamin B-1] 100 mg PO DAILY Folic Acid 1 mg PO DAILY Benzocaine/Menthol Lozeng [Cepacol lozenge] 1 lozenge MUCOUS MEM BID PRN PRN Reason: SORE THROAT/MOUTH Clotrimazole/Betameth Cream [Lotrisone] 1 applic TOPICAL BID Ondansetron Odt [Zofran ODT] 8 mg PO Q8HR PRN PRN Reason: Nausea Discharge Medication List Furosemide 40 mg PO BID 03/07/16 [History] Omeprazole [PriLOSEC] 20 mg PO DAILY 09/13/17 [History] buPROPion XL [Wellbutrin XL] 300 mg PO QAM 09/13/17 [History] Ranitidine HCl [Zantac] 150 mg PO BID 11/29/17 [History] Fluticasone Nasal Pyote [Flonase Nasal Pyote] 1 spray EA NOSTRIL DAILY 12/04/17 [History] Magnesium 300 mg PO DAILY 12/04/17 [History] Propranolol [Inderal] 10 mg PO BID 12/04/17 [History] Spironolactone [Aldactone] 50 mg PO BID 12/04/17 [History] HYDROcodone/APAP 10-325MG [[place] 10-325] 1 tab PO DAILY PRN 05/14/18 [History] Benzocaine/Menthol Lozeng [Cepacol lozenge] 1 lozenge MUCOUS MEM BID PRN [History] Clotrimazole/Betameth Cream [Lotrisone] 1 applic TOPICAL BID 12/07/18 [History] Folic Acid 1 mg PO DAILY 12/07/18 [History] Ondansetron Odt [Zofran ODT] 8 mg PO Q8HR PRN 12/07/18 [History] Thiamine [Vitamin B-1] 100 mg PO DAILY 12/07/18 [History] valACYclovir HCL [Valtrex] 1,000 mg PO DAILY 12/07/18 [History] Cefuroxime Axetil [Ceftin] 500 mg PO BID #8 tab 12/31/18 [Rx] Doxycycline [Vibramycin] 100 mg PO BID #8 cap 12/31/18 [Rx] Ipratropium-Albuterol Nebulize [Duoneb 0.5 mg-3 mg/3 ml Soln] 3 ml INHALATION QID #120 ampul.neb 12/31/18 [Rx] Lactulose [Cephulac] 20 gm PO DAILY #300 ml 12/31/18 [Rx] predniSONE 10 mg PO DIRECTED #30 tab 12/31/18 [Rx] Follow up Appointment(s)/Referral(s): [facility], [NON-STAFF] - Omar Tse MD [Primary Care Provider] - 01/03/19 8:00 am Nikhil Capps MD [STAFF PHYSICIAN] - 01/11/19 10:30 am Don Li MD [STAFF PHYSICIAN] - 2 Weeks Patient Instructions/Handouts: How to Stop Smoking (DC), Pneumonia (DC) Activity/Diet/Wound Care/Special Instructions: Maintaining O2 sats low 90s on room air after ambulation.
[2018-12-31 11:52] LABS: Poikilocytosis (M) Present
[2018-12-31 12:01] LABS: Glucose,Whole Blood 175 mg/dL (75-99)
--- NOTE | 2018-12-31 12:53 | P.PN ---
Subjective Progress Note Date: 12/31/18 Principal diagnosis: Acute pneumonia, related to MRSA infection, likely healthcare acquired A 58-year-old male patient with chronic liver failure secondary to alcoholism and the patient has liver cirrhosis and portal hypertension and previous bouts of GI bleeding. The patient is also known to have coronary artery disease, COPD , hypertension and hepatitis C. There is also vague history of hemachromatosis which does not seem to be a true diagnosis or to confirm diagnosis based on my chart review. The patient came into the hospital because of worsening shortness of breath. The patient some cough and congestion chest tightness and wheeze. He was coughing out some yellowish sputum. No pleurisy. No hemoptysis. Is a chronic smoker. He has no angina. No altered mentation. Pulse ox was down to 88% on room air and is currently on 93-94% of these of oxygen by nasal cannula. White cell count is at 13.7 and the rest of the blood work electrolytes were within normal limits. Chest x-ray showed and position changes with some patchy airspace disease more so in the mid and lower lungs bilaterally. The patient is currently on a combination of Rocephin and Zithromax. Sputum cultures been sent. Blood cultures been sent. He is hemodynamically stable. Producing adequate amount of urine output. His influenza screen was negative. The patient is seen today 12/22/2018 in follow-up on the regular medical floor. He is currently sitting up in a chair at the bedside awake and alert in no acute distress. He did have desaturations in the 80s on room air. He is currently maintaining O2 saturations in the 90s on 3 L/m per nasal cannula. Breathing easier today as compared to yesterday. Loose nonproductive cough. Preliminary sputum cultures positive for presumptive staph aureus. Blood culture reveals no growth. Urine culture no growth. White count 12.5. Hemoglobin 12.8. Creatinine 0.94. He is currently on ceftriaxone and azithromycin. He remains on bronchodilators and IV Solu-Medrol. On today's evaluation of 12/23/2018, the patient is still bronchus spastic wheezy and short of breath. The patient was found to have MRSA in his sputum Gram stain and culture. Bactrim was added. He is afebrile. He is hemodynamically stable. He is White cell count is 12.1. His chest x-ray showed improvement in the bilateral lung infiltrate. Right midlung streaky opacity was seen which is probably an area of atelectasis. Is also mild left lower lobe infiltrates present. Otherwise, the patient is stable. Is tolerating his diet. He is on DuoNeb nebulized treatments around the clock. He is on Zithromax and Bactrim. He is also on IV Solu-Medrol for 10 mg every 12 hours. He is on Robitussin-DM for cough and congestion. On 12/24/2018 patient seen in follow-up on medical surgical floor. He is resting comfortably in bed, in no acute distress, she is on 36 L per nasal cannula his pulse ox is 91%, no fever or chills, hemodynamically stable, no specific complaints today, no worsening dyspnea, today's labs have been reviewed , white blood cell, of 12.1, hemoglobin is 12.5, sodium is 135, depressive electrolytes and renal profile were unremarkable, microbiology showed MRSA in the sputum, blood and urine cultures are negative. Patient is on a combination of Rocephin and Bactrim DS. Patient is improving, he is tolerating admission in the room, yesterday his chest x-ray showed improving bilateral lung infiltrates. On 12/26/2018 patient seen in follow-up on medical surgical floor. he continues to improve, he is walking in his room, currently on 6 L per nasal cannula, his pulse ox is 92%, afebrile, hemodynamically stable, she is being treated for MRSA pneumonia, currently on a combination of Rocephin and Bactrim. Today's lab work has been reviewed, blood cell, 17.6, hemoglobin is 14.0, serum sodium is 134, dressed a large lites were within normal limits, BUN is 28 and creatinine is 1.18. Patient is improving. Some increased lower extremity swelling noted on the right, we'll obtain a venous Doppler ultrasound of the right lower extremity. On 12/19/2018 patient seen in follow-up on medical surgical floor. Is awake and alert, distress, he continues on 6 L per nasal cannula his pulse ox is around 90-91%, he is afebrile, hemodynamically stable, lung sounds are diminished, with a few rales at the left base, yesterday's follow-up chest x- ray has been reviewed by Dr. Capps and showed evidently it hemidiaphragm with persistent left basilar acute infiltrate, able in appearance, and improving right basilar linear atelectasis. DVT of the right lower extremity was ruled out, but there was incidental finding of the popliteal cyst for which orthopedic consultation was obtained. Patient is on antibiotic coverage that includes Rocephin and doxycycline, for MRSA pneumonia, clinically he is stable, he is on IV steroids, and nebulized bronchodilators and oral Lasix. We will encourage deep breathing and coughing, and we'll try to wean the oxygen down On 12/28/2018 seen in follow-up on medical surgical floor. he remains on 6 L per nasal cannula, his pulse ox is 94%, FiO2 has been dropped down to 3, and patient is maintaining his O2 saturations, currently at 92%, will recheck his pulse ox in half an hour. He'll has exertional dyspnea, at times patient removed his oxygen and goes walking in the hallway, and becomes significantly exerted short of breath, but no worsening shortness of breath, lung sounds are diminished, with the same wheezes and rhonchi, but not significantly more congested or wheezy compared to yesterday's exam, no fever or chills. He has 2 + lower extremity edema, and the knee-high KALEB stockings are too tight, we'll have to Perry wrap his legs. He was seen by orthopedic surgery consultation in regards to his right knee popliteal cyst, please refer to the consultation note. No fever no chills, no worsening cough or chest congestion, patient is ambulating, tolerating activity fairly well, and antibiotic coverage with Rocephin and doxycycline. He appears to be stable, we will continue to wean Fio2 On 12/31/2018 patient seen in follow-up on medical surgical floor. He is awake and alert, in no acute distress, currently on room air with a pulse ox of 93%, home oxygen assessment revealed O2 sat of 95% after ambulation, room air pulse ox at rest was 96%, and pulse ox with walking was 90%, no fever or chills, hemodynamically stable, there is no dyspnea is improved, much less short of breath and congested, and has been treated for MRSA pneumonia, current antibiotic coverage includes Omnicef and oral doxycycline. The patient continues to improve, lung sounds reveal equal air entry bilaterally with the a few bibasilar crackles. Overall much less bronchospastic compared to previous exams, today's labs showed white blood cell count of 16.4, hemoglobin of 13.3, serum sodium of 135, the rest of electrolytes were within normal limits, BUN is 27 creatinine is 1.05 Objective - Vital Signs Vital signs: Vital Signs Temp 97.1 F L 12/31/18 06:15 Pulse 80 12/31/18 11:44 Resp 18 12/31/18 08:00 BP 125/85 12/31/18 06:15 Pulse Ox 96 12/31/18 09:05 Intake & Output 12/30/18 12/31/18 12/31/18 18:59 06:59 18:59 Other: Voiding Method Bedside Commode Urinal Diaper Incontinent # Voids 3 2 # Bowel Movements 1 0 - Exam GENERAL EXAM: Alert, active, comfortable in no apparent distress. Patient is currently on room air with a pulse ox of 93% HEAD: Normocephalic/atraumatic. EYES: Normal reaction of pupils, equal size. Conjunctiva pink, sclera white. NOSE: Clear with pink turbinates. THROAT: No erythema or exudates. NECK: No masses, no JVD, no thyroid enlargement, no adenopathy. CHEST: No chest wall deformity. Symmetrical expansion. LUNGS: Equal air entry with bibasilar crackles, diminished breath sounds CVS: Regular rate and rhythm, normal S1 and S2, no gallops, no murmurs, no rubs ABDOMEN: Soft, nontender. No hepatosplenomegaly, normal bowel sounds, no guarding or rigidity. EXTREMITIES: No clubbing, no edema, no cyanosis, 2+ pulses and upper and lower extremities. MUSCULOSKELETAL: Muscle strength and tone normal. SPINE: No scoliosis or deformity SKIN: No rashes CENTRAL NERVOUS SYSTEM: Alert and oriented -3. No focal deficits, tone is normal in all 4 extremities. PSYCHIATRIC: Alert and oriented -3. Appropriate affect. Intact judgment and insight. - Labs CBC & Chem 7: 12/31/18 10:20 12/31/18 10:20 Labs: Abnormal Lab Results - Last 24 Hours (Table) 12/30/18 12/30/18 12/31/18 Range/Units 17:33 20:53 06:47 WBC (3.8-10.6) k/uL RBC (4.30-5.90) m/uL MCV (80.0-100.0) fL Plt Count (150-450) k/uL Neutrophils # (1.3-7.7) k/uL Lymphocytes # (1.0-4.8) k/uL Monocytes # (0-1.0) k/uL Sodium (137-145) mmol/L BUN (9-20) mg/dL Glucose (74-99) mg/dL POC Glucose (mg/dL) 155 H 254 H 171 H (75-99) mg/dL Calcium (8.4-10.2) mg/dL 12/31/18 12/31/18 12/31/18 Range/Units 10:20 10:20 11:59 WBC 16.4 H (3.8-10.6) k/uL RBC 3.94 L (4.30-5.90) m/uL MCV 109.2 H (80.0-100.0) fL Plt Count 101 L (150-450) k/uL Neutrophils # 13.8 H (1.3-7.7) k/uL Lymphocytes # 0.4 L (1.0-4.8) k/uL Monocytes # 1.6 H (0-1.0) k/uL Sodium 135 L (137-145) mmol/L BUN 27 H (9-20) mg/dL Glucose 185 H (74-99) mg/dL POC Glucose (mg/dL) 175 H (75-99) mg/dL Calcium 8.3 L (8.4-10.2) mg/dL Assessment and Plan Assessment: 1 acute pneumonia, likely healthcare pneumonia knowing that the patient has grown MRSA in his sputum. Initially treated with Bactrim, current antibiotic coverage includes Omnicef and doxycycline. Chest x-ray showing improvement in the pulmonary infiltrates. 2 shortness of breath and cough and chest congestion secondary to above, improved 3 acute hypoxic respiratory failure secondary to above, resolved 4 chronic smoker 5 liver cirrhosis, likely alcoholic in nature along with secondary portal hypertension 6 history of hepatitis C 7 previous history of GI bleed 8 coronary artery disease 9 hypertension 10 popliteal cyst in the right lower extremity Plan: Patient is doing well, continues to improve clinically, off the oxygen, maintaining good O2 saturations, home oxygen assessment did not qualify patient for home oxygen, afebrile, patient has been treated for MRSA pneumonia, current antibiotic coverage with Omnicef and doxycycline, vital signs are stable, no fever or chills, tolerating ambulation, from pulmonary perspective patient is stable for discharge home today, bony follow-up appointment with Dr. Varghese in the office in 7-10 days. I performed a history & physical examination of the patient and discussed their management with my nurse practitioner, Vicenta Salamanac. I reviewed the nurse practitioner's note and agree with the documented findings and plan of care. Lung sounds are positive for minimal, bibasilar crackles. The findings and the impression was discussed with the patient. I attest to the documentation by the nurse practitioner. Time with Patient: Less than 30
[2018-12-31] MEDS: FOLIC ACID 1 MG TAB PO SCH (12:57)
[2018-12-31] MEDS ORDERED: CEFDINIR 300 MG CAP PO SCH (21:00)
== END 2018-12-31 14:19 | disposition home health service (06) | DRG 177 ==
LOC: EC 12:59 → 4MS4W 15:34
PROVIDERS: ADMIT Internal Medicine; ATTEND Internal Medicine
DX: J15.212 Pneumonia due to Methicillin resistant Staphylococcus aureus (principal); J96.01 Acute respiratory failure with hypoxia; J96.02 Acute respiratory failure with hypercapnia; J44.0 Chronic obstructive pulmonary disease with (acute) lower respiratory infection; J44.1 Chronic obstructive pulmonary disease with (acute) exacerbation; K76.6 Portal hypertension; J98.11 Atelectasis; J84.9 Interstitial pulmonary disease, unspecified; D53.1 Other megaloblastic anemias, not elsewhere classified; E87.70 Fluid overload, unspecified; E66.01 Morbid (severe) obesity due to excess calories; K70.30 Alcoholic cirrhosis of liver without ascites; K72.10 Chronic hepatic failure without coma; F10.20 Alcohol dependence, uncomplicated; I10 Essential (primary) hypertension; I25.10 Atherosclerotic heart disease of native coronary artery without angina pectoris; K21.9 Gastro-esophageal reflux disease without esophagitis; B19.20 Unspecified viral hepatitis C without hepatic coma; K40.90 Unilateral inguinal hernia, without obstruction or gangrene, not specified as recurrent; M71.21 Synovial cyst of popliteal space [Baker], right knee; H66.90 Otitis media, unspecified, unspecified ear; M25.571 Pain in right ankle and joints of right foot; K59.00 Constipation, unspecified; H40.9 Unspecified glaucoma; Z68.31 Body mass index [BMI] 31.0-31.9, adult; F17.210 Nicotine dependence, cigarettes, uncomplicated; Z71.6 Tobacco abuse counseling; Z79.899 Other long term (current) drug therapy; Z71.3 Dietary counseling and surveillance; Z87.81 Personal history of (healed) traumatic fracture; Z86.19 Personal history of other infectious and parasitic diseases; Z87.19 Personal history of other diseases of the digestive system; Z81.1 Family history of alcohol abuse and dependence; Z80.9 Family history of malignant neoplasm, unspecified
CPT/HCPCS: 36415; 71046; 80048; 80053; 81001; 82140; 82330; 83605; 83735; 83880; 84484; 85025; 87040; 87070; 87077; 87086; 87186; 87205; 87502; 93005; 94640; 94760; 96365; 96367; 99285

== ENCOUNTER 2019-01-13 17:11 | Inpatient (IN) | payer OTHER ==
[2019-01-13] MEDS ORDERED: ONDANSETRON 4 MG/2 ML VIAL IVP STA (18:08)
[2019-01-13] MEDS ORDERED: HYDROmorphone 2 MG/ML 1 ML SYRINGE IVP STA ×2 (18:08→21:13)
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
[2019-01-13 18:47] LABS: ALT 50 U/L (21-72); AST 48 U/L (17-59); Albumin 3.1 g/dL (3.5-5.0); Alkaline Phosphatase 223 U/L (38-126); Anion Gap 10 mmol/L; Blood Urea Nitrogen 16 mg/dL (9-20); Carbon Dioxide 22 mmol/L (22-30); Chloride 104 mmol/L (98-107); Glucose 151 mg/dL (74-99); Potassium 4.7 mmol/L (3.5-5.1); Sodium 136 mmol/L (137-145); Total Bilirubin 3.1 mg/dL (0.2-1.3)
[2019-01-13 18:54] LABS: Anisocytosis Slight; Basophils % (A) 0 %; Eosinophils # (A) 0.1 k/uL (0-0.7); Eosinophils % (A) 1 %; HCT 43.1 % (39.0-53.0); HGB 13.6 gm/dL (13.0-17.5); Lymphocytes # (A) 0.3 k/uL (1.0-4.8); Lymphocytes % (A) 3 %; MCH 34.6 pg (25.0-35.0); MCHC 31.6 g/dL (31.0-37.0); MCV 109.3 fL (80.0-100.0); Macrocytosis Marked; Mean Platelet Volume 8.7; Monocytes # (A) 0.8 k/uL (0-1.0); Monocytes % (A) 8 %; Neutrophils # (A) 8.6 k/uL (1.3-7.7); Neutrophils % (A) 86 %; RBC 3.95 m/uL (4.30-5.90); RDW 16.5 % (11.5-15.5)
[2019-01-13 18:55] LABS: INR 1.2 (<1.2); Prothrombin Time 12.2 sec (9.0-12.0)
[2019-01-13 18:57] LABS: Platelet Count 64 k/uL (150-450)
--- NOTE | 2019-01-13 19:06 | XR ---
EXAMINATION TYPE: XR chest 2V DATE OF EXAM: 01/13/2019 COMPARISON: 01/11/2019 HISTORY: Short of breath TECHNIQUE: Frontal and lateral views of the chest are obtained. FINDINGS: There is some patchy atelectasis in the left lung. Right lung is fairly clear. There is no heart failure. Heart size is normal. There is no definite pleural effusion. IMPRESSION: Atelectasis at the left lower lobe unchanged. Normal heart.
[2019-01-13 19:10] LABS: Toxic Granulation Present
[2019-01-13 19:22] LABS: Partial Thromboplastin Time 21.3 sec (22.0-30.0)
[2019-01-13] MEDS ORDERED: LABETALOL SYRINGE 5 MG/ML IVP STA (21:10)
[2019-01-13] MEDS ORDERED: FUROSEMIDE 10 MG/ML 4 ML VIAL IV STA (21:10)
--- NOTE | 2019-01-13 22:17 | CT ---
EXAMINATION TYPE: CT abdomen pelvis w con DATE OF EXAM: 01/13/2019 COMPARISON: 12/29/2017 HISTORY: Generalized abdominal pain and testicle swelling. CT DLP: 2500.7 mGycm Automated exposure control for dose reduction was used. TECHNIQUE: Helical acquisition of images was performed from the lung bases through the pelvis. CONTRAST: Performed without Oral Contrast and with IV Contrast, patient injected with 100ml mL of Isovue 300. FINDINGS: There is some patchy atelectasis at the lung bases. There is large amount of ascites fluid throughout the abdomen. There is irregular liver contour related to cirrhosis. Spleen is slightly enlarged and measures 16 cm in length. There is no evidence of a gastric mass. There is no evidence of pancreatic mass. There are calcifications in the gallbladder neck. Bile ducts are not dilated. There is no adrenal mass. Kidneys show satisfactory contrast opacification. There is no hydronephrosi s. There is no retroperitoneal adenopathy. There is subcutaneous edema around the abdomen. Bladder di stends smoothly. There is right side scrotal hydrocele that measures 13 cm. There is left hip surgery noted. There is posterior fusion surgery in the lower lumbar spine. There is mild degenerative spond ylolisthesis at L4-5. There is first-degree L5-S1 spondylolisthesis. There is mild compression fractu re of L1 with 15% loss of height. There is no evidence of free air. There is no evidence of a bowel obstruction. There are dilated umbilical vessels. There is contrast opacification of the portal venous system. The re are varicose veins related to portal caval shunt or collateral flow. IMPRESSION: MASSIVE ASCITES. LARGE RIGHT SCROTAL HYDROCELE. SUBCUTANEOUS EDEMA. PORTAL VENOUS HYPERTENSION WITH VARICES. HEPATIC CIRRHOSIS. SPLENOMEGALY. CALCIFIED GALLSTONES. PATCHY ATELECTASIS AT THE LUNG BASES. ABNORMALITIES ARE MOSTLY NEW COMPARED TO OLD CT SCAN.
[2019-01-13] MEDS ORDERED: NALOXONE 0.4 MG/ML 1 ML VIAL IV PRN (23:11)
[2019-01-14] MEDS: HYDROmorphone 1 MG/ML 1 ML SYRINGE IVP PRN ×5 (00:39→19:41)
[2019-01-14] MEDS: FUROSEMIDE 10 MG/ML 4 ML VIAL IV SCH ×2 (08:40→21:50)
[2019-01-14 09:35] LABS: Albumin 3.1 g/dL (3.5-5.0); Calcium 8.8 mg/dL (8.4-10.2); Potassium 5.2 mmol/L (3.5-5.1); Total Bilirubin 3.1 mg/dL (0.2-1.3)
[2019-01-14] MEDS ORDERED: HYDROcodone/APAP 10-325MG 1 EACH TAB PO PRN (12:21)
[2019-01-14] MEDS: PANTOPRAZOLE 40 MG TABLET PO SCH (12:40)
[2019-01-14] MEDS: LACTULOSE 20 GM/30 ML CUP PO SCH (12:40)
[2019-01-14] MEDS: SPIRONOLACTONE 25 MG TAB PO SCH ×2 (12:40→21:50)
[2019-01-14] MEDS: valACYclovir HCL 1,000 MG TABLET PO SCH (12:50)
[2019-01-14] MEDS: buPROPion XL 300 MG TAB.ER.24H PO SCH (12:50)
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
[2019-01-14] MEDS: PROPRANOLOL 10 MG TAB PO SCH (22:04)
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
[2019-01-15] MEDS: HYDROmorphone 1 MG/ML 1 ML SYRINGE IVP PRN ×5 (00:20→23:16)
[2019-01-15] MEDS: valACYclovir HCL 1,000 MG TABLET PO SCH (07:18)
[2019-01-15] MEDS: THIAMINE 100 MG TAB PO SCH (07:18)
[2019-01-15] MEDS: LACTULOSE 20 GM/30 ML CUP PO SCH (07:18)
[2019-01-15] MEDS: buPROPion XL 300 MG TAB.ER.24H PO SCH (07:18)
[2019-01-15] MEDS: PROPRANOLOL 10 MG TAB PO SCH ×2 (07:18→20:08)
[2019-01-15] MEDS: MAGNESIUM OXIDE 400 MG TAB PO SCH (07:19)
[2019-01-15] MEDS: FUROSEMIDE 10 MG/ML 4 ML VIAL IV SCH ×2 (07:19→20:07)
[2019-01-15] MEDS: FOLIC ACID 1 MG TAB PO SCH (07:19)
[2019-01-15] MEDS: PANTOPRAZOLE 40 MG TABLET PO SCH (07:19)
[2019-01-15] MEDS: SPIRONOLACTONE 25 MG TAB PO SCH ×2 (07:19→20:08)
[2019-01-15 08:54] LABS: Anisocytosis Slight; Basophils % (A) 0 %; Eosinophils % (A) 0 %; HCT 43.6 % (39.0-53.0); HGB 13.6 gm/dL (13.0-17.5); Hypochromasia Slight; Lymphocytes # (A) 0.3 k/uL (1.0-4.8); Lymphocytes % (A) 3 %; MCH 35.2 pg (25.0-35.0); MCHC 31.2 g/dL (31.0-37.0); MCV 112.8 fL (80.0-100.0); Macrocytosis Marked; Mean Platelet Volume 8.2; Monocytes # (A) 1.2 k/uL (0-1.0); Monocytes % (A) 9 %; Neutrophils # (A) 11.1 k/uL (1.3-7.7); Neutrophils % (A) 86 %; RBC 3.86 m/uL (4.30-5.90); RDW 16.7 % (11.5-15.5); WBC 12.9 k/uL (3.8-10.6)
[2019-01-15 09:16] LABS: Albumin 2.9 g/dL (3.5-5.0); Calcium 8.9 mg/dL (8.4-10.2); Potassium 4.9 mmol/L (3.5-5.1); Total Bilirubin 4.7 mg/dL (0.2-1.3); Total Protein 6.7 g/dL (6.3-8.2)
[2019-01-15 09:18] LABS: Platelet Count 123 k/uL (150-450)
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
[2019-01-15] MEDS: ALBUMIN HUMAN 25% 50 ML in EMPTY BAG 1 BAG IVPB SCH ×3 (13:49→14:24)
--- NOTE | 2019-01-15 14:11 | US ---
EXAMINATION TYPE: US paracentesis abd w/image DATE OF EXAM: 01/15/2019 COMPARISON: NONE HISTORY: Ascites. PROCEDURE: Maximal barrier technique was utilized. The skin overlying a suitable pocket of fluid was localized with ultrasound and the overlying skin was prepped and draped. Ultrasound was utilized with sterile technique. Lidocaine was used for local anesthesia and a skin cal made with a scalpel. Catheter was advanced under direct ultrasound guidance into a suitable pocket of fluid and approximately 6.8 liter s of serous fluid were removed. Catheter was withdrawn and hemostasis achieved. There is no immedia te complication; the patient is discharged in stable condition. IMPRESSION: STATUS POST ULTRASOUND GUIDED PARACENTESIS FOR PALLIATION OF ASCITES. THIS PROCEDURE WA S PERFORMED BY THE UNDERSIGNED. Specimen sent for laboratory analysis.
[2019-01-15] MEDS: ONDANSETRON 4 MG/2 ML VIAL IVP PRN (17:29)
[2019-01-15] MEDS ORDERED: MAG HYDROX/AL HYDROX/SIMETH 30 ML CUP PO PRN (19:53)
[2019-01-15 21:00] LABS: Appearance,BF Hazy; Color,BF Yellow; Nucleated Cells, Body Fluid 100 /uL; RBC, Body Fluid 80 /uL
[2019-01-15 21:03] LABS: Mononuclear WBC,Body Fluid 2 %; Polynuclear WBC,Body Fluid 98 %; Total Cells Counted,Body Fluid 100
[2019-01-15] MEDS ORDERED: LORazepam 2 MG/ML INJ IV PRN (23:59)
[2019-01-16] MEDS: LORazepam 2 MG/ML INJ IV PRN (00:25)
[2019-01-16 00:30] LABS: Anisocytosis Slight; Basophils % (A) 0 %; Eosinophils # (A) 0.1 k/uL (0-0.7); Eosinophils % (A) 1 %; HCT 41.9 % (39.0-53.0); Hypochromasia Slight; Lymphocytes # (A) 0.3 k/uL (1.0-4.8); Lymphocytes % (A) 4 %; MCH 35.4 pg (25.0-35.0); MCV 114.4 fL (80.0-100.0); Macrocytosis Marked; Monocytes # (A) 0.7 k/uL (0-1.0); Monocytes % (A) 9 %; Neutrophils % (A) 84 %; Platelet Count 120 k/uL (150-450); RBC 3.66 m/uL (4.30-5.90); RDW 17.8 % (11.5-15.5); WBC 8.3 k/uL (3.8-10.6)
[2019-01-16 01:32] LABS: Polychromasia Present
[2019-01-16 01:35] LABS: Large Platelets Present; Poikilocytosis (M) Present
[2019-01-16] MEDS: LACTULOSE 20 GM/30 ML CUP PO SCH ×2 (09:34→22:03)
[2019-01-16] MEDS: FUROSEMIDE 10 MG/ML 4 ML VIAL IV SCH ×2 (09:34→22:02)
[2019-01-16] MEDS: PANTOPRAZOLE 40 MG TABLET PO SCH (09:34)
[2019-01-16] MEDS: THIAMINE 100 MG TAB PO SCH (09:34)
[2019-01-16] MEDS: FOLIC ACID 1 MG TAB PO SCH (09:34)
[2019-01-16] MEDS: MAGNESIUM OXIDE 400 MG TAB PO SCH (09:34)
[2019-01-16] MEDS: SPIRONOLACTONE 25 MG TAB PO SCH ×2 (09:34→22:03)
[2019-01-16] MEDS: valACYclovir HCL 1,000 MG TABLET PO SCH (09:35)
[2019-01-16] MEDS: PROPRANOLOL 10 MG TAB PO SCH ×2 (09:35→22:03)
[2019-01-16] MEDS: buPROPion XL 300 MG TAB.ER.24H PO SCH (09:35)
--- NOTE | 2019-01-16 12:19 | P.PN ---
Subjective Progress Note Date: 01/16/19 Principal diagnosis: Liver cirrhosis ascites Nursing reports confusion last night received Ativan. She is confused this morning following commands. Status post paracentesis 6.8 L removal. Received postprocedure albumin. No labs to review this morning. Afebrile. No bleeding per nursing. Objective - Vital Signs Vital signs: Vital Signs Temp 98.1 F 01/16/19 07:00 Pulse 85 01/16/19 07:00 Resp 20 01/16/19 07:00 BP 100/63 01/16/19 07:00 Pulse Ox 90 L 01/16/19 07:00 Intake & Output 01/15/19 01/16/19 01/16/19 18:59 06:59 18:59 Intake Total 450 Output Total 225 Balance 225 Intake: Intake, IV Titration 100 Amount Albumin Human 25% 50 ml 50 In Empty Bag 1 bag @ 200 mls/hr IVPB Q15M [facility] Rx#: [id number] cefTRIAXone 1 gm In 50 Sodium Chloride 0.9% 50 ml @ 100 mls/hr IVPB Q24H [facility] Rx#:[id number] Oral 350 Output: Urine 225 Other: Voiding Method Indwelling Catheter Indwelling Catheter Indwelling Catheter # Voids 300 - Exam General appearance: The patient is obtunded not following commands. Jaundice. HET: Head is normocephalic and atraumatic. Pupils are equal and reactive. Oropharynx is clear without lesions. Sclerae icterus. Neck: Supple without lymphadenopathy. Trachea midline. Heart: S1 S2. Regular rate and rhythm. Lungs: No crackles or wheezes are heard. Abdomen: Soft, nontender, less distended soft cellulitis to left lower quadrant stable receding for marked edges with bowel sounds. No peritoneal signs. No palpable organomegaly or masses. Extremities: Normal skin color and turgor. No cyanosis, rash, ulceration, clubbing, or edema. Radial and pedal pulses are 2/4 bilaterally. Neurological: No focal deficits. Strength and sensation are grossly intact. - Labs CBC & Chem 7: 01/15/19 23:34 01/15/19 08:29 Labs: Abnormal Lab Results - Last 24 Hours (Table) 01/15/19 Range/Units 23:34 RBC 3.66 L (4.30-5.90) m/uL MCV 114.4 H (80.0-100.0) fL MCH 35.4 H (25.0-35.0) pg RDW 17.8 H (11.5-15.5) % Plt Count 120 L (150-450) k/uL Lymphocytes # 0.3 L (1.0-4.8) k/uL Microbiology - Last 24 Hours (Table) 01/15/19 12:01 Gram Stain - Preliminary Paracentesis Fluid Body Fluid Culture - Preliminary 01/15/19 12:01 Anaerobic Culture - Preliminary Ascites Fluid Assessment and Plan (1) Change in mental status Narrative/Plan: Possible hepatic encephalopathy cannot be excluded with a history of known liver cirrhosis. Current Visit: Yes Status: Acute Code(s): R41.82 - ALTERED MENTAL STATUS, UNSPECIFIED SNOMED Code(s): 260615282 (2) Alcoholic cirrhosis of liver with ascites Narrative/Plan: 59-year-old gentleman admitted with dyspnea and worsening abdominal ascites lower extremity edema scrotal edema with underlying hydrocele elevated liver enzymes consistent with decompensated alcohol liver cirrhosis. New development of abdominal erythema cellulitis underlying spontaneous pectoral peritonitis cannot be excluded. Current Visit: Yes Status: Acute Code(s): K70.31 - ALCOHOLIC CIRRHOSIS OF LIVER WITH ASCITES SNOMED Code(s): 367094992 (3) Cholelithiasis Current Visit: No Status: Chronic Code(s): K80.20 - CALCULUS OF GALLBLADDER W/O CHOLECYSTITIS W/O OBSTRUCTION SNOMED Code(s): 084019846 (4) Hepatitis C Current Visit: No Status: Chronic Code(s): B19.20 - UNSPECIFIED VIRAL HEPATITIS C WITHOUT HEPATIC COMA SNOMED Code(s): 84204109 (5) Portal hypertension Current Visit: No Status: Chronic Code(s): K76.6 - PORTAL HYPERTENSION SNOMED Code(s): 13152752 (6) Thrombocytopenia Current Visit: No Status: Chronic Code(s): D69.6 - THROMBOCYTOPENIA, UNSPECIFIED SNOMED Code(s): 425387186 (7) Hydrocele in adult Current Visit: Yes Status: Acute Code(s): N43.3 - HYDROCELE, UNSPECIFIED SNOMED Code(s): 11761526618502 (8) Abdominal wall cellulitis Current Visit: Yes Status: Acute Code(s): L03.311 - CELLULITIS OF ABDOMINAL WALL SNOMED Code(s): 92877279 Plan: 1. CBC CMP ammonia now. Continue IV Rocephin. Protonix 40 mg daily. AFP pending. Daily monitoring of CBC CMP PT/INR, ammonia. We'll follow with you. 2. Lasix 40 mg twice daily. Aldactone 100 mg daily. Inderal 10 mg twice daily. Assessment and plan a care discussed with Dr. Gregory
[2019-01-16 13:27] LABS: Anisocytosis Slight; Basophils % (A) 0 %; Eosinophils % (A) 0 %; HCT 40.5 % (39.0-53.0); HGB 12.7 gm/dL (13.0-17.5); Hypochromasia Slight; Lymphocytes # (A) 0.4 k/uL (1.0-4.8); Lymphocytes % (A) 4 %; MCH 36.2 pg (25.0-35.0); MCHC 31.3 g/dL (31.0-37.0); MCV 115.6 fL (80.0-100.0); Macrocytosis Marked; Mean Platelet Volume 8.3; Monocytes # (A) 1.2 k/uL (0-1.0); Monocytes % (A) 13 %; Neutrophils # (A) 7.2 k/uL (1.3-7.7); Neutrophils % (A) 79 %; Platelet Count 115 k/uL (150-450); RDW 17.9 % (11.5-15.5); WBC 9.1 k/uL (3.8-10.6)
[2019-01-16 13:30] LABS: Albumin 2.8 g/dL (3.5-5.0); Calcium 8.2 mg/dL (8.4-10.2); Potassium 5.1 mmol/L (3.5-5.1); Total Bilirubin 3.5 mg/dL (0.2-1.3); Total Protein 6.2 g/dL (6.3-8.2)
[2019-01-16 13:35] LABS: INR 1.8 (<1.2); Prothrombin Time 17.5 sec (9.0-12.0)
[2019-01-17] MEDS: FOLIC ACID 1 MG TAB PO SCH (08:57)
[2019-01-17] MEDS: THIAMINE 100 MG TAB PO SCH (08:57)
[2019-01-17] MEDS: MAGNESIUM OXIDE 400 MG TAB PO SCH (08:57)
[2019-01-17] MEDS: FUROSEMIDE 10 MG/ML 4 ML VIAL IV SCH ×2 (08:57→20:38)
[2019-01-17] MEDS: PANTOPRAZOLE 40 MG TABLET PO SCH (08:57)
[2019-01-17] MEDS: valACYclovir HCL 1,000 MG TABLET PO SCH (08:59)
[2019-01-17] MEDS: LACTULOSE 20 GM/30 ML CUP PO SCH ×5 (08:59→19:07)
[2019-01-17] MEDS: buPROPion XL 300 MG TAB.ER.24H PO SCH (08:59)
[2019-01-17 10:00] LABS: Albumin 2.6 g/dL (3.5-5.0); Potassium 4.4 mmol/L (3.5-5.1); Total Bilirubin 2.3 mg/dL (0.2-1.3); Total Protein 5.8 g/dL (6.3-8.2)
[2019-01-17 10:05] LABS: Anisocytosis Slight; Basophils % (A) 0 %; Eosinophils # (A) 0.1 k/uL (0-0.7); Eosinophils % (A) 1 %; HCT 38.6 % (39.0-53.0); HGB 12.5 gm/dL (13.0-17.5); Lymphocytes # (A) 0.4 k/uL (1.0-4.8); Lymphocytes % (A) 5 %; MCH 35.4 pg (25.0-35.0); MCHC 32.4 g/dL (31.0-37.0); Macrocytosis Marked; Mean Platelet Volume 8.7; Monocytes # (A) 0.9 k/uL (0-1.0); Monocytes % (A) 12 %; Neutrophils # (A) 5.7 k/uL (1.3-7.7); Neutrophils % (A) 78 %; Platelet Count 106 k/uL (150-450); RBC 3.53 m/uL (4.30-5.90); RDW 17.6 % (11.5-15.5); WBC 7.3 k/uL (3.8-10.6)
--- NOTE | 2019-01-17 10:05 | P.PN ---
Subjective Progress Note Date: 01/15/19 Principal diagnosis: Ascites Alcoholic LIVER disease \ Mr. Amador is a 59-year-old male with a past medical history significant for alcoholic liver disease, successfully completed [facility] for hep C, coronary artery disease, GERD, hypertension coming into the hospital with a chief complaint of swelling of his abdomen, scrotum and also difficulty in breathing that is progressively worsened over the past 1 week. Patient was recently admitted couple of weeks back for MRSA pneumonia and was discharged home. He states that since going home he noticed that he was having increased swelling of his abdomen and scrotum and his lower extremities. Eventually he was short of breath that he came to the emergency department for further evaluation. Patient denies having any fevers, cough, chills or rigors. He denies having any chest pain or palpitations. Patient denies having any abdominal pain, nausea vomiting or diarrhea. He complains of pain in the scrotal area and at times it was difficult for him to pee. But he denies any hematuria or dysuria. Patient has known history of alcohol abuse but he mentions that his last drink was 2-3 weeks back. In the emergency department the patient had a CAT scan of the abdomen showing massive ascites and large right scrotal hydrocele with portal vein hypertension and hepatic cirrhosis and splenomegaly. His blood work is consistent with chronic liver disease. 01/15/2019 Patient is getting paracentesis today. Otherwise patient is being continued on ceftriaxone IV. Still having significant scrotal swelling and hydrocele. Urology recommends no interest in this time. Otherwise patient is being continued on Lasix and spironolactone and Inderal. Gastroenterology is following. Follow fluid analysis. No fever no chills. Current medications reviewed Objective - Vital Signs Vital signs: Vital Signs Temp 96.9 F L 01/15/19 20:20 Pulse 85 01/15/19 20:26 Resp 18 01/15/19 20:26 BP 106/69 01/15/19 20:20 Pulse Ox 95 01/15/19 20:20 Intake & Output 01/15/19 01/15/19 01/16/19 06:59 18:59 06:59 Intake Total 850 Output Total 275 Balance 575 Intake: Oral 850 Output: Urine 225 Oral Regurgitation 50 Other: Voiding Method Indwelling Catheter Indwelling Catheter Indwelling Catheter - Exam GEN. APPEARANCE: No acute distress. HEAD EXAM: atraumatic, normocephalic, normal inspection EYE EXAM: No pallor. No icterus ENT EXAM: normal exam, mucous membranes moist NECK EXAM: No thyromegaly. No lymphadenopathy RESPIRATORY EXAM: Bilateral breath sounds are positive. No wheeze or crackles. CARDIOVASCULAR EXAM: S1-S2 heard. No additional sounds. GI/ABDOMINAL EXAM: Abdomen is distended. Redness in the dependent area of the abdomen. Nontender. No guarding or rigidity. Abdominal wall edema Scrotal edema with hie penis embedded in it. Bender's catheter in place EXTREMITIES EXAM: Bilateral pitting edema. Patient has reddish discoloration on the dorsum of his foot bilaterally. No tenderness. NEUROLOGICAL EXAM: alert, oriented X3, no focal neurological deficits PSYCHIATRIC EXAM: normal affect, normal mood SKIN EXAM: Skin over the bilateral upper extremities has scratch null - Labs CBC & Chem 7: 01/16/19 12:54 01/17/19 09:21 Labs: Abnormal Lab Results - Last 24 Hours (Table) 01/15/19 01/15/19 Range/Units 08:29 08:29 WBC 12.9 H (3.8-10.6) k/uL RBC 3.86 L (4.30-5.90) m/uL MCV 112.8 H (80.0-100.0) fL MCH 35.2 H (25.0-35.0) pg RDW 16.7 H (11.5-15.5) % Plt Count 123 L D (150-450) k/uL Neutrophils # 11.1 H (1.3-7.7) k/uL Lymphocytes # 0.3 L (1.0-4.8) k/uL Monocytes # 1.2 H (0-1.0) k/uL BUN 35 H (9-20) mg/dL Creatinine 2.13 H (0.66-1.25) mg/dL Total Bilirubin 4.7 H (0.2-1.3) mg/dL AST 88 H (17-59) U/L Alkaline Phosphatase 166 H (38-126) U/L Albumin 2.9 L (3.5-5.0) g/dL Assessment and Plan Assessment: Massive ascites and anasarca Hepatic encephalopathy Alcohol liver disease Scrotal edema Hepatitis C cured Mild protein calorie malnutrition Recent MRSA pneumonia History of nicotine dependence History of coronary artery disease Hypertension Hyperlipidemia PLAN : Patient is getting paracentesis today.. GI Dr. Khanna is following. As the patient has massive scrotal edema and urinary incontinence, urology has seen the patient and recommends no intervention at this time. Continue with diuresis.. Patient to be continued on Lasix and spironolactone. We'll resume his home medications. Overall prognosis is guarded. Further recommendations to follow depending on the progress of the patient. Time with Patient: Greater than 30
[2019-01-17 10:06] LABS: MCV 109.2 fL (80.0-100.0)
[2019-01-17] MEDS ORDERED: LACTULOSE 200 GM/300 ML (FROM 1/2 GAL JUG) RECTAL ONE (10:06)
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
--- NOTE | 2019-01-17 11:51 | P.PN ---
Subjective Progress Note Date: 01/17/19 Principal diagnosis: Liver cirrhosis ascites Nursing reports more confusion today restless yelling out loud but still able to take oral medications. Ammonia level increased 75 today. Lactulose enema has been requested. LFTs improved total bilirubin 2.3. AST 99. ALT 70. APC 120. Creatinine elevated yesterday at 2.9 slightly improved today 2.7. BUN 63. Afebrile. White count 7.3. Hemoglobin 12.5. Platelet 106. INR yesterday 1.8. Ascitic fluid cultures no organisms seen preliminarily. Receiving IV Rocephin. Objective - Vital Signs Vital signs: Vital Signs Temp 98.2 F 01/17/19 06:38 Pulse 76 01/17/19 06:38 Resp 22 01/17/19 06:38 BP 120/76 01/17/19 06:38 Pulse Ox 93 L 01/17/19 06:38 Intake & Output 01/16/19 01/17/19 01/17/19 18:59 06:59 18:59 Intake Total 50 Output Total 400 1450 800 Balance -400 -1400 -800 Intake: Intake, IV Titration 50 Amount cefTRIAXone 1 gm In 50 Sodium Chloride 0.9% 50 ml @ 100 mls/hr IVPB Q24H [facility] Rx#:[id number] Output: Urine 400 1450 800 Other: Voiding Method Indwelling Catheter Indwelling Catheter # Voids 1 2 # Bowel Movements 0 0 - Exam General appearance: The patient is irritated restless yelling out loud. Jaundice. HET: Head is normocephalic and atraumatic. Pupils are equal and reactive. Oropharynx is clear without lesions. Sclerae icterus. Neck: Supple without lymphadenopathy. Trachea midline. Heart: S1 S2. Regular rate and rhythm. Lungs: No crackles or wheezes are heard. Abdomen: Soft, nontender, less distended soft cellulitis to left lower quadrant stable receding for marked edges with bowel sounds. No peritoneal signs. No palpable organomegaly or masses. Extremities: Normal skin color and turgor. No cyanosis, rash, ulceration, clubbing, or edema. Radial and pedal pulses are 2/4 bilaterally. Neurological: No focal deficits. Strength and sensation are grossly intact. - Labs CBC & Chem 7: 01/17/19 09:21 01/17/19 09:21 Labs: Abnormal Lab Results - Last 24 Hours (Table) 01/16/19 01/16/19 01/16/19 Range/Units 12:54 12:54 12:54 RBC 3.50 L (4.30-5.90) m/uL Hgb 12.7 L (13.0-17.5) gm/dL Hct (39.0-53.0) % MCV 115.6 H (80.0-100.0) fL MCH 36.2 H (25.0-35.0) pg RDW 17.9 H (11.5-15.5) % Plt Count 115 L (150-450) k/uL Lymphocytes # 0.4 L (1.0-4.8) k/uL Monocytes # 1.2 H (0-1.0) k/uL PT (9.0-12.0) sec INR (<1.2) Sodium 131 L (137-145) mmol/L Carbon Dioxide 19 L (22-30) mmol/L BUN 54 H (9-20) mg/dL Creatinine 2.98 H (0.66-1.25) mg/dL Glucose 108 H (74-99) mg/dL Calcium 8.2 L (8.4-10.2) mg/dL Total Bilirubin 3.5 H (0.2-1.3) mg/dL AST 130 H (17-59) U/L ALT 83 H (21-72) U/L Ammonia 36 H (<30) umol/L Total Protein 6.2 L (6.3-8.2) g/dL Albumin 2.8 L (3.5-5.0) g/dL 01/16/19 01/17/19 01/17/19 Range/Units 12:54 09:21 09:21 RBC 3.53 L (4.30-5.90) m/uL Hgb 12.5 L (13.0-17.5) gm/dL Hct 38.6 L (39.0-53.0) % MCV 109.2 H D (80.0-100.0) fL MCH 35.4 H (25.0-35.0) pg RDW 17.6 H (11.5-15.5) % Plt Count 106 L (150-450) k/uL Lymphocytes # 0.4 L (1.0-4.8) k/uL Monocytes # (0-1.0) k/uL PT 17.5 H (9.0-12.0) sec INR 1.8 H (<1.2) Sodium (137-145) mmol/L Carbon Dioxide (22-30) mmol/L BUN (9-20) mg/dL Creatinine (0.66-1.25) mg/dL Glucose (74-99) mg/dL Calcium (8.4-10.2) mg/dL Total Bilirubin (0.2-1.3) mg/dL AST (17-59) U/L ALT (21-72) U/L Ammonia 75 H (<30) umol/L Total Protein (6.3-8.2) g/dL Albumin (3.5-5.0) g/dL 01/17/19 Range/Units 09:21 RBC (4.30-5.90) m/uL Hgb (13.0-17.5) gm/dL Hct (39.0-53.0) % MCV (80.0-100.0) fL MCH (25.0-35.0) pg RDW (11.5-15.5) % Plt Count (150-450) k/uL Lymphocytes # (1.0-4.8) k/uL Monocytes # (0-1.0) k/uL PT (9.0-12.0) sec INR (<1.2) Sodium 133 L (137-145) mmol/L Carbon Dioxide (22-30) mmol/L BUN 63 H (9-20) mg/dL Creatinine 2.78 H (0.66-1.25) mg/dL Glucose 115 H (74-99) mg/dL Calcium 8.0 L (8.4-10.2) mg/dL Total Bilirubin 2.3 H (0.2-1.3) mg/dL AST 99 H (17-59) U/L ALT (21-72) U/L Ammonia (<30) umol/L Total Protein 5.8 L (6.3-8.2) g/dL Albumin 2.6 L (3.5-5.0) g/dL Microbiology - Last 24 Hours (Table) 01/15/19 12:01 Gram Stain - Preliminary Paracentesis Fluid Body Fluid Culture - Preliminary Assessment and Plan (1) Change in mental status Narrative/Plan: Multifactorial component of acute hepatic encephalopathy worsening serum ammonia level possible underlying metabolic encephalopathy. Current Visit: Yes Status: Acute Code(s): R41.82 - ALTERED MENTAL STATUS, UNSPECIFIED SNOMED Code(s): 828193746 (2) Alcoholic cirrhosis of liver with ascites Narrative/Plan: 59-year-old gentleman admitted with dyspnea and worsening abdominal ascites lower extremity edema scrotal edema with underlying hydrocele elevated liver enzymes consistent with decompensated alcohol liver cirrhosis. New development of abdominal erythema cellulitis underlying spontaneous pectoral peritonitis cannot be excluded. Current Visit: Yes Status: Acute Code(s): K70.31 - ALCOHOLIC CIRRHOSIS OF LIVER WITH ASCITES SNOMED Code(s): 399487287 (3) Cholelithiasis Current Visit: No Status: Chronic Code(s): K80.20 - CALCULUS OF GALLBLADDER W/O CHOLECYSTITIS W/O OBSTRUCTION SNOMED Code(s): 535668881 (4) Hepatitis C Current Visit: No Status: Chronic Code(s): B19.20 - UNSPECIFIED VIRAL HEPATITIS C WITHOUT HEPATIC COMA SNOMED Code(s): 25360932 (5) Portal hypertension Current Visit: No Status: Chronic Code(s): K76.6 - PORTAL HYPERTENSION SNOMED Code(s): 96062379 (6) Thrombocytopenia Current Visit: No Status: Chronic Code(s): D69.6 - THROMBOCYTOPENIA, UNSPECIFIED SNOMED Code(s): 945016703 (7) Hydrocele in adult Current Visit: Yes Status: Acute Code(s): N43.3 - HYDROCELE, UNSPECIFIED SNOMED Code(s): 44223558069971 (8) Abdominal wall cellulitis Current Visit: Yes Status: Acute Code(s): L03.311 - CELLULITIS OF ABDOMINAL WALL SNOMED Code(s): 84929992 Plan: 1. Daily CBC CMP ammonia. Continue IV Rocephin. Protonix 40 mg daily. AFP within normal limits. Nephrology consultation recommendations appreciated. We'll follow with you. 2. Lasix 40 mg twice daily. Hold Aldactone and Inderal. Lactulose 30 g every hour 3 doses until patient has first bowel movement. Will add Xifaxan 550 mg twice daily. Assessment and plan a care discussed with Dr. Gregory
[2019-01-17] MEDS: RIFAXIMIN 550 MG TABLET PO SCH ×2 (12:11→19:07)
[2019-01-17] MEDS ORDERED: LACTULOSE 20 GM/30 ML CUP PO ONE (13:20)
[2019-01-17 13:27] LABS: Appearance,Urine Clear (Clear); Bacteria,Urine Rare /hpf; Bilirubin,Urine Negative (Negative); Blood,Urine Small (Negative); Budding Yeast,Urine Occasional /hpf; Color,Urine Yellow; Glucose,Urine (UA) Negative (Negative); Ketones,Urine Negative (Negative); Leukocyte Esterase,Urine Moderate (Negative); Mucus,Urine Rare /hpf; Nitrite,Urine Negative (Negative); PH, Urine 5.5 (5.0-8.0); Protein,Urine Negative (Negative); RBC,Urine 2 /hpf (0-5); Specific Gravity,Urine 1.006 (1.001-1.035); Urobilinogen,Urine <2.0 mg/dL (<2.0); WBC,Urine 13 /hpf (0-5)
[2019-01-17] MEDS: ONDANSETRON 4 MG/2 ML VIAL IVP PRN (19:04)
[2019-01-17] MEDS: HYDROmorphone 1 MG/ML 1 ML SYRINGE IVP PRN ×2 (19:05→22:57)
[2019-01-17] MEDS: LORazepam 2 MG/ML INJ IV PRN ×2 (20:35→21:55)
--- NOTE | 2019-01-18 00:51 | P.PN ---
Subjective Progress Note Date: 01/16/19 Principal diagnosis: Ascites Alcoholic LIVER disease \ Mr. Amador is a 59-year-old male with a past medical history significant for alcoholic liver disease, successfully completed [facility] for hep C, coronary artery disease, GERD, hypertension coming into the hospital with a chief complaint of swelling of his abdomen, scrotum and also difficulty in breathing that is progressively worsened over the past 1 week. Patient was recently admitted couple of weeks back for MRSA pneumonia and was discharged home. He states that since going home he noticed that he was having increased swelling of his abdomen and scrotum and his lower extremities. Eventually he was short of breath that he came to the emergency department for further evaluation. Patient denies having any fevers, cough, chills or rigors. He denies having any chest pain or palpitations. Patient denies having any abdominal pain, nausea vomiting or diarrhea. He complains of pain in the scrotal area and at times it was difficult for him to pee. But he denies any hematuria or dysuria. Patient has known history of alcohol abuse but he mentions that his last drink was 2-3 weeks back. In the emergency department the patient had a CAT scan of the abdomen showing massive ascites and large right scrotal hydrocele with portal vein hypertension and hepatic cirrhosis and splenomegaly. His blood work is consistent with chronic liver disease. 01/15/2019 Patient is getting paracentesis today. Otherwise patient is being continued on ceftriaxone IV. Still having significant scrotal swelling and hydrocele. Urology recommends no interest in this time. Otherwise patient is being continued on Lasix and spironolactone and Inderal. Gastroenterology is following. Follow fluid analysis. No fever no chills. 01/16/2019 Patient is awake alert but lethargic today. Ammonia level is improving. Otherwise patient is being continued on Lasix spironolactone and Inderal. Patient is also on rifaximin. Paracentesis fluid analysis showed no evidence of infection. On empiric antibiotics in the form of ceftriaxone. Patient is still having scrotal swelling and generalized edema/anasarca. Lower abdominal wall redness is still present. No fever no chills. No nausea vomiting. No complaints of worsening abdominal pain. No diarrhea. Patient is being continued on lactulose. Creatinine 2.98, bilirubin 3.5, Current medications reviewed Objective - Vital Signs Vital signs: Vital Signs Temp 97.9 F 03/20/19 14:11 Pulse 82 01/16/19 14:11 Resp 18 01/16/19 14:11 BP 114/63 01/16/19 14:11 Pulse Ox 93 L 01/16/19 14:11 Intake & Output 01/16/19 01/16/19 01/17/19 06:59 18:59 06:59 Intake Total 450 Output Total 225 400 Balance 225 -400 Intake: Intake, IV Titration 100 Amount Albumin Human 25% 50 ml 50 In Empty Bag 1 bag @ 200 mls/hr IVPB Q15M [facility] Rx#: [id number] cefTRIAXone 1 gm In 50 Sodium Chloride 0.9% 50 ml @ 100 mls/hr IVPB Q24H [facility] Rx#:[id number] Oral 350 Output: Urine 225 400 Other: Voiding Method Indwelling Catheter Indwelling Catheter # Voids 300 - Exam GEN. APPEARANCE: No acute distress. HEAD EXAM: atraumatic, normocephalic, normal inspection EYE EXAM: No pallor. No icterus ENT EXAM: normal exam, mucous membranes moist NECK EXAM: No thyromegaly. No lymphadenopathy RESPIRATORY EXAM: Bilateral breath sounds are positive. No wheeze or crackles. CARDIOVASCULAR EXAM: S1-S2 heard. No additional sounds. GI/ABDOMINAL EXAM: Abdomen is distended. Redness in the dependent area of the abdomen. Nontender. No guarding or rigidity. Abdominal wall edema Scrotal edema with hie penis embedded in it. Bender's catheter in place EXTREMITIES EXAM: Bilateral pitting edema. Patient has reddish discoloration on the dorsum of his foot bilaterally. No tenderness. NEUROLOGICAL EXAM: alert, oriented X3, no focal neurological deficits PSYCHIATRIC EXAM: normal affect, normal mood SKIN EXAM: Skin over the bilateral upper extremities has scratch null - Labs CBC & Chem 7: 01/17/19 09:21 01/17/19 09:21 Labs: Abnormal Lab Results - Last 24 Hours (Table) 01/15/19 01/16/19 01/16/19 Range/Units 23:34 12:54 12:54 RBC 3.66 L 3.50 L (4.30-5.90) m/uL Hgb 12.7 L (13.0-17.5) gm/dL MCV 114.4 H 115.6 H (80.0-100.0) fL MCH 35.4 H 36.2 H (25.0-35.0) pg RDW 17.8 H 17.9 H (11.5-15.5) % Plt Count 120 L 115 L (150-450) k/uL Lymphocytes # 0.3 L 0.4 L (1.0-4.8) k/uL Monocytes # 1.2 H (0-1.0) k/uL PT (9.0-12.0) sec INR (<1.2) Sodium 131 L (137-145) mmol/L Carbon Dioxide 19 L (22-30) mmol/L BUN 54 H (9-20) mg/dL Creatinine 2.98 H (0.66-1.25) mg/dL Glucose 108 H (74-99) mg/dL Calcium 8.2 L (8.4-10.2) mg/dL Total Bilirubin 3.5 H (0.2-1.3) mg/dL AST 130 H (17-59) U/L ALT 83 H (21-72) U/L Ammonia (<30) umol/L Total Protein 6.2 L (6.3-8.2) g/dL Albumin 2.8 L (3.5-5.0) g/dL 01/16/19 01/16/19 Range/Units 12:54 12:54 RBC (4.30-5.90) m/uL Hgb (13.0-17.5) gm/dL MCV (80.0-100.0) fL MCH (25.0-35.0) pg RDW (11.5-15.5) % Plt Count (150-450) k/uL Lymphocytes # (1.0-4.8) k/uL Monocytes # (0-1.0) k/uL PT 17.5 H (9.0-12.0) sec INR 1.8 H (<1.2) Sodium (137-145) mmol/L Carbon Dioxide (22-30) mmol/L BUN (9-20) mg/dL Creatinine (0.66-1.25) mg/dL Glucose (74-99) mg/dL Calcium (8.4-10.2) mg/dL Total Bilirubin (0.2-1.3) mg/dL AST (17-59) U/L ALT (21-72) U/L Ammonia 36 H (<30) umol/L Total Protein (6.3-8.2) g/dL Albumin (3.5-5.0) g/dL Microbiology - Last 24 Hours (Table) 01/15/19 12:01 Gram Stain - Preliminary Paracentesis Fluid Body Fluid Culture - Preliminary 01/15/19 12:01 Anaerobic Culture - Preliminary Ascites Fluid Assessment and Plan Assessment: Massive ascites and anasarca Hepatic encephalopathy Alcohol liver disease Scrotal edema Hepatitis C cured Mild protein calorie malnutrition Recent MRSA pneumonia History of nicotine dependence History of coronary artery disease Hypertension Hyperlipidemia PLAN : Patient is supposed paracentesis on 01/15/2019.. GI Dr. Khanna is following. As the patient has massive scrotal edema and urinary incontinence, urology has seen the patient and recommends no intervention at this time. Continue with diuresis.. Patient to be continued on Lasix and spironolactone. We'll resume his home medications. Overall prognosis is guarded. Further recom mendations to follow depending on the progress of the patient. Time with Patient: Greater than 30
--- NOTE | 2019-01-18 00:55 | P.PN ---
Subjective Progress Note Date: 01/17/19 Principal diagnosis: Ascites Alcoholic LIVER disease \ Mr. Amador is a 59-year-old male with a past medical history significant for alcoholic liver disease, successfully completed [facility] for hep C, coronary artery disease, GERD, hypertension coming into the hospital with a chief complaint of swelling of his abdomen, scrotum and also difficulty in breathing that is progressively worsened over the past 1 week. Patient was recently admitted couple of weeks back for MRSA pneumonia and was discharged home. He states that since going home he noticed that he was having increased swelling of his abdomen and scrotum and his lower extremities. Eventually he was short of breath that he came to the emergency department for further evaluation. Patient denies having any fevers, cough, chills or rigors. He denies having any chest pain or palpitations. Patient denies having any abdominal pain, nausea vomiting or diarrhea. He complains of pain in the scrotal area and at times it was difficult for him to pee. But he denies any hematuria or dysuria. Patient has known history of alcohol abuse but he mentions that his last drink was 2-3 weeks back. In the emergency department the patient had a CAT scan of the abdomen showing massive ascites and large right scrotal hydrocele with portal vein hypertension and hepatic cirrhosis and splenomegaly. His blood work is consistent with chronic liver disease. 01/15/2019 Patient is getting paracentesis today. Otherwise patient is being continued on ceftriaxone IV. Still having significant scrotal swelling and hydrocele. Urology recommends no interest in this time. Otherwise patient is being continued on Lasix and spironolactone and Inderal. Gastroenterology is following. Follow fluid analysis. No fever no chills. 01/16/2019 Patient is awake alert but lethargic today. Ammonia level is improving. Otherwise patient is being continued on Lasix spironolactone and Inderal. Patient is also on rifaximin. Paracentesis fluid analysis showed no evidence of infection. On empiric antibiotics in the form of ceftriaxone. Patient is still having scrotal swelling and generalized edema/anasarca. Lower abdominal wall redness is still present. No fever no chills. No nausea vomiting. No complaints of worsening abdominal pain. No diarrhea. Patient is being continued on lactulose. Creatinine 2.98, bilirubin 3.5, 01/17/2019 Patient is more lethargic and drowsy today. Able to open his eyes but could not communicate. Ammonia level is 75 today. Patient was given lactulose edema and continue with lactulose by mouth twice daily. Creatinine level is 2.78. Albumin 2.5. Patient is being continued on Lasix IV twice daily. Still having scrotal swelling and abdominal wall edema and redness. Spironolactone is on hold due to acute kidney injury. GI is following. Nephrology was consulted due to acute kidney injury. No fever no chills. No nausea vomiting. Abdomen is still distended with ascites. Current medications reviewed Objective - Vital Signs Vital signs: Vital Signs Temp 97.8 F 01/17/19 15:00 Pulse 77 01/17/19 15:00 Resp 18 01/17/19 15:00 BP 121/84 01/17/19 15:00 Pulse Ox 83 L 01/17/19 17:01 Intake & Output 01/17/19 01/17/19 01/18/19 06:59 18:59 06:59 Intake Total 50 50 Output Total 1450 3800 Balance -1400 -3750 Weight 114 kg Intake: Intake, IV Titration 50 Amount cefTRIAXone 1 gm In 50 Sodium Chloride 0.9% 50 ml @ 100 mls/hr IVPB Q24H [facility] Rx#:[id number] Oral 50 Output: Urine 1450 3800 Other: Voiding Method Indwelling Catheter Indwelling Catheter # Voids 1 2 # Bowel Movements 0 2 - Exam GEN. APPEARANCE: No acute distress. HEAD EXAM: atraumatic, normocephalic, normal inspection EYE EXAM: No pallor. No icterus ENT EXAM: normal exam, mucous membranes moist NECK EXAM: No thyromegaly. No lymphadenopathy RESPIRATORY EXAM: Bilateral breath sounds are positive. No wheeze or crackles. CARDIOVASCULAR EXAM: S1-S2 heard. No additional sounds. GI/ABDOMINAL EXAM: Abdomen is distended. Redness in the dependent area of the abdomen. Nontender. No guarding or rigidity. Abdominal wall edema Scrotal edema with hie penis embedded in it. Bender's catheter in place EXTREMITIES EXAM: Bilateral pitting edema. Patient has reddish discoloration on the dorsum of his foot bilaterally. No tenderness. NEUROLOGICAL EXAM: alert, oriented X3, no focal neurological deficits PSYCHIATRIC EXAM: normal affect, normal mood SKIN EXAM: Skin over the bilateral upper extremities has scratch null - Labs CBC & Chem 7: 01/17/19 09:21 01/17/19 09:21 Labs: Abnormal Lab Results - Last 24 Hours (Table) 01/17/19 01/17/19 01/17/19 Range/Units 09:21 09:21 09:21 RBC 3.53 L (4.30-5.90) m/uL Hgb 12.5 L (13.0-17.5) gm/dL Hct 38.6 L (39.0-53.0) % MCV 109.2 H D (80.0-100.0) fL MCH 35.4 H (25.0-35.0) pg RDW 17.6 H (11.5-15.5) % Plt Count 106 L (150-450) k/uL Lymphocytes # 0.4 L (1.0-4.8) k/uL Sodium 133 L (137-145) mmol/L BUN 63 H (9-20) mg/dL Creatinine 2.78 H (0.66-1.25) mg/dL Glucose 115 H (74-99) mg/dL Calcium 8.0 L (8.4-10.2) mg/dL Total Bilirubin 2.3 H (0.2-1.3) mg/dL AST 99 H (17-59) U/L Ammonia 75 H (<30) umol/L Total Protein 5.8 L (6.3-8.2) g/dL Albumin 2.6 L (3.5-5.0) g/dL Urine Blood (Negative) Ur Leukocyte Esterase (Negative) Urine WBC (0-5) /hpf Urine Bacteria (None) /hpf Urine Mucus (None) /hpf Urine Yeast (Budding) (None) /hpf 01/17/19 Range/Units 12:08 RBC (4.30-5.90) m/uL Hgb (13.0-17.5) gm/dL Hct (39.0-53.0) % MCV (80.0-100.0) fL MCH (25.0-35.0) pg RDW (11.5-15.5) % Plt Count (150-450) k/uL Lymphocytes # (1.0-4.8) k/uL Sodium (137-145) mmol/L BUN (9-20) mg/dL Creatinine (0.66-1.25) mg/dL Glucose (74-99) mg/dL Calcium (8.4-10.2) mg/dL Total Bilirubin (0.2-1.3) mg/dL AST (17-59) U/L Ammonia (<30) umol/L Total Protein (6.3-8.2) g/dL Albumin (3.5-5.0) g/dL Urine Blood Small H (Negative) Ur Leukocyte Esterase Moderate H (Negative) Urine WBC 13 H (0-5) /hpf Urine Bacteria Rare H (None) /hpf Urine Mucus Rare H (None) /hpf Urine Yeast (Budding) Occasional H (None) /hpf Microbiology - Last 24 Hours (Table) 01/15/19 12:01 Anaerobic Culture - Preliminary Ascites Fluid Assessment and Plan Assessment: Massive ascites and anasarca Acute Hepatic encephalopathy Acute kidney injury secondary to ATN due to diuresis. Alcohol liver disease Scrotal edema and abdominal wall edema. Hepatitis C cured Mild protein calorie malnutrition Recent MRSA pneumonia History of nicotine dependence History of coronary artery disease Hypertension Hyperlipidemia PLAN : Patient is supposed paracentesis on 01/15/2019.. GI [address] Khanna is following. As the patient has massive scrotal edema and urinary incontinence, urology has seen the patient and recommends no intervention at this time. Continue with diuresis.. Patient to be continued on Lasix and spironolactone held. We'll resume his home medications. Overall prognosis is guarded. Further recommendations to follow depending on the progress of the patient. Time with Patient: Greater than 30
[2019-01-18 05:41] LABS: Glucose,Whole Blood 131 mg/dL (75-99)
--- NOTE | 2019-01-18 05:51 | XR ---
EXAM: XR Chest, 1 View CLINICAL HISTORY: ITS.REASON XR Reason: Shortness of breath TECHNIQUE: Frontal view of the chest. COMPARISON: 01/13/19 FINDINGS: Lungs: Severe low lung volumes limit evaluation. Increasing opacity in the medial aspect of the right lower lung and left lung base which may reflect worsening atelectasis or infiltrate. Pleural space: Mild blunting of the left costophrenic sulcus which may reflect small effusion. No pneumothorax. Heart: Unremarkable. No cardiomegaly. Mediastinum: Unremarkable. Bones/joints: Unremarkable. Vasculature: Stable tortuous thoracic aorta. IMPRESSION: Severe low lung volumes limit evaluation. Slight worsening bibasilar atelectasis versus infiltrate. Suspect tiny left effusion.
[2019-01-18 06:12] LABS: Glucose,Whole Blood 135 mg/dL (75-99)
[2019-01-18 06:17] LABS: Calcium 8.4 mg/dL (8.4-10.2); Magnesium 1.9 mg/dL (1.6-2.3); Phosphorus 4.7 mg/dL (2.5-4.5); Potassium 4.1 mmol/L (3.5-5.1)
[2019-01-18] MEDS ORDERED: ETOMIDATE 2 MG/ML 10 ML VIAL ONE (06:20)
[2019-01-18] MEDS ORDERED: PROPOFOL 10 MG/ML 20 ML VIAL IV ONE (06:20)
[2019-01-18] MEDS ORDERED: ROCURONIUM BROMIDE 10 MG/ML 10 ML VIAL IV ONE (06:20)
[2019-01-18] MEDS: PROPOFOL 1,000 MG in EMPTY BAG 1 BAG IV SCH ×2 (06:28→16:48)
[2019-01-18 06:39] LABS: Anisocytosis Slight; Basophils % (A) 0 %; Eosinophils # (A) 0.1 k/uL (0-0.7); Eosinophils % (A) 1 %; HCT 50.7 % (39.0-53.0); Lymphocytes # (A) 0.5 k/uL (1.0-4.8); Lymphocytes % (A) 5 %; MCH 35.2 pg (25.0-35.0); MCHC 31.6 g/dL (31.0-37.0); MCV 111.3 fL (80.0-100.0); Macrocytosis Marked; Mean Platelet Volume 8.9; Monocytes # (A) 1.1 k/uL (0-1.0); Monocytes % (A) 12 %; Neutrophils % (A) 78 %; Platelet Count 129 k/uL (150-450); RBC 4.55 m/uL (4.30-5.90); RDW 18.5 % (11.5-15.5)
[2019-01-18] MEDS ORDERED: ACETAMINOPHEN IV (For NPO) 1,000 MG in EMPTY BAG 1 BAG IVPB PRN (06:47)
[2019-01-18 06:54] LABS: ABG Base Excess 0.4 mmol/L; ABG HCO3 23 mmol/L (21-25); ABG PCO2 33 mmHg (35-45); ABG PH 7.46 (7.35-7.45); ABG PO2 64 mmHg (83-108)
[2019-01-18] MEDS ORDERED: SODIUM CHLORIDE 0.9% 1,000 ML IV SCH (07:00)
--- NOTE | 2019-01-18 07:12 | XR ---
EXAMINATION TYPE: XR chest 1V portable DATE OF EXAM: 01/18/2019 CLINICAL HISTORY: Difficulty breathing had to be intubated. TECHNIQUE: Single AP portable upright view of the chest is obtained. COMPARISON: Chest x-ray from earlier today and older studies. FINDINGS: There is new endotracheal tube terminating aortic knob level, approximately 3 cm above car peggy. There is new orogastric tube projecting below diaphragm. There is persistent low lung volumes with left basilar opacity and elevated left hemidiaphragm. Cardi ac silhouette size is stable and upper limits of normal. Right lung remains clear. Osseous structures are demineralized. IMPRESSION: 1. New orogastric and nasogastric tubes satisfactory in position. 2. Persistent low lung volumes with left basilar infiltrate and/or atelectasis and probable small lef t pleural effusion.
[2019-01-18 07:18] LABS: ABG PCO2 43 mmHg (35-45); ABG PH 7.36 (7.35-7.45); ABG PO2 75 mmHg (83-108)
[2019-01-18 07:19] LABS: ABG Base Excess -0.9 mmol/L; ABG HCO3 25 mmol/L (21-25); ABG TCO2 26 mmol/L (19-24)
--- NOTE | 2019-01-18 08:15 | P.PN ---
Subjective Patient is seen in follow-up for acute kidney injury. His baseline creatinine is 1 and peaked at 2.9 at this admission January 16. It was 2.53 today. Patient has history of alcohol-induced liver cirrhosis. He underwent paracentesis on January 15 with 6.8 L drained. Patient was quite agitated yesterday. He subsequently became hypoxic and obtunded and was transferred to the intensive care unit. He is currently intubated and sedated. He is maintained on Lasix 40 mg IV twice daily. Blood pressure did drop during intubation but is stable now. Vital signs are stable. General: The patient appeared well nourished and normally developed. HEENT: Head exam is unremarkable. Neck is without jugular venous distension. Intubated. LUNGS: Breath sounds decreased. HEART: Rate and Rhythm are regular. First and second heart sounds normal. No murmurs, rubs or gallops. ABDOMEN: Distention noted. Soft. EXTREMITITES: 1+ edema. Objective - Vital Signs Vital signs: Vital Signs Temp 97.2 F L 01/18/19 06:10 Pulse 114 H 01/18/19 07:10 Resp 14 01/18/19 07:10 BP 128/74 01/18/19 07:10 Pulse Ox 91 L 01/18/19 07:10 Intake & Output 01/17/19 01/18/19 01/18/19 18:59 06:59 18:59 Intake Total 50 Output Total 3800 1300 Balance -3750 -1300 Weight 114 kg 102.8 kg Intake: Oral 50 Output: Urine 3800 1300 Other: Voiding Method Indwelling Catheter Indwelling Catheter # Voids 2 # Bowel Movements 2 - Labs CBC & Chem 7: 01/18/19 05:40 01/18/19 05:40 Labs: Abnormal Lab Results - Last 24 Hours (Table) 01/17/19 01/17/19 01/17/19 Range/Units 09:21 09:21 09:21 RBC 3.53 L (4.30-5.90) m/uL Hgb 12.5 L (13.0-17.5) gm/dL Hct 38.6 L (39.0-53.0) % MCV 109.2 H D (80.0-100.0) fL MCH 35.4 H (25.0-35.0) pg RDW 17.6 H (11.5-15.5) % Plt Count 106 L (150-450) k/uL Lymphocytes # 0.4 L (1.0-4.8) k/uL Monocytes # (0-1.0) k/uL ABG pH (7.35-7.45) ABG pCO2 (35-45) mmHg ABG pO2 (83-108) mmHg ABG Total CO2 (19-24) mmol/L ABG O2 Saturation (94-97) % Sodium 133 L (137-145) mmol/L BUN 63 H (9-20) mg/dL Creatinine 2.78 H (0.66-1.25) mg/dL Glucose 115 H (74-99) mg/dL POC Glucose (mg/dL) (75-99) mg/dL Plasma Lactic Acid Kelton (0.7-2.0) mmol/L Calcium 8.0 L (8.4-10.2) mg/dL Phosphorus (2.5-4.5) mg/dL Total Bilirubin 2.3 H (0.2-1.3) mg/dL AST 99 H (17-59) U/L Ammonia 75 H (<30) umol/L Total Protein 5.8 L (6.3-8.2) g/dL Albumin 2.6 L (3.5-5.0) g/dL Urine Blood (Negative) Ur Leukocyte Esterase (Negative) Urine WBC (0-5) /hpf Urine Bacteria (None) /hpf Urine Mucus (None) /hpf Urine Yeast (Budding) (None) /hpf 01/17/19 01/18/19 01/18/19 Range/Units 12:08 05:40 05:40 RBC (4.30-5.90) m/uL Hgb (13.0-17.5) gm/dL Hct (39.0-53.0) % MCV (80.0-100.0) fL MCH (25.0-35.0) pg RDW (11.5-15.5) % Plt Count (150-450) k/uL Lymphocytes # (1.0-4.8) k/uL Monocytes # (0-1.0) k/uL ABG pH (7.35-7.45) ABG pCO2 (35-45) mmHg ABG pO2 (83-108) mmHg ABG Total CO2 (19-24) mmol/L ABG O2 Saturation (94-97) % Sodium 136 L (137-145) mmol/L BUN 69 H (9-20) mg/dL Creatinine 2.53 H (0.66-1.25) mg/dL Glucose 135 H (74-99) mg/dL POC Glucose (mg/dL) (75-99) mg/dL Plasma Lactic Acid Kelton 3.0 H* (0.7-2.0) mmol/L Calcium (8.4-10.2) mg/dL Phosphorus 4.7 H (2.5-4.5) mg/dL Total Bilirubin (0.2-1.3) mg/dL AST (17-59) U/L Ammonia (<30) umol/L Total Protein (6.3-8.2) g/dL Albumin (3.5-5.0) g/dL Urine Blood Small H (Negative) Ur Leukocyte Esterase Moderate H (Negative) Urine WBC 13 H (0-5) /hpf Urine Bacteria Rare H (None) /hpf Urine Mucus Rare H (None) /hpf Urine Yeast (Budding) Occasional H (None) /hpf 01/18/19 01/18/19 01/18/19 Range/Units 05:40 05:40 06:00 RBC (4.30-5.90) m/uL Hgb (13.0-17.5) gm/dL Hct (39.0-53.0) % MCV 111.3 H (80.0-100.0) fL MCH 35.2 H (25.0-35.0) pg RDW 18.5 H (11.5-15.5) % Plt Count 129 L (150-450) k/uL Lymphocytes # 0.5 L (1.0-4.8) k/uL Monocytes # 1.1 H (0-1.0) k/uL ABG pH (7.35-7.45) ABG pCO2 (35-45) mmHg ABG pO2 (83-108) mmHg ABG Total CO2 (19-24) mmol/L ABG O2 Saturation (94-97) % Sodium (137-145) mmol/L BUN (9-20) mg/dL Creatinine (0.66-1.25) mg/dL Glucose (74-99) mg/dL POC Glucose (mg/dL) 131 H 135 H (75-99) mg/dL Plasma Lactic Acid Kelton (0.7-2.0) mmol/L Calcium (8.4-10.2) mg/dL Phosphorus (2.5-4.5) mg/dL Total Bilirubin (0.2-1.3) mg/dL AST (17-59) U/L Ammonia (<30) umol/L Total Protein (6.3-8.2) g/dL Albumin (3.5-5.0) g/dL Urine Blood (Negative) Ur Leukocyte Esterase (Negative) Urine WBC (0-5) /hpf Urine Bacteria (None) /hpf Urine Mucus (None) /hpf Urine Yeast (Budding) (None) /hpf 01/18/19 01/18/19 Range/Units 06:01 07:15 RBC (4.30-5.90) m/uL Hgb (13.0-17.5) gm/dL Hct (39.0-53.0) % MCV (80.0-100.0) fL MCH (25.0-35.0) pg RDW (11.5-15.5) % Plt Count (150-450) k/uL Lymphocytes # (1.0-4.8) k/uL Monocytes # (0-1.0) k/uL ABG pH 7.46 H (7.35-7.45) ABG pCO2 33 L (35-45) mmHg ABG pO2 64 L 75 L (83-108) mmHg ABG Total CO2 26 H (19-24) mmol/L ABG O2 Saturation 92.0 L 93.0 L (94-97) % Sodium (137-145) mmol/L BUN (9-20) mg/dL Creatinine (0.66-1.25) mg/dL Glucose (74-99) mg/dL POC Glucose (mg/dL) (75-99) mg/dL Plasma Lactic Acid Kelton (0.7-2.0) mmol/L Calcium (8.4-10.2) mg/dL Phosphorus (2.5-4.5) mg/dL Total Bilirubin (0.2-1.3) mg/dL AST (17-59) U/L Ammonia (<30) umol/L Total Protein (6.3-8.2) g/dL Albumin (3.5-5.0) g/dL Urine Blood (Negative) Ur Leukocyte Esterase (Negative) Urine WBC (0-5) /hpf Urine Bacteria (None) /hpf Urine Mucus (None) /hpf Urine Yeast (Budding) (None) /hpf Microbiology - Last 24 Hours (Table) 01/15/19 12:01 Gram Stain - Preliminary Paracentesis Fluid Body Fluid Culture - Preliminary 01/15/19 12:01 Anaerobic Culture - Preliminary Ascites Fluid Assessment and Plan Plan: Assessment: 1. Acute kidney injury secondary to ATN secondary to contrast-induced nephropathy and diuresis. Creatinine peaked at 2.9 at this admission and is 2.53 today. Baseline creatinine is near 1. No hydronephrosis noted on CAT scan. No proteinuria on UA. 2. Ascites status post paracentesis 6.8 L drained on January 15. 3. Alcohol-induced liver cirrhosis. 4. Volume overload. Better. 5. Hypervolemic hyponatremia. Improved with diuresis. 6. Scrotal edema with underlying hydrocele being followed by urology. 7. Abdominal wall cellulitis maintained on antibiotics. 8. History of hepatitis C. 9. Acute hypoxic respiratory failure. Plan: Decrease Lasix to 40 mg IV once daily. Continue to monitor renal function and urine output. Avoid nephrotoxins.
[2019-01-18] MEDS ORDERED: PANTOPRAZOLE 40 MG/10 ML VIAL IVP SCH (09:00)
[2019-01-18] MEDS ORDERED: CHLORHEXIDINE GLUCONATE 15 ML CUP MUCOUS MEM SCH (09:00)
[2019-01-18] MEDS ORDERED: SODIUM CHLORIDE 0.9% 1,000 ML IV ONE (09:19)
[2019-01-18] MEDS: SODIUM CHLORIDE 0.9% 1,000 ML IV SCH ×2 (09:19→11:08)
--- NOTE | 2019-01-18 09:19 | P.PN ---
Subjective Progress Note Date: 01/18/19 Principal diagnosis: Liver cirrhosis ascites Patient transferred to ICU last night secondary to hypoxia. Intubated sedated. White count 9. Hemoglobin 16. Platelet 129. Ammonia 25. BUN 69. Creatinine 2.5. Receiving IV antibiotics Xifaxan and lactulose. Paracentesis earlier this week ascitic fluid negative for malignant cells. BP low this morning. LA 3.0. Objective - Vital Signs Vital signs: Vital Signs Temp 97.2 F L 01/18/19 06:10 Pulse 114 H 01/18/19 07:10 Resp 14 01/18/19 07:10 BP 128/74 01/18/19 07:10 Pulse Ox 91 L 01/18/19 07:10 Intake & Output 01/17/19 01/18/19 01/18/19 18:59 06:59 18:59 Intake Total 50 Output Total 3800 1300 Balance -3750 -1300 Weight 114 kg 102.8 kg Intake: Oral 50 Output: Urine 3800 1300 Other: Voiding Method Indwelling Catheter Indwelling Catheter # Voids 2 # Bowel Movements 2 - Exam General appearance: The patient is intubated sedated. HET: Head is normocephalic and atraumatic. Pupils are equal and reactive. Oropharynx is clear without lesions. Sclerae mild icterus. Neck: Supple without lymphadenopathy. Trachea midline. Heart: S1 S2. Regular rate and rhythm. Lungs: No crackles or wheezes are heard. Abdomen: Soft, less distended soft cellulitis to left lower quadrant stable receding for marked edges with hypoactive bowel sounds. Scrotal edema +4. No palpable organomegaly or masses. Extremities: Cool skin to touch below the knees bilaterally. Unable to palpate pedal pulses. Mottled. Femoral pulses palpated. Neurological: Unable to assess sedated intubated - Labs CBC & Chem 7: 01/18/19 05:40 01/18/19 05:40 Labs: Abnormal Lab Results - Last 24 Hours (Table) 01/17/19 01/17/19 01/17/19 Range/Units 09:21 09: 09:21 RBC 3.53 L (4.30-5.90) m/uL Hgb 12.5 L (13.0-17.5) gm/dL Hct 38.6 L (39.0-53.0) % MCV 109.2 H D (80.0-100.0) fL MCH 35.4 H (25.0-35.0) pg RDW 17.6 H (11.5-15.5) % Plt Count 106 L (150-450) k/uL Lymphocytes # 0.4 L (1.0-4.8) k/uL Monocytes # (0-1.0) k/uL ABG pH (7.35-7.45) ABG pCO2 (35-45) mmHg ABG pO2 (83-108) mmHg ABG Total CO2 (19-24) mmol/L ABG O2 Saturation (94-97) % Sodium 133 L (137-145) mmol/L BUN 63 H (9-20) mg/dL Creatinine 2.78 H (0.66-1.25) mg/dL Glucose 115 H (74-99) mg/dL POC Glucose (mg/dL) (75-99) mg/dL Plasma Lactic Acid Kelton (0.7-2.0) mmol/L Calcium 8.0 L (8.4-10.2) mg/dL Phosphorus (2.5-4.5) mg/dL Total Bilirubin 2.3 H (0.2-1.3) mg/dL AST 99 H (17-59) U/L Ammonia 75 H (<30) umol/L Total Protein 5.8 L (6.3-8.2) g/dL Albumin 2.6 L (3.5-5.0) g/dL Urine Blood (Negative) Ur Leukocyte Esterase (Negative) Urine WBC (0-5) /hpf Urine Bacteria (None) /hpf Urine Mucus (None) /hpf Urine Yeast (Budding) (None) /hpf 01/17/19 01/18/19 01/18/19 Range/Units 12:08 05:40 05:40 RBC (4.30-5.90) m/uL Hgb (13.0-17.5) gm/dL Hct (39.0-53.0) % MCV (80.0-100.0) fL MCH (25.0-35.0) pg RDW (11.5-15.5) % Plt Count (150-450) k/uL Lymphocytes # (1.0-4.8) k/uL Monocytes # (0-1.0) k/uL ABG pH (7.35-7.45) ABG pCO2 (35-45) mmHg ABG pO2 (83-108) mmHg ABG Total CO2 (19-24) mmol/L ABG O2 Saturation (94-97) % Sodium 136 L (137-145) mmol/L BUN 69 H (9-20) mg/dL Creatinine 2.53 H (0.66-1.25) mg/dL Glucose 135 H (74-99) mg/dL POC Glucose (mg/dL) (75-99) mg/dL Plasma Lactic Acid Kelton 3.0 H* (0.7-2.0) mmol/L Calcium (8.4-10.2) mg/dL Phosphorus 4.7 H (2.5-4.5) mg/dL Total Bilirubin (0.2-1.3) mg/dL AST (17-59) U/L Ammonia (<30) umol/L Total Protein (6.3-8.2) g/dL Albumin (3.5-5.0) g/dL Urine Blood Small H (Negative) Ur Leukocyte Esterase Moderate H (Negative) Urine WBC 13 H (0-5) /hpf Urine Bacteria Rare H (None) /hpf Urine Mucus Rare H (None) /hpf Urine Yeast (Budding) Occasional H (None) /hpf 01/18/19 01/18/19 01/18/19 Range/Units 05:40 05:40 06:00 RBC (4.30-5.90) m/uL Hgb (13.0-17.5) gm/dL Hct (39.0-53.0) % MCV 111.3 H (80.0-100.0) fL MCH 35.2 H (25.0-35.0) pg RDW 18.5 H (11.5-15.5) % Plt Count 129 L (150-450) k/uL Lymphocytes # 0.5 L (1.0-4.8) k/uL Monocytes # 1.1 H (0-1.0) k/uL ABG pH (7.35-7.45) ABG pCO2 (35-45) mmHg ABG pO2 (83-108) mmHg ABG Total CO2 (19-24) mmol/L ABG O2 Saturation (94-97) % Sodium (137-145) mmol/L BUN (9-20) mg/dL Creatinine (0.66-1.25) mg/dL Glucose (74-99) mg/dL POC Glucose (mg/dL) 131 H 135 H (75-99) mg/dL Plasma Lactic Acid Kelton (0.7-2.0) mmol/L Calcium (8.4-10.2) mg/dL Phosphorus (2.5-4.5) mg/dL Total Bilirubin (0.2-1.3) mg/dL AST (17-59) U/L Ammonia (<30) umol/L Total Protein (6.3-8.2) g/dL Albumin (3.5-5.0) g/dL Urine Blood (Negative) Ur Leukocyte Esterase (Negative) Urine WBC (0-5) /hpf Urine Bacteria (None) /hpf Urine Mucus (None) /hpf Urine Yeast (Budding) (None) /hpf 01/18/19 01/18/19 Range/Units 06:01 07:15 RBC (4.30-5.90) m/uL Hgb (13.0-17.5) gm/dL Hct (39.0-53.0) % MCV (80.0-100.0) fL MCH (25.0-35.0) pg RDW (11.5-15.5) % Plt Count (150-450) k/uL Lymphocytes # (1.0-4.8) k/uL Monocytes # (0-1.0) k/uL ABG pH 7.46 H (7.35-7.45) ABG pCO2 33 L (35-45) mmHg ABG pO2 64 L 75 L (83-108) mmHg ABG Total CO2 26 H (19-24) mmol/L ABG O2 Saturation 92.0 L 93.0 L (94-97) % Sodium (137-145) mmol/L BUN (9-20) mg/dL Creatinine (0.66-1.25) mg/dL Glucose (74-99) mg/dL POC Glucose (mg/dL) (75-99) mg/dL Plasma Lactic Acid Kelton (0.7-2.0) mmol/L Calcium (8.4-10.2) mg/dL Phosphorus (2.5-4.5) mg/dL Total Bilirubin (0.2-1.3) mg/dL AST (17-59) U/L Ammonia (<30) umol/L Total Protein (6.3-8.2) g/dL Albumin (3.5-5.0) g/dL Urine Blood (Negative) Ur Leukocyte Esterase (Negative) Urine WBC (0-5) /hpf Urine Bacteria (None) /hpf Urine Mucus (None) /hpf Urine Yeast (Budding) (None) /hpf Microbiology - Last 24 Hours (Table) 01/15/19 12:01 Gram Stain - Preliminary Paracentesis Fluid Body Fluid Culture - Preliminary 01/15/19 12:01 Anaerobic Culture - Preliminary Ascites Fluid Assessment and Plan (1) Change in mental status Narrative/Plan: Multifactorial component of acute hepatic encephalopathy possible underlying metabolic encephalopathy. Transfer to intensive care unit last night episode of hypoxia presently intubated sedated with hypotension possible sepsis elevated lactic acid.. Current Visit: Yes Status: Acute Code(s): R41.82 - ALTERED MENTAL STATUS, UNSPECIFIED SNOMED Code(s): 247655593 (2) Alcoholic cirrhosis of liver with ascites Narrative/Plan: 59-year-old gentleman admitted with dyspnea and worsening abdominal ascites lower extremity edema scrotal edema with underlying hydrocele elevated liver enzymes consistent with decompensated alcohol liver cirrhosis. New development of abdominal erythema cellulitis underlying spontaneous pectoral peritonitis cannot be excluded. Current Visit: Yes Status: Acute Code(s): K70.31 - ALCOHOLIC CIRRHOSIS OF LIVER WITH ASCITES SNOMED Code(s): 198423064 (3) Cholelithiasis Current Visit: No Status: Chronic Code(s): K80.20 - CALCULUS OF GALLBLADDER W/O CHOLECYSTITIS W/O OBSTRUCTION SNOMED Code(s): 406730856 (4) Hepatitis C Current Visit: No Status: Chronic Code(s): B19.20 - UNSPECIFIED VIRAL HEPATITIS C WITHOUT HEPATIC COMA SNOMED Code(s): 81941578 (5) Portal hypertension Current Visit: No Status: Chronic Code(s): K76.6 - PORTAL HYPERTENSION SNOMED Code(s): 97872270 (6) Thrombocytopenia Current Visit: No Status: Chronic Code(s): D69.6 - THROMBOCYTOPENIA, UNSPECIFIED SNOMED Code(s): 588131374 (7) Hydrocele in adult Current Visit: Yes Status: Acute Code(s): N43.3 - HYDROCELE, UNSPECIFIED SNOMED Code(s): 53024762190094 (8) Abdominal wall cellulitis Current Visit: Yes Status: Acute Code(s): L03.311 - CELLULITIS OF ABDOMINAL WALL SNOMED Code(s): 30102119 (9) Acute kidney injury Current Visit: Yes Status: Acute Code(s): N17.9 - ACUTE KIDNEY FAILURE, UNSPECIFIED SNOMED Code(s): 64416744 Plan: 1. Supportive measures. Antibiotics. Daily monitoring of CBC CMP PT/INR and ammonia. GI prophylaxis. ICU management. Assessment and plan of care discussed with Dr. Gregory.
[2019-01-18 09:26] LABS: ABG Base Excess -2.7 mmol/L; ABG HCO3 22 mmol/L (21-25); ABG Oxygen Saturation 96.3 % (94-97); ABG PCO2 34 mmHg (35-45); ABG PH 7.41 (7.35-7.45); ABG PO2 86 mmHg (83-108); ABG TCO2 23 mmol/L (19-24)
--- NOTE | 2019-01-18 09:45 | XR ---
EXAMINATION TYPE: XR chest 1V confirm line [facility] DATE OF EXAM: 01/18/2019 CLINICAL HISTORY: Central line placement. TECHNIQUE: Single AP portable supine view of the chest is obtained. COMPARISON: Chest x-ray from earlier today and older studies. FINDINGS: There is new left-sided subclavian central venous catheter terminating in SVC. Endotrachea l tube is stable in position. There is interval slight retraction of orogastric tube with side-port a vishal diaphragm, recommend advancing 5 to 6 cm. The entire left lateral lung base is not included. The re is persistent left basilar opacity with low lung volumes. Right lung remains clear. Cardiac silhou ette size is felt within normal limits. Osseous structures are intact. IMPRESSION: 1. New left subclavian central venous catheter terminating in SVC. No pneumothorax. 2. Slight interval retraction of orogastric tube, advise advancing 5 to 6 cm. 3. Persistent low lung volumes with left basilar infiltrate and/or atelectasis and probable small lef t pleural effusion.
[2019-01-18] MEDS: THIAMINE 100 MG TAB PO SCH (10:02)
[2019-01-18] MEDS: FOLIC ACID 1 MG TAB PO SCH (10:02)
[2019-01-18] MEDS: MAGNESIUM OXIDE 400 MG TAB PO SCH (10:02)
[2019-01-18 10:11] LABS: Calcium 7.7 mg/dL (8.4-10.2); Potassium 3.7 mmol/L (3.5-5.1); Total Bilirubin 2.7 mg/dL (0.2-1.3); Total Protein 4.9 g/dL (6.3-8.2)
[2019-01-18] MEDS: PIPERACILLIN-TAZOBACTAM 3.375 GM in SODIUM CHLORIDE 0.9% 100 ML IVPB SCH ×2 (10:12→16:44)
[2019-01-18 10:17] VITALS: BMI 30.7
[2019-01-18 10:29] LABS: Anisocytosis Slight; Basophils % (A) 0 %; Eosinophils # (A) 0.1 k/uL (0-0.7); Eosinophils % (A) 1 %; HCT 44.4 % (39.0-53.0); HGB 14.3 gm/dL (13.0-17.5); Lymphocytes # (A) 0.4 k/uL (1.0-4.8); Lymphocytes % (A) 4 %; MCH 35.7 pg (25.0-35.0); MCHC 32.1 g/dL (31.0-37.0); Macrocytosis Marked; Mean Platelet Volume 8.5; Monocytes # (A) 1.4 k/uL (0-1.0); Monocytes % (A) 13 %; Neutrophils # (A) 8.1 k/uL (1.3-7.7); Neutrophils % (A) 78 %; Platelet Count 121 k/uL (150-450); RDW 18.5 % (11.5-15.5); WBC 10.3 k/uL (3.8-10.6)
[2019-01-18] MEDS: buPROPion XL 300 MG TAB.ER.24H PO SCH (11:08)
[2019-01-18] MEDS: LACTULOSE 20 GM/30 ML CUP PO SCH ×2 (11:11→16:44)
[2019-01-18] MEDS ORDERED: NOREPINEPHRINE 4 MG in SODIUM CHLORIDE 0.9% 250 ML IV SCH (12:15)
[2019-01-18] MEDS ORDERED: IV FLUID CONTINUATION 1,000 ML IV ONE (12:44)
[2019-01-18 12:48] LABS: Crenated RBC Present
[2019-01-18 12:49] LABS: Polychromasia Present
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
--- NOTE | 2019-01-18 13:59 | PCN ---
PROCEDURE NOTE PREOPERATIVE DIAGNOSIS: Acute respiratory failure/shock, septic in nature. POSTOPERATIVE DIAGNOSIS: Acute respiratory failure/shock, septic in nature. FIRST PROCEDURE: Insertion of triple-lumen catheter. A time-out was completed verifying correct patient, procedure, site, positioning, and implant(s) or special equipment if applicable. The patient was placed in a dependent position appropriate for triple lumen catheter placement based on the vein to be cannulated. The patient's shoulder was prepped and draped in sterile fashion. 1% Lidocaine was used to anesthetize the surrounding skin area. A triple lumen 9F Cordis catheter was introduced into the subclavian vein using Seldinger technique. The catheter was threaded smoothly over the guide wire and appropriate blood return was obtained. Each lumen of the catheter was evacuated of air and flushed with sterile saline. The catheter was then sutured in place to the skin and a sterile dressing applied. Perfusion to the extremity distal to the point of catheter insertion was checked and found to be adequate. No bedside complications or bleeding. Chest x-ray shows no evidence of pneumothorax. SECOND PROCEDURE: Insertion of arterial line catheter site. A time-out was completed verifying correct patient, procedure, site, positioning, and implant(s) or special equipment if applicable. Michael's test was performed to ensure adequate perfusion. The patient's right groin was prepped and draped in sterile fashion. 1% Lidocaine was used to anesthetize the area. An 18G Arrow arterial line was introduced into the femoral artery. The catheter was threaded over the guide wire and the needle was removed with appropriate pulsatile blood return. Blood loss was minimal. The catheter was then sutured in place to the skin and a sterile dressing applied. Perfusion to the extremity distal to the point of catheter insertion was checked and found to be adequate. The patient tolerated the procedure well and there were no complications. No bedside complication or bleeding. THIRD PROCEDURES: Bronchoscopy. PREOPERATIVE DIAGNOSIS: Acute respiratory failure, left lower lobe atelectasis, MRSA pneumonia. POSTOPERATIVE DIAGNOSIS: Acute respiratory failure, left lower lobe atelectasis, MRSA pneumonia. This procedure was done in the intensive care unit as the patient was mechanically ventilated. The patient was sedated with Diprivan and the patient was calm and comfortable. The patient was on 100% FiO2 with a PEEP of 10. The flexible bronchoscope was inserted through the orotracheal tube. It was advanced into the lower trachea. The tip of the orotracheal tube was around 2 cm above the rip. A full airway inspection was done. The distal trachea, bilateral mainstem bronchi, right upper and right middle right lower lobe were all patent and within normal limits. There was some loose respiratory secretions were obtained that were suctioned out. The bronchoscope was then moved to the left side. The left upper lobe in the lingular segments were patent. Left lower lobe segment was occluded with some respiratory secretions and there was mucoid creamy white secretions occupying the left lower lobe bronchus. Therapeutic airway suctioning was done and the patency of the airway was achieved. Following that, the bronchoscope was removed to the lingula and the bronchial lavage was done with a total of 60 mL of fluid was infused and 25 mL was suctioned back. No other complication or bleeding. Bronchoscope was removed. The necessary ventilator change will be done and repeat will be obtained and the bronchial lavage will be sent for Gram stain and culture. MMODL / IJN: [id number] /
[2019-01-18 14:10] LABS: Appearance,Urine Cloudy (Clear); Bilirubin,Urine Negative (Negative); Blood,Urine Large (Negative); Budding Yeast,Urine Moderate /hpf; Color,Urine Dark Brown; Glucose,Urine (UA) Negative (Negative); Granular Casts,Urine 3 /lpf (0); Hyaline Casts,Urine 38 /lpf (0-2); Hyphae Yeast, Urine Rare /hpf; Ketones,Urine Negative (Negative); Leukocyte Esterase,Urine Large (Negative); Mucus,Urine Rare /hpf; Nitrite,Urine Negative (Negative); PH, Urine 5.5 (5.0-8.0); Protein,Urine 1+ (Negative); RBC,Urine 148 /hpf (0-5); Specific Gravity,Urine 1.017 (1.001-1.035); Squamous Epithelial Cell,Urine <1 /hpf (0-4)
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
--- NOTE | 2019-01-18 15:02 | P.PN ---
Subjective 59-year-old male with a past medical history significant for alcoholic liver disease, successfully completed [facility] for hep C, coronary artery disease, GERD, hypertension coming into the hospital with a chief complaint of swelling of his abdomen, scrotum and also difficulty in breathing that is progressively worsened over the past 1 week. Patient was recently admitted couple of weeks back for MRSA pneumonia and was discharged home. He states that since going home he noticed that he was having increased swelling of his abdomen and scrotum and his lower extremities. Eventually he was short of breath that he came to the emergency department for further evaluation. Patient denies having any fevers, cough, chills or rigors. He denies having any chest pain or palpitations. Patient denies having any abdominal pain, nausea vomiting or di arrhea. He complains of pain in the scrotal area and at times it was difficult for him to pee. But he denies any hematuria or dysuria. Patient has known history of alcohol abuse but he mentions that his last drink was 2-3 weeks back. In the emergency department the patient had a CAT scan of the abdomen showing massive ascites and large right scrotal hydrocele with portal vein hypertension and hepatic cirrhosis and splenomegaly. His blood work is consistent with chronic liver disease. 01/15/2019 Patient is getting paracentesis today. Otherwise patient is being continued on ceftriaxone IV. Still having significant scrotal swelling and hydrocele. Urology recommends no interest in this time. Otherwise patient is being continued on Lasix and spironolactone and Inderal. Gastroenterology is following. Follow fluid analysis. No fever no chills. 01/16/2019 Patient is awake alert but lethargic today. Ammonia level is improving. Otherwise patient is being continued on Lasix spironolactone and Inderal. Patient is also on rifaximin. Paracentesis fluid analysis showed no evidence of infection. On empiric antibiotics in the form of ceftriaxone. Patient is still having scrotal swelling and generalized edema/anasarca. Lower abdominal wall redness is still present. No fever no chills. No nausea vomiting. No complaints of worsening abdominal pain. No diarrhea. Patient is being continued on lactulose. Creatinine 2.98, bilirubin 3.5, 01/17/2019 Patient is more lethargic and drowsy today. Able to open his eyes but could not communicate. Ammonia level is 75 today. Patient was given lactulose edema and continue with lactulose by mouth twice daily. Creatinine level is 2.78. Albumin 2.5. Patient is being continued on Lasix IV twice daily. Still having scrotal swelli ng and abdominal wall edema and redness. Spironolactone is on hold due to acute kidney injury. GI is following. Nephrology was consulted due to acute kidney injury. No fever no chills. No nausea vomiting. Abdomen is still distended with ascites. 01/18/2019 Patient underwent the paracentesis about 6.5 L of fluid removal. Overnight patient went into respiratory failure blood pressure dropped patient subsequently was intubated presently on pressor support patient has significant ascites advanced developer and amusement centre manager evaluated the patient they believe patient has intra-abdominal source of infection patient is on empiric antibiotic Zosyn at this time patient appears to have hepatorenal syndrome with worsening creatinine urine output is extremely minimal at this time patient is being meliton nued on pressor support at this time. Lactic acid is elevated most probably from hepatic dysfunction decreased organ perfusion from shock. Active Medications Al Hydroxide/Mg Hydroxide (Maalox) 30 ml PO Q4HR PRN PRN Reason: GI Upset Last Admin: 01/15/19 20:08 Dose: 30 ml Documented by: Bupropion HCl (Wellbutrin Xl) 300 mg PO QAM [facility] Last Admin: 01/18/19 11:08 Dose: 300 mg Documented by: Chlorhexidine Gluconate (Peridex) 15 ml MUCOUS MEM BID [facility] Last Admin: 01/18/19 10:03 Dose: 15 ml Documented by: Folic Acid (Folic Acid) 1 mg PO DAILY [facility] Last Admin: 01/18/19 10:02 Dose: 1 mg Documented by: Acetaminophen 1,000 mg/ IV (Solution) 100 mls @ 400 mls/hr IVPB Q6HR PRN PRN Reason: Fever and/ or Pain Stop: 01/19/19 06:48 Propofol 1,000 mg/ IV Solution 100 mls @ 0 mls/hr IV .Q0M [facility]; Protocol Last Titration: 01/18/19 11:30 Dose: 25 mcg/kg/min, 15.42 mls/hr Documented by: Sodium Chloride (Saline 0.9%) 1,000 mls @ 20 mls/hr IV .Q24H [facility] Last Admin: 01/18/19 10:04 Dose: 20 mls/hr Documented by: Piperacillin Sod/Tazobactam (Sod 3.375 gm/ Sodium Chloride) 100 mls @ 25 mls/hr IVPB Q8HR [facility] Last Admin: 01/18/19 10:12 Dose: 25 mls/hr Documented by: Norepinephrine Bitartrate 4 mg (/ Sodium Chloride) 254 mls @ 19.583 mls/hr IV .[id number] [facility]; Protocol Last Admin: 01/18/19 12:09 Dose: 0.05 mcg/kg/min, 19.583 mls/hr Documented by: Lactulose (Cephulac) 20 gm PO TID [facility] Last Admin: 01/18/19 11:11 Dose: 20 gm Documented by: Lorazepam (Ativan) 1 mg IV Q2HR PRN PRN Reason: CIWA 8 or 9 Last Admin: 01/17/19 20:35 Dose: 1 mg Documented by: Lorazepam (Ativan) 1 mg IV Q1HR PRN PRN Reason: CIWA 10 to 15 Last Admin: 01/17/19 21:55 Dose: 1 mg Documented by: Magnesium Oxide (Mag-Ox) 400 mg PO DAILY [facility] Last Admin: 01/18/19 10:02 Dose: 400 mg Documented by: Naloxone HCl (Narcan) 0.2 mg IV Q2M PRN PRN Reason: Opioid Reversal Ondansetron HCl (Zofran) 4 mg IVP Q8HR PRN PRN Reason: Nausea And Vomiting Last Admin: 01/17/19 19:04 Dose: 4 mg Documented by: Pantoprazole Sodium (Protonix) 40 mg IVP DAILY [facility] Last Admin: 01/18/19 10:02 Dose: 40 mg Documented by: Rifaximin (Xifaxan) 550 mg PO BID [facility] Last Admin: 01/17/19 19:07 Dose: 550 mg Documented by: Thiamine HCl (Vitamin B-1) 100 mg PO DAILY [facility] Last Admin: 01/18/19 10:02 Dose: 100 mg Documented by: Objective - Vital Signs Vital signs: Vital Signs Temp 97.1 F L 01/18/19 12:00 Pulse 89 01/18/19 12:00 Resp 21 01/18/19 12:00 BP 83/59 01/18/19 12:00 Pulse Ox 90 L 01/18/19 12:00 Intake & Output 01/17/19 01/18/19 01/18/19 18:59 06:59 18:59 Intake Total 50 3251.737 Output Total 3800 1300 Balance -3750 -1300 3251.737 Weight 114 kg 102.8 kg 102.8 kg Intake: IV 3210 Piperacillin-Tazobactam 3 100 .375 gm In Sodium Chloride 0.9% 100 ml @ 25 mls/hr IVPB Q8HR [facility] Rx# :[id number] Sodium Chloride 0.9% 1, 100 000 ml @ 20 mls/hr IV . Q24H [facility] Rx#:[id number] Sodium Chloride 0.9% 1, 3000 000 ml @ 999 mls/hr IV . Q1H1M [facility] Rx#:[id number] Intake, IV Titration 41.737 Amount Propofol 1,000 mg In 41.737 Empty Bag 1 bag @ Titrate IV .Q0M [facility] Rx#: [id number] Oral 50 Output: Urine 3800 1300 Other: Voiding Method Indwelling Catheter Indwelling Catheter # Voids 2 # Bowel Movements 2 ABP, PAP, CO, CI - Last Documented Arterial Blood Pressure 93/46 - Exam PHYSICAL EXAMINATION: GENERAL: is intubated sedated HEENT: Pupils are round and equally reacting to light. EOMI. No scleral icterus. No conjunctival pallor. Normocephalic, atraumatic. No pharyngeal erythema. No thyromegaly. CARDIOVASCULAR: S1 and S2 present. No murmurs, rubs, or gallops. PULMONARY: Bibasilar crackles ABDOMEN: Distended there is some ecchymosis in the left lower abdomen probably from paracentesis does have significant distention right inguinal hernia with scrotal edema significant MUSCULOSKELETAL: No joint swelling or deformity. EXTREMITIES: No cyanosis, clubbing, or pedal edema. NEUROLOGICAL: Gross neurological examination did not reveal any focal deficits. SKIN: She does have significant mottling of bilateral legs - Labs CBC & Chem 7: 01/18/19 09:37 01/18/19 09:37 Labs: Abnormal Lab Results - Last 24 Hours (Table) 01/18/19 01/18/19 01/18/19 Range/Units 05:40 05:40 05:40 RBC (4.30-5.90) m/uL MCV 111.3 H (80.0-100.0) fL MCH 35.2 H (25.0-35.0) pg RDW 18.5 H (11.5-15.5) % Plt Count 129 L (150-450) k/uL Neutrophils # (1.3-7.7) k/uL Lymphocytes # 0.5 L (1.0-4.8) k/uL Monocytes # 1.1 H (0-1.0) k/uL ABG pH (7.35-7.45) ABG pCO2 (35-45) mmHg ABG pO2 (83-108) mmHg ABG Total CO2 (19-24) mmol/L ABG O2 Saturation (94-97) % Sodium 136 L (137-145) mmol/L Carbon Dioxide (22-30) mmol/L BUN 69 H (9-20) mg/dL Creatinine 2.53 H (0.66-1.25) mg/dL Glucose 135 H (74-99) mg/dL POC Glucose (mg/dL) (75-99) mg/dL Plasma Lactic Acid Kelton 3.0 H* (0.7-2.0) mmol/L Calcium (8.4-10.2) mg/dL Phosphorus 4.7 H (2.5-4.5) mg/dL Total Bilirubin (0.2-1.3) mg/dL Total Protein (6.3-8.2) g/dL Albumin (3.5-5.0) g/dL Urine Protein (Negative) Urine Blood (Negative) Ur Leukocyte Esterase (Negative) Urine RBC (0-5) /hpf Hyaline Casts (0-2) /lpf Urine Mucus (None) /hpf Urine Yeast (Budding) (None) /hpf 01/18/19 01/18/19 01/18/19 Range/Units 05:40 06:00 06:01 RBC (4.30-5.90) m/uL MCV (80.0-100.0) fL MCH (25.0-35.0) pg RDW (11.5-15.5) % Plt Count (150-450) k/uL Neutrophils # (1.3-7.7) k/uL Lymphocytes # (1.0-4.8) k/uL Monocytes # (0-1.0) k/uL ABG pH 7.46 H (7.35-7.45) ABG pCO2 33 L (35-45) mmHg ABG pO2 64 L (83-108) mmHg ABG Total CO2 (19-24) mmol/L ABG O2 Saturation 92.0 L (94-97) % Sodium (137-145) mmol/L Carbon Dioxide (22-30) mmol/L BUN (9-20) mg/dL Creatinine (0.66-1.25) mg/dL Glucose (74-99) mg/dL POC Glucose (mg/dL) 131 H 135 H (75-99) mg/dL Plasma Lactic Acid Kelton (0.7-2.0) mmol/L Calcium (8.4-10.2) mg/dL Phosphorus (2.5-4.5) mg/dL Total Bilirubin (0.2-1.3) mg/dL Total Protein (6.3-8.2) g/dL Albumin (3.5-5.0) g/dL Urine Protein (Negative) Urine Blood (Negative) Ur Leukocyte Esterase (Negative) Urine RBC (0-5) /hpf Hyaline Casts (0-2) /lpf Urine Mucus (None) /hpf Urine Yeast (Budding) (None) /hpf 01/18/19 01/18/19 01/18/19 Range/Units 07:15 09:24 09:37 RBC 4.00 L (4.30-5.90) m/uL MCV 111.0 H (80.0-100.0) fL MCH 35.7 H (25.0-35.0) pg RDW 18.5 H (11.5-15.5) % Plt Count 121 L (150-450) k/uL Neutrophils # 8.1 H (1.3-7.7) k/uL Lymphocytes # 0.4 L (1.0-4.8) k/uL Monocytes # 1.4 H (0-1.0) k/uL ABG pH (7.35-7.45) ABG pCO2 34 L (35-45) mmHg ABG pO2 75 L (83-108) mmHg ABG Total CO2 26 H (19-24) mmol/L ABG O2 Saturation 93.0 L (94-97) % Sodium (137-145) mmol/L Carbon Dioxide (22-30) mmol/L BUN (9-20) mg/dL Creatinine (0.66-1.25) mg/dL Glucose (74-99) mg/dL POC Glucose (mg/dL) (75-99) mg/dL Plasma Lactic Acid Kelton (0.7-2.0) mmol/L Calcium (8.4-10.2) mg/dL Phosphorus (2.5-4.5) mg/dL Total Bilirubin (0.2-1.3) mg/dL Total Protein (6.3-8.2) g/dL Albumin (3.5-5.0) g/dL Urine Protein (Negative) Urine Blood (Negative) Ur Leukocyte Esterase (Negative) Urine RBC (0-5) /hpf Hyaline Casts (0-2) /lpf Urine Mucus (None) /hpf Urine Yeast (Budding) (None) /hpf 01/18/19 01/18/19 01/18/19 Range/Units 09:37 09:37 12:14 RBC (4.30-5.90) m/uL MCV (80.0-100.0) fL MCH (25.0-35.0) pg RDW (11.5-15.5) % Plt Count (150-450) k/uL Neutrophils # (1.3-7.7) k/uL Lymphocytes # (1.0-4.8) k/uL Monocytes # (0-1.0) k/uL ABG pH (7.35-7.45) ABG pCO2 (35-45) mmHg ABG pO2 (83-108) mmHg ABG Total CO2 (19-24) mmol/L ABG O2 Saturation (94-97) % Sodium 136 L (137-145) mmol/L Carbon Dioxide 20 L (22-30) mmol/L BUN 64 H (9-20) mg/dL Creatinine 2.74 H (0.66-1.25) mg/dL Glucose 137 H (74-99) mg/dL POC Glucose (mg/dL) (75-99) mg/dL Plasma Lactic Acid Kelton 3.4 H* (0.7-2.0) mmol/L Calcium 7.7 L (8.4-10.2) mg/dL Phosphorus (2.5-4.5) mg/dL Total Bilirubin 2.7 H (0.2-1.3) mg/dL Total Protein 4.9 L (6.3-8.2) g/dL Albumin 2.0 L (3.5-5.0) g/dL Urine Protein 1+ H (Negative) Urine Blood Large H (Negative) Ur Leukocyte Esterase Large H (Negative) Urine RBC 148 H (0-5) /hpf Hyaline Casts 38 H (0-2) /lpf Urine Mucus Rare H (None) /hpf Urine Yeast (Budding) Moderate H (None) /hpf Microbiology - Last 24 Hours (Table) 01/15/19 12:01 Gram Stain - Preliminary Paracentesis Fluid Body Fluid Culture - Preliminary 01/15/19 12:01 Anaerobic Culture - Preliminary Ascites Fluid Assessment and Plan Plan: -Acute respiratory failure: Patient is intubated etiology is not clear probably because of decreased PERFUSION and the acute lung injury. There is some left lower lobe atelectasis patient is status post bronchoscopy please refer to the intensive's dictation for further details -Shock probably hypovolemic shock from intravascular volume depletion third spacing of fluid secondary to cirrhosis, portal hypertension although septic shock cannot be ruled out patient is on empiric antibiotics. Lactic acidosis can be from liver failure -COPD with a possible mild acute exacerbation and recent MRSA pneumonia -Liver cirrhosis patient had chronic alcoholism history and does have hepatitis C with portal hypertension multiple admissions for paracentesis patient is status post paracentesis with X.8 liters of fluid removal -Acute kidney injury multifactorial acute tubular necrosis contrast nephropathy hepatorenal syndrome need to be considered as well nephrology is following the patient patient is presently on pressor support -Right scrotal swelling inguinal hernia and hydrocele: General surgery was consulted -Abdominal wall ecchymosis possibly cellulitis is low hepatic encephalopathy and admission and patient is on Xifaxan, ammonia level today is 25 -Coronary artery disease -Hypertension patient is presently hypotensive -Hyperlipidemia Patient is overall prognosis and poor his clinical condition is critical at this time will discuss with the family members. Fire Sprinkler Fitter will discuss with the family members as well
[2019-01-18 16:12] VITALS: TEMP 98.1
[2019-01-18] MEDS: RIFAXIMIN 550 MG TABLET PO SCH (16:43)
[2019-01-18 19:12] VITALS: BP 103/78
[2019-01-18] MEDS ORDERED: ATROPINE OPHTH SOLN 1% 5ML BTL SUBLINGUAL PRN (19:51)
[2019-01-18] MEDS ORDERED: MORPHINE SULFATE 4 MG/ML SYRINGE IV PRN (19:51)
[2019-01-18] MEDS ORDERED: MORPHINE SULFATE (100 MG/2 ML) 100 MG in SODIUM CHLORIDE 0.9% 100 ML IV SCH (20:00)
[2019-01-18] MEDS ORDERED: SCOPOLAMINE 1.5MG/72HR PATCH TRANSDERM SCH (20:00)
[2019-01-18] MEDS: LORazepam 2 MG/ML INJ IV PRN (20:38)
[2019-01-18 20:57] LABS: Appearance,BF Hazy; Color,BF Colorless; Nucleated Cells, Body Fluid 290 /uL; RBC, Body Fluid 55 /uL
[2019-01-18 20:59] LABS: Mononuclear WBC,Body Fluid 5 %; Polynuclear WBC,Body Fluid 95 %
[2019-01-18 22:05] VITALS: PULSE 86; RESP 19
--- NOTE | 2019-01-22 07:53 | CDI ---
Documentation Clarification Form Date: 01/22/19 From: Taya Darrin Jyoti Munguia, Physical Therapy Instructor Hours-8:30 am & 5 pm Betty Admit Date: 01/13/2019 11:06:00 PM Patient Name: Neftaly Amador Visit Number: [id number] Discharge Date: 01/18/2019 10:19:00 PM ATTENTION: The Clinical Documentation Specialists (CDI) and [facility] Coding Staff appreciate your assistance in clarifying documentation. Please respond to the clarification below the line at the bottom and electronically sign. The CDI & [facility] Coding staff will review the response and follow-up if needed. Please note: Queries are made part of the Legal Health Record. If you have any questions, please contact the author of this message via ITS. Dr. Guillermina Montilla Alcoholism is documented in the ED Note, H&P, consults and the 01/18 PN. History/Risk Factors: alcoholic cirrhosis w ascites, septic shock, hydrocele, inguinal hernia, ClWA-AR Scale Total: 01/16-10, 01/17- x 2 Treatment: Ativan IV 1 mg x1 on 01/17 & 01/18 In your professional opinion, can you please clarify if the above clinical indicators and treatment signify any of the following? Alcohol withdrawal Alcohol withdrawal with withdrawal delirium Alcohol dependence Other, please specify Unable to determine No withdrawal MTDD
--- NOTE | 2019-01-22 08:06 | CDI ---
Documentation Clarification Form Date: 01/22/2019 From: Taya Darrin Jyoti Munguia, Meat Hanger Hours-8:30 am & 5 pm Betty Admit Date: 01/13/2019 11:06:00 PM Patient Name: Neftaly Amador Visit Number: [id number] Discharge Date: 01/18/2019 10:19:00 PM ATTENTION: The Clinical Documentation Specialists (CDI) and [facility] Coding Staff appreciate your assistance in clarifying documentation. Please respond to the clarification below the line at the bottom and electronically sign. The CDI & [facility] Coding staff will review the response and follow-up if needed. Please note: Queries are made part of the Legal Health Record. If you have any questions, please contact the author of this message via ITS. Dr. Guillermina Montilla Sepsis has been documented in 01/18 consult and 01/18 progress notes. History/Risk Factors: alcoholic cirrhosis w ascites, severe sepsis w septic shock, ac hypoxic resp failure, ATN Clinical Indicators: Lactic Ac Sepis Rflx positive on admission Plasma lactic acid vein - 3.2 Bilirubin - 3.1 WBC on admission - 10.0 Neutrophils on admission - 8.6 Treatment: IV Rocephin on 01/14, IVP Dilaudid, IV Lasix 40 mg, on 01/18 changed to IV Zosyn Definition of Present on Admission (POA): A diagnosis present at the time the order for admission to inpatient status was written. Documentation must be clear to determine if the condition was present at the time of the patients inpatient admission or developed during the hospital stay. Please clarify if sepsis was POA: ____Y = Yes, the condition was present at the time of the order for inpatient admission. __x__N = No, the condition was not present at the time of the order for inpatient admission. ____W = Clinically undetermined if the condition was present at the time of the order for inpatient admission. MTDD
--- NOTE | 2019-01-22 08:21 | CDI ---
Documentation Clarification Form Date: 01/22/19 From: Taya Darrin Jyoti Munguia, Commercial Driver Hours-8:30 am & 5 pm Betty Admit Date: 01/13/2019 11:06:00 PM Patient Name: Neftaly Amador Visit Number: [id number] Discharge Date: 01/18/2019 10:19:00 PM ATTENTION: The Clinical Documentation Specialists (CDI) and [facility] Coding Staff appreciate your assistance in clarifying documentation. Please respond to the clarification below the line at the bottom and electronically sign. The CDI & [facility] Coding staff will review the response and follow-up if needed. Please note: Queries are made part of the Legal Health Record. If you have any questions, please contact the author of this message via ITS. Dr. Guillermina Montilla Patient on January 18. Patient developed Acute hypoxic respiratory failure, Septic shock, and Acute kidney injury multifactorial acute tubular necrosis contrast nephropathy. He had alcoholic cirrhosis with ascites, portal hypertension, AECOPD, hydrocele, inguinal hernia and acute cellulitis of abdomen. In your professional opinion, please clarify the cause of . Alcoholic Cirrhosis MTDD
--- NOTE | 2019-02-05 08:21 | P.DS ---
Providers Date of admission: 01/13/19 23:06 Expected date of discharge: 01/18/19 Attending physician: Jeferson Rowland Consults: 01/14/19 11:19 Consult Physician Routine Consulting Provider: Chetna Khanna Consult Reason/Comments: ascites Do you want consulting provider notified?: Yes 01/14/19 11:20 Consult Physician Routine Consulting Provider: Naun Ruiz Consult Reason/Comments: hydrocele, swollen scrotum Do you want consulting provider notified?: Yes 01/17/19 08:07 Consult Physician Routine Consulting Provider: Oz Adame Consult Reason/Comments: MARK Do you want consulting provider notified?: Yes 01/18/19 05:47 Consult Physician Stat Consulting Provider: Nikhil Capps Consult Reason/Comments: 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 Please refer to nursing documentation of time and date of . Cause of Cirrhosis Patient Condition at Discharge: Serious Plan - Discharge Summary New Discharge Prescriptions: No Action RX: Furosemide 40 mg PO BID RX: buPROPion XL [Wellbutrin XL] 300 mg PO QAM RX: Omeprazole [PriLOSEC] 20 mg PO DAILY RX: Ranitidine HCl [Zantac] 150 mg PO BID RX: Magnesium 300 mg PO DAILY RX: Propranolol [Inderal] 10 mg PO BID RX: Spironolactone [Aldactone] 50 mg PO BID RX: Fluticasone Nasal [place] [Flonase Nasal [place]] 1 spray EA NOSTRIL DAILY RX: HYDROcodone/APAP 10-325MG [Warren 10-325] 1 tab PO DAILY PRN PRN Reason: Pain RX: valACYclovir HCL [Valtrex] 1,000 mg PO DAILY RX: Thiamine [Vitamin B-1] 100 mg PO DAILY RX: Folic Acid 1 mg PO DAILY RX: Benzocaine/Menthol Lozeng [Cepacol lozenge] 1 lozenge MUCOUS MEM BID PRN PRN Reason: SORE THROAT/MOUTH RX: Clotrimazole/Betameth Cream [Lotrisone] 1 applic TOPICAL BID RX: Ondansetron Odt [Zofran ODT] 8 mg PO Q8HR PRN PRN Reason: Nausea Cefuroxime Axetil [Ceftin] 500 mg PO BID #8 tab RX: Doxycycline [Vibramycin] 100 mg PO BID #8 cap RX: Lactulose [Cephulac] 20 gm PO DAILY #300 ml RX: Ipratropium-Albuterol Nebulize [Duoneb 0.5 mg-3 mg/3 ml Soln] 3 ml IN HALATION RT-QID RX: predniSONE See Taper PO DIRECTED Discharge Medication List RX: Furosemide 40 mg PO BID 03/07/16 [History] RX: Omeprazole [PriLOSEC] 20 mg PO DAILY 09/13/17 [History] RX: buPROPion XL [Wellbutrin XL] 300 mg PO QAM 09/13/17 [History] RX: Ranitidine HCl [Zantac] 150 mg PO BID 11/29/17 [History] RX: Fluticasone Nasal [place] [Flonase Nasal [place]] 1 spray EA NOSTRIL DAILY 12/04/17 [History] RX: Magnesium 300 mg PO DAILY 12/04/17 [History] RX: Propranolol [Inderal] 10 mg PO BID 12/04/17 [History] RX: Spironolactone [Aldactone] 50 mg PO BID 12/04/17 [History] RX: HYDROcodone/APAP 10-325MG [Warren 10-325] 1 tab PO DAILY PRN 05/14/18 [History] RX: Benzocaine/Menthol Lozeng [Cepacol lozenge] 1 lozenge MUCOUS MEM BID PRN 12/07/18 [History] RX: Clotrimazole/Betameth Cream [Lotrisone] 1 applic TOPICAL BID 12/07/18 [History] RX: Folic Acid 1 mg PO DAILY 12/07/18 [History] RX: Ondansetron Odt [Zofran ODT] 8 mg PO Q8HR PRN 12/07/18 [History] RX: Thiamine [Vitamin B-1] 100 mg PO DAILY 12/07/18 [History] RX: valACYclovir HCL [Valtrex] 1,000 mg PO DAILY 12/07/18 [History] Cefuroxime Axetil [Ceftin] 500 mg PO BID #8 tab 12/31/18 [Rx] RX: Doxycycline [Vibramycin] 100 mg PO BID #8 cap 12/31/18 [Rx] RX: Lactulose [Cephulac] 20 gm PO DAILY #300 ml 12/31/18 [Rx] RX: Ipratropium-Albuterol Nebulize [Duoneb 0.5 mg-3 mg/3 ml Soln] 3 ml INHALATION RT-QID 01/14/19 [History] RX: predniSONE See Taper PO DIRECTED 01/14/19 [History] Follow up Appointment(s)/Referral(s): [facility], [NON-STAFF] - Omar Tse MD [Primary Care Provider] - 1-2 days Discharge Disposition: - Preliminary Cause of Preliminary Cause of : Cirrhosis
== END 2019-01-18 22:19 | disposition expired | DRG 981 ==
LOC: EC 17:11 → 3NMEDONC 23:06 → 4MS4W 01-14 08:03 → 2SICU 01-18 06:22
PROVIDERS: ADMIT Hospitalist; ATTEND Hospitalist
PROC: 0W9G3ZZ Drainage of Peritoneal Cavity, Percutaneous Approach (ICD-10-PCS; 2019-01-15)
PROC: 0B9H8ZX Drainage of Lung Lingula, Via Natural or Artificial Opening Endoscopic, Diagnostic (ICD-10-PCS; 2019-01-18)
PROC: 04HY32Z Insertion of Monitoring Device into Lower Artery, Percutaneous Approach (ICD-10-PCS; 2019-01-18)
PROC: 02HV33Z Insertion of Infusion Device into Superior Vena Cava, Percutaneous Approach (ICD-10-PCS; 2019-01-18)
PROC: 4A133B1 Monitoring of Arterial Pressure, Peripheral, Percutaneous Approach (ICD-10-PCS; 2019-01-18)
PROC: 4A133J1 Monitoring of Arterial Pulse, Peripheral, Percutaneous Approach (ICD-10-PCS; 2019-01-18)
PROC: 0BH17EZ Insertion of Endotracheal Airway into Trachea, Via Natural or Artificial Opening (ICD-10-PCS; 2019-01-18)
PROC: 5A1935Z Respiratory Ventilation, Less than 24 Consecutive Hours (ICD-10-PCS; 2019-01-18)
PROC: 0D9670Z Drainage of Stomach with Drainage Device, Via Natural or Artificial Opening (ICD-10-PCS; 2019-01-18)
PROC: 0B9G8ZZ Drainage of Left Upper Lung Lobe, Via Natural or Artificial Opening Endoscopic (ICD-10-PCS; principal; 2019-01-18 09:50)
DX: K70.31 Alcoholic cirrhosis of liver with ascites (principal); A41.9 Sepsis, unspecified organism; R65.21 Severe sepsis with septic shock; J96.01 Acute respiratory failure with hypoxia; N17.0 Acute kidney failure with tubular necrosis; K76.7 Hepatorenal syndrome; K65.9 Peritonitis, unspecified; K76.6 Portal hypertension; L03.311 Cellulitis of abdominal wall; E87.1 Hypo-osmolality and hyponatremia; J98.11 Atelectasis; J90 Pleural effusion, not elsewhere classified; J44.1 Chronic obstructive pulmonary disease with (acute) exacerbation; E87.2 Acidosis; E44.1 Mild protein-calorie malnutrition; I85.10 Secondary esophageal varices without bleeding; Z66 Do not resuscitate; D69.6 Thrombocytopenia, unspecified; K70.40 Alcoholic hepatic failure without coma; E87.70 Fluid overload, unspecified; E66.01 Morbid (severe) obesity due to excess calories; F10.20 Alcohol dependence, uncomplicated; N14.1 Nephropathy induced by other drugs, medicaments and biological substances; T50.8X5A Adverse effect of diagnostic agents, initial encounter; N43.3 Hydrocele, unspecified; K40.90 Unilateral inguinal hernia, without obstruction or gangrene, not specified as recurrent; E78.5 Hyperlipidemia, unspecified; R32 Unspecified urinary incontinence; T50.2X5A Adverse effect of carbonic-anhydrase inhibitors, benzothiadiazides and other diuretics, initial encounter; I10 Essential (primary) hypertension; K80.20 Calculus of gallbladder without cholecystitis without obstruction; I25.10 Atherosclerotic heart disease of native coronary artery without angina pectoris; K21.9 Gastro-esophageal reflux disease without esophagitis; K59.00 Constipation, unspecified; N50.89 Other specified disorders of the male genital organs; H40.9 Unspecified glaucoma; Z68.30 Body mass index [BMI] 30.0-30.9, adult; F17.210 Nicotine dependence, cigarettes, uncomplicated; Z79.899 Other long term (current) drug therapy; Z71.3 Dietary counseling and surveillance; Z87.81 Personal history of (healed) traumatic fracture; Z86.14 Personal history of Methicillin resistant Staphylococcus aureus infection; Z86.19 Personal history of other infectious and parasitic diseases; Z87.01 Personal history of pneumonia (recurrent); Z81.1 Family history of alcohol abuse and dependence; Z80.9 Family history of malignant neoplasm, unspecified
CPT/HCPCS: 31624; 36415; 36600; 49083; 71045; 71046; 74177; 80048; 80053; 81001; 82042; 82105; 82140; 82805; 83605; 83735; 83880; 84100; 84157; 84484; 85025; 85610; 85730; 87040; 87070; 87075; 87086; 87102; 87205; 87252; 87496; 87498; 87502; 87529; 87634; 87798; 88108; 88305; 89050; 94002; 94640; 96374; 96375; 96376; 99285